=== PATIENT | male | born 1945 | race Caucasian/White ===

== ENCOUNTER 2019-08-12 10:58 | Emergency (ER) | payer MEDICARE, BC, SELFPAY ==
--- NOTE | ~2019-08-12 | US_ITS ---
EXAMINATION: US venous doppler [facility] DATE: 08/12/2019 11:49 INDICATION: Bilateral lower limb swelling TECHNIQUE: Paul scale images without and with compression and Doppler images of the bilateral lower e xtremity veins were obtained. COMPARISON: 10/08/2014. FINDINGS: The right common femoral vein, profunda femoral vein, femoral vein, popliteal vein, peroneal trunk, p osterior tibial veins, and greater saphenous vein are patent. The left common femoral vein, profunda femoral vein, femoral vein, popliteal vein, peroneal trunk, po sterior tibial veins, and greater saphenous vein are patent. IMPRESSION: 1. Patent bilateral lower extremity veins. No evidence of deep venous thrombosis. Reviewed, dictated and finalized at location A. OYMENT OFFICER IMPRESSION: 1. Patent bilateral lower extremity veins. No evidence of deep venous thrombosi s.
--- NOTE | ~2019-08-12 | XR_ITS ---
EXAMINATION: XR chest 2V DATE: 08/12/2019 11:53 INDICATION: Edema and confusion TECHNIQUE: Frontal and lateral views of the chest are obtained COMPARISON: 06/18/2019 FINDINGS: The lungs are free of acute opacities. There is no pleural effusion or pneumothorax. The ca rdiomediastinal silhouette is normal. There is chronic elevation of the left hemidiaphragm. Changes o f posterior thoracolumbar fusion are noted. IMPRESSION: 1. No acute cardiopulmonary abnormality. Reviewed, dictated and finalized at location A. NG FINISHER
[2019-08-12 10:57] VITALS: BP 132/99; PULSE 72; RESP 16; TEMP 36.4; O2SAT 98
--- NOTE | 2019-08-12 11:06 | ED.LOWEXIN ---
HPI - Extremity Injury (Lower) General Chief Complaint: Extremity Injury, Lower Stated Complaint: swollen feet/ankles Time Seen by Provider: 08/12/19 10:59 Source: patient, family and RN notes reviewed Mode of arrival: EMS History of Present Illness HPI Narrative: A 74 y/o male presents to the ED via EMS from assisted living facility [facility] pedal edema for the past couple days. Per family states that the pt had his 10th back surgery in April, he was then admitted at [facility] for a staph infection on 05/28/19 and had to be reopened, then was moved into rehab, and was moved into assisted living on 07/31/19. They report that the first weekend that the pt was in assisted living that they had his Parkinson's medications incorrect, but that they have since corrected them. They state that for the past couple days the pt has been having visual hallucinations, which was similar to how he was before he was dx with staph. They note that the pt has been not being drinking much fluids and has had minimal urine out put. They also note that the pt is on abx for life and is not on any BT's besides a baby aspirin. The pt denies any SOB, cough, N/V/D, ABD pain, fevers, chills, sweats, or CP. MD complaint: other ([facility] pedal edema) Onset (ago): day(s) (a couple) Place: other (assisted living facility) Other symptoms: other (visual hallucinations and minimal urine out put) Related Data Home Medications Medication Instructions Recorded Confirmed Centrum Silver 1 tablet PO DAILY 06/18/19 06/18/19 Refresh Classic (PF) 1 drp OPHTHALMIC (EYE) QID 06/18/19 06/18/19 acetaminophen 650 mg PO Q4-6H PRN 06/18/19 06/18/19 albuterol sulfate 2.5 mg INHALATION Q4H PRN 06/18/19 06/18/19 bisacodyl 10 mg ND DAILY PRN 06/18/19 06/18/19 docusate sodium 100 mg PO BID PRN 06/18/19 06/18/19 enoxaparin 30 mg SUBCUT DAILY 06/18/19 06/18/19 entacapone 200 mg PO QID 06/18/19 06/18/19 guaifenesin 600 mg PO Q12H 06/18/19 06/18/19 lactulose 20 g PO EVERY OTHER DAY 06/18/19 06/18/19 magnesium oxide 400 mg PO DAILY 06/18/19 06/18/19 ondansetron 4 mg PO Q6H PRN 06/18/19 06/18/19 pantoprazole 40 mg PO BID 06/18/19 06/18/19 polyethylene glycol 3350 17 g PO EVERY OTHER DAY 06/18/19 06/18/19 ramelteon 8 mg PO HS 06/18/19 06/18/19 ropinirole 4 mg PO QID 06/18/19 06/18/19 sennosides [senna] 8.6 mg PO BID PRN 06/18/19 06/18/19 tamsulosin 0.4 mg PO DAILY 06/18/19 06/18/19 Allergies Allergy/AdvReac Type Severity Reaction Status Date / Time adhesive Allergy Unknown Verified 11/15/16 09:31 latex Allergy Unknown Verified 11/15/16 09:31 No Known Drug Allergies Allergy Unknown . Verified 05/31/19 13:45 adhesive tape AdvReac Unknown BLISTERS Verified 05/31/19 13:45 gabapentin AdvReac Unknown HALLUCINATI Verified 05/31/19 13:45 ONS Review of Systems Review of Systems: All systems reviewed & are unremarkable except as noted in HPI and below Constitutional: Constitutional: Denies chills and Denies fever(s) Cardiovascular: Cardiovascular: Denies chest pain, Denies diaphoresis and Reports pedal edema ([facility]) Respiratory: Respiratory: Denies cough and Denies dyspnea Gastrointestinal: Gastrointestinal: Denies abdominal pain, Denies diarrhea, Denies nausea and Denies vomiting Genitourinary: Genitourinary: Reports other (minimal urine out put) Psychiatric: Psychiatric: Reports visual hallucinations PMFSH Past Medical History Medical History (Updated 08/12/19 @ 13:31 by Boston Gibson MD) Anxiety Arthritis At high risk for falls after spinal surgery Complication of surgical and medical care GERD (gastroesophageal reflux disease) Glaucoma H/O: HTN (hypertension) History of inguinal hernia History of pneumonia Hx of hemorrhoids Hx of Parkinson's disease Parkinsons disease Rupture of diaphragm Surgical History Surgical History (Updated 08/12/19 @ 12:16 by Carlos Greenberg) History of cholecystectomy History of hemorrhoidectomy History of inguinal hernia repair History of left hip replacem
[2019-08-12 12:25] LABS: Hematocrit 33.3 % (42.0-52.0); Hemoglobin 9.7 g/dL (14.0-18.0); Mean Corpuscular HGB Conc 29.1 g/dl (32-36); Mean Corpuscular Hemoglobin 23.4 pg (26-34); Mean Corpuscular Volume 80.2 fl (80-100); Mean Platelet Volume 8.6 fl (7.4-10.4); Platelet Count Result 317 k/mm3 (150-375); Red Blood Count 4.15 M/mm3 (4.6-6.20); Red Cell Distribution Width 17.1 % (11.5-14.5)
[2019-08-12 12:28] LABS: Add Urine Microscopic? YES; Appearance Urine Clear (Clear); Bilirubin Urine Negative (Negative); Blood Urine Negative (Negative); Color Urine Amber (Yellow); Glucose Urine UA Negative (Negative); Ketones Urine Trace mg/dL (Negative); Leukocyte Esterase Ur Negative LEU/UL (Negative); Mucus Urine Rare /lpf; Nitrate Urine Negative (Negative); Protein Urine Negative (Negative); RBC Urine 0-2 /hpf (0-2); Urobilinogen Urine Negative mg/dL (<2.0); WBC Urine 0-3 /hpf
[2019-08-12 12:36] LABS: Blood Urea Nitrogen 14 mg/dL (9-20); Calcium 8.6 mg/dL (8.4-10.2); Carbon Dioxide 31 mmol/L (22-30); Chloride 101 mmol/L (98-107); Estimated CRCL calculation 67 ml/min; Estimated Glomerular Filt Rate > 60; Glucose 99 mg/dL (75-110); INR 1.1; Potassium 3.7 mmol/L (3.4-5.0); Prothrombin Time 13.4 Seconds (11.1-14.7); Sodium 139 mmol/L (137-145)
[2019-08-12 12:37] LABS: Partial Thromboplastin Time 31.5 SECONDS (22.3-36.8)
[2019-08-12 12:40] VITALS: BP 128/69; PULSE 67; RESP 15; O2SAT 97
[2019-08-12 12:40] LABS: Platelet Estimate Adequate (Adequate)
[2019-08-12 12:41] LABS: Hypochromasia 1+ (NORMAL)
[2019-08-12 12:45] LABS: NT Pro B Type Natriuretic Pept 153 PG/ML (5-100)
== END 2019-08-12 13:58 ==
PROVIDERS: Emergency Provider Emergency Medicine; PCP Family Medicine
DX: R60.0 Localized edema (principal); I10 Essential (primary) hypertension; G20 Parkinson's disease; F41.9 Anxiety disorder, unspecified; Z79.899 Other long term (current) drug therapy
CPT/HCPCS: 36415; 71046; 80048; 81001; 83880; 85025; 85610; 85730; 93970; 99284

== ENCOUNTER 2019-11-08 01:00 | Emergency (ER) | payer MEDICARE, BC, SELFPAY ==
--- NOTE | ~2019-11-08 | XR_ITS ---
XR chest 2V DATE: 11/08/2019 02:06 INDICATION: Fever, sore throat TECHNIQUE: AP and lateral views COMPARISON: 08/22/2019 portable AP chest 08/22/2019 CT chest 09/09/2018 AP and lateral chest FINDINGS: There is chronic elevation of the left leaf of the diaphragm with associated atelectasis at the left lung base. The lungs otherwise appear clear. Heart size appears within normal limits. No pleural effusion or pulmonary vascular congestion or pneu mothorax. Thoracolumbar rods with pedicle screws. Interbody fusion in the lumbar spine region. IMPRESSION: Chronic elevation of left diaphragm and mild left basilar atelectasis Reviewed, dictated and finalized at location A. IMPRESSION: Chronic elevation of left diaphragm and mild left basilar atelectas is
[2019-11-08 01:03] VITALS: BP 136/65; PULSE 70; RESP 18; TEMP 36.7; O2SAT 96
--- NOTE | 2019-11-08 01:06 | ED.URI ---
HPI - URI/Sore Throat General Chief Complaint: Upper Respiratory Infection Stated Complaint: s/t Time Seen by Provider: 11/08/19 01:24 Source: patient and RN notes reviewed Mode of arrival: EMS Limitations: no limitations History of Present Illness HPI Narrative: Pt is a 74 y/o male who presents to the ED, via EMS from [facility], with c/o a mild intermittent sore throat with an unknown onset. Pt states that he can hear himself gurgling fluids. Pt is able to tolerate water and fluids. Pt also reports a cough, but denies dysphagia, otalgia, myalgias, chest pain, dyspnea, and a rash. MD elicited complaint: sore throat Onset (ago): unknown Consistency: intermittent Severity: mild Able to tolerate fluids by mouth: Yes Associated symptoms: cough Related Data Home Medications Medication Instructions Recorded Confirmed Centrum Silver 1 tablet PO DAILY 06/18/19 06/18/19 Refresh Classic (PF) 1 drp OPHTHALMIC (EYE) QID 06/18/19 06/18/19 acetaminophen 650 mg PO Q4-6H PRN 06/18/19 06/18/19 albuterol sulfate 2.5 mg INHALATION Q4H PRN 06/18/19 06/18/19 bisacodyl 10 mg ID DAILY PRN 06/18/19 06/18/19 docusate sodium 100 mg PO BID PRN 06/18/19 06/18/19 enoxaparin 30 mg SUBCUT DAILY 06/18/19 06/18/19 entacapone 200 mg PO QID 06/18/19 06/18/19 guaifenesin 600 mg PO Q12H 06/18/19 06/18/19 lactulose 20 g PO EVERY OTHER DAY 06/18/19 06/18/19 magnesium oxide 400 mg PO DAILY 06/18/19 06/18/19 ondansetron 4 mg PO Q6H PRN 06/18/19 06/18/19 pantoprazole 40 mg PO BID 06/18/19 06/18/19 polyethylene glycol 3350 17 g PO EVERY OTHER DAY 06/18/19 06/18/19 ramelteon 8 mg PO HS 06/18/19 06/18/19 ropinirole 4 mg PO QID 06/18/19 06/18/19 sennosides [senna] 8.6 mg PO BID PRN 06/18/19 06/18/19 Allergies Allergy/AdvReac Type Severity Reaction Status Date / Time adhesive Allergy Unknown Unknown Verified 08/22/19 13:59 latex Allergy Unknown Unknown Verified 08/22/19 13:59 gabapentin AdvReac Unknown HALLUCINATI Verified 05/31/19 13:45 ONS Review of Systems Review of Systems: Narrative: ENT: Reports sore throat. Denies dysphagia and otalgia. CARDIOVASCULAR: Denies chest pain. RESPIRATORY: Reports cough. Denies dyspnea. SKIN: Denies rash. MUSCULOSKELETAL: Denies myalgias. All systems reviewed & are unremarkable except as noted in HPI and below PMFSH Past Medical History Medical History (Updated 11/08/19 @ 02:14 by Laurence Dunn MD) Anxiety Arthritis At high risk for falls after spinal surgery Chronic back pain Complication of surgical and medical care GERD (gastroesophageal reflux disease) Glaucoma H/O: HTN (hypertension) History of inguinal hernia History of pneumonia Hx of hemorrhoids Hx of Parkinson's disease Infection of spine Parkinsons disease Rupture of diaphragm Surgical History Surgical History (Updated 08/12/19 @ 12:16 by Carlos Greenberg) History of cholecystectomy History of hemorrhoidectomy History of inguinal hernia repair History of left hip replacement History of spinal surgery x10. History of thyroidectomy Social History Social History Smoking status: Never smoker Second hand tobacco smoke exposure: No Alcohol intake: never Substance use: never Substance use type: does not use Gender identity (if verbalized by the patient): Male Spiritual care concerns: No Agree to blood products: Yes Exam Narrative: Exam Narrative: CONSTITUTIONAL: Awake, alert, conversant HEAD: Normocephalic, atraumatic. EYES: EOMI, conjunctiva clear ENT: Nares patent. Mucous membranes moist. Tonsils normal and pillar normal, no exudate. No trismus. No evidence of LADDERMAN. Uvula is midline. NECK: Full range of motion. Mild anterior cervical lymphadenopathy RESPIRATORY: No respiratory distress, speaking in full sentences, no tachypnea, upper airway rhonchi without wheezing HEART: Regular rate ABDOMEN: Non distended, non tender EXTREMITIES: Normal range of motion. No edema SKIN: Warm, dry, no rash. NEUROLOGIC: No focal deficits.
[2019-11-08 02:44] VITALS: BP 123/67; PULSE 64; RESP 13; O2SAT 96
--- NOTE | 2019-11-08 03:03 | PC.NURSE ---
ETA for ambulance 5am, for patient return to [facility].
--- NOTE | 2019-11-08 03:29 | PC.NURSE ---
[id number]: Called [facility] to transport back to facility...ETA [id number]
--- NOTE | 2019-11-08 04:33 | PC.NURSE ---
EMS here to transfer patient back to [facility].
--- NOTE | 2019-11-08 04:34 | PC.NURSE ---
Patient report given to Gladys MELO at [facility].
== END 2019-11-08 04:37 ==
PROVIDERS: Emergency Provider Emergency Medicine; PCP Family Medicine
DX: J40 Bronchitis, not specified as acute or chronic (principal); J02.9 Acute pharyngitis, unspecified; M19.90 Unspecified osteoarthritis, unspecified site; K21.9 Gastro-esophageal reflux disease without esophagitis; H40.9 Unspecified glaucoma; G20 Parkinson's disease; Z96.642 Presence of left artificial hip joint; E89.0 Postprocedural hypothyroidism
CPT/HCPCS: 71046; 87081; 87804; 87880; 99283

== ENCOUNTER 2020-09-02 02:55 | Emergency (ER) | payer MEDICARE, BC, SELFPAY ==
[2020-09-02] VITALS (19 sets, daily range): BP systolic 128–161; BP diastolic 64–87; PULSE 62–69; RESP 12–21; TEMP 36.3; O2SAT 96–100
--- NOTE | ~2020-09-02 | XR_ITS ---
EXAMINATION: XR chest 1V portable EXAM DATE: 09/02/2020 03:44 INDICATION: Cough and shortness of breath. TECHNIQUE: Portable AP frontal chest x-ray was obtained. Comparison is made to prior examination from 11/08/2019. FINDINGS: Chronic severely elevated left hemidiaphragm which could indicate paralysis. Mild cardiomeg scooby. Chronic hyperinflation of the right lung. There is no pneumothorax suspected. There are no pleur al effusions. Thoracic rods. IMPRESSION: Cardiomegaly unchanged. No acute cardiopulmonary findings. Reviewed, dictated and finalized at location A. GUARD
--- NOTE | 2020-09-02 03:44 | PC.NURSE ---
Portable cxr being done.
--- NOTE | 2020-09-02 04:05 | ED.GENADULT ---
HPI - General Adult General Chief complaint: Unspecified Stated complaint: CONGESTION; DIFF BREATHING Time Seen by Provider: 09/02/20 03:15 History of Present Illness HPI narrative: Patient is a 75-year-old gentleman who presents the emergency department with chief complaint of shortness of breath. Patient reports that he received his second COVID-19 vaccine today and was sleeping and woke up and felt congested. The patient states he started coughing and was concerned that he was having a reaction to the COVID-19 vaccination. Patient states that by the time he is arrived to the emergency department he feels as though his symptoms have improved and have resolved. Patient denies chest pain denies diaphoresis Related Data Home Medications Medication Instructions Recorded Confirmed Centrum Silver 1 tablet PO DAILY 06/18/19 06/18/19 Refresh Classic (PF) 1 drp OPHTHALMIC (EYE) QID 06/18/19 06/18/19 acetaminophen 650 mg PO Q4-6H PRN 06/18/19 06/18/19 albuterol sulfate 2.5 mg INHALATION Q4H PRN 06/18/19 06/18/19 bisacodyl 10 mg MN DAILY PRN 06/18/19 06/18/19 docusate sodium 100 mg PO BID PRN 06/18/19 06/18/19 enoxaparin 30 mg SUBCUT DAILY 06/18/19 06/18/19 entacapone 200 mg PO QID 06/18/19 06/18/19 guaifenesin 600 mg PO Q12H 06/18/19 06/18/19 lactulose 20 g PO EVERY OTHER DAY 06/18/19 06/18/19 magnesium oxide 400 mg PO DAILY 06/18/19 06/18/19 ondansetron 4 mg PO Q6H PRN 06/18/19 06/18/19 pantoprazole 40 mg PO BID 06/18/19 06/18/19 polyethylene glycol 3350 17 g PO EVERY OTHER DAY 06/18/19 06/18/19 ramelteon 8 mg PO HS 06/18/19 06/18/19 ropinirole 4 mg PO QID 06/18/19 06/18/19 sennosides [senna] 8.6 mg PO BID PRN 06/18/19 06/18/19 Artificial Tears 09/02/20 Robaxin-750 09/02/20 Jkpqxzrluc-Pajdo-Paoby-Alex PRN 09/02/20 09/02/20 doxycycline hyclate 09/02/20 09/02/20 duloxetine 09/02/20 melatonin 09/02/20 09/02/20 nortriptyline 09/02/20 nystatin 09/02/20 quetiapine 09/02/20 Allergies Allergy/AdvReac Type Severity Reaction Status Date / Time adhesive Allergy Unknown Unknown Verified 12/12/19 08:02 latex Allergy Unknown Unknown Verified 12/12/19 08:02 shrimp Allergy Unknown Verified 09/02/20 03:06 gabapentin AdvReac Unknown HALLUCINATI Verified 12/12/19 08:02 ONS Review of Systems Review of Systems: Narrative: A 10 system review of systems was completed on the patient and is negative except for what is stated in the HPI. Nursing and ancillary documentation was reviewed. PMFSH Past Medical History Medical History Anemia Anxiety Arthritis At high risk for falls after spinal surgery Chronic back pain CKD (chronic kidney disease) stage 3, GFR 30-59 ml/min Complication of surgical and medical care Essential (primary) hypertension GERD (gastroesophageal reflux disease) Glaucoma H/O: HTN (hypertension) History of inguinal hernia History of pneumonia Hx of hemorrhoids Hx of Parkinson's disease Hyperlipidemia LDL goal <100 Infection of spine Parkinsons disease Rupture of diaphragm Surgical History Surgical History History of cholecystectomy History of hemorrhoidectomy History of inguinal hernia repair History of left hip replacement History of spinal surgery x10. History of thyroidectomy Family History Family History Father Family history of Parkinson's disease Family history of colonic diverticulitis Hypertension Family history of cardiovascular disease Mother Family history of Alzheimer's disease Sibling Family history of malignant neoplasm of breast in first degree relative Diabetes mellitus Hypertension Other Family history of arthritis Family history of malignant neoplasm Social History Social History Smoking status: Never smoker Seco
--- NOTE | 2020-09-02 04:15 | PC.NURSE ---
Pt status unchanged. No respiratory difficulties. Awaiting disposition.
--- NOTE | 2020-09-02 04:41 | PC.NURSE ---
Report called to [facility]. Pt states he walks, staff at [facility] states that he tries to do things he shouldn't. He walks very, very slowly due to his parkinsons .
--- NOTE | 2020-09-02 04:49 | PC.NURSE ---
Call to pt's daughter Cristina Rice @ [phone]. States will make arrangements and return call.
--- NOTE | 2020-09-02 05:02 | PC.NURSE ---
Received call from Rox at [facility], states that the family called her and were just hateful to me that I sent him to the hospital with no clothes; they are mad also that he was sent by an ambulance and is unable to go back in one . Requests that this RN call and speak to the family. Call to Cristina Rice and male at the home. Explained that it is completely normal for patients to arrive in hospital gowns if the staff feel like it's an emergency to have them seen. Also explained that we have paper pants and socks that we can place on the patient; he also can use blankets to get him back to [facility]. The family is also welcome to bring clothes that we can place on him if they so wish. Male at the home is also asking why the patient cannot go back by ambulance. Explained the PCS form for ambulance transport provided by the Department of Human Services, and that the patient does not meet criteria for an ambulance. The male at the home states we'll work something out; we'll go get his clothes but it's going to be a while . Explained that the patient is comfortable in the room at present and to let staff know when they arrive.
--- NOTE | 2020-09-02 05:18 | PC.NURSE ---
Pt signs d/c instructions and updated on ride. Pt requests pain medicaton for his chronic hip pain. Pt changed positions for comfort with some relief. Dr. Steward made aware of pt request.
[2020-09-02] MEDS: ACETAMINOPHEN 500 MG TABLET 1000 MG PO (05:47)
--- NOTE | 2020-09-02 06:14 | PC.NURSE ---
Pt assisted with getting dressed with clothes provided per family. Pt assisted to w/c x2 and then to car. D/C papers sent with patient.
== END 2020-09-02 06:10 ==
PROVIDERS: Emergency Provider Emergency Medicine; PCP Family Medicine
DX: R06.00 Dyspnea, unspecified (principal); Z86.2 Personal history of diseases of the blood and blood-forming organs and certain disorders involving the immune mechanism; M19.90 Unspecified osteoarthritis, unspecified site; I12.9 Hypertensive chronic kidney disease with stage 1 through stage 4 chronic kidney disease, or unspecified chronic kidney disease; N18.30 Chronic kidney disease, stage 3 unspecified; K21.9 Gastro-esophageal reflux disease without esophagitis; H40.9 Unspecified glaucoma; G20 Parkinson's disease; E78.5 Hyperlipidemia, unspecified; Z96.642 Presence of left artificial hip joint; E89.0 Postprocedural hypothyroidism
CPT/HCPCS: 71045; 99283; A9270

== ENCOUNTER 2022-11-17 20:17 | Emergency (ER) | payer MEDICARE, BC, SELFPAY ==
--- NOTE | ~2022-11-17 | CT_ITS ---
EXAMINATION: CT cervical spine wo con DATE: 11/17/2022 22:27 INDICATION: Head injury TECHNIQUE: Computed tomography (CT) of the cervical spine was performed without intravenous contrast. The dose-length product (DLP) was 561.30 mGy-cm. Automated exposure control and iterative reconstruc tion technique were employed. COMPARISON: 08/22/2019 FINDINGS: There are interbody fusion devices at C3-4 and C5-6. The vertebral body heights are maintai shayy. There are 2 mm of anterolisthesis of C7 on T1. The vertebral body heights are normal. There is m oderate to severe loss of intervertebral disc space height throughout the cervical spine. The odontoi d process is intact. There is no fracture. There is multilevel severe facet and uncovertebral joint o steoarthritis. There is partially imaged posterior fusion hardware of the thoracic spine. There is se aliya loss of intervertebral disc space height at T2-3. IMPRESSION: 1. Severe cervical spondylosis without acute findings or significant interval change. Reviewed, dictated and finalized at location F. IMPRESSION: 1. Severe cervical spondylosis without acute findings or significant interval c love.
--- NOTE | ~2022-11-17 | CT_ITS ---
EXAMINATION: CT brain wo con INDICATION: Head injury COMPARISON: 08/22/2019 TECHNIQUE: Standard unenhanced head CT. The dose-length product (DLP) was 681.00 mGy-cm. The mA was a djusted according to patient size. Iterative reconstruction technique was employed. FINDINGS: There is no acute intraparenchymal hemorrhage. No evidence of mass lesion. No evidence of a cute infarction. There is mild periventricular and subcortical hypodensity probably related to small vessel ischemic disease. There is mild prominence of the sulci and ventricles related to cerebral atr ophy. Intracranial calcified cerebral atherosclerosis is noted. There are no extra-axial collections. There is no mass effect or midline shift. Changes in the globes are likely from ocular lens surgery. There is mild mucosal thickening of the paranasal sinuses. IMPRESSION: 1. No acute intracranial abnormality. 2. Age related findings. Reviewed, dictated and finalized at location F.
[2022-11-17 20:19] VITALS: BP 152/62; PULSE 74; RESP 17; TEMP 36.4; O2SAT 100
--- NOTE | 2022-11-17 21:48 | ED.FALL ---
HPI - Fall General Chief Complaint: Fall Stated Complaint: FALL; HEAD PAIN; LAC TO HEAD Time Seen by Provider: 11/17/22 21:04 History of Present Illness HPI Narrative: This is a 77-year-old male with PMH of Parkinson's, hypertension, CKD presents the ED via EMS with chief complaint of head injury and laceration after a fall. Patient states he was attempting to transfer from his chair to bed and slipped out of the chair and hit his head. He is able to recall the entirety of the sequence of events. Denies LOC. He is not on blood thinners. Reports pain to the right occiput. Denies numbness, weakness. Denies other neurologic symptoms. Denies any further site of pain or injury. Past surgical history of multiple spinal surgeries. Related Data Home Medications Medication Instructions Recorded Confirmed entacapone 200 mg tablet 200 mg PO QID 06/18/19 06/27/21 guaifenesin 600 mg tablet, 600 mg PO Q12H 06/18/19 06/27/21 extended release 12 hr lactulose 20 gram/30 mL oral 20 g PO EVERY OTHER DAY 06/18/19 06/27/21 solution magnesium oxide 400 mg PO DAILY 06/18/19 06/27/21 nacrapjl-kwh-casdv acid 0.4 1 tablet PO DAILY 06/18/19 06/27/21 mg-lycopene 300 mcg-lutein 250 mcg tablet (Centrum Silver) polyethylene glycol 3350 17 gram 17 g PO EVERY OTHER DAY 06/18/19 06/27/21 oral powder packet polyvinyl alcohol-povidone (PF) 1 drp ophthalmic (eye) QID 06/18/19 06/27/21 1.4 %-0.6 % eye drops in a dropperette (Refresh Classic (PF)) sennosides 8.6 mg tablet (senna) 8.6 mg PO BID PRN Constipation 06/18/19 06/27/21 Dnziseufcp-Pfopt-Hgkiq-Alex PRN Cold Symptoms 09/02/20 06/27/21 acetaminophen 325 mg tablet 650 mg PO Q4H PRN Pain 06/27/21 06/27/21 albuterol sulfate 90 mcg/actuation 1 puff inhalation Q4H PRN 06/27/21 06/27/21 aerosol inhaler doxycycline hyclate 100 mg capsule PO BID 06/27/21 06/27/21 duloxetine 30 mg capsule,delayed 30 mg PO DAILY 06/27/21 06/27/21 release ketoconazole 2 % topical cream 1 applic topical DAILY 06/27/21 06/27/21 melatonin 5 mg capsule mg PO QHS 06/27/21 06/27/21 memantine 10 mg tablet 10 mg PO BID 06/27/21 06/27/21 methocarbamol 750 mg tablet 750 mg PO QID 06/27/21 06/27/21 nortriptyline 50 mg capsule PO QHS 06/27/21 06/27/21 nystatin 100,000 unit/gram topical 1 applic topical BID PRN 06/27/21 06/27/21 powder pantoprazole 40 mg tablet,delayed 40 mg PO QAM 06/27/21 06/27/21 release quetiapine 50 mg tablet (Seroquel) 50 mg PO QHS 06/27/21 06/27/21 ropinirole 4 mg tablet 4 mg PO TID 06/27/21 06/27/21 Allergies Allergy/AdvReac Type Severity Reaction Status Date / Time adhesive Allergy Unknown Unknown Verified 06/27/21 13:23 latex Allergy Unknown Unknown Verified 06/27/21 13:23 shrimp Allergy Unknown Verified 06/27/21 13:23 gabapentin AdvReac Unknown HALLUCINATI Verified 06/27/21 13:23 ONS Review of Systems Review of Systems: CONSTITUTIONAL: Denies fever, chills, or sweats. EYES: Denies visual changes, redness, or discharge. ENT: Denies rhinorrhea, congestion, sore throat, or otalgia. CARDIOVASCULAR: Denies chest pain, palpitations, or edema. RESPIRATORY: Denies cough or dyspnea. GASTROINTESTINAL: Denies abdominal pain, nausea, vomiting, or diarrhea. GENITOURINARY: Denies dysuria or hematuria. SKIN: Denies rash or itching. MUSCULOSKELETAL: See HPI NEUROLOGIC: Denies headache, numbness, dizziness, or weakness. Denies LOC. PSYCHIATRIC: Denies anxiety or depression. [facility] Past Medical History Medical History Anemia Anxiety Arthritis At high risk for falls after spinal surgery Chronic back pain CKD (chronic kidney disease) stage 3, GFR 30-59 ml/min Complication of surgical and medical care Essential (primary) hypertension GERD (gastroesophageal reflux disease) Glaucoma H/O: HTN (hypertension) History of inguinal hernia History of pneumonia Hx of hemorrhoids Hx of Parkinson's disease Hyperlipidemia LDL goal <100 Infection of spi
[2022-11-17] MEDS: HYDROcodone/acetaminophen (*CRX) 7.5-325 MG TABLET 1 TAB PO (22:37)
[2022-11-17] MEDS: LIDOCAINE, EPINEPHRINE, TETRACAINE VISCOUS SOLN 3 ML TOPICAL (23:16)
[2022-11-17 23:53] VITALS: BP 142/76; PULSE 66; RESP 16; O2SAT 98
[2022-11-18 02:24] VITALS: BP 140/88; PULSE 74; RESP 14; O2SAT 99
== END 2022-11-18 02:26 ==
PROVIDERS: Emergency Provider Physician Assistant; PCP Family Medicine
DX: S01.01XA Laceration without foreign body of scalp, initial encounter (principal); I12.9 Hypertensive chronic kidney disease with stage 1 through stage 4 chronic kidney disease, or unspecified chronic kidney disease; N18.30 Chronic kidney disease, stage 3 unspecified; H40.9 Unspecified glaucoma; G20 Parkinson's disease; E78.5 Hyperlipidemia, unspecified; M19.90 Unspecified osteoarthritis, unspecified site; K21.9 Gastro-esophageal reflux disease without esophagitis; F41.9 Anxiety disorder, unspecified; E89.0 Postprocedural hypothyroidism; Z96.642 Presence of left artificial hip joint; Z87.01 Personal history of pneumonia (recurrent); Z86.2 Personal history of diseases of the blood and blood-forming organs and certain disorders involving the immune mechanism; Z98.49 Cataract extraction status, unspecified eye; Z90.49 Acquired absence of other specified parts of digestive tract; M47.812 Spondylosis without myelopathy or radiculopathy, cervical region; W07.XXXA Fall from chair, initial encounter
CPT/HCPCS: 12001; 70450; 72125; 99284; A9270

== ENCOUNTER 2022-12-26 22:35 | Observation (INO) | payer MEDICARE, BC, SELFPAY ==
[2022-12-26] VITALS (9 sets, daily range): BP systolic 117–138; BP diastolic 57–64; PULSE 77; RESP 21–26; TEMP 37.4; O2SAT 88–94
--- NOTE | ~2022-12-26 | XR_ITS ---
EXAMINATION: XR chest 1V portable Exam Date/Time: 12/26/2022 22:45 CDT HISTORY: dyspnea Comparison: 08/25/2020. RESULT: Lines, tubes, and devices: Thoracic fusion rods. Surgical clips over the GE junction. Possible brittany cystectomy clips. Lungs and pleura: Chronic left hemidiaphragm elevation, may reflect a diaphragmatic hernia or paraly sis. No focal consolidation, pneumothorax, or effusion. Minimal bibasilar atelectasis/scar. Cardiomediastinal silhouette: Stable. Other: No acute osseous or upper abdominal finding. IMPRESSION: No acute cardiopulmonary process. Reviewed, dictated and finalized at location K.
--- NOTE | ~2022-12-26 | CT_ITS ---
EXAMINATION: CTA chest PE protocol DATE: 12/27/2022 00:24 INDICATION: Dyspnea. TECHNIQUE: Computed tomography angiography (CTA) of the chest was performed with 100 mL Omnipaque-350 intravenous contrast timed to evaluate the pulmonary arteries. Coronal maximum intensity projection 3D-reconstructions were created by the technologist. Automated exposure control and iterative reconst ruction technique were employed. The dose-length product was 579.22 mGy-cm. COMPARISON: Chest CT 08/22/2019 FINDINGS: There is marked elevation of left hemidiaphragm. There is mild atelectasis bilaterally. The re is moderate atelectasis in left lower lobe. No pleural effusion. Cardiomegaly is noted. No pericar dial effusion. There is no pulmonary embolus. The central pulmonary arteries are enlarged, consistent with pulmonary arterial hypertension. There is severe cervical and thoracic spondylosis. There are c hanges of posterior fusion procedure from T3 to the lumbar spine. There are lucencies around the T3 s crew, consistent with loosening. IMPRESSION: 1. No pulmonary embolus. 2. Chronic marked elevation of left hemidiaphragm. Reviewed, dictated and finalized at location A.
--- NOTE | 2022-12-26 22:42 | ECG_ITS ---
Measurements Intervals [place] Rate: 77 P: 40 MA: 201 QRS: 12 QRSD: 123 T: 116 QT: 370 QTc: 420 Interpretive Statements SINUS RHYTHM LEFT VENTRICULAR HYPERTROPHY AND ST-T CHANGE CONSIDER INFERIOR INFARCT, AGE INDETERMINATE ABNORMAL ECG COMPARED TO ECG 08/22/2019 12:23:20 NO SIGNIFICANT CHANGES Electronically Signed On 12-27-2022 11:04:02 CDT by Minh Maynard D.O.
--- NOTE | 2022-12-26 22:43 | ED.SOB ---
HPI - SOB/Dyspnea General Chief Complaint: Shortness of Breath/Dyspnea Stated Complaint: sob Time Seen by Provider: 12/26/22 22:36 Source: patient and EMS Mode of arrival: EMS Limitations: clinical condition History of Present Illness HPI Narrative: Patient is a 77-year-old male with a history of Parkinson's dementia, hypertension, chronic kidney disease, presenting to the emergency department for evaluation of shortness of breath. Patient was noted at facility tonight to have labored breathing, hypoxic on room air down to 84%. Patient was placed on oxygen via nasal cannula, EMS was contacted, and due to severe hypoxia despite nasal cannula oxygenation, patient was placed on nonrebreather and transported to our facility. Patient is alert and oriented to person, place, not to time, mentating at baseline, can identify the year. He reports cough, shortness of breath but denies any chest pain, abdominal pain. Denies nausea or vomiting. Sick contacts at the care facility, some with COVID per staff report. Patient mentating well, awake, alert. History limited secondary to dementia. Related Data Home Medications Medication Instructions Recorded Confirmed entacapone 200 mg tablet 200 mg PO QID 06/18/19 06/27/21 guaifenesin 600 mg tablet, 600 mg PO Q12H 06/18/19 06/27/21 extended release 12 hr lactulose 20 gram/30 mL oral 20 g PO EVERY OTHER DAY 06/18/19 06/27/21 solution magnesium oxide 400 mg PO DAILY 06/18/19 06/27/21 kzaxsztg-sws-wuebk acid 0.4 1 tablet PO DAILY 06/18/19 06/27/21 mg-lycopene 300 mcg-lutein 250 mcg tablet (Centrum Silver) polyethylene glycol 3350 17 gram 17 g PO EVERY OTHER DAY 06/18/19 06/27/21 oral powder packet polyvinyl alcohol-povidone (PF) 1 drp ophthalmic (eye) QID 06/18/19 06/27/21 1.4 %-0.6 % eye drops in a dropperette (Refresh Classic (PF)) sennosides 8.6 mg tablet (senna) 8.6 mg PO BID PRN Constipation 06/18/19 06/27/21 Oucnxsgseg-Ubiea-Nquqc-Alex PRN Cold Symptoms 09/02/20 06/27/21 acetaminophen 325 mg tablet 650 mg PO Q4H PRN Pain 06/27/21 06/27/21 albuterol sulfate 90 mcg/actuation 1 puff inhalation Q4H PRN 06/27/21 06/27/21 aerosol inhaler doxycycline hyclate 100 mg capsule PO BID 06/27/21 06/27/21 duloxetine 30 mg capsule,delayed 30 mg PO DAILY 06/27/21 06/27/21 release ketoconazole 2 % topical cream 1 applic topical DAILY 06/27/21 06/27/21 melatonin 5 mg capsule mg PO QHS 06/27/21 06/27/21 memantine 10 mg tablet 10 mg PO BID 06/27/21 06/27/21 methocarbamol 750 mg tablet 750 mg PO QID 06/27/21 06/27/21 nortriptyline 50 mg capsule PO QHS 06/27/21 06/27/21 nystatin 100,000 unit/gram topical 1 applic topical BID PRN 06/27/21 06/27/21 powder pantoprazole 40 mg tablet,delayed 40 mg PO QAM 06/27/21 06/27/21 release quetiapine 50 mg tablet (Seroquel) 50 mg PO QHS 06/27/21 06/27/21 ropinirole 4 mg tablet 4 mg PO TID 06/27/21 06/27/21 Allergies Allergy/AdvReac Type Severity Reaction Status Date / Time adhesive Allergy Unknown Unknown Verified 06/27/21 13:23 latex Allergy Unknown Unknown Verified 06/27/21 13:23 shrimp Allergy Unknown Verified 06/27/21 13:23 gabapentin AdvReac Unknown HALLUCINATI Verified 06/27/21 13:23 ONS Review of Systems Review of Systems: ROS unobtainable: Yes unobtainable due to mental status [facility] Past Medical History Medical History Anemia Anxiety Arthritis At high risk for falls after spinal surgery Chronic back pain CKD (chronic kidney disease) stage 3, GFR 30-59 ml/min Complication of surgical and medical care Essential (primary) hypertension GERD (gastroesophageal reflux disease) Glaucoma H/O: HTN (hypertension) History of inguinal hernia History of pneumonia Hx of hemorrhoids Hx of Parkinson's disease Hyperlipidemia LDL goal <100 Infection of spine Parkinsons disease Rupture of diaphragm Surgical History Surgical History
[2022-12-26] MEDS: methylPREDNISolone SOD SUCC 125 MG VIAL IV PUSH (23:15)
[2022-12-26] MEDS: SODIUM CHLORIDE 0.9% IV 1,000 ML 999 ML IV CONT (23:15)
[2022-12-26 23:20] LABS: Basophils Percent Auto 0.2 % (0.2-1.2); Eosinophils Absolute Auto 0.1 K/mm3 (0-0.3); Eosinophils Percent Auto 0.4 % (0-4.4); Hematocrit 44.9 % (42.0-52.0); Hemoglobin 14.2 g/dL (14.0-18.0); Immature Granulocyte Absolute 0.07 K/mm3 (0.00-0.031); Immature Granulocyte Percent A 0.5 % (0-0.5); Lymphocytes Absolute Auto 1.15 K/mm3 (0.9-3.2); Lymphocytes Percent Auto 7.6 % (18.3-44.2); Mean Corpuscular HGB Conc 31.6 g/dl (32-36); Mean Corpuscular Hemoglobin 27.7 pg (26-34); Mean Corpuscular Volume 87.5 fl (80-100); Mean Platelet Volume 9.2 fl (7.4-10.4); Monocytes Absolute Auto 0.7 K/mm3 (0.1-0.6); Monocytes Percent Auto 4.3 % (2.6-8.5); Neutrophils Absolute Auto 13.1 K/mm3 (1.3-6.7); Platelet Count Result 263 k/mm3 (150-375); Red Blood Count 5.13 M/mm3 (4.6-6.20); Red Cell Distribution Width 15.9 % (11.5-14.5); White Blood Count 15.1 K/mm3 (4.5-10.0)
[2022-12-26 23:22] LABS: HCO3 ABG 29.1 mEq/l (22.0-26.0); PCO2 ABG 44.9 mmHg (35.0-45.0); PO2 ABG 55.1 mmHg (80.0-100.0); pH ABG 7.429 (7.350-7.450)
[2022-12-26 23:23] LABS: Oxygen Content ABG 18.4 %vol (16.0-22.0); Oxygen Saturation ABG 89.3 % (95.0-100.0)
[2022-12-26 23:24] LABS: Carboxyhemoglobin 1.6 % THb (0-2.0); Oxyhemoglobin 87.6 % THb (90.0-100.0)
[2022-12-26 23:25] LABS: Device ROOM AIR; Fractional Inspired Oxygen 21 %; Methemoglobin ABG 0.4 %THb (0-1.5); Modified Allen's Test Pass; Reduced Hemoglobin 10.4 %THb (0-5.0); Site Drawn RIGHT RADIAL
[2022-12-26 23:26] LABS: Alveolar/Arterial O2 Gradient 40.9 mmHg; PO2 FiO2 Ratio Arterial Blood 2.62 %
[2022-12-26 23:31] LABS: INR 1.1; Partial Thromboplastin Time 29.3 SECONDS (22.3-36.8); Prothrombin Time 14.9 Seconds (11.1-14.7)
[2022-12-26 23:32] LABS: Lactic Acid Reflex 0.7 mmol/L (0.7-2.0)
[2022-12-26 23:34] LABS: Alanine Aminotransferase 7 U/L (6-50); Albumin Level 3.9 g/dL (3.5-5.1); Alkaline Phosphatase 85 U/L (38-126); Anion Gap 4 mmol/L (8-16); Aspartate Amino Transferase 21 U/L (17-59); Bilirubin,Total 0.9 mg/dL (0.2-1.3); Blood Urea Nitrogen 16 mg/dL (9-20); CRP 4.7 mg/dL (<1.0); Calcium 8.1 mg/dL (8.4-10.2); Carbon Dioxide 31 mmol/L (22-30); Chloride 104 mmol/L (98-107); Estimated CRCL calculation 60 ml/min; Estimated Glomerular Filt Rate > 60; Glucose 116 mg/dL (65-110); Sodium 139 mmol/L (137-145)
[2022-12-26 23:43] LABS: NT Pro B Type Natriuretic Pept 69 pg/mL (19.9-100); Troponin I < 0.012 ng/mL (0.000-0.034)
[2022-12-26 23:56] LABS: Influenza A QL RT-PCR Negative (Negative); Influenza B QL RT-PCR Negative (Negative); RSV RNA, RT-PCR Negative (Negative); SARS-CoV-2 RNA PCR Negative (Negative)
[2022-12-27] VITALS (17 sets, daily range): BP systolic 126–137; BP diastolic 52–74; PULSE 67–82; RESP 14–20; TEMP 36.2–37.2; O2SAT 92–96; BMI 27.0
[2022-12-27] MEDS: CEFEPIME 2 GM/NS 50 ML 2 GM/50 ML BAG IVPB ×2 (00:28→09:37)
[2022-12-27 00:52] LABS: Appearance Urine Clear (Clear); Bilirubin Urine Negative (Negative); Blood Urine Negative (Negative); Color Urine Dark Yellow (Yellow); Glucose Urine UA Negative (Negative); Ketones Urine Trace mg/dL (Negative); Leukocyte Esterase Ur Negative LEU/UL (Negative); Nitrate Urine Negative (Negative); Protein Urine Negative (Negative); Specific Grav Ur 1.021 (1.001-1.035); Urobilinogen Urine 0.2 mg/dL (<2.0)
[2022-12-27 00:53] LABS: Add Urine Microscopic? NO
[2022-12-27] MEDS: VANCOMYCIN 1,000 MG/NS 250 ML 1,000 MG/250 ML BAG 250 MG IVPB (01:39)
[2022-12-27] MEDS: ALBUTEROL SULFATE NEB 2.5 MG/3 ML INH INHALATION ×3 (02:32→14:10)
[2022-12-27] MEDS: IPRATROPIUM BR 0.02% INH SOLN 0.5 MG/2.5 ML VIAL INHALATION ×3 (02:32→14:11)
[2022-12-27] MEDS: VANCOMYCIN 1,250 MG/NS 250 ML 1,250 MG/250 ML BAG 166.67 MG IVPB (02:47)
--- NOTE | 2022-12-27 03:05 | ADMGEN ---
This patient, Loco Martinez, was admitted to [facility] Surg Room 325-02. Patient/family oriented to hospital policies and general routines including ID bracelet, bed and alarms, visiting hours, pain management, procedures, bathroom and other care routines, personal items, smoking policy, room service/diet, and visiting hours. Information on how to activate the Rapid Response Team has been discussed. Patient/Family are encouraged to report perceived risks to care and to ask questions if they do not understand what they are told or what they should do.
[2022-12-27 09:24] LABS: Basophils Percent Auto 0.1 % (0.2-1.2); Hematocrit 45.6 % (42.0-52.0); Hemoglobin 13.9 g/dL (14.0-18.0); Immature Granulocyte Absolute 0.05 K/mm3 (0.00-0.031); Immature Granulocyte Percent A 0.6 % (0-0.5); Lymphocytes Absolute Auto 0.38 K/mm3 (0.9-3.2); Lymphocytes Percent Auto 4.3 % (18.3-44.2); Mean Corpuscular HGB Conc 30.5 g/dl (32-36); Mean Corpuscular Hemoglobin 27.1 pg (26-34); Mean Corpuscular Volume 89.1 fl (80-100); Mean Platelet Volume 9.4 fl (7.4-10.4); Monocytes Percent Auto 0.4 % (2.6-8.5); Neutrophils Absolute Auto 8.4 K/mm3 (1.3-6.7); Neutrophils Percent Auto 94.6 % (45.5-73.1); Platelet Count Result 282 k/mm3 (150-375); Red Blood Count 5.12 M/mm3 (4.6-6.20); Red Cell Distribution Width 15.9 % (11.5-14.5); White Blood Count 8.9 K/mm3 (4.5-10.0)
--- NOTE | 2022-12-27 11:59 | PM.IMHP ---
H&P: HPI History of Present Illness Date/Time: 12/27/22 11:59 Chief Complaint: decrease oxygen saturation Narrative: Patient is a 77-year-old male with a history of Parkinson's dementia, hypertension, chronic kidney disease, presenting to the emergency department for evaluation of shortness of breath.? Patient was noted to have labored breathing, hypoxic on room air down to 84%.? Patient was placed on oxygen via nasal cannula, EMS was contacted, and due to severe hypoxia despite nasal cannula oxygenation, patient was placed on nonrebreather and transported to our facility.? Patient is alert and oriented to person, place, not to time, mentating at baseline, can identify the year.? He reports cough, shortness of breath but denies any chest pain, abdominal pain.? Denies nausea or vomiting.? COVID negative. Patient had a chest x-ray which shows unremarkable. He had a CTA of his chest which showed elevated left hemidiaphragm but otherwise unremarkable. Patient was initially started on IV antibiotics. Yesterday's white cell count was elevated but it has been normalized today. Patient has remained afebrile since admission. he is currently on room air and asymptomatic. Patient mentating well, awake, alert.? Review of Systems Review of Systems: Unobtainable due to dementia ROS unobtainable: Yes unobtainable due to mental status [facility] Past Medical History Medical History Anemia Anxiety Arthritis At high risk for falls after spinal surgery Chronic back pain CKD (chronic kidney disease) stage 3, GFR 30-59 ml/min Complication of surgical and medical care Essential (primary) hypertension GERD (gastroesophageal reflux disease) Glaucoma H/O: HTN (hypertension) History of inguinal hernia History of pneumonia Hx of hemorrhoids Hx of Parkinson's disease Hyperlipidemia LDL goal <100 Infection of spine Parkinsons disease Rupture of diaphragm Surgical History Surgical History History of cataract surgery History of cholecystectomy History of hemorrhoidectomy History of inguinal hernia repair History of left hip replacement History of spinal surgery x10. History of thyroidectomy Family History Family History Father Family history of Parkinson's disease Family history of colonic diverticulitis Hypertension Family history of cardiovascular disease Mother Family history of Alzheimer's disease Sibling Family history of malignant neoplasm of breast in first degree relative Diabetes mellitus Hypertension Other Family history of arthritis Family history of malignant neoplasm Social History Social History Smoking status: Never smoker Second hand tobacco smoke exposure: No Alcohol intake: never Substance use: never Substance use type: does not use Lack of Transportation: No Lack of Food: Never True Current Housing: I Have Housing Concerned About Future Housing: No Difficulty Paying Gas/Electric Bills: No Difficulty Paying for Meds: No Currently Unemployed: No Education: Associate Degree Difficulty w/ Childcare or Family Care: No Gender identity (if verbalized by the patient): Male Spiritual care concerns: No Agree to blood products: Yes Meds Home Medications and Allergies Home Medications Medication Instructions Recorded Confirmed Type entacapone 200 mg tablet 200 mg PO QID 06/18/19 12/27/22 History guaifenesin 600 mg tablet, 100 mg PO QID PRN Cough 06/18/19 12/27/22 History extended release 12 hr lactulose 20 gram/30 mL oral 20 g PO EVERY OTHER DAY 06/18/19 12/27/22 History solution magnesium oxide 400 mg PO DAILY 06/18/19 12/27/22 History vfxzpgnh-trf-eimoc acid 0.4 1 tablet PO DAILY 06/18/19 12/27/22 History mg-lycopene 300 mcg-lutein 250 mcg
--- NOTE | 2022-12-27 14:49 | PC.NURSE ---
RN spoke Carlene from [facility] for report. Carlene states that pt takes doxycyline as a senior living antibiotic. RN notified hospitalist, quinn, who stated it is okay to continue doxycyline and discontinue zithromax. RN notified Carlene from [facility] of this change.
== END 2022-12-27 15:00 ==
LOC: ANHED 12-27 01:34 → ANH3MEDSUR 12-27 02:10
PROVIDERS: Admitting Provider Internal Medicine; Emergency Provider Emergency Medicine; PCP Family Medicine; Visit Provider Hospitalist
DX: J96.91 Respiratory failure, unspecified with hypoxia (principal); G20 Parkinson's disease; F02.80 Dementia in other diseases classified elsewhere, unspecified severity, without behavioral disturbance, psychotic disturbance, mood disturbance, and anxiety; I12.9 Hypertensive chronic kidney disease with stage 1 through stage 4 chronic kidney disease, or unspecified chronic kidney disease; N18.30 Chronic kidney disease, stage 3 unspecified; Z20.822 Contact with and (suspected) exposure to COVID-19; J44.9 Chronic obstructive pulmonary disease, unspecified; D64.9 Anemia, unspecified; F41.9 Anxiety disorder, unspecified; K21.9 Gastro-esophageal reflux disease without esophagitis; H40.9 Unspecified glaucoma; E78.5 Hyperlipidemia, unspecified; I51.7 Cardiomegaly; Z87.01 Personal history of pneumonia (recurrent); Z86.16 Personal history of COVID-19; R94.31 Abnormal electrocardiogram [ECG] [EKG]; Z79.1 Long term (current) use of non-steroidal anti-inflammatories (NSAID); Z79.51 Long term (current) use of inhaled steroids; Z79.899 Other long term (current) drug therapy; Z84.89 Family history of other specified conditions; Z82.49 Family history of ischemic heart disease and other diseases of the circulatory system; Z82.61 Family history of arthritis
CPT/HCPCS: 36415; 36600; 71045; 71275; 80053; 81003; 82375; 82805; 83050; 83605; 83880; 84484; 85025; 85610; 85730; 86140; 87040; 87081; 87637; 93005; 94640; 96361; 96365; 96367; 96375; 96376; 99285; G0378; J0692; J2930; J3370; J7030; Q9967

== ENCOUNTER 2023-06-20 13:00 | Emergency (ER) | payer MEDICARE, BC, SELFPAY ==
[2023-06-20] VITALS (9 sets, daily range): BP systolic 169–197; BP diastolic 69–84; PULSE 68–77; RESP 12–17; TEMP 36.5; O2SAT 95–100
--- NOTE | ~2023-06-20 | CT_ITS ---
EXAMINATION: CTA brain carotid DATE: 06/20/2023 13:30 INDICATION: Cerebral vascular accident. TECHNIQUE: Computed tomographic angiography (CTA) of the head was performed with 100 mL Omnipaque-350 intravenous contrast. CTA of the neck was performed with intravenous contrast. Automated exposure co ntrol and iterative reconstruction technique were employed. The dose-length product was 1165.97 mGy-c m. Maximum intensity projection and volume rendered 3D-reconstructions were created by the technAwesomePiecei st on a separate workstation. COMPARISON: Head CT 06/20/2023 FINDINGS: HEAD CTA: There are scattered areas of low attenuation in the cerebral white matter, which is within normal limits for the patient's age. There is no intracranial hemorrhage, acute infarction, or abnorm al intracranial mass lesion. The ventricles are normal in size. There are likely changes of ocular le ns replacement surgeries. There is mild mucosal thickening in the paranasal sinuses. The mastoid air cells are normal. Right vertebral artery is dominant. There is no significant stenosis of basilar art ciara or the posterior cerebral arteries. The posterior communicating arteries are normal. There is no significant stenosis of the intracranial internal carotid arteries or anterior or middle cerebral art eries. Anterior communicating artery is normal. There is no aneurysm. NECK CTA: There is mild scarring at the lung apices. There are no pathologically enlarged lymph nodes . There is severe stenosis of left vertebral artery origin. There is plaque in the proximal internal carotid arteries. There is 0% stenosis of the proximal right internal carotid artery relative to norm al distal artery lumen diameter (NASCET criteria). There is 31% stenosis of the proximal left interna l carotid artery relative to normal distal artery lumen diameter. There is severe cervical spondylosi s. There are changes of anterior fusion procedure at C3-C4. There are changes of posterior fusion pro cedure in thoracic spine. IMPRESSION: 1. Normal aging brain. No aneurysm or significant intracranial arterial stenosis. 2. 0% stenosis of the proximal right internal carotid artery relative to normal distal artery lumen d iameter (NASCET criteria). 3. 31% stenosis of the proximal left internal carotid artery relative to normal distal artery lumen d iameter. 4. 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 Reviewed, dictated and finalized at location A. BACK OPERATOR IMPRESSION: 1. Normal aging brain. No aneurysm or significant intracranial arterial stenosi s. 2. 0% stenosis of the proximal right internal carotid artery relative to normal distal artery lumen diameter (NASCET criteria). 3. 31% stenosis of the proximal left internal carotid artery relative to normal distal artery lumen diameter. 4. 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
--- NOTE | ~2023-06-20 | CT_ITS ---
EXAMINATION: CT brain wo con DATE: 06/20/2023 13:22 INDICATION: Altered mental status. TECHNIQUE: Computed tomography (CT) of the head was performed without intravenous contrast. The mA wa s adjusted according to patient size. Iterative reconstruction technique was employed. The dose-lengt h product was 605.33 mGy-cm. COMPARISON: Head CT 11/17/2022 FINDINGS: There are scattered areas of low attenuation in the cerebral white matter, which is within normal limits for the patient's age. There is no intracranial hemorrhage, acute infarction, or abnorm al intracranial mass lesion. The ventricles are normal in size. There are likely changes of ocular le ns replacement surgeries. There is mild mucosal thickening in the ethmoid sinuses. The mastoid air ce lls are normal. IMPRESSION: 1. Normal aging brain. I called this result to Dr. Vivas. Reviewed, dictated and finalized at location A. TEACHER
--- NOTE | ~2023-06-20 | XR_ITS ---
EXAMINATION: XR chest 1V portable DATE: 06/20/2023 14:22 INDICATION: Cerebrovascular accident. Altered mental status. TECHNIQUE: A single frontal view of the chest was obtained on 2 radiographs. COMPARISON: Chest single view 12/26/2022, chest CT 12/27/2022 FINDINGS: There is marked elevation of left hemidiaphragm. There is mild atelectasis at left lung bas e. No pleural effusion or pneumothorax. The heart size is normal. There are changes of posterior fusi on procedure in thoracic spine. There are changes of anterior and posterior fusion procedures in lumb ar spine. IMPRESSION: 1. Stable marked elevation of left hemidiaphragm with mild atelectasis at left lung base. Reviewed, dictated and finalized at location A. STORE REPRESENTATIVE
--- NOTE | 2023-06-20 13:04 | ECG_ITS ---
Measurements Intervals [place] Rate: 71 P: 19 MA: 177 QRS: 20 QRSD: 134 T: 131 QT: 394 QTc: 430 Interpretive Statements SINUS RHYTHM WITH OCCASIONAL VENTRICULAR PREMATURE COMPLEXES INTRAVENTRICULAR CONDUCTION DELAY LEFT VENTRICULAR HYPERTROPHY AND ST-T CHANGE CONSIDER INFERIOR INFARCT, AGE INDETERMINATE BORDERLINE ST ABNORMALITY- LATERAL LEADS ABNORMAL ECG COMPARED TO ECG 12/26/2022 22:55:21 NO SIGNIFICANT CHANGES Electronically Signed On 06-20-2023 13:18:18 ADAPTIVE PHYSICAL EDUCATION SPECIALIST by Minh Maynard D.O.
--- NOTE | 2023-06-20 13:20 | ED.AMS ---
HPI - Altered Mental Status General Chief Complaint: Altered Mental Status Stated Complaint: unresponsive History of Present Illness HPI narrative: Patient is a 77-year-old male who presents to the emergency department this afternoon from his extended care facility due to altered mental status. Approximately 45 minutes prior to arrival the [facility] nursing staff went to go give the patient his medications and noticed that he was unresponsive with a right-sided gaze deviation. Last known well unknown. Patient is a DNR / comfort care a custodial did send documentation of this. Patient has a GCS of 3 and due to unresponsiveness, an accurate NIH score cannot be calculated at this time. The remainder of the history of present illness and review of systems was not obtained secondary to patient's current altered mental status. Related Data Home Medications Medication Instructions Recorded Confirmed entacapone 200 mg tablet 200 mg PO QID 06/18/19 12/27/22 guaifenesin 600 mg tablet, 100 mg PO QID PRN Cough 06/18/19 12/27/22 extended release 12 hr lactulose 20 gram/30 mL oral 20 g PO EVERY OTHER DAY 06/18/19 12/27/22 solution magnesium oxide 400 mg PO DAILY 06/18/19 12/27/22 tmfxmsio-mwc-vcqtw acid 0.4 1 tablet PO DAILY 06/18/19 12/27/22 mg-lycopene 300 mcg-lutein 250 mcg tablet (Centrum Silver) polyethylene glycol 3350 17 gram 17 g PO EVERY OTHER DAY 06/18/19 12/27/22 oral powder packet polyvinyl alcohol-povidone (PF) 1 drp ophthalmic (eye) QID 06/18/19 12/27/22 1.4 %-0.6 % eye drops in a dropperette (Refresh Classic (PF)) sennosides 8.6 mg tablet (senna) 8.6 mg PO BID PRN Constipation 06/18/19 12/27/22 acetaminophen 325 mg tablet 650 mg PO Q4H PRN Pain 06/27/21 12/27/22 albuterol sulfate 90 mcg/actuation 1 puff inhalation Q4H PRN 06/27/21 12/27/22 aerosol inhaler Shortness Of Breath Or Wheezing duloxetine 30 mg capsule,delayed 60 mg PO DAILY 06/27/21 12/27/22 release ketoconazole 2 % topical cream 1 applic topical DAILY 06/27/21 12/27/22 melatonin 5 mg capsule 5 mg PO QHS 06/27/21 12/27/22 memantine 10 mg tablet 10 mg PO BID 06/27/21 12/27/22 methocarbamol 750 mg tablet 750 mg PO QID 06/27/21 12/27/22 nortriptyline 50 mg capsule 50 mg PO QHS 06/27/21 12/27/22 nystatin 100,000 unit/gram topical 1 applic topical BID PRN Rash 06/27/21 12/27/22 powder pantoprazole 40 mg tablet,delayed 40 mg PO QAM 06/27/21 12/27/22 release quetiapine 50 mg tablet (Seroquel) 25 mg PO BID 06/27/21 12/27/22 ropinirole 4 mg tablet 4 mg PO TID 06/27/21 12/27/22 Benadryl 25 mg PO Q6-8H PRN Itching 12/27/22 12/27/22 Mucinex DM 600 mg PO BID PRN cough/congestion 12/27/22 12/27/22 Ocuvite Lutein 200 mg PO DAILY 12/27/22 12/27/22 benzonatate 100 mg capsule 100 mg PO TID PRN Cough 12/27/22 12/27/22 Allergies Allergy/AdvReac Type Severity Reaction Status Date / Time adhesive Allergy Unknown Unknown Verified 06/27/21 13:23 latex Allergy Unknown Unknown Verified 06/27/21 13:23 shrimp Allergy Unknown Verified 06/27/21 13:23 gabapentin AdvReac Unknown HALLUCINATI Verified 06/27/21 13:23 ONS Review of Systems Review of Systems: Unable to obtain full review of systems secondary to patient's current altered mental status and GCS of 3. PMFSH Past Medical History Medical History Anemia Anxiety Arthritis At high risk for falls after spinal surgery Chronic back pain CKD (chronic kidney disease) stage 3, GFR 30-59 ml/min Complication of surgical and medical care Essential (primary) hypertension GERD (gastroesophageal reflux disease) Glaucoma H/O: HTN (hypertension) History of inguinal hernia History of pneumonia Hx of hemorrhoids Hx of Parkinson's disease Hyperlipidemia LDL goal <100 Infection of spine Parkinsons disease Rupture of diaphragm Surgical History Surgical History History of cataract
[2023-06-20 13:22] LABS: Basophils Percent Auto 0.2 % (0.2-1.2); Eosinophils Absolute Auto 0.1 K/mm3 (0-0.3); Eosinophils Percent Auto 0.9 % (0-4.4); Hemoglobin 15.7 g/dL (14.0-18.0); Immature Granulocyte Absolute 0.04 K/mm3 (0.00-0.031); Immature Granulocyte Percent A 0.5 % (0-0.5); Lymphocytes Percent Auto 8.6 % (18.3-44.2); Mean Corpuscular HGB Conc 31.4 g/dl (32-36); Mean Corpuscular Hemoglobin 27.9 pg (26-34); Mean Corpuscular Volume 88.8 fl (80-100); Mean Platelet Volume 9.4 fl (7.4-10.4); Monocytes Absolute Auto 0.4 K/mm3 (0.1-0.6); Monocytes Percent Auto 5.3 % (2.6-8.5); Neutrophils Absolute Auto 6.8 K/mm3 (1.3-6.7); Neutrophils Percent Auto 84.5 % (45.5-73.1); Platelet Count Result 213 k/mm3 (150-375); Red Blood Count 5.63 M/mm3 (4.6-6.20); Red Cell Distribution Width 15.3 % (11.5-14.5); White Blood Count 8.1 K/mm3 (4.5-10.0)
[2023-06-20 13:22] LABS: Glucose Point of Care 116 mg/dl (65-105)
[2023-06-20 13:24] LABS: Estimated CRCL calculation 55 ml/min; Estimated Glomerular Filt Rate > 60
[2023-06-20 13:32] LABS: Alanine Aminotransferase 10 U/L (6-50); Albumin Level 4.2 g/dL (3.5-5.1); Alkaline Phosphatase 87 U/L (38-126); Anion Gap 7 mmol/L (8-16); Aspartate Amino Transferase 22 U/L (17-59); Bilirubin,Total 0.7 mg/dL (0.2-1.3); Blood Urea Nitrogen 17 mg/dL (9-20); Calcium 8.7 mg/dL (8.4-10.2); Carbon Dioxide 31 mmol/L (22-30); Chloride 103 mmol/L (98-107); Estimated CRCL calculation 60 ml/min; Estimated Glomerular Filt Rate > 60; Glucose 110 mg/dL (65-110); Potassium 4.1 mmol/L (3.4-5.0); Sodium 141 mmol/L (137-145)
[2023-06-20 13:39] LABS: Prothrombin Time 13.6 Seconds (11.1-14.7)
[2023-06-20 13:40] LABS: Partial Thromboplastin Time 27.7 SECONDS (22.3-36.8)
[2023-06-20 13:43] LABS: Troponin I < 0.012 ng/mL (0.000-0.034)
--- NOTE | 2023-06-20 13:43 | PC.NURSE ---
Pt becoming slightly more responsive at this time. Pt able to squeeze my hand with both hand. and is attempting to talk.
[2023-06-20 14:17] LABS: Appearance Urine Clear (Clear); Bacteria Urine Rare /hpf; Bilirubin Urine Negative (Negative); Blood Urine Negative (Negative); Color Urine Yellow (Yellow); Glucose Urine UA Negative (Negative); Ketones Urine Negative (Negative); Leukocyte Esterase Ur 2+ LEU/UL (Negative); Nitrate Urine Negative (Negative); Non Pathogenic Casts 0-2; Protein Urine Negative (Negative); RBC Urine 0-2 /hpf (0-2); Specific Grav Ur 1.021 (1.001-1.035); Squamous Epithelial Cell Urine None seen /hpf (Few); Urobilinogen Urine 0.2 mg/dL (<2.0); WBC Urine 21-50 /hpf; pH Urine 7.5 (5.0-9.0)
[2023-06-20 14:22] LABS: Add Urine Microscopic? YES
[2023-06-20 15:20] LABS: Influenza A QL RT-PCR Negative (Negative); Influenza B QL RT-PCR Negative (Negative); RSV RNA, RT-PCR Negative (Negative); SARS-CoV-2 RNA PCR Positive (Negative)
== END 2023-06-20 17:09 ==
PROVIDERS: Emergency Medicine; Emergency Provider Emergency Medicine; PCP Family Medicine
DX: R41.82 Altered mental status, unspecified (principal); F05 Delirium due to known physiological condition; N39.0 Urinary tract infection, site not specified; Z11.52 Encounter for screening for COVID-19; I12.9 Hypertensive chronic kidney disease with stage 1 through stage 4 chronic kidney disease, or unspecified chronic kidney disease; N18.30 Chronic kidney disease, stage 3 unspecified; G20.A1 Parkinson's disease without dyskinesia, without mention of fluctuations; E78.5 Hyperlipidemia, unspecified; E89.0 Postprocedural hypothyroidism; D64.9 Anemia, unspecified; G89.29 Other chronic pain; H40.9 Unspecified glaucoma; K21.9 Gastro-esophageal reflux disease without esophagitis; M19.90 Unspecified osteoarthritis, unspecified site; F41.9 Anxiety disorder, unspecified; Z66 Do not resuscitate; Z87.01 Personal history of pneumonia (recurrent); Z96.642 Presence of left artificial hip joint; Z90.49 Acquired absence of other specified parts of digestive tract; R94.31 Abnormal electrocardiogram [ECG] [EKG]; I45.9 Conduction disorder, unspecified; I49.3 Ventricular premature depolarization; I65.02 Occlusion and stenosis of left vertebral artery; I65.22 Occlusion and stenosis of left carotid artery
CPT/HCPCS: 36415; 70450; 70496; 70498; 71045; 80053; 81001; 82948; 84484; 85025; 85610; 85730; 87077; 87086; 87186; 87637; 93005; 99284; Q9967

== ENCOUNTER 2023-08-22 23:21 | Emergency (ER) | payer MEDICARE, BC, SELFPAY ==
--- NOTE | ~2023-08-22 | CT_ITS ---
EXAMINATION: CT brain wo con DATE: 08/23/2023 02:19 INDICATION: Altered mental status. TECHNIQUE: Computed tomography (CT) of the head was performed without intravenous contrast. The mA wa s adjusted according to patient size. Iterative reconstruction technique was employed. The dose-lengt h product was 756.67 mGy-cm. COMPARISON: Head CT 06/20/2023 FINDINGS: There is no intracranial hemorrhage, acute infarction, or abnormal intracranial mass lesion . There are scattered areas of low attenuation in the cerebral white matter, which is within normal l imits for the patient's age. The ventricles are normal in size. There are likely changes of ocular le ns replacement surgeries. There is mild mucosal thickening in the ethmoid sinuses. The mastoid air ce lls are normal. IMPRESSION: 1. Normal aging brain. Reviewed, dictated and finalized at location E. ENFORCEMENT ADMINISTRATION AGENT IMPRESSION: 1. Normal aging brain.
--- NOTE | ~2023-08-22 | XR_ITS ---
EXAMINATION: XR chest 1V portable DATE: 08/23/2023 02:21 INDICATION: Altered mental status. TECHNIQUE: A single frontal view of the chest was obtained. COMPARISON: Chest single view 06/20/2023, chest CT 12/27/2022 FINDINGS: There is chronic marked elevation of left hemidiaphragm. There is mild scarring at the lung apices. There is mild atelectasis at the lung bases. No pleural effusion or pneumothorax. The heart size is normal. There are changes of posterior fusion procedure in thoracic spine. IMPRESSION: 1. Chronic marked elevation of left hemidiaphragm. 2. Mild atelectasis at the lung bases. Reviewed, dictated and finalized at location E. R CONTRACTOR
[2023-08-22 23:18] VITALS: BP 134/64; PULSE 69; RESP 16; TEMP 36.3; O2SAT 94
[2023-08-22 23:22] VITALS: PULSE 70
--- NOTE | 2023-08-23 01:39 | ECG_ITS ---
Measurements Intervals [place] Rate: 57 P: 48 MS: 221 QRS: 28 QRSD: 133 T: 83 QT: 451 QTc: 440 Interpretive Statements SINUS BRADYCARDIA WITH FIRST DEGREE AV BLOCK INTRAVENTRICULAR CONDUCTION DELAY LEFT VENTRICULAR HYPERTROPHY WITH ST-T CHANGE ANTERIOR INFARCT, AGE INDETERMINATE CONSIDER INFERIOR INFARCT, AGE INDETERMINATE ABNORMAL ECG COMPARED TO ECG 06/20/2023 13:10:07 SINUS BRADYCARDIA NOW PRESENT FIRST DEGREE AV BLOCK NOW PRESENT Electronically Signed On 08-23-2023 6:36:53 ZINC SKIMMER by Minh Maynard D.O.
--- NOTE | 2023-08-23 01:40 | ED.GENADULT ---
HPI - General Adult General Chief complaint: Unspecified Stated complaint: combative/altered mental status Time Seen by Provider: 08/22/23 23:54 History of Present Illness HPI narrative: 78-year-old male with history of CKD, anemia, hyperlipidemia, hypertension, Parkinson's and dementia reports via EMS from [facility] for altered mental status. Per EMS, the patient was name calling staff and started getting physical with group home staff. He is normally a and O times 2-3 at baseline. Upon my evaluation, patient is A&O x2, he thinks the year is 1992. He is unsure why he is in the ER. He has no complaints. He denies chest pain, shortness of breath, cough or congestion, abdominal pain, nausea or vomiting, diarrhea, dysuria or hematuria. the patient is requesting to go home. he is DNR per past records. Related Data Home Medications Medication Instructions Recorded Confirmed entacapone 200 mg tablet 200 mg PO QID 06/18/19 12/27/22 guaifenesin 600 mg tablet, 100 mg PO QID PRN Cough 06/18/19 12/27/22 extended release 12 hr lactulose 20 gram/30 mL oral 20 g PO EVERY OTHER DAY 06/18/19 12/27/22 solution magnesium oxide 400 mg PO DAILY 06/18/19 12/27/22 cesjrvcz-jvo-hxpdr acid 0.4 1 tablet PO DAILY 06/18/19 12/27/22 mg-lycopene 300 mcg-lutein 250 mcg tablet (Centrum Silver) polyethylene glycol 3350 17 gram 17 g PO EVERY OTHER DAY 06/18/19 12/27/22 oral powder packet polyvinyl alcohol-povidone (PF) 1 drp ophthalmic (eye) QID 06/18/19 12/27/22 1.4 %-0.6 % eye drops in a dropperette (Refresh Classic (PF)) sennosides 8.6 mg tablet (senna) 8.6 mg PO BID PRN Constipation 06/18/19 12/27/22 acetaminophen 325 mg tablet 650 mg PO Q4H PRN Pain 06/27/21 12/27/22 albuterol sulfate 90 mcg/actuation 1 puff inhalation Q4H PRN 06/27/21 12/27/22 aerosol inhaler Shortness Of Breath Or Wheezing duloxetine 30 mg capsule,delayed 60 mg PO DAILY 06/27/21 12/27/22 release ketoconazole 2 % topical cream 1 applic topical DAILY 06/27/21 12/27/22 melatonin 5 mg capsule 5 mg PO QHS 06/27/21 12/27/22 memantine 10 mg tablet 10 mg PO BID 06/27/21 12/27/22 methocarbamol 750 mg tablet 750 mg PO QID 06/27/21 12/27/22 nortriptyline 50 mg capsule 50 mg PO QHS 06/27/21 12/27/22 nystatin 100,000 unit/gram topical 1 applic topical BID PRN Rash 06/27/21 12/27/22 powder pantoprazole 40 mg tablet,delayed 40 mg PO QAM 06/27/21 12/27/22 release quetiapine 50 mg tablet (Seroquel) 25 mg PO BID 06/27/21 12/27/22 ropinirole 4 mg tablet 4 mg PO TID 06/27/21 12/27/22 Benadryl 25 mg PO Q6-8H PRN Itching 12/27/22 12/27/22 Mucinex DM 600 mg PO BID PRN cough/congestion 12/27/22 12/27/22 Ocuvite Lutein 200 mg PO DAILY 12/27/22 12/27/22 benzonatate 100 mg capsule 100 mg PO TID PRN Cough 12/27/22 12/27/22 Allergies Allergy/AdvReac Type Severity Reaction Status Date / Time adhesive Allergy Unknown Unknown Verified 06/27/21 13:23 latex Allergy Unknown Unknown Verified 06/27/21 13:23 shrimp Allergy Unknown Verified 06/27/21 13:23 gabapentin AdvReac Unknown HALLUCINATI Verified 06/27/21 13:23 ONS Review of Systems Review of Systems: CONSTITUTIONAL: Denies fever, chills, or sweats. EYES: Denies visual changes, redness, or discharge. ENT: Denies rhinorrhea, congestion, sore throat, or otalgia. CARDIOVASCULAR: Denies chest pain, palpitations, or edema. RESPIRATORY: Denies cough or dyspnea. GASTROINTESTINAL: Denies abdominal pain, nausea, vomiting, or diarrhea. GENITOURINARY: Denies dysuria or hematuria. SKIN: Denies rash or itching. MUSCULOSKELETAL: Denies back pain, joint pain, or myalgia. NEUROLOGIC: Denies headache, numbness, or weakness. PSYCHIATRIC: Denies anxiety or depression. [facility] Past Medical History Medical History Anemia Anxiety Arthritis At high risk for falls after spinal surgery Chronic back pain CKD (chronic kidney disease) stage 3, GFR 30-59 ml/min Complication of surgica
[2023-08-23 02:02] LABS: Glucose Point of Care 112 mg/dl (65-105)
[2023-08-23 02:03] VITALS: BP 148/72; PULSE 62; RESP 15; O2SAT 99
[2023-08-23 02:11] LABS: Basophils Percent Auto 0.5 % (0.2-1.2); Eosinophils Absolute Auto 0.2 K/mm3 (0-0.3); Eosinophils Percent Auto 2.6 % (0-4.4); Hematocrit 45.6 % (42.0-52.0); Hemoglobin 14.3 g/dL (14.0-18.0); Immature Granulocyte Absolute 0.04 K/mm3 (0.00-0.031); Immature Granulocyte Percent A 0.5 % (0-0.5); Lymphocytes Absolute Auto 1.11 K/mm3 (0.9-3.2); Lymphocytes Percent Auto 14.4 % (18.3-44.2); Mean Corpuscular HGB Conc 31.4 g/dl (32-36); Mean Corpuscular Hemoglobin 28.7 pg (26-34); Mean Corpuscular Volume 91.6 fl (80-100); Mean Platelet Volume 9.8 fl (7.4-10.4); Monocytes Absolute Auto 0.5 K/mm3 (0.1-0.6); Monocytes Percent Auto 6.7 % (2.6-8.5); Neutrophils Absolute Auto 5.8 K/mm3 (1.3-6.7); Neutrophils Percent Auto 75.3 % (45.5-73.1); Platelet Count Result 183 k/mm3 (150-375); Red Blood Count 4.98 M/mm3 (4.6-6.20); Red Cell Distribution Width 14.7 % (11.5-14.5); White Blood Count 7.7 K/mm3 (4.5-10.0)
[2023-08-23 02:21] LABS: Prothrombin Time 14.1 Seconds (11.1-14.7)
[2023-08-23 02:22] LABS: Acetaminophen < 10 ug/mL (10-30); Ethanol < 10 mg/dL (<10); Lactic Acid Reflex 0.8 mmol/L (0.7-2.0); Partial Thromboplastin Time 30.1 SECONDS (22.3-36.8); Salicylate < 1.0 mg/dL (2-20)
[2023-08-23 02:45] LABS: Albumin Level 3.6 g/dL (3.5-5.1); Alkaline Phosphatase 84 U/L (38-126); Anion Gap 3 mmol/L (8-16); Aspartate Amino Transferase 29 U/L (17-59); Bilirubin,Total 0.6 mg/dL (0.2-1.3); Blood Urea Nitrogen 20 mg/dL (9-20); Calcium 8.4 mg/dL (8.4-10.2); Carbon Dioxide 32 mmol/L (22-30); Chloride 104 mmol/L (98-107); Creatine Kinase 35 U/L (55-170); Estimated CRCL calculation 65 ml/min; Estimated Glomerular Filt Rate > 60; Glucose 102 mg/dL (65-110); Potassium 3.7 mmol/L (3.4-5.0); Sodium 139 mmol/L (137-145)
[2023-08-23 02:46] LABS: Bacteria Urine None Seen /hpf; Non Pathogenic Casts 0-2; RBC Urine 0-2 /hpf (0-2); Squamous Epithelial Cell Urine None seen /hpf (Few); WBC Urine 0-5 /hpf
[2023-08-23 02:49] LABS: Alanine Aminotransferase < 6 U/L (6-50)
[2023-08-23 02:57] LABS: Amphetamine Screen Urine Negative (Negative); Barbiturate Screen Urine Negative (Negative); Benzodiazepines Screen Urine Positive (Negative); Cannabinoid Screen Urine Negative (Negative); Cocaine Screen Urine Negative (Negative); Methadone Screen Urine Negative (Negative); Opiate Screen Urine Negative (Negative); Phencyclidine Screen Urine Negative (Negative)
[2023-08-23 02:59] LABS: Troponin I < 0.012 ng/mL (0.000-0.034)
[2023-08-23 03:09] LABS: Appearance Urine Clear (Clear); Blood Urine Negative (Negative); Color Urine Amber (Yellow); Glucose Urine UA Negative (Negative); Ketones Urine 1+ mg/dL (Negative); Nitrate Urine Negative (Negative); Protein Urine Negative (Negative); Specific Grav Ur 1.025 (1.001-1.035); pH Urine 6.5 (5.0-9.0)
[2023-08-23 03:10] LABS: Add Urine Microscopic? YES; Bilirubin Urine Negative (Negative); Leukocyte Esterase Ur Negative LEU/UL (Negative); Urobilinogen Urine 0.2 mg/dL (<2.0)
[2023-08-23 03:36] VITALS: BP 170/65; PULSE 61; RESP 16; TEMP 36.8; O2SAT 100
[2023-08-23 04:03] VITALS: BP 164/105; PULSE 60; RESP 12; O2SAT 99
== END 2023-08-23 04:16 ==
PROVIDERS: Emergency Provider Physician Assistant; PCP Family Medicine
DX: G20.A1 Parkinson's disease without dyskinesia, without mention of fluctuations (principal); F02.80 Dementia in other diseases classified elsewhere, unspecified severity, without behavioral disturbance, psychotic disturbance, mood disturbance, and anxiety; H10.33 Unspecified acute conjunctivitis, bilateral; I12.9 Hypertensive chronic kidney disease with stage 1 through stage 4 chronic kidney disease, or unspecified chronic kidney disease; N18.30 Chronic kidney disease, stage 3 unspecified; D64.9 Anemia, unspecified; E78.5 Hyperlipidemia, unspecified; E89.0 Postprocedural hypothyroidism; H40.9 Unspecified glaucoma; M19.90 Unspecified osteoarthritis, unspecified site; K21.9 Gastro-esophageal reflux disease without esophagitis; G89.29 Other chronic pain; M54.9 Dorsalgia, unspecified; F41.9 Anxiety disorder, unspecified; Z96.642 Presence of left artificial hip joint; Z87.01 Personal history of pneumonia (recurrent); Z98.49 Cataract extraction status, unspecified eye; Z90.49 Acquired absence of other specified parts of digestive tract; Z79.899 Other long term (current) drug therapy
CPT/HCPCS: 36415; 70450; 71045; 80053; 80307; 81001; 82550; 82948; 83605; 84443; 84484; 85025; 85610; 85730; 93005; 99284

== ENCOUNTER 2023-11-23 01:44 | Inpatient (IN) | payer MEDICARE, BC, SELFPAY ==
[2023-11-23] VITALS (22 sets, daily range): BP systolic 104–166; BP diastolic 49–93; PULSE 70–93; RESP 10–26; TEMP 36.6–37.6; O2SAT 84–99; BMI 29.0
--- NOTE | ~2023-11-23 | XR_ITS ---
MODIFIED ESOPHAGRAM HISTORY: Aspiration TECHNIQUE: Modified barium esophagram was performed on 11/26/2023. I administered fluoroscopy and perf ormed the exam with speech pathologist. Patient was seated for lateral fluoroscopic imaging for reuben stion of thin liquids, pudding, solids and quantified amounts, followed by thin liquids in uncontroll ed amounts. This was recorded on tape. A single fluoroscopic spot image was also recorded. The DAP fo r this procedure was 10.484 Gycm2. The amount of fluoroscopy time used during this procedure was 1.7 minutes. FINDINGS: Oral stage: Adequate function. Pharyngeal stage: There is reduced laryngeal elevation, laryngeal adduction and tongue base retractio n. Residue at the vallecula, piriform sinus and pharyngeal peñaloza. There is laryngeal penetration michelle g with significant aspiration following swallowing pudding consistency. Cervical/esophageal stage: Adequate function. IMPRESSION: Pharyngeal dysphagia with laryngeal penetration and significant aspiration. Please corre late with speech pathologist findings and specific feeding recommendations. Reviewed, dictated and finalized at location A. IMPRESSION: Pharyngeal dysphagia with laryngeal penetration and significant asp iration. Please correlate with speech pathologist findings and specific feedin g recommendations.
--- NOTE | ~2023-11-23 | XR_ITS ---
Portable chest x-ray Comparison: 08/23/2023 Clinical History: Shortness of breath Findings: There is hazy airspace disease left lung base with stable elevation left hemidiaphragm. Ri ght lung clear. Cardiomediastinal silhouette is stable. Extensive spinal fixation hardware is unchan ged. Impression: Left lower lobe atelectasis versus pneumonia. Reviewed, dictated and finalized at location . Impression: Left lower lobe atelectasis versus pneumonia.
--- NOTE | ~2023-11-23 | XR_ITS ---
EXAMINATION: XR chest 1V portable DATE: 11/26/2023 02:25 INDICATION: Aspiration. TECHNIQUE: A single frontal view of the chest was obtained on 2 radiographs. COMPARISON: Chest single view 11/23/23 FINDINGS: There is marked elevation of left hemidiaphragm. There are mild airspace opacities in the m id and lower lung zones. No pleural effusion or pneumothorax. The heart size is normal. There are vnice nges of posterior fusion procedure in thoracolumbar spine. There are changes of anterior fusion proce dure in lumbar spine. IMPRESSION: 1. Stable marked elevation of left hemidiaphragm. 2. Mild airspace opacities in the mid and lower lung zones with improvement on the left, consistent w ith atelectasis versus pneumonia. Reviewed, dictated and finalized at location E. IMPRESSION: 1. Stable marked elevation of left hemidiaphragm. 2. Mild airspace opacities in the mid and lower lung zones with improvement on the left, consistent with atelectasis versus pneumonia.
--- NOTE | ~2023-11-23 | MR_ITS ---
EXAMINATION: MR brain/brain stem wo con DATE: 11/30/2023 16:55 INDICATION: Dysphagia. Altered mental status. TECHNIQUE: Magnetic resonance imaging (MRI) of the brain and brainstem was performed without intraven ous contrast. Sequences included sagittal and axial T1-weighted SE, axial diffusion-weighted FS SE, a xial T2*-weighted GRE, axial T2-weighted FLAIR, and axial T2-weighted FSE. Apparent diffusion coeffic ient (ADC) maps were created. COMPARISON: None. FINDINGS: There are no areas of restricted diffusion to suggest acute infarction. No intracranial hemorrhage or abnormal intracranial mass lesion. There are scattered areas of nonspecific increased T2-weighted si gnal intensity in the cerebral white matter, predominantly involving the deep and periventricular whi te matter. There are no intraparenchymal signal abnormalities seen on the other pulse sequences. Symm etric prominence of the sulci consistent with mild age-appropriate diffuse cerebral volume loss. The ventricles are symmetric and normal in size. There are no abnormal extra-axial fluid collections. Eulogio w voids are seen in the cerebral arteries on the T2-weighted sequences consistent with their expected patency. Changes of bilateral intraocular lens replacement. Visualized orbits and soft tissues are unremarkable. Mild mucosal thickening the bilateral ethmoid sinuses. IMPRESSION: 1. Normal aging brain. No acute intracranial process. Reviewed, dictated and finalized at location A.
--- NOTE | ~2023-11-23 | CT_ITS ---
EXAMINATION: CT brain wo con DATE: 11/27/2023 13:15 INDICATION: Dysphagia. TECHNIQUE: Computed tomography (CT) of the head was performed without intravenous contrast. The mA wa s adjusted according to patient size. Iterative reconstruction technique was employed. The dose-lengt h product was 681.00 mGy-cm. COMPARISON: Head CT 08/23/2023 FINDINGS: There is no intracranial hemorrhage, acute infarction, or abnormal intracranial mass lesion . There are scattered areas of low attenuation in the cerebral white matter, which is within normal l imits for the patient's age. The ventricles are normal in size. There are likely changes of ocular le ns replacement surgeries. There is mild mucosal thickening in the paranasal sinuses. The mastoid air cells are normal. IMPRESSION: 1. Normal aging brain. Reviewed, dictated and finalized at location E. IMPRESSION: 1. Normal aging brain.
--- NOTE | ~2023-11-23 | XR_ITS ---
EXAMINATION: XR fl Dobhoff insert/rad w img DATE: 11/27/2023 13:45 INDICATION: Dobbhoff placement due to inability to swallow TECHNIQUE: A Dobbhoff type feeding tube was advanced into the duodenum utilizing intermittent fluoroscopy. Final image demonstrates the feeding tube in position with the weighted tip at the expected location of th e fourth portion of the duodenum near the ligament of Treitz. The tube was flushed with 10 mL sterile saline and fixed to the nares with adhesive tape. A single fluoroscopic image was recorded. The amou nt of fluoroscopy time used during this procedure was 1.7 minutes. Total DAP was 15.247 Gycm^2. There were no immediate complications. FINDINGS/IMPRESSION: Successful fluoroscopy-guided Dobbhoff feeding tube placement with distal tip in the fourth portion o f the duodenum. Reviewed, dictated and finalized at location A.
--- NOTE | ~2023-11-23 | XR_ITS ---
EXAMINATION: XR barium swallow modified DATE: 11/30/2023 09:31 INDICATION: Dysphagia. TECHNIQUE: The patient was given barium-containing material of multiple consistencies to swallow by t he speech pathologist while I performed fluoroscopy. Fluoroscopy exposure time was 1.9 minutes. The n umber of fluoroscopy images saved to the PACS was 1. Dose-area product was 1.892 Gy-cm^2. FINDINGS: There is reduced laryngeal elevation. There is laryngeal penetration with thin liquids via cup. IMPRESSION: 1. Laryngeal penetration with thin liquids via cup. 2. Please refer to the speech therapy report for recommendations. Reviewed, dictated and finalized at location A.
--- NOTE | 2023-11-23 01:58 | ECG_ITS ---
SEE SCANNED COPY FOR CONFIRMED REPORT MTDD
--- NOTE | 2023-11-23 03:50 | ED.GENADULT ---
HPI - General Adult General Chief complaint: Shortness of Breath/Dyspnea Time Seen by Provider: 11/23/23 01:48 History of Present Illness HPI narrative: Patient is a 78-year-old male who presents ER with shortness of breath and hypoxia. Patient with recent RSV illness and currently in isolation. Found to be acutely dyspneic and satting 70% on room air. Patient arrives on 5 L of oxygen as well as CPAP. Patient has coarse gurgling lung sounds. He is unable to provide any history, he does have dementia. EMS provided history to the ER physician. Related Data Home Medications Medication Instructions Recorded Confirmed entacapone 200 mg tablet 200 mg PO QID 06/18/19 11/23/23 lactulose 20 gram/30 mL oral 20 g PO EVERY OTHER DAY 06/18/19 11/23/23 solution magnesium oxide 400 mg PO DAILY 06/18/19 11/23/23 polyethylene glycol 3350 17 gram 17 g PO DAILY 06/18/19 11/23/23 oral powder packet acetaminophen 325 mg tablet 650 mg PO Q4H PRN Pain 06/27/21 11/23/23 duloxetine 30 mg capsule,delayed 60 mg PO HS 06/27/21 11/23/23 release ketoconazole 2 % topical cream 1 applic topical Q12H PRN Dry Skin 06/27/21 11/23/23 melatonin 5 mg capsule 5 mg PO QHS 06/27/21 11/23/23 memantine 10 mg tablet 10 mg PO BID 06/27/21 11/23/23 methocarbamol 750 mg tablet 750 mg PO QID 06/27/21 11/23/23 nortriptyline 50 mg capsule 50 mg PO QHS 06/27/21 11/23/23 quetiapine 50 mg tablet (Seroquel) 50 mg PO Q12H 06/27/21 11/23/23 ropinirole 4 mg tablet 4 mg PO TID 06/27/21 11/23/23 cyclosporine 0.05 % eye drops in a 1 drp EACH EYE Q12H 11/23/23 11/23/23 dropperette (Restasis) diazepam 5 mg tablet 5 mg PO TID 11/23/23 11/23/23 diclofenac sodium 1 % topical gel 4 g topical QID 11/23/23 11/23/23 guaifenesin 100 mg/5 mL oral liquid 300 mg PO Q4H PRN Cough 11/23/23 11/23/23 latanoprost 0.005 % eye drops 1 drp EACH EYE QPM 11/23/23 11/23/23 mirabegron 25 mg tablet,extended 25 mg PO DAILY 11/23/23 11/23/23 release 24 hr nortriptyline 25 mg capsule 25 mg PO HS 11/23/23 11/23/23 omeprazole 20 mg tablet,delayed 20 mg PO DAILY 11/23/23 11/23/23 release trolamine salicylate 10 % topical 1 applic topical TID PRN pain 11/23/23 11/23/23 cream (Aspercreme) vit C-vit V-cwqnom-pxoqlnyk capsule 1 cap PO DAILY 11/23/23 11/23/23 Allergies Allergy/AdvReac Type Severity Reaction Status Date / Time adhesive Allergy Unknown Unknown Verified 11/23/23 10:19 latex Allergy Unknown Unknown Verified 11/23/23 10:19 shrimp Allergy Unknown Verified 11/23/23 10:19 gabapentin AdvReac Unknown HALLUCINATI Verified 11/23/23 10:19 ONS Review of Systems Review of Systems: ROS unobtainable: Yes unobtainable due to medical condition PMFSH Past Medical History Medical History (Updated 11/23/23 @ 05:25 by Boston Gibson MD) Anemia Anxiety Arthritis At high risk for falls after spinal surgery Chronic back pain CKD (chronic kidney disease) stage 3, GFR 30-59 ml/min Complication of surgical and medical care Dementia Essential (primary) hypertension GERD (gastroesophageal reflux disease) Glaucoma H/O: HTN (hypertension) History of inguinal hernia History of pneumonia Hx of hemorrhoids Hx of Parkinson's disease Hyperlipidemia LDL goal <100 Infection of spine Parkinsons disease Rupture of diaphragm Surgical History Surgical History (System 08/27/23 @ 10:13 by Ann Marie Castillo) History of cataract surgery History of cholecystectomy History of hemorrhoidectomy History of inguinal hernia repair History of left hip replacement History of spinal surgery x10. History of thyroidectomy Family History Family History Father Family history of Parkinson's disease Family history of colonic diverticulitis Hypertension Family history of cardiovascular disease Mother Family history of Alzheimer's disease Sibling Family history of malignant neoplasm of breast in first degree relative Diabetes mellitus Hypertens
[2023-11-23 04:23] LABS: Basophils Percent Auto 0.1 % (0.2-1.2); Eosinophils Absolute Auto 0.1 K/mm3 (0-0.3); Eosinophils Percent Auto 0.7 % (0-4.4); Hematocrit 49.3 % (42.0-52.0); Hemoglobin 15.3 g/dL (14.0-18.0); Immature Granulocyte Absolute 0.13 K/mm3 (0.00-0.031); Immature Granulocyte Percent A 0.9 % (0-0.5); Lymphocytes Absolute Auto 0.52 K/mm3 (0.9-3.2); Lymphocytes Percent Auto 3.5 % (18.3-44.2); Mean Corpuscular Hemoglobin 29.7 pg (26-34); Mean Corpuscular Volume 95.5 fl (80-100); Mean Platelet Volume 10.2 fl (7.4-10.4); Monocytes Absolute Auto 0.5 K/mm3 (0.1-0.6); Monocytes Percent Auto 3.2 % (2.6-8.5); Neutrophils Absolute Auto 13.5 K/mm3 (1.3-6.7); Neutrophils Percent Auto 91.6 % (45.5-73.1); Platelet Count Result 202 k/mm3 (150-375); Red Blood Count 5.16 M/mm3 (4.6-6.20); Red Cell Distribution Width 14.9 % (11.5-14.5); White Blood Count 14.7 K/mm3 (4.5-10.0)
[2023-11-23 04:24] LABS: INR 1.1; Partial Thromboplastin Time 28.8 Seconds (22.3-36.8); Prothrombin Time 14.6 Seconds (11.1-14.7)
[2023-11-23 04:29] LABS: Anisocytosis 1+; Hypochromasia 1+; Platelet Estimate Adequate (Adequate); Schistocytes None Seen
--- NOTE | 2023-11-23 04:45 | PC.NURSE ---
pt began to get violent with hospital staff at this time. this rn attempted to get vital signs. pt began to remove vital equipment and attempted to punch this rn multiple times. pt then started to pinch and grab hospital staff. this rn educated and reorientated patient to surroundings. pt continued to get violent.
[2023-11-23] MEDS: AZITHROMYCIN 500 MG/NS 250 ML 500 MG/250 ML BAG 250 MG IVPB (04:53)
--- NOTE | 2023-11-23 05:03 | PC.NURSE ---
pt refusing to keep arm straight for antibiotics to be administered IV. pt stated, go fuck yourself, you stand there acting stupid . this rn educated patient on importance of antibiotic administration. Pt stated, I don't give a fuck, go fuck yourself .
--- NOTE | 2023-11-23 05:25 | PC.NURSE ---
arm board applied to patient.
--- NOTE | 2023-11-23 05:34 | PC.NURSE ---
pt had removed iv catheter. IV catheter intact laying on floor. bleeding controlled at this time. pt continues to be combative towards staff.
--- NOTE | 2023-11-23 05:54 | PC.NURSE ---
pt began pulling iv line out. pt removing oxygen, and vital equipment. pt is also yelling at hospital staff members. edp dr. caro verbal order soft wrist restraints.
[2023-11-23] MEDS: LORazepam INJ (*CRX) 2 MG/ML VIAL 1 MG IV PUSH (05:56)
[2023-11-23 06:10] LABS: Troponin I < 0.012 ng/mL (0.000-0.034)
[2023-11-23 06:11] LABS: NT Pro B Type Natriuretic Pept 63 pg/mL (19.9-100)
--- NOTE | 2023-11-23 06:43 | ADMGEN ---
This patient, Loco Martinez, was admitted to IMU Room 232-01. Patient/family oriented to hospital policies and general routines including ID bracelet, bed and alarms, visiting hours, pain management, procedures, bathroom and other care routines, personal items, smoking policy, room service/diet, and visiting hours. Information on how to activate the Rapid Response Team has been discussed. Patient/Family are encouraged to report perceived risks to care and to ask questions if they do not understand what they are told or what they should do.
[2023-11-23 06:44] LABS: Influenza A QL RT-PCR Negative (Negative); Influenza B QL RT-PCR Negative (Negative); RSV RNA, RT-PCR Negative (Negative); SARS-CoV-2 RNA PCR Negative (Negative)
[2023-11-23 07:25] LABS: Lactic Acid Reflex 0.9 mmol/L (0.7-2.0)
[2023-11-23 07:49] LABS: Alanine Aminotransferase 9 U/L (6-50); Albumin Level 3.7 g/dL (3.5-5.1); Alkaline Phosphatase 84 U/L (38-126); Anion Gap 1 mmol/L (4-12); Aspartate Amino Transferase 26 U/L (17-59); Bilirubin,Total 0.7 mg/dL (0.2-1.3); Blood Urea Nitrogen 18 mg/dL (9-20); Calcium 8.2 mg/dL (8.4-10.2); Carbon Dioxide 33 mmol/L (22-30); Chloride 106 mmol/L (98-107); Estimated CRCL calculation 67 ml/min; Estimated Glomerular Filt Rate > 60; Glucose 111 mg/dL (65-110); Potassium 3.8 mmol/L (3.4-5.0); Sodium 140 mmol/L (137-145)
--- NOTE | 2023-11-23 07:54 | PM.IMHP ---
H&P: HPI History of Present Illness Date/Time: 11/23/23 07:54 Chief Complaint: Shortness Of breath Narrative: Patient is a 78-year-old male who presents ER with shortness of breath and hypoxia.? Patient with recent RSV illness and currently in isolation.? Found to be acutely dyspneic and satting 70% on room air.? Patient arrives on 5 L of oxygen as well as CPAP via EMS.? Patient has coarse gurgling lung sounds.? He is unable to provide any history, he does have dementia.? EMS provided history to the ER physician. Patient was Agitated overnight and had received Ativan IV and is groggy this a.m. he has also been put on restraints. Review of Systems Review of Systems: ROS unobtainable: Yes unobtainable due to mental status PMFSH Past Medical History Medical History (Updated 11/23/23 @ 05:25 by Boston Gibson MD) Anemia Anxiety Arthritis At high risk for falls after spinal surgery Chronic back pain CKD (chronic kidney disease) stage 3, GFR 30-59 ml/min Complication of surgical and medical care Dementia Essential (primary) hypertension GERD (gastroesophageal reflux disease) Glaucoma H/O: HTN (hypertension) History of inguinal hernia History of pneumonia Hx of hemorrhoids Hx of Parkinson's disease Hyperlipidemia LDL goal <100 Infection of spine Parkinsons disease Rupture of diaphragm Surgical History Surgical History (System 08/27/23 @ 10:13 by Ann Marie Castillo) History of cataract surgery History of cholecystectomy History of hemorrhoidectomy History of inguinal hernia repair History of left hip replacement History of spinal surgery x10. History of thyroidectomy Family History Family History Father Family history of Parkinson's disease Family history of colonic diverticulitis Hypertension Family history of cardiovascular disease Mother Family history of Alzheimer's disease Sibling Family history of malignant neoplasm of breast in first degree relative Diabetes mellitus Hypertension Other Family history of arthritis Family history of malignant neoplasm Social History Social History (System 08/27/23 @ 10:13 by Ann Marie Castillo) Smoking status: Never smoker Second hand tobacco smoke exposure: No Alcohol intake: never Substance use: never Substance use type: does not use Do You Feel Safe in your Home?: Yes Lack of Transportation: No Lack of Food: Never True Current Housing: I Have Housing Concerned About Future Housing: No Difficulty Paying Gas/Electric Bills: No Difficulty Paying for Meds: No Currently Unemployed: No Education: High School Diploma/GED Difficulty w/ Childcare or Family Care: No Gender identity (if verbalized by the patient): Male Spiritual care concerns: No Agree to blood products: Yes Meds Home Medications and Allergies Home Medications Medication Instructions Recorded Confirmed Type entacapone 200 mg tablet 200 mg PO QID 06/18/19 11/23/23 History lactulose 20 gram/30 mL oral 20 g PO EVERY OTHER DAY 06/18/19 11/23/23 History solution magnesium oxide 400 mg PO DAILY 06/18/19 11/23/23 History polyethylene glycol 3350 17 gram 17 g PO DAILY 06/18/19 11/23/23 History oral powder packet carbidopa 25 mg-levodopa 100 mg 3 tablet PO 0500,1100,1700,2300 06/27/19 11/23/23 Rx tablet (Sinemet) #100 tabs tamsulosin 0.4 mg capsule 0.4 mg PO DAILY #90 caps 08/26/19 11/23/23 Rx acetaminophen 325 mg tablet 650 mg PO Q4H PRN Pain 06/27/21 11/23/23 History duloxetine 30 mg capsule,delayed 60 mg PO HS 06/27/21 11/23/23 History release ketoconazole 2 % topical cream 1 applic topical Q12H PRN Dry Skin 06/27/21 11/23/23 History melatonin 5 mg capsule 5 mg PO QHS 06/27/21 11/23/23 History memantine 10 mg tablet 10 mg PO BID 06/27/21 11/23/23 History methocarbamol 750 mg tablet 750 mg PO QID 06/27/21 11/23/23 History nortriptyline 50 mg capsule 50 mg PO QHS 06/27/21 11/23/23 History
[2023-11-23] MEDS: IPRATROPIUM 0.5 MG/ALBUTEROL SULFATE 2.5 MG AMPUL.NEB 3 ML INHALATION ×3 (07:55→19:46)
[2023-11-23] MEDS: ENOXAPARIN 40 MG/0.4 ML SYRINGE SUB-Q (10:42)
[2023-11-23] MEDS: SODIUM CHLORIDE 0.9% IV 1,000 ML 75 ML IV CONT (12:44)
[2023-11-24] VITALS (19 sets, daily range): BP systolic 143–171; BP diastolic 58–65; PULSE 67–78; RESP 18–20; TEMP 36.4–36.8; O2SAT 96–100
[2023-11-24] MEDS: SODIUM CHLORIDE 0.9% IV 1,000 ML 75 ML IV CONT ×2 (02:00→16:37)
[2023-11-24] MEDS: IPRATROPIUM 0.5 MG/ALBUTEROL SULFATE 2.5 MG AMPUL.NEB 3 ML INHALATION ×4 (02:14→20:46)
[2023-11-24 04:05] LABS: Basophils Percent Auto 0.1 % (0.2-1.2); Eosinophils Absolute Auto 0.1 K/mm3 (0-0.3); Eosinophils Percent Auto 0.7 % (0-4.4); Hemoglobin 14.4 g/dL (14.0-18.0); Immature Granulocyte Absolute 0.06 K/mm3 (0.00-0.031); Immature Granulocyte Percent A 0.6 % (0-0.5); Lymphocytes Percent Auto 8.6 % (18.3-44.2); Mean Corpuscular Hemoglobin 30.4 pg (26-34); Mean Corpuscular Volume 94.9 fl (80-100); Mean Platelet Volume 9.9 fl (7.4-10.4); Monocytes Absolute Auto 0.6 K/mm3 (0.1-0.6); Monocytes Percent Auto 6.1 % (2.6-8.5); Neutrophils Absolute Auto 7.8 K/mm3 (1.3-6.7); Neutrophils Percent Auto 83.9 % (45.5-73.1); Platelet Count Result 172 k/mm3 (150-375); Red Blood Count 4.74 M/mm3 (4.6-6.20); Red Cell Distribution Width 14.8 % (11.5-14.5); White Blood Count 9.3 K/mm3 (4.5-10.0)
[2023-11-24 04:16] LABS: Alanine Aminotransferase 19 U/L (6-50); Albumin Level 3.6 g/dL (3.5-5.1); Alkaline Phosphatase 84 U/L (38-126); Anion Gap 4 mmol/L (4-12); Aspartate Amino Transferase 26 U/L (17-59); Bilirubin,Total 0.9 mg/dL (0.2-1.3); Blood Urea Nitrogen 15 mg/dL (9-20); Calcium 8.3 mg/dL (8.4-10.2); Carbon Dioxide 30 mmol/L (22-30); Chloride 106 mmol/L (98-107); Estimated CRCL calculation 75 ml/min; Estimated Glomerular Filt Rate > 60; Glucose 96 mg/dL (65-110); Magnesium 2.2 mg/dL (1.6-2.3); Potassium 3.9 mmol/L (3.4-5.0); Sodium 140 mmol/L (137-145)
[2023-11-24] MEDS: AZITHROMYCIN 500 MG/NS 250 ML 500 MG/250 ML BAG 250 MG IVPB (04:48)
[2023-11-24] MEDS: ENOXAPARIN 40 MG/0.4 ML SYRINGE SUB-Q (08:09)
--- NOTE | 2023-11-24 14:21 | PM.IMPN ---
Progress Note: A&P Assessment and Plan (1) Pneumonia: Code(s): J18.9 - Pneumonia, unspecified organism Status: Acute (2) Hypoxia: Code(s): R09.02 - Hypoxemia Status: Acute Plan This is a 78-year-old male who presents to the ER via EMS with shortness of breath and hypoxia. He was recently diagnosed with RSV infection. He was found to be acutely short of breath and was satting 70% on room air. EMS was called is placed on oxygen via nasal cannula and also subsequently CPAP. He arrived on 5 L oxygen as well as CPAP. He had greater coarse gurgling lung sounds. His oxygen saturation remained stable on 6 L oxygen via nasal cannula he was afebrile. Laboratory evaluation revealed WBC count of 14.7 with left shift. Lactic acid was normal CMP unremarkable. Troponin negative. BNP 63. Influenza RSV and COVID swab was negative. Chest x-ray showed left lower lobe atelectasis versus pneumonia. With elevated left hemidiaphragm. Review of previous chest x-ray/CT revealed chronic left hemidiaphragm elevation blood culture x2 were obtained. He has been started on ceftriaxone and azithromycin. Scheduled bronchodilator. Follow cultures. Acute encephalopathy with agitation received IV Ativan and has been placed on restraints. Continue current supportive care. Avoid any sedatives if possible. Will diet NPO continue pulmonary toilet and IV antibiotics as ordered. Oxygen requirement has improved down to 3 L History of dementia Hypertension Parkinson's disease Hyperlipidemia CKD stage 3 GERD Chronic back pain DVT prophylaxis Lovenox Code status do not resuscitate Subjective Date/time seen: 11/24/23 14:21 Interval history: No overnight events reported. Oxygen requirement down to 3 L patient still unresponsive mumbles some upon verbal commands. Remains afebrile. Review of Systems Review of Systems: ROS unobtainable: Yes unobtainable due to mental status Exam Narrative: GENERAL: Ill-appearing, well-nourished, somnolent HEAD: Normocephalic, atraumatic. EYES: PERRL and EOMI. ENT: Mucous membranes moist. NECK: Supple. CHEST:? Coarse rales bilaterally.? No respiratory distress. HEART: Regular rate and rhythm. ? Normal peripheral pulses. ABDOMEN: Soft, nontender, nondistended. EXTREMITIES: Normal range of motion.? No edema. SKIN: Warm, dry, no rash. NEURO:? Somnolent moving all extremities Objective Data Vital Signs Vital Signs: Vital Signs - 24 hr 11/23/23 16:00 11/23/23 16:00 11/23/23 19:48 Temperature 98.1 F Pulse Rate 81 78 88 Respiratory Rate 22 H 20 Blood Pressure 143/65 H Pulse Oximetry 94 93 Oxygen Delivery High Flow Nasal Cannula Oxygen Flow Rate 3 11/23/23 19:48 11/23/23 19:46 11/23/23 19:53 Temperature 99.6 F Pulse Rate 88 87 87 Respiratory Rate 20 24 H 20 Blood Pressure 138/58 L Pulse Oximetry 95 Oxygen Delivery Oxygen Flow Rate 11/23/23 20:00 11/23/23 23:59 11/23/23 20:00 Temperature 98.3 F Pulse Rate 87 78 88 Respiratory Rate 24 H 26 H Blood Pressure 140/50 L Pulse Oximetry 95 96 Oxygen Delivery Nasal Cannula Oxygen Flow Rate 3 11/24/23 00:00 11/24/23 02:15 11/24/23 02:40 Temperature Pulse Rate 76 70 71 Respiratory Rate 18 18 Blood Pressure Pulse Oximetry Oxygen Delivery Oxygen Flow Rate 11/24/23 04:00 11/24/23 08:00 11/24/23 08:00 Temperature 98.3 F Pulse Rate 70 77 Respiratory Rate 20 Blood Pressure 159/63 H Pulse Oximetry 99 96 Oxygen Delivery Nasal Cannula Oxygen Flow Rate 3 11/24/23 08:00 11/24/23 09:13 11/24/23 09:16 Temperature Pulse Rate 72 76 76 Respiratory Rate 18 18 Blood Pressure Pulse Oximetry 98 Oxygen Delivery High Flow Nasal Cannula Oxygen Flow Rate 3 11/24/23 09:21 11/24/23 12:00 Temperature Pulse Rate 77 76 Respiratory Rate 18 Blood Pressure Pulse Oximetry Oxygen Delivery Oxygen Flow Rate Intake/Output Intake/Output
[2023-11-24] MEDS: DICLOFENAC SODIUM 1% 100 GM GEL (*BKC) 1 APPLIC TOPICAL ×2 (16:50→21:20)
[2023-11-24 18:39] LABS: Appearance Urine Clear (Clear); Bacteria Urine None Seen /hpf; Bilirubin Urine Negative (Negative); Blood Urine Negative (Negative); Color Urine Yellow (Yellow); Glucose Urine UA Negative (Negative); Ketones Urine 3+ mg/dL (Negative); Leukocyte Esterase Ur Negative LEU/UL (Negative); Nitrate Urine Negative (Negative); Non Pathogenic Casts 0-2; Protein Urine 1+ mg/dL (Negative); RBC Urine 0-2 /hpf (0-2); Specific Grav Ur 1.024 (1.001-1.035); Squamous Epithelial Cell Urine None Seen /hpf (Few); WBC Urine 0-5 /hpf (0-3); pH Urine 6.5 (5.0-9.0)
[2023-11-24 18:40] LABS: Add Urine Microscopic? YES
[2023-11-24] MEDS: cycloSPORINE 0.4 ML OPHTH SOLUTION 1 DROP EACH EYE (21:20)
[2023-11-24] MEDS: LATANOPROST 0.005% OP SOLN 2.5 ML BTL 1 DROP EACH EYE (21:20)
[2023-11-25] VITALS (17 sets, daily range): BP systolic 134–140; BP diastolic 57; PULSE 61–77; RESP 16–18; TEMP 36.7–36.8; O2SAT 95–98
[2023-11-25] MEDS: IPRATROPIUM 0.5 MG/ALBUTEROL SULFATE 2.5 MG AMPUL.NEB 3 ML INHALATION ×4 (02:25→20:39)
[2023-11-25 04:50] LABS: Basophils Percent Auto 0.3 % (0.2-1.2); Eosinophils Absolute Auto 0.1 K/mm3 (0-0.3); Eosinophils Percent Auto 1.4 % (0-4.4); Hematocrit 43.3 % (42.0-52.0); Hemoglobin 13.7 g/dL (14.0-18.0); Immature Granulocyte Absolute 0.04 K/mm3 (0.00-0.031); Immature Granulocyte Percent A 0.6 % (0-0.5); Lymphocytes Absolute Auto 0.58 K/mm3 (0.9-3.2); Lymphocytes Percent Auto 8.2 % (18.3-44.2); Mean Corpuscular HGB Conc 31.6 g/dl (32-36); Mean Corpuscular Hemoglobin 29.8 pg (26-34); Mean Corpuscular Volume 94.3 fl (80-100); Mean Platelet Volume 10.1 fl (7.4-10.4); Monocytes Absolute Auto 0.4 K/mm3 (0.1-0.6); Monocytes Percent Auto 5.9 % (2.6-8.5); Neutrophils Absolute Auto 5.9 K/mm3 (1.3-6.7); Neutrophils Percent Auto 83.6 % (45.5-73.1); Platelet Count Result 190 k/mm3 (150-375); Red Blood Count 4.59 M/mm3 (4.6-6.20); Red Cell Distribution Width 14.6 % (11.5-14.5); White Blood Count 7.1 K/mm3 (4.5-10.0)
[2023-11-25 05:02] LABS: Alanine Aminotransferase 17 U/L (6-50); Albumin Level 3.4 g/dL (3.5-5.1); Alkaline Phosphatase 78 U/L (38-126); Anion Gap 3 mmol/L (4-12); Aspartate Amino Transferase 24 U/L (17-59); Bilirubin,Total 0.7 mg/dL (0.2-1.3); Blood Urea Nitrogen 13 mg/dL (9-20); Calcium 8.5 mg/dL (8.4-10.2); Carbon Dioxide 29 mmol/L (22-30); Chloride 108 mmol/L (98-107); Estimated CRCL calculation 85 ml/min; Estimated Glomerular Filt Rate > 60; Glucose 101 mg/dL (65-110); Magnesium 2.2 mg/dL (1.6-2.3); Potassium 3.8 mmol/L (3.4-5.0); Sodium 140 mmol/L (137-145)
--- NOTE | 2023-11-25 05:33 | PC.NURSE ---
This patient, Loco Martinez, was transferred to room 257 on 11/25/23 at 0525. Personal belongings sent with patient. Report given to MARYBEL Mora. Appropriate documentation sent with patient.
[2023-11-25] MEDS: AZITHROMYCIN 500 MG/NS 250 ML 500 MG/250 ML BAG 250 MG IVPB (05:42)
[2023-11-25] MEDS: SODIUM CHLORIDE 0.9% IV 1,000 ML 75 ML IV CONT (08:32)
[2023-11-25] MEDS: cycloSPORINE 0.4 ML OPHTH SOLUTION 1 DROP EACH EYE ×2 (08:32→20:23)
[2023-11-25] MEDS: ENOXAPARIN 40 MG/0.4 ML SYRINGE SUB-Q (08:33)
[2023-11-25] MEDS: DICLOFENAC SODIUM 1% 100 GM GEL (*BKC) 1 APPLIC TOPICAL ×4 (08:34→20:22)
--- NOTE | 2023-11-25 10:29 | PM.IMPN ---
Progress Note: A&P Assessment and Plan (1) Pneumonia: Code(s): J18.9 - Pneumonia, unspecified organism Status: Acute (2) Hypoxia: Code(s): R09.02 - Hypoxemia Status: Acute Plan This is a 78-year-old male who presents to the ER via EMS with shortness of breath and hypoxia. He was recently diagnosed with RSV infection. He was found to be acutely short of breath and was satting 70% on room air. EMS was called is placed on oxygen via nasal cannula and also subsequently CPAP. He arrived on 5 L oxygen as well as CPAP. He had greater coarse gurgling lung sounds. His oxygen saturation remained stable on 6 L oxygen via nasal cannula he was afebrile. Laboratory evaluation revealed WBC count of 14.7 with left shift. Lactic acid was normal CMP unremarkable. Troponin negative. BNP 63. Influenza RSV and COVID swab was negative. Chest x-ray showed left lower lobe atelectasis versus pneumonia. With elevated left hemidiaphragm. Review of previous chest x-ray/CT revealed chronic left hemidiaphragm elevation blood culture x2 were obtained. He has been started on ceftriaxone and azithromycin. Scheduled bronchodilator. Follow cultures. Acute encephalopathy with agitation received IV Ativan and has been placed on restraints. Continue current supportive care. Avoid any sedatives if possible. Currently NPO because of this. His delirium continues to improve. Continue pulmonary toilet and IV antibiotics as ordered. Oxygen requirement has improved down to 3 L Will start oral diet today speech therapy to see History of dementia Hypertension Parkinson's disease Hyperlipidemia CKD stage 3 GERD Chronic back pain DVT prophylaxis Lovenox Code status do not resuscitate Subjective Date/time seen: 11/25/23 10:29 Interval history: No overnight events reported. Patient is more awake and conversant knows he is at [facility]. He is off oxygen and on room air today. He has calm and has not required any sitter. He is also off restraints. Review of Systems Review of Systems: All systems reviewed & are unremarkable except as noted in HPI and below Exam Narrative: GENERAL: Ill-appearing, well-nourished, more awake HEAD: Normocephalic, atraumatic. EYES: PERRL and EOMI. ENT: Mucous membranes moist. NECK: Supple. CHEST:? Coarse rales bilaterally.? No respiratory distress. HEART: Regular rate and rhythm. ? Normal peripheral pulses. ABDOMEN: Soft, nontender, nondistended. EXTREMITIES: Normal range of motion.? No edema. SKIN: Warm, dry, no rash. NEURO:? Awake alert and conversant oriented to place and person Objective Data Vital Signs Vital Signs: Vital Signs - 24 hr 11/24/23 12:00 11/24/23 14:24 11/24/23 14:33 Temperature Pulse Rate 76 71 75 Respiratory Rate 18 18 Blood Pressure Pulse Oximetry Oxygen Delivery Oxygen Flow Rate 11/24/23 12:00 11/24/23 16:24 11/24/23 16:00 Temperature 98.2 F Pulse Rate 71 76 Respiratory Rate 20 Blood Pressure 159/60 H Pulse Oximetry 96 98 Oxygen Delivery Nasal Cannula Oxygen Flow Rate 2 11/24/23 19:44 11/24/23 20:46 11/24/23 20:49 Temperature 97.9 F Pulse Rate 72 74 Respiratory Rate 18 18 Blood Pressure 171/65 H Pulse Oximetry 100 99 Oxygen Delivery High Flow Nasal Cannula Oxygen Flow Rate 2 11/24/23 23:57 11/24/23 20:00 11/25/23 00:00 Temperature 97.6 F Pulse Rate 67 72 67 Respiratory Rate 18 18 18 Blood Pressure 143/58 H Pulse Oximetry 97 100 97 Oxygen Delivery Nasal Cannula Nasal Cannula Oxygen Flow Rate 2 2 11/24/23 20:00 11/25/23 00:00 11/25/23 02:28 Temperature Pulse Rate 67 69 71 Respiratory Rate 18 Blood Pressure Pulse Oximetry Oxygen Delivery Oxygen Flow Rate 11/24/23 20:56 11/25/23 02:38 11/25/23 04:00 Temperature Pulse Rate 78 75 71 Respiratory Rate 18 18 Blood Pressure Pulse Oximetry Oxygen Delivery Oxygen Flow Rate 11/25/23 06:
[2023-11-25] MEDS: HYDROcodone/acetaminophen (*CRX) 5-325 MG TABLET 1 TAB PO (12:34)
--- NOTE | 2023-11-25 13:29 | PCSTNOTE ---
Bedside swallowing evaluation completed. Patient seen bedside with present. Nursing assisted in achieving upright positioning in bed for this patient due to shoulder pain. Patient has hx of dementia and Parkinson's disease and current diagnosis of pneumonia. Resident of nursing facility who has been receiving a regular diet with thin liquids and feeding self, but diagnosed with RSV recently and admitted to hospital 2 days ago. Patient is weak and unable to feed self at this time. Trials of thin liquid by spoon, cup, and straw were given and signs of aspiration were observed with straw and cup (coughing, gurgly wet vocal quality, watering eyes). Moderately thickened liquids by cup were trialed and patient did not immediately cough but there was a delayed cough reaction. Patient unable to eat solid food safely due to choking risk (weakened physical condition and dementia, unable to reposition self). Nursing gave patient one pill with water by straw which was followed by intense coughing. Recommendations: minced moist diet, moderately thickened liquids by cup or spoon (no straws), upright positioning when eating or drinking and 30 minutes afterwards, small bites/sips, staff supervision and assistance during meals (unable to feed self), pills crushed and placed in applesauce. In addition, a modified barium swallow study is recommended. Thank you for the referral of this patient.
[2023-11-25] MEDS: LATANOPROST 0.005% OP SOLN 2.5 ML BTL 1 DROP EACH EYE (20:22)
[2023-11-26] VITALS (15 sets, daily range): BP systolic 146–188; BP diastolic 69–80; PULSE 64–99; RESP 12–24; TEMP 36.5–36.8; O2SAT 93–97
[2023-11-26] MEDS: IPRATROPIUM 0.5 MG/ALBUTEROL SULFATE 2.5 MG AMPUL.NEB 3 ML INHALATION ×3 (01:59→13:00)
[2023-11-26] MEDS: FUROSEMIDE INJ 40 MG/4 ML VIAL IV PUSH (02:05)
--- NOTE | 2023-11-26 02:10 | PC.NURSE ---
PT CALLED ME TO ROOM REQUESTING SUCTIONING. PT IS AUDIBLY WET SOUNDING AND COUGH IS JUNKY. PT HAVING DIFFICULT TIME COUGHING UP SPUTUM. SUCTIONING WAS UNSUCCESSFUL AND PT REFUSED TO BE SUCTIONED THROUGH HIS NOSE. RESPIRATORY CALLED FOR 2AM TREATMENT AND SHE ALSO ATTEMPTED TO TALK PT INTO NASAL SUCTIONING TO WHICH HE DECLINED. HOSPITALIST CALLED AND ORDERED CXR AND LASIX 40 X1.
[2023-11-26] MEDS: AZITHROMYCIN 500 MG/NS 250 ML 500 MG/250 ML BAG 250 MG IVPB (04:56)
[2023-11-26] MEDS: SODIUM CHLORIDE 0.9% IV 1,000 ML 75 ML IV CONT (04:56)
[2023-11-26 05:29] LABS: Basophils Percent Auto 0.5 % (0.2-1.2); Eosinophils Absolute Auto 0.1 K/mm3 (0-0.3); Eosinophils Percent Auto 1.5 % (0-4.4); Hematocrit 51.5 % (42.0-52.0); Hemoglobin 16.1 g/dL (14.0-18.0); Immature Granulocyte Absolute 0.06 K/mm3 (0.00-0.031); Immature Granulocyte Percent A 0.7 % (0-0.5); Lymphocytes Absolute Auto 0.64 K/mm3 (0.9-3.2); Lymphocytes Percent Auto 7.5 % (18.3-44.2); Mean Corpuscular HGB Conc 31.3 g/dl (32-36); Mean Corpuscular Hemoglobin 29.2 pg (26-34); Mean Corpuscular Volume 93.5 fl (80-100); Mean Platelet Volume 10.1 fl (7.4-10.4); Monocytes Absolute Auto 0.6 K/mm3 (0.1-0.6); Monocytes Percent Auto 6.7 % (2.6-8.5); Neutrophils Absolute Auto 7.1 K/mm3 (1.3-6.7); Neutrophils Percent Auto 83.1 % (45.5-73.1); Platelet Count Result 230 k/mm3 (150-375); Red Blood Count 5.51 M/mm3 (4.6-6.20); Red Cell Distribution Width 14.3 % (11.5-14.5); White Blood Count 8.5 K/mm3 (4.5-10.0)
[2023-11-26 05:44] LABS: Alanine Aminotransferase 20 U/L (6-50); Albumin Level 4.3 g/dL (3.5-5.1); Alkaline Phosphatase 100 U/L (38-126); Anion Gap 7 mmol/L (4-12); Aspartate Amino Transferase 29 U/L (17-59); Bilirubin,Total 0.9 mg/dL (0.2-1.3); Blood Urea Nitrogen 12 mg/dL (9-20); Calcium 9.1 mg/dL (8.4-10.2); Carbon Dioxide 30 mmol/L (22-30); Chloride 102 mmol/L (98-107); Estimated CRCL calculation 85 ml/min; Estimated Glomerular Filt Rate > 60; Glucose 111 mg/dL (65-110); Potassium 3.5 mmol/L (3.4-5.0); Sodium 139 mmol/L (137-145)
--- NOTE | 2023-11-26 06:07 | PCRCNOTE ---
RT attempted to NG suction patient due to the thick secretions patient is unable to cough up. Patient refused RT's attempt stating he would throw up all over her if she attempts, patient has a history of combativeness and repeatedly stated he did not want to be NG suctioned. RT completed EzPap therapy with patient and had patient cough multiple times to try and clear secretions, the patient produced minimal secretions, and RT suctioned patient orally with Hanny. Nurse aware.
--- NOTE | 2023-11-26 06:55 | PC.NURSE ---
PT VERBALLY AGGRESSIVE WITH STAFF. REFUSING TO HAVE VITALS TAKEN.
[2023-11-26] MEDS: DICLOFENAC SODIUM 1% 100 GM GEL (*BKC) 1 APPLIC TOPICAL ×3 (08:19→17:09)
[2023-11-26] MEDS: cycloSPORINE 0.4 ML OPHTH SOLUTION 1 DROP EACH EYE (08:19)
[2023-11-26] MEDS: ENOXAPARIN 40 MG/0.4 ML SYRINGE SUB-Q (08:20)
--- NOTE | 2023-11-26 09:44 | PCSTNOTE ---
Please refer to the Modified Barium Swallow Evaluation in the EMR.
[2023-11-26] MEDS: DEXTROSE 5%/0.45% SOD CHL 1,000 ML 60 ML IV CONT (10:10)
--- NOTE | 2023-11-26 12:00 | PM.IMPN ---
Progress Note: A&P Assessment and Plan (1) Pneumonia: Code(s): J18.9 - Pneumonia, unspecified organism Status: Acute (2) Hypoxia: Code(s): R09.02 - Hypoxemia Status: Acute Plan This is a 78-year-old male who presents to the ER via EMS with shortness of breath and hypoxia. He was recently diagnosed with RSV infection. He was found to be acutely short of breath and was satting 70% on room air. EMS was called is placed on oxygen via nasal cannula and also subsequently CPAP. He arrived on 5 L oxygen as well as CPAP. He had greater coarse gurgling lung sounds. His oxygen saturation remained stable on 6 L oxygen via nasal cannula he was afebrile. Laboratory evaluation revealed WBC count of 14.7 with left shift. Lactic acid was normal CMP unremarkable. Troponin negative. BNP 63. Influenza RSV and COVID swab was negative. Chest x-ray showed left lower lobe atelectasis versus pneumonia. With elevated left hemidiaphragm. Review of previous chest x-ray/CT revealed chronic left hemidiaphragm elevation blood culture x2 were obtained. He has been started on ceftriaxone and azithromycin. Scheduled bronchodilator. Follow cultures which has been negative to date. Oxygen requirement has improved his down to room air. Continue pulmonary toilet and IV antibiotics as ordered. Acute encephalopathy with agitation initially requiring IV Ativan and needed to be placed on restraints. Continue current supportive care. Avoid any sedatives if possible. Currently NPO because of this. His delirium continues to improve slowly. Dysphagia acute versus chronic issue. Follow reviewed and discussed with speech therapist. Will continue NPO for now and continue to further discussed with family. History of dementia Hypertension Parkinson's disease Hyperlipidemia CKD stage 3 GERD Chronic back pain DVT prophylaxis Lovenox Code status do not resuscitate Subjective Date/time seen: 11/26/23 12:00 Interval history: Patient failed swallow evaluation this a.m.. Bit more confused today. Remains on room air. Review of Systems Review of Systems: ROS unobtainable: Yes unobtainable due to mental status Exam Narrative: GENERAL: Ill-appearing, tired looking well-nourished, bit somnolent HEAD: Normocephalic, atraumatic. EYES: PERRL and EOMI. ENT: Mucous membranes moist. NECK: Supple. CHEST:? Coarse rales bilaterally.? No respiratory distress. HEART: Regular rate and rhythm. ? Normal peripheral pulses. ABDOMEN: Soft, nontender, nondistended. EXTREMITIES: Normal range of motion.? No edema. SKIN: Warm, dry, no rash. NEURO:? Somnolent oriented to place and person Objective Data Vital Signs Vital Signs: Vital Signs - 24 hr 11/25/23 14:08 11/25/23 14:21 11/25/23 16:00 Temperature Pulse Rate 77 76 73 Respiratory Rate 18 18 Blood Pressure Pulse Oximetry Oxygen Delivery 11/25/23 18:06 11/25/23 20:39 11/25/23 20:42 Temperature 98.2 F Pulse Rate 73 63 Respiratory Rate 16 18 Blood Pressure 140/57 L Pulse Oximetry 95 97 Oxygen Delivery Room Air 11/25/23 20:00 11/25/23 20:00 11/26/23 00:00 Temperature Pulse Rate 66 64 Respiratory Rate Blood Pressure Pulse Oximetry 97 Oxygen Delivery Room Air 11/26/23 02:00 11/25/23 20:47 11/26/23 02:10 Temperature Pulse Rate 68 69 70 Respiratory Rate 18 18 18 Blood Pressure Pulse Oximetry Oxygen Delivery 11/26/23 02:01 11/26/23 04:00 11/26/23 07:18 Temperature Pulse Rate 64 68 86 Respiratory Rate 18 20 Blood Pressure Pulse Oximetry 97 95 Oxygen Delivery Room Air Room Air 11/26/23 07:18 11/26/23 08:45 11/26/23 08:00 Temperature Pulse Rate 86 99 Respiratory Rate 20 Blood Pressure Pulse Oximetry Oxygen Delivery Room Air 11/26/23 10:02 Temperature 98.2 F Pulse Rate 87 Respiratory Rate 12 Blood Pressure 146/69 H Pulse Oximetry 95 Oxygen Delivery Intake/Output Intake/Out
--- NOTE | 2023-11-26 20:15 | PC.NURSE ---
PT AUDIBLY WET SOUNDING UPON ENTERING ROOM. ASKED PT FOR PERMISSION TO SUCTION AND HE REFUSED. PT ALSO REFUSED NIGHT TIME MEDS. PT DID LET ME DO A QUICK ASSESSMENT BUT THEN STATED LEAVE ME ALONE
[2023-11-27] VITALS (14 sets, daily range): BP systolic 154–189; BP diastolic 74–84; PULSE 84–110; RESP 18–24; TEMP 36.6–37.2; O2SAT 91–96
[2023-11-27] MEDS: DEXTROSE 5%/0.45% SOD CHL 1,000 ML 60 ML IV CONT (05:00)
[2023-11-27] MEDS: AZITHROMYCIN 500 MG/NS 250 ML 500 MG/250 ML BAG 250 MG IVPB (05:00)
[2023-11-27 05:37] LABS: Basophils Percent Auto 0.4 % (0.2-1.2); Eosinophils Percent Auto 0.4 % (0-4.4); Hematocrit 52.3 % (42.0-52.0); Hemoglobin 16.8 g/dL (14.0-18.0); Immature Granulocyte Absolute 0.09 K/mm3 (0.00-0.031); Immature Granulocyte Percent A 0.8 % (0-0.5); Lymphocytes Percent Auto 5.6 % (18.3-44.2); Mean Corpuscular HGB Conc 32.1 g/dl (32-36); Mean Corpuscular Hemoglobin 29.8 pg (26-34); Mean Corpuscular Volume 92.9 fl (80-100); Mean Platelet Volume 9.9 fl (7.4-10.4); Monocytes Absolute Auto 0.9 K/mm3 (0.1-0.6); Monocytes Percent Auto 8.1 % (2.6-8.5); Neutrophils Absolute Auto 9.2 K/mm3 (1.3-6.7); Neutrophils Percent Auto 84.7 % (45.5-73.1); Platelet Count Result 251 k/mm3 (150-375); Red Blood Count 5.63 M/mm3 (4.6-6.20); Red Cell Distribution Width 14.4 % (11.5-14.5); White Blood Count 10.8 K/mm3 (4.5-10.0)
[2023-11-27 05:43] LABS: Alanine Aminotransferase 21 U/L (6-50); Albumin Level 4.1 g/dL (3.5-5.1); Alkaline Phosphatase 91 U/L (38-126); Anion Gap 8 mmol/L (4-12); Aspartate Amino Transferase 37 U/L (17-59); Bilirubin,Total 0.9 mg/dL (0.2-1.3); Blood Urea Nitrogen 15 mg/dL (9-20); Calcium 8.9 mg/dL (8.4-10.2); Carbon Dioxide 27 mmol/L (22-30); Chloride 106 mmol/L (98-107); Estimated CRCL calculation 80 ml/min; Estimated Glomerular Filt Rate > 60; Glucose 146 mg/dL (65-110); Magnesium 2.1 mg/dL (1.6-2.3); Potassium 3.4 mmol/L (3.4-5.0); Sodium 141 mmol/L (137-145)
[2023-11-27] MEDS: cycloSPORINE 0.4 ML OPHTH SOLUTION 1 DROP EACH EYE ×2 (08:23→20:30)
[2023-11-27] MEDS: DICLOFENAC SODIUM 1% 100 GM GEL (*BKC) 1 APPLIC TOPICAL ×2 (08:24→20:30)
[2023-11-27] MEDS: ENOXAPARIN 40 MG/0.4 ML SYRINGE SUB-Q (08:24)
--- NOTE | 2023-11-27 12:47 | PM.IMPN ---
Progress Note: A&P Assessment and Plan (1) Pneumonia: Code(s): J18.9 - Pneumonia, unspecified organism Status: Acute (2) Hypoxia: Code(s): R09.02 - Hypoxemia Status: Acute Plan This is a 78-year-old male who presents to the ER via EMS with shortness of breath and hypoxia. He was recently diagnosed with RSV infection. He was found to be acutely short of breath and was satting 70% on room air. EMS was called is placed on oxygen via nasal cannula and also subsequently CPAP. He arrived on 5 L oxygen as well as CPAP. He had greater coarse gurgling lung sounds. His oxygen saturation remained stable on 6 L oxygen via nasal cannula he was afebrile. Laboratory evaluation revealed WBC count of 14.7 with left shift. Lactic acid was normal CMP unremarkable. Troponin negative. BNP 63. Influenza RSV and COVID swab was negative. Chest x-ray showed left lower lobe atelectasis versus pneumonia. With elevated left hemidiaphragm. Review of previous chest x-ray/CT revealed chronic left hemidiaphragm elevation blood culture x2 were obtained. He has been started on ceftriaxone and azithromycin. Scheduled bronchodilator. Follow cultures which has been negative to date. Oxygen requirement has improved his down to room air. Continue pulmonary toilet and IV antibiotics as ordered. Acute encephalopathy with agitation initially requiring IV Ativan and needed to be placed on restraints. Continue current supportive care. Avoid any sedatives if possible. Currently NPO because of this. His delirium continues to improve slowly however still an issue. Dysphagia acute versus chronic issue. Follow reviewed and discussed with speech therapist. Currently NPO and discussed artificial feeding. Temporarily during a Dobbhoff placement with tube feed may need G-tube placement if it did improve within next few days. Speech therapy will reassess in next few days. Also discussed comfort based care with the family and declines at this time. For secretions management will add scopolamine patch History of dementia Hypertension Parkinson's disease Hyperlipidemia CKD stage 3 GERD Chronic back pain DVT prophylaxis Lovenox Code status do not resuscitate Subjective Date/time seen: 11/27/23 12:47 Interval history: No overnight events. Lot of secretions in the throat. Remains on room air. Currently NPO due to dysphagia stool with speech therapy. Discussed with the family at bedside. Temporary Dobbhoff placement and nutrition to see how he responds with the next few days. Discussed ultimately he might require G-tube placement Review of Systems Review of Systems: ROS unobtainable: Yes unobtainable due to mental status Exam Narrative: GENERAL: Ill-appearing, tired looking well-nourished, gurgling secretions in his throat HEAD: Normocephalic, atraumatic. EYES: PERRL and EOMI. ENT: Mucous membranes moist. NECK: Supple. CHEST:? Coarse rales bilaterally.? No respiratory distress. HEART: Regular rate and rhythm. ? Normal peripheral pulses. ABDOMEN: Soft, nontender, nondistended. EXTREMITIES: Normal range of motion.? No edema. SKIN: Warm, dry, no rash. NEURO:? Awake but still lethargic, follows command verbalizes some Objective Data Vital Signs Vital Signs: Vital Signs - 24 hr 11/26/23 13:00 11/26/23 13:09 11/26/23 15:10 Temperature 97.7 F Pulse Rate 92 91 89 Respiratory Rate 18 18 16 Blood Pressure 166/80 H Pulse Oximetry 93 Oxygen Delivery 11/26/23 16:00 11/26/23 20:00 11/26/23 20:10 Temperature 97.8 F Pulse Rate 92 95 Respiratory Rate 24 H Blood Pressure 188/73 H Pulse Oximetry 93 93 Oxygen Delivery Room Air 11/26/23 20:00 11/27/23 00:00 11/27/23 04:00 Temperature Pulse Rate 91 88 84 Respiratory Rate Blood Pressure Pulse Oximetry Oxygen Delivery 11/27/23 05:05 11/27/23 08:34 Temperature 97.9 F Pulse Rate 88 Respiratory Rate 24 H Blood Pressure 158/74 H P
--- NOTE | 2023-11-27 13:34 | PCNFU ---
Nutrition Follow-Up Complete: Unintended weight loss as related to pneumonia as evidenced by 6% reported (10 ibs) in 3 months. Goal: Meet estimated nutritional needs. patient has limited progress towards goal. We will continue current goal. Pt current nutrition is NPO. Nutrition recommendation: Jevity 1.5 at 60 ml/hr. Weight: per family pt. weight in Aug ibs and at [place] 1 week ago 181 ibs. Bedscale showing 76.3 kg Bowel Motility: +BM reported 11/25 Labs Reviewed:Glu 146 Meds Noted: Zithromax, Lovenox Skin: WNL Additional Notes: Patient had MBS performed on 11/25 recommending non oral feedings. Patient to have Dobbhoff placement today for nutrition. Tube feeding recommendations: Jevity 1.5 at 20 ml/hr advance by 10 ml q 4 hours to goal rate of 60 ml/hr. Flush 100 ml q 4 hours. Will monitor weight, labs, skin, tube feedings , meds every Sunday and Sunday.
[2023-11-27] MEDS: IPRATROPIUM 0.5 MG/ALBUTEROL SULFATE 2.5 MG AMPUL.NEB 3 ML INHALATION ×2 (14:05→20:40)
[2023-11-27] MEDS: SCOPOLAMINE 1 MG PATCH 1 PATCH TRANSDERM (14:24)
[2023-11-27] MEDS: LATANOPROST 0.005% OP SOLN 2.5 ML BTL 1 DROP EACH EYE (20:30)
[2023-11-28] VITALS (17 sets, daily range): BP systolic 117–157; BP diastolic 41–61; PULSE 75–100; RESP 18–24; TEMP 36.9–37.1; O2SAT 93–97
[2023-11-28] MEDS: DEXTROSE 5%/0.45% SOD CHL 1,000 ML 60 ML IV CONT ×2 (00:38→17:20)
[2023-11-28] MEDS: IPRATROPIUM 0.5 MG/ALBUTEROL SULFATE 2.5 MG AMPUL.NEB 3 ML INHALATION ×4 (02:18→21:42)
[2023-11-28 06:05] LABS: Basophils Percent Auto 0.2 % (0.2-1.2); Eosinophils Percent Auto 0.1 % (0-4.4); Hematocrit 49.6 % (42.0-52.0); Hemoglobin 15.9 g/dL (14.0-18.0); Immature Granulocyte Absolute 0.14 K/mm3 (0.00-0.031); Immature Granulocyte Percent A 0.9 % (0-0.5); Lymphocytes Absolute Auto 0.47 K/mm3 (0.9-3.2); Lymphocytes Percent Auto 2.9 % (18.3-44.2); Mean Corpuscular HGB Conc 32.1 g/dl (32-36); Mean Corpuscular Hemoglobin 29.4 pg (26-34); Mean Corpuscular Volume 91.9 fl (80-100); Mean Platelet Volume 10.1 fl (7.4-10.4); Monocytes Absolute Auto 0.9 K/mm3 (0.1-0.6); Monocytes Percent Auto 5.4 % (2.6-8.5); Neutrophils Absolute Auto 14.7 K/mm3 (1.3-6.7); Neutrophils Percent Auto 90.5 % (45.5-73.1); Platelet Count Result 248 k/mm3 (150-375); Red Cell Distribution Width 14.5 % (11.5-14.5); White Blood Count 16.3 K/mm3 (4.5-10.0)
[2023-11-28 06:25] LABS: Alanine Aminotransferase 22 U/L (6-50); Albumin Level 3.7 g/dL (3.5-5.1); Alkaline Phosphatase 79 U/L (38-126); Anion Gap 5 mmol/L (4-12); Aspartate Amino Transferase 34 U/L (17-59); Bilirubin,Total 0.6 mg/dL (0.2-1.3); Blood Urea Nitrogen 19 mg/dL (9-20); Calcium 8.7 mg/dL (8.4-10.2); Carbon Dioxide 30 mmol/L (22-30); Chloride 107 mmol/L (98-107); Estimated CRCL calculation 81 ml/min; Estimated Glomerular Filt Rate > 60; Glucose 182 mg/dL (65-110); Magnesium 2.1 mg/dL (1.6-2.3); Potassium 3.4 mmol/L (3.4-5.0); Sodium 142 mmol/L (137-145)
[2023-11-28] MEDS: cycloSPORINE 0.4 ML OPHTH SOLUTION 1 DROP EACH EYE ×2 (09:36→21:37)
[2023-11-28] MEDS: ENOXAPARIN 40 MG/0.4 ML SYRINGE SUB-Q (09:37)
[2023-11-28] MEDS: DICLOFENAC SODIUM 1% 100 GM GEL (*BKC) 1 APPLIC TOPICAL ×4 (09:37→21:37)
--- NOTE | 2023-11-28 18:35 | PM.IMPN ---
Progress Note: A&P Assessment and Plan (1) Acute respiratory failure: Code(s): J96.00 - Acute respiratory failure, unspecified whether with hypoxia or hypercapnia Status: Acute (2) Pneumonia: Code(s): J18.9 - Pneumonia, unspecified organism Status: Acute (3) Acute encephalopathy: Code(s): G93.40 - Encephalopathy, unspecified Status: Acute (4) Parkinsons disease: Code(s): G20 - Parkinson's disease Status: Acute (5) Dementia: Qualifiers: Dementia behavioral or psychological symptom: with agitation Dementia severity: unspecified severity Dementia type: Parkinson's disease Qualified Code(s): G20.A1 - Parkinson's disease without dyskinesia, without mention of fluctuations; F02.811 - Dementia in other diseases classified elsewhere, unspecified severity, with agitation Code(s): F03.90 - Unspecified dementia, unspecified severity, without behavioral disturbance, psychotic disturbance, mood disturbance, and anxiety Status: Acute (6) Essential (primary) hypertension: Code(s): I10 - Essential (primary) hypertension Status: Acute (7) Dysphagia: Code(s): R13.10 - Dysphagia, unspecified Status: Acute Plan 78yo male who presents to the ER via EMS with shortness of breath and hypoxia. Acute Resp Failure -- Patient was recently diagnosed with RSV infection. He was found to be acutely short of breath with SpO2 70% on room air. EMS was called. he was placed on oxygen via nasal cannula then subsequently CPAP. He arrived on 5 L oxygen as well as CPAP. He had greater coarse gurgling lung sounds. His oxygen saturation remained stable on 6 L oxygen via nasal cannula he was afebrile. WBC count of 14.7 with left shift. Lactic acid was normal. Troponin negative. BNP 63. Influenza, RSV and COVID swab was negative. Chest x-ray showed left lower lobe atelectasis versus pneumonia with elevated left hemidiaphragm. BCx collected and started on abx. Scheduled bronchodilator. Oxygen requirement has improved his down to room air. Continue pulmonary toilet and IV antibiotics as ordered. PNA -- Flet the hypoxia related to PNA. BCx negative. Started on ceftriaxone and azithromycin. He completed Azithro. Consider aspiation especially if his resp condition worsens. Acute encephalopathy -- with agitation initially requiring IV Ativan and needed to be placed on restraints. Better and no longer needing restraints. He does follow commands. He is currently off his Sinemet and other medications. Now that he has a NGT, will resume some home meds. Neurology consult. Liya Dz - as above. Resume Sinemet. Continue current supportive care. Avoid any sedatives if possible. History of dementia --resume Namenda. HTN --blood pressure well controlled. Continue to monitor. Dysphagia -- acute versus chronic issue. Currently NPO because of this. His delirium continues to improve slowly however still an issue. Temporary Dobbhoff placement with tube feed started. He may need G-tube placement if it did improve within next few days. Speech therapy will reassess in next few days. For secretions management, scopolamine patch added Comfort based care discussed with the family by prior hospitalist and they declined at this time. DVT prophylaxis Lovenox Code status do not resuscitate Subjective Date/time seen: 11/28/23 18:35 Interval history: 78yo male with dementia, Parkinsons and HTN here for shortness of breath. Assuming care. Chart reviewed. Patient arouses easily. He is nonverbal. Does follow commands at times. he is unable to provide history. Review of Systems Review of Systems: ROS unobtainable: Yes unobtainable due to mental status Exam Narrative: AF 98.5 117/41 80 18 97% ra Gen -thin elderly male in no acute distress HEENT -he resists pupil exam. NG tube secured with tube feedings running. He has dry mucous membranes. Neck -stiff with limited range
[2023-11-28] MEDS: ENTACAPONE 200 MG TABLET FEED TUBE (21:36)
[2023-11-28] MEDS: MEMANTINE 10 MG TABLET FEED TUBE (21:36)
[2023-11-28] MEDS: MELATONIN 5 MG TABLET FEED TUBE (21:37)
[2023-11-28] MEDS: CARBIDOPA/LEVODOPA 25/100 MG TABLET 3 TABLET FEED TUBE (21:37)
[2023-11-28] MEDS: LATANOPROST 0.005% OP SOLN 2.5 ML BTL 1 DROP EACH EYE (21:38)
[2023-11-29] VITALS (9 sets, daily range): BP systolic 145–154; BP diastolic 50–75; PULSE 68–76; RESP 17–20; TEMP 36.1–37.7; O2SAT 94–96
[2023-11-29] MEDS: IPRATROPIUM 0.5 MG/ALBUTEROL SULFATE 2.5 MG AMPUL.NEB 3 ML INHALATION ×4 (03:09→21:13)
[2023-11-29 05:13] LABS: Basophils Absolute Auto 0.1 K/mm3 (0.0-0.1); Basophils Percent Auto 0.3 % (0.2-1.2); Eosinophils Absolute Auto 0.1 K/mm3 (0-0.3); Eosinophils Percent Auto 0.3 % (0-4.4); Hematocrit 46.9 % (42.0-52.0); Hemoglobin 14.5 g/dL (14.0-18.0); Immature Granulocyte Absolute 0.13 K/mm3 (0.00-0.031); Immature Granulocyte Percent A 0.8 % (0-0.5); Lymphocytes Absolute Auto 0.54 K/mm3 (0.9-3.2); Lymphocytes Percent Auto 3.4 % (18.3-44.2); Mean Corpuscular HGB Conc 30.9 g/dl (32-36); Mean Corpuscular Hemoglobin 29.5 pg (26-34); Mean Corpuscular Volume 95.5 fl (80-100); Mean Platelet Volume 9.9 fl (7.4-10.4); Monocytes Absolute Auto 0.9 K/mm3 (0.1-0.6); Monocytes Percent Auto 5.6 % (2.6-8.5); Neutrophils Absolute Auto 14.1 K/mm3 (1.3-6.7); Neutrophils Percent Auto 89.6 % (45.5-73.1); Platelet Count Result 235 k/mm3 (150-375); Red Blood Count 4.91 M/mm3 (4.6-6.20); Red Cell Distribution Width 14.6 % (11.5-14.5); White Blood Count 15.7 K/mm3 (4.5-10.0)
[2023-11-29 05:41] LABS: Alanine Aminotransferase 15 U/L (6-50); Albumin Level 3.5 g/dL (3.5-5.1); Alkaline Phosphatase 70 U/L (38-126); Anion Gap 5 mmol/L (4-12); Aspartate Amino Transferase 70 U/L (17-59); Bilirubin,Total 0.5 mg/dL (0.2-1.3); Blood Urea Nitrogen 23 mg/dL (9-20); Calcium 8.4 mg/dL (8.4-10.2); Carbon Dioxide 27 mmol/L (22-30); Chloride 107 mmol/L (98-107); Creatine Kinase 899 U/L (55-170); Estimated CRCL calculation 81 ml/min; Estimated Glomerular Filt Rate > 60; Glucose 167 mg/dL (65-110); Magnesium 2.2 mg/dL (1.6-2.3); Phosphorus 2.8 mg/dL (2.5-4.5); Potassium 3.9 mmol/L (3.4-5.0); Sodium 139 mmol/L (137-145)
[2023-11-29] MEDS: ENTACAPONE 200 MG TABLET FEED TUBE ×4 (06:09→20:13)
[2023-11-29] MEDS: CARBIDOPA/LEVODOPA 25/100 MG TABLET 3 TABLET FEED TUBE ×4 (06:09→20:13)
[2023-11-29 06:25] LABS: CRP 13.2 mg/dL (<1.0)
[2023-11-29 06:36] LABS: Folic Acid 7.2 ng/mL (2.76->20)
[2023-11-29] MEDS: ENOXAPARIN 40 MG/0.4 ML SYRINGE SUB-Q (08:32)
[2023-11-29] MEDS: cycloSPORINE 0.4 ML OPHTH SOLUTION 1 DROP EACH EYE ×2 (08:33→20:12)
[2023-11-29] MEDS: MEMANTINE 10 MG TABLET FEED TUBE ×2 (08:33→20:14)
[2023-11-29] MEDS: DICLOFENAC SODIUM 1% 100 GM GEL (*BKC) 1 APPLIC TOPICAL ×4 (08:34→20:13)
--- NOTE | 2023-11-29 10:38 | PM.IMPN ---
Progress Note: A&P Assessment and Plan (1) Acute respiratory failure: Code(s): J96.00 - Acute respiratory failure, unspecified whether with hypoxia or hypercapnia Status: Acute Assessment and Plan: 78yo male who presents to the ER via EMS with shortness of breath and hypoxia. Acute Resp Failure -- Patient was recently diagnosed with RSV infection. He was found to be acutely short of breath with SpO2 70% on room air. EMS was called. he was placed on oxygen via nasal cannula then subsequently CPAP. He arrived on 5 L oxygen as well as CPAP. He had greater coarse gurgling lung sounds. His oxygen saturation remained stable on 6 L oxygen via nasal cannula he was afebrile. WBC count of 14.7 with left shift. Lactic acid was normal. Troponin negative. BNP 63. Influenza, RSV and COVID swab was negative. Chest x-ray showed left lower lobe atelectasis versus pneumonia with elevated left hemidiaphragm. BCx collected and started on abx. Scheduled bronchodilator. Oxygen requirement has improved and he is down to room air. Continue pulmonary toilet. Stop IV abx since has had 7 days. (2) Pneumonia: Code(s): J18.9 - Pneumonia, unspecified organism Status: Acute Assessment and Plan: PNA -- Flet the hypoxia related to PNA. BCx negative. Started on ceftriaxone and azithromycin. He completed Azithro. Consider aspiration especially if his resp condition worsens. Stop Rocephin after today since Day 7 but monitor WBC (3) Acute encephalopathy: Code(s): G93.40 - Encephalopathy, unspecified Status: Acute Assessment and Plan: Acute encephalopathy -- with agitation initially requiring IV Ativan and needed to be placed on restraints. Better and no longer needing restraints. He was off his Sinemet and other medications. Now that he has a NGT, we resumed some home meds with some improvement in his condition. Neurology consult. (4) Parkinsons disease: Code(s): G20 - Parkinson's disease Status: Acute Assessment and Plan: [place] Dz - as above. Sinemet and Comtan resumed. Continue current supportive care. Avoid any sedatives if possible. Resume PT/OT. Repeat ST evaluation (5) Dementia: Qualifiers: Dementia behavioral or psychological symptom: with agitation Dementia severity: unspecified severity Dementia type: Parkinson's disease Qualified Code(s): G20.A1 - Parkinson's disease without dyskinesia, without mention of fluctuations; F02.811 - Dementia in other diseases classified elsewhere, unspecified severity, with agitation Code(s): F03.90 - Unspecified dementia, unspecified severity, without behavioral disturbance, psychotic disturbance, mood disturbance, and anxiety Status: Acute Assessment and Plan: History of dementia -- Namenda resumed Follow (6) Essential (primary) hypertension: Code(s): I10 - Essential (primary) hypertension Status: Acute Assessment and Plan: Patient's blood pressure was reviewed on 11/28 Blood pressure fluctuates widely. Will continue to monitor (7) Dysphagia: Code(s): R13.10 - Dysphagia, unspecified Status: Acute Assessment and Plan: Dysphagia -- acute versus chronic issue. Currently NPO because of this. He had delirium that persists but continues to improve slowly. Temporary Dobbhoff placement with tube feed started. He may need G-tube placement. Speech therapy to reassess. Plan Elevated Total CK - Related to bedrest most likely. AST up slightly related to elevated TCK. Check UA for +Blood. Change to NS fluids. Follow levels. Increase activity. Comfort based care discussed with the family by prior hospitalist and they declined at this time. DVT prophylaxis - Lovenox Code status - DNR Subjective Date/time seen: 11/29/23 10:39 Interval history: 78yo male with dementia, Parkinsons and HTN here for shortness of breath. Patient more alert
[2023-11-29] MEDS: SODIUM CHLORIDE 0.9% IV 1,000 ML 70 ML IV CONT (10:48)
[2023-11-29 12:25] LABS: Add Urine Microscopic? YES; Appearance Urine Clear (Clear); Bilirubin Urine Negative (Negative); Blood Urine Negative (Negative); Color Urine Yellow (Yellow); Glucose Urine UA Negative (Negative); Ketones Urine Negative (Negative); Leukocyte Esterase Ur Negative LEU/UL (Negative); Nitrate Urine Negative (Negative); Protein Urine 2+ mg/dL (Negative); Urobilinogen Urine 0.2 mg/dL (<2.0); pH Urine 8.5 (5.0-9.0)
--- NOTE | 2023-11-29 12:25 | PCSTNOTE ---
Please refer to the Bedside Swallow Evaluation in the EMR. Please note, silent aspiration cannot be ruled out at bedside.
[2023-11-29 12:28] LABS: RBC Urine 0-2 /hpf (0-2); Squamous Epithelial Cell Urine Rare /hpf (Few)
[2023-11-29 12:29] LABS: Bacteria Urine 1+ /hpf; WBC Urine 0-3 /hpf (0-3)
--- NOTE | 2023-11-29 14:02 | PC.NURSE ---
On 11/29/23, the student, [Reba Delgado], provided care and completed [facility] documentation on this patient. I have reviewed the student's documentation and agree with the findings.
[2023-11-29 20:08] LABS: Glucose Point of Care 149 mg/dl (65-105)
[2023-11-29] MEDS: MELATONIN 5 MG TABLET FEED TUBE (20:13)
[2023-11-29] MEDS: LATANOPROST 0.005% OP SOLN 2.5 ML BTL 1 DROP EACH EYE (20:13)
[2023-11-30] VITALS (7 sets, daily range): BP systolic 132–167; BP diastolic 51–68; PULSE 60–76; RESP 16–18; TEMP 36.4–36.8; O2SAT 93–97; BMI 10.0
[2023-11-30] MEDS: SODIUM CHLORIDE 0.9% IV 1,000 ML 70 ML IV CONT (00:35)
[2023-11-30 02:37] LABS: Glucose Point of Care 136 mg/dl (65-105)
[2023-11-30 05:13] LABS: Hematocrit 45.4 % (42.0-52.0); Hemoglobin 14.5 g/dL (14.0-18.0); Mean Corpuscular HGB Conc 31.9 g/dl (32-36); Mean Platelet Volume 10.3 fl (7.4-10.4); Platelet Count Result 246 k/mm3 (150-375); Red Blood Count 4.83 M/mm3 (4.6-6.20); Red Cell Distribution Width 14.6 % (11.5-14.5); White Blood Count 12.1 K/mm3 (4.5-10.0)
[2023-11-30 05:42] LABS: Anion Gap 5 mmol/L (4-12); Blood Urea Nitrogen 21 mg/dL (9-20); Calcium 8.5 mg/dL (8.4-10.2); Carbon Dioxide 28 mmol/L (22-30); Chloride 108 mmol/L (98-107); Creatine Kinase 1133 U/L (55-170); Estimated CRCL calculation 84 ml/min; Estimated Glomerular Filt Rate > 60; Glucose 118 mg/dL (65-110); Potassium 3.9 mmol/L (3.4-5.0); Sodium 141 mmol/L (137-145)
[2023-11-30 05:43] LABS: Glucose Point of Care 116 mg/dl (65-105)
[2023-11-30] MEDS: IPRATROPIUM 0.5 MG/ALBUTEROL SULFATE 2.5 MG AMPUL.NEB 3 ML INHALATION ×3 (07:28→21:20)
--- NOTE | 2023-11-30 09:29 | WPDNEURCNPN ---
Assessment and Plan Assessment and plan (1) Acute encephalopathy: Code(s): G93.40 - Encephalopathy, unspecified Status: Acute (2) Dysphagia: Code(s): R13.10 - Dysphagia, unspecified Status: Acute (3) Dementia: Qualifiers: Dementia behavioral or psychological symptom: with agitation Dementia severity: unspecified severity Dementia type: Parkinson's disease Qualified Code(s): G20.A1 - Parkinson's disease without dyskinesia, without mention of fluctuations; F02.811 - Dementia in other diseases classified elsewhere, unspecified severity, with agitation Code(s): F03.90 - Unspecified dementia, unspecified severity, without behavioral disturbance, psychotic disturbance, mood disturbance, and anxiety Status: Acute (4) Parkinsons disease: Code(s): G20 - Parkinson's disease Status: Acute Plan Loco Martinez is a 78 year old male with a history of Parkinson's disease, dementia, CKD, HTN, GERD, HLD who presented due to respiratory failure. He already has underlying dementia so acute illness could be causing the encephalopathy. He also did not receive some of his medications due to his dysphagia so it's possible that may have contributed as well. Dysphagia could be related to underlying PD, but unclear if this is a new concern. - Agree with holding sedation medications, avoid benzo and narcotics - MRI brain can be obtained to evaluate for dysphagia and AMS as well - Sinemet, entacapone, and memantine have been resumed Consult date: 11/30/23 Reason for consult: Altered mental status HPI: Loco Martinez is a 78 year old male with a history of Parkinson's disease, dementia, CKD, HTN, GERD, HLD who presented due to respiratory failure. Patient was found dyspneic and hypoxic, which is why he was brought to the ER. He was started on antibiotics for possible pneumonia. He recently had tested positive for RSV, but was negative on this admission. He initially was requiring supplemental oxygen but has been weaned off. There have been concerns regarding him remaining encephalopathic. He was NPO due to dysphagia and AMS so his medications including the ones for Parkinson's disease were being held. They have since been resumed after Dobbhoff placement. Currently receiving Sinemet 3 tablets QID and entacapone QID. CT head showed no acute abnormalities. Barium swallow eval confirmed pharyngeal dysphagia with aspiration. Patient's daughter at bedside. At baseline, he has some good and bad days. He typically is able to recognize his daughters and other family members and knows where he lives. Review of Systems Review of Systems: ROS unobtainable: Yes unobtainable due to mental status PMFSH Past Medical History Medical History Anemia Anxiety Arthritis At high risk for falls after spinal surgery Chronic back pain CKD (chronic kidney disease) stage 3, GFR 30-59 ml/min Complication of surgical and medical care Dementia Essential (primary) hypertension GERD (gastroesophageal reflux disease) Glaucoma H/O: HTN (hypertension) History of inguinal hernia History of pneumonia Hx of hemorrhoids Hx of Parkinson's disease Hyperlipidemia LDL goal <100 Infection of spine Parkinsons disease Rupture of diaphragm Surgical History Surgical History History of cataract surgery History of cholecystectomy History of hemorrhoidectomy History of inguinal hernia repair History of left hip replacement History of spinal surgery x10. History of thyroidectomy Family History Family History Father Family history of Parkinson's disease Family history of colonic diverticulitis Hypertension Family history of cardiovascular disease Mother Family history of Alzheimer's disease Sibling Family history of malignant neoplasm of breast in first degree relative
--- NOTE | 2023-11-30 09:55 | PCSTNOTE ---
Please refer to the Modified Barium Swallow Evaluation in the EMR.
[2023-11-30] MEDS: DICLOFENAC SODIUM 1% 100 GM GEL (*BKC) 1 APPLIC TOPICAL ×4 (10:24→20:37)
[2023-11-30] MEDS: ENOXAPARIN 40 MG/0.4 ML SYRINGE SUB-Q (10:24)
[2023-11-30] MEDS: MEMANTINE 10 MG TABLET FEED TUBE (10:24)
[2023-11-30] MEDS: cycloSPORINE 0.4 ML OPHTH SOLUTION 1 DROP EACH EYE ×2 (10:24→20:36)
[2023-11-30] MEDS: CARBIDOPA/LEVODOPA 25/100 MG TABLET 3 TABLET FEED TUBE (10:26)
[2023-11-30] MEDS: ENTACAPONE 200 MG TABLET FEED TUBE (10:29)
--- NOTE | 2023-11-30 11:59 | PM.IMPN ---
Progress Note: A&P Assessment and Plan (1) Acute respiratory failure: Code(s): J96.00 - Acute respiratory failure, unspecified whether with hypoxia or hypercapnia Status: Acute Assessment and Plan: 78yo male who presents to the ER via EMS with shortness of breath and hypoxia. Acute Resp Failure -- Patient was recently diagnosed with RSV infection. He was found to be acutely short of breath with SpO2 70% on room air. EMS was called. he was placed on oxygen via nasal cannula then subsequently CPAP. He arrived on 5 L oxygen as well as CPAP. He had greater coarse gurgling lung sounds. His oxygen saturation remained stable on 6 L oxygen via nasal cannula he was afebrile. WBC count of 14.7 with left shift. Lactic acid was normal. Troponin negative. BNP 63. Influenza, RSV and COVID swab was negative. Chest x-ray showed left lower lobe atelectasis versus pneumonia with elevated left hemidiaphragm. BCx collected and started on abx. Scheduled bronchodilator. Oxygen requirement has improved and he is down to room air. Continue pulmonary toilet. Stop IV abx since has had 7 days. Work with PT/OT, ensure adequate hydration, up to chair TID. MRI per neurology recommendation. (2) Pneumonia: Code(s): J18.9 - Pneumonia, unspecified organism Status: Acute Assessment and Plan: PNA -- Flet the hypoxia related to PNA. BCx negative. Started on ceftriaxone and azithromycin. He completed Azithro. Consider aspiration especially if his resp condition worsens. Stop Rocephin after today since Day 7 but monitor WBC (3) Acute encephalopathy: Code(s): G93.40 - Encephalopathy, unspecified Status: Acute Assessment and Plan: Acute encephalopathy -- with agitation initially requiring IV Ativan and needed to be placed on restraints. Better and no longer needing restraints. He was off his Sinemet and other medications. Had NGT but pulled it last night. Passed swallow test and cleared to resume feeding. He will need supervision and help to ensure adequate intake. Meds resumed and he cooperative and calm. Neurology consulted, suggested MRI. (4) Parkinsons disease: Code(s): G20 - Parkinson's disease Status: Acute Assessment and Plan: Partkinson Dz - as above. Sinemet and Comtan resumed. Continue current supportive care. Avoid any sedatives if possible. Resume PT/OT. Repeat ST evaluation (5) Dementia: Qualifiers: Dementia behavioral or psychological symptom: with agitation Dementia severity: unspecified severity Dementia type: Parkinson's disease Qualified Code(s): G20.A1 - Parkinson's disease without dyskinesia, without mention of fluctuations; F02.811 - Dementia in other diseases classified elsewhere, unspecified severity, with agitation Code(s): F03.90 - Unspecified dementia, unspecified severity, without behavioral disturbance, psychotic disturbance, mood disturbance, and anxiety Status: Acute Assessment and Plan: History of dementia -- Namenda resumed. was seen per neurology today. NOtes reviewed: Agree with holding sedation medications, avoid benzo and narcotics - MRI brain can be obtained to evaluate for dysphagia and AMS as well - Sinemet, entacapone, and memantine have been resumed (6) Essential (primary) hypertension: Code(s): I10 - Essential (primary) hypertension Status: Acute Assessment and Plan: Patient's blood pressure was reviewed on 11/29-fluctuates greatly. Will monitor for now. (7) Dysphagia: Code(s): R13.10 - Dysphagia, unspecified Status: Acute Assessment and Plan: Dysphagia -- acute versus chronic issue. Currently NPO because of this. He had delirium that persists but continues to improve slowly. Temporary Dobbhoff placement with tube feed- pulled the tube out. Passed his swallow eval. Will need help with feeding Plan Elevated Total CK - Related to bedrest most likely. AST up sl
--- NOTE | 2023-11-30 13:48 | PCNFU ---
Nutrition Follow-Up Complete: Unintended weight loss as related to pneumonia as evidenced by 6% reported (10 ibs) in 3 months. Meet estimated nutritional needs. - Pt pulled out NG feeding tube. Passed swallow eval and ate some pudding Goal: Pt current nutrition is Regular diet, minced & moist L5, mildly thick liquids. Nutrition recommendation: Oral nutrition supplement: Ensure Compact TID for additional 220 kcal and 9 g protein, chilled for thickened liquids Last recorded weight is 79.2 kg. Bowel Motility: +2 BM 11/29/23 Labs Reviewed: BUN 21, Glu 118 Meds Noted: Zithromax, lovenox Skin: WNL Additional Notes: Ate some pudding for lunch but refused any other meal intake. Needs to be fed/encouraged. Will monitor weight, labs, skin, oral intake, meds every 5 days.
[2023-11-30] MEDS: ENTACAPONE 200 MG TABLET BY MOUTH ×2 (18:05→23:27)
[2023-11-30] MEDS: CARBIDOPA/LEVODOPA 25/100 MG TABLET 3 TABLET BY MOUTH ×2 (18:05→23:27)
[2023-11-30] MEDS: SODIUM CHLORIDE 0.9% IV 1,000 ML 100 ML IV CONT (19:43)
[2023-11-30] MEDS: MEMANTINE 10 MG TABLET BY MOUTH (20:36)
[2023-11-30] MEDS: MELATONIN 5 MG TABLET BY MOUTH (20:36)
[2023-11-30] MEDS: LATANOPROST 0.005% OP SOLN 2.5 ML BTL 1 DROP EACH EYE (20:37)
[2023-12-01 02:35] VITALS: PULSE 72; RESP 18
[2023-12-01] MEDS: IPRATROPIUM 0.5 MG/ALBUTEROL SULFATE 2.5 MG AMPUL.NEB 3 ML INHALATION ×2 (02:35→14:50)
[2023-12-01 04:52] LABS: Glucose Point of Care 101 mg/dl (65-105)
[2023-12-01] MEDS: ENTACAPONE 200 MG TABLET BY MOUTH ×4 (05:03→23:15)
[2023-12-01] MEDS: CARBIDOPA/LEVODOPA 25/100 MG TABLET 3 TABLET BY MOUTH ×4 (05:04→23:15)
[2023-12-01 05:05] LABS: Hematocrit 45.2 % (42.0-52.0); Hemoglobin 14.2 g/dL (14.0-18.0); Mean Corpuscular HGB Conc 31.4 g/dl (32-36); Mean Corpuscular Hemoglobin 29.8 pg (26-34); Mean Corpuscular Volume 94.8 fl (80-100); Mean Platelet Volume 10.1 fl (7.4-10.4); Platelet Count Result 263 k/mm3 (150-375); Red Blood Count 4.77 M/mm3 (4.6-6.20); Red Cell Distribution Width 14.2 % (11.5-14.5); White Blood Count 9.2 K/mm3 (4.5-10.0)
--- NOTE | 2023-12-01 05:05 | PC.NURSE ---
PT PERSPIRING, VITAL SIGNS STABLE, BLOOD SUGAR 101, VOICES NO C/O
[2023-12-01 05:19] LABS: Anion Gap 6 mmol/L (4-12); Blood Urea Nitrogen 21 mg/dL (9-20); Calcium 8.4 mg/dL (8.4-10.2); Carbon Dioxide 25 mmol/L (22-30); Chloride 110 mmol/L (98-107); Creatine Kinase 565 U/L (55-170); Estimated CRCL calculation 84 ml/min; Estimated Glomerular Filt Rate > 60; Glucose 107 mg/dL (65-110); Potassium 3.8 mmol/L (3.4-5.0); Sodium 141 mmol/L (137-145)
[2023-12-01] MEDS: SODIUM CHLORIDE 0.9% IV 1,000 ML 100 ML IV CONT (05:56)
[2023-12-01 06:29] VITALS: BP 125/56; PULSE 60; RESP 16; TEMP 36.6; O2SAT 96
[2023-12-01] MEDS: ENOXAPARIN 40 MG/0.4 ML SYRINGE SUB-Q (10:07)
[2023-12-01] MEDS: cycloSPORINE 0.4 ML OPHTH SOLUTION 1 DROP EACH EYE ×2 (10:08→20:24)
[2023-12-01] MEDS: MEMANTINE 10 MG TABLET BY MOUTH ×2 (10:08→20:23)
[2023-12-01] MEDS: DICLOFENAC SODIUM 1% 100 GM GEL (*BKC) 1 APPLIC TOPICAL ×3 (10:09→20:25)
--- NOTE | 2023-12-01 12:06 | PM.IMPN ---
Progress Note: A&P Assessment and Plan (1) Acute respiratory failure: Code(s): J96.00 - Acute respiratory failure, unspecified whether with hypoxia or hypercapnia Status: Acute Assessment and Plan: 78yo male who presents to the ER via EMS with shortness of breath and hypoxia. Patient with acute respiratory failure. He was recently diagnosed with RSV infection. He was found to be acutely short of breath with SpO2 70% on room air. EMS was called. he was placed on oxygen via nasal cannula then subsequently CPAP. He arrived on 5 L oxygen as well as CPAP. He had greater coarse gurgling lung sounds. His oxygen saturation remained stable on 6 L oxygen via nasal cannula he was afebrile. WBC count of 14.7 with left shift. Lactic acid was normal. Troponin negative. BNP 63. Influenza, RSV and COVID swab was negative. Chest x-ray showed left lower lobe atelectasis versus pneumonia with elevated left hemidiaphragm. BCx collected and started on abx. Scheduled bronchodilator. Oxygen requirement has improved and he is down to room air. He completed a course of antibiotics. Working with PT/OT (2) Pneumonia: Code(s): J18.9 - Pneumonia, unspecified organism Status: Acute Assessment and Plan: [place] the hypoxia related to PNA. BCx negative. Started on ceftriaxone and azithromycin. He completed a course of antibiotics. WBC normal now. (3) Acute encephalopathy: Code(s): G93.40 - Encephalopathy, unspecified Status: Acute Assessment and Plan: Acute encephalopathy with agitation initially requiring IV Ativan and needed to be placed on restraints. Better and no longer needing restraints. He was off his Sinemet and other medications. Brain MRI showing no acute findings. Had NGT but pulled it out. Passed swallow test and cleared to resume feeding. He will need supervision and help to ensure adequate intake. Meds resumed and he remains cooperative and calm. Neurology consulted and apprecaite their input (4) Parkinsons disease: Code(s): G20 - Parkinson's disease Status: Acute Assessment and Plan: As above. Sinemet and Comtan resumed. Continue current supportive care. Avoid any sedatives if possible. Continue PT/OT/ST evaluation (5) Dementia: Qualifiers: Dementia behavioral or psychological symptom: with agitation Dementia severity: unspecified severity Dementia type: Parkinson's disease Qualified Code(s): G20.A1 - Parkinson's disease without dyskinesia, without mention of fluctuations; F02.811 - Dementia in other diseases classified elsewhere, unspecified severity, with agitation Code(s): F03.90 - Unspecified dementia, unspecified severity, without behavioral disturbance, psychotic disturbance, mood disturbance, and anxiety Status: Acute Assessment and Plan: History of dementia. Javed jaimes. Was seen per neurology who agreed with holding sedation medications, avoid benzo and narcotics. Continue Sinemet, entacapone, and memantine (6) Essential (primary) hypertension: Code(s): I10 - Essential (primary) hypertension Status: Acute Assessment and Plan: Patient's blood pressure was reviewed on 11/30 Blood pressure remains up and down with SBP 120-160 range Will continue to monitor (7) Dysphagia: Code(s): R13.10 - Dysphagia, unspecified Status: Acute Assessment and Plan: Dysphagia is an acute versus chronic issue. He had delirium that persists but continues to improve slowly. Temporary Dobbhoff placement with tube feeding but he pulled the tube out. Passed his swallow eval. Diet started. Will need help with feeding Plan Elevated Total CK - Related to bedrest most likely. AST up slightly related to elevated TCK. UA was negative for blood. Levels tredning down. Will stop IV fluids. WBC normal now. DVT prophylaxis - Lovenox Code status - DNR Fall risk [facility]position[facility];
--- NOTE | 2023-12-01 13:30 | PM.DS ---
DS: Admitting Diagnosis Discharge Date 12/01/23 Admitting Diagnosis Shortness of breath DS: Discharge Diagnosis Discharge Diagnosis (1) Acute respiratory failure: Code(s): J96.00 - Acute respiratory failure, unspecified whether with hypoxia or hypercapnia Status: Acute (2) Pneumonia: Code(s): J18.9 - Pneumonia, unspecified organism Status: Acute (3) Acute encephalopathy: Code(s): G93.40 - Encephalopathy, unspecified Status: Acute (4) Parkinsons disease: Code(s): G20 - Parkinson's disease Status: Acute (5) Dementia: Qualifiers: Dementia behavioral or psychological symptom: with agitation Dementia severity: unspecified severity Dementia type: Parkinson's disease Qualified Code(s): G20.A1 - Parkinson's disease without dyskinesia, without mention of fluctuations; F02.811 - Dementia in other diseases classified elsewhere, unspecified severity, with agitation Code(s): F03.90 - Unspecified dementia, unspecified severity, without behavioral disturbance, psychotic disturbance, mood disturbance, and anxiety Status: Acute (6) Essential (primary) hypertension: Code(s): I10 - Essential (primary) hypertension Status: Acute (7) Dysphagia: Code(s): R13.10 - Dysphagia, unspecified Status: Acute DS: Summary Hospital Course Reason for hospitalization: 78yo male with dementia, Parkinsons and HTN here for shortness of breath. Please see H&P for details. Hospital Course: Patient presents to the ER via EMS with shortness of breath and hypoxia. Patient with acute respiratory failure.? He was recently diagnosed with RSV infection.? He was found to be acutely short of breath with SpO2 70% on room air.? EMS was called. he was placed on oxygen via nasal cannula then subsequently CPAP.? He arrived on 5 L oxygen as well as CPAP.? His oxygen saturation remained stable on 6 L oxygen via nasal cannula and he was afebrile. WBC count of 14.7 with left shift.? Lactic acid was normal.? Troponin negative.? BNP 63.? Influenza, RSV and COVID swab was negative.? Chest x-ray showed left lower lobe atelectasis versus pneumonia with elevated left hemidiaphragm. BCx collected and started on abx. Bronchodilators scheduled. Oxygen requirement has improved and he is down to room air. WBC normal. He completed a course of antibiotics. He worked with PT/OT. Patient with acute encephalopathy with agitation initially requiring IV Ativan and needed to be placed on restraints. Better and no longer needing restraints. He was off his Sinemet and other medications. Brain MRI showing no acute findings. Had NGT for nutrition but pulled it out. Passed swallow test and cleared to resume feeding. He will need supervision and help to ensure adequate intake. Medications resumed and he remains cooperative and calm. Neurology consulted and appreciate their input. Elevated Total CK felt related to bedrest most likely. AST up slightly related to elevated TCK. UA was negative for blood. Levels trending down. He had clinical improvement. He overall did well and was able to be discharged on 12/01/23 Discussed with at bedside. Hospital course and follow-up plan discussed in detail and all questions answered to her satisfaction. Status at Discharge Cognitive/behavioral status at discharge: stable Time Spent with Patient Time attestation: Total time spent providing and/or coordinating discharge services: 35 minutes Time spent: Greater than 30 minutes Exam Narrative: AF 97.8 125/56 60 16 96% ra Gen - NARD Chest - inspiratory rhonchi CV - RRR S1/S2 Abd -soft. NT/ND Ext - No pedal edema. Neuro - awake. mumbling, soft speech. Increased tone throughout. masked facies. Skin - Warm and dry. groin tinea infectionnoted. DS: Data Data Completed and Pending Labs on day of discharge: Labs from last 24 hours 12/01/23 12/01/23 12/01/23 13:08 04:47 04:44 WBC 9.
[2023-12-01 13:56] LABS: SARS-CoV-2 RNA PCR Negative (Negative)
[2023-12-01 14:00] VITALS: BP 161/71; PULSE 62; RESP 16; TEMP 36.7; O2SAT 99
[2023-12-01 14:50] VITALS: PULSE 64; RESP 18
--- NOTE | 2023-12-01 16:27 | WPDNEUROPN ---
Progress Note: A&P Assessment and Plan (1) Dementia: Qualifiers: Dementia behavioral or psychological symptom: with agitation Dementia severity: unspecified severity Dementia type: Parkinson's disease Qualified Code(s): G20.A1 - Parkinson's disease without dyskinesia, without mention of fluctuations; F02.811 - Dementia in other diseases classified elsewhere, unspecified severity, with agitation Code(s): F03.90 - Unspecified dementia, unspecified severity, without behavioral disturbance, psychotic disturbance, mood disturbance, and anxiety Status: Acute (2) Parkinsons disease: Code(s): G20 - Parkinson's disease Status: Acute (3) Acute respiratory failure: Code(s): J96.00 - Acute respiratory failure, unspecified whether with hypoxia or hypercapnia Status: Acute (4) Acute encephalopathy: Code(s): G93.40 - Encephalopathy, unspecified Status: Acute (5) Dysphagia: Code(s): R13.10 - Dysphagia, unspecified Status: Acute Plan Patient overall improved. I have met his aware of for. It follow-up at Neurology office and can be [facility] the [facility]. However patient is on fairly high dose of Sinemet and entacapone. Further increment in the medications will not be without some issue with the side effects. For now I would suggest to continue the Namenda 10 mg twice a day and Sinemet 25/103 tablets 4 times a day and entacapone 200 mg 4 times a day and follow-up in 3 months time. His is in agreement with the plan. I have also given her my phone numbers. Subjective Date/time seen: 12/01/23 16:27 Interval history: The patient is 78 years old with history of Parkinson disease and dementia admitted to the hospital with changes in mental status. He has improved. His was present at the time of the evaluation. He has been a resident of jail for last 3 years or so. He is to follow-up with Dr. Mendez and Dr. Stevens in the past. He has been on Sinemet 25/103 tablets 4 times a day in addition to entacapone 200 mg 4 times a day. His dependence on the caring staff is fairly significant. His records were reviewed. Exam Narrative: Fully conscious alert has monotonous speech and that evidence for bradykinesia. There is moderate degree of cogwheeling. No levodopa induced dyskinesia or dystonia were seen patient is clearly very parkinsonian at this time. Objective Data Vital Signs Vital Signs: Vital Signs - 24 hr 11/30/23 21:04 11/30/23 21:20 11/30/23 21:30 Temperature 36.4 C Pulse Rate 64 76 75 Respiratory Rate 18 18 18 Blood Pressure 132/51 L Pulse Oximetry 94 12/01/23 02:35 12/01/23 06:29 12/01/23 14:00 Temperature 36.6 C 36.7 C Pulse Rate 72 60 62 Respiratory Rate 18 16 16 Blood Pressure 125/56 L 161/71 H Pulse Oximetry 96 99 Intake/Output Intake/Output: Intake & Output 11/28/23 11/29/23 11/30/23 12/01/23 23:59 23:59 23:59 23:59 Intake Total 1050 1496 2064.8 1950 Output Total 254 907 1057 500 Balance 400 1146 264.8 1450 Meds/Results Medications: Active Medications Generic Name Dose Route Start Last Admin Trade Name Freq PRN Reason Stop Dose Admin Acetaminophen 650 mg 11/24/23 16:25 Acetaminophen 325 Mg Tablet PO Q4H PRN PAIN 1-3 Albuterol/Ipratropium 3 ml 11/23/23 08:00 12/01/23 09:55 Ipratropium 0.5 Mg/Albuterol Sulfate 2.5 Mg Ampul.Neb 3 Ml INHALATION Not Given Q6HRT [facility] Carbidopa/Levodopa 3 tablet 11/30/23 17:00 12/01/23 10:17 Carbidopa/Levodopa 25/100 Mg Tablet BY MOUTH 3 tablet 0500,1100,1700,2300 JORDAN Administration Cyclosporine 1 drop 11/24/23 21:00 12/01/23 10:08 Cyclosporine 0.4 Ml Ophth Solution EACH EYE 1 drop Q12HR JORDAN Administration Diclofenac Sodium 1 applic 11/24/23 17:00 12/01/23 13:10 Diclofenac Sodium 1% 100 Gm Gel (*Bkc) TOPICAL 1 applic QID JORDAN Administration Enoxaparin Sodium 40 mg 11/23/23
--- NOTE | 2023-12-01 16:44 | WPDNEUROLOGY ---
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 Patient is currently on Keppra. EEG DESCRIPTION During wakefulness the background activity consists of posterior dominant rhythm in alpha range of 8-9 hertz with an amplitude of 20-45 microvolts which appears moderately formed. Anteriorly low amplitude mixed frequency activity was seen. There is a mild anterior posterior gradient. During drowsiness attenuation of background activity was seen. Patient did not progress to stage 2 sleep. Hyperventilation or photic stimulationalso were not performed. IMPRESSION This is a normal EEG obtained during awake and drowsy states.
[2023-12-01] MEDS: MELATONIN 5 MG TABLET BY MOUTH (20:23)
[2023-12-01] MEDS: LATANOPROST 0.005% OP SOLN 2.5 ML BTL 1 DROP EACH EYE (20:25)
[2023-12-01] MEDS: MICONAZOLE NITRATE 2% CREAM 30 GM TUBE 1 APPLIC TOPICAL (20:27)
--- NOTE | 2023-12-01 20:32 | PC.NURSE ---
I called [facility]re[facility] at this time and spoke with their nursing staff to give them the updated ETA from [facility] [place], which is [id number].
[2023-12-01 21:39] VITALS: BP 141/65; PULSE 62; RESP 16; TEMP 36.5; O2SAT 97
--- NOTE | 2023-12-01 22:01 | PC.NURSE ---
I called Deepali Barreto at this time and spoke with their nursing staff to give them the updated ETA from [facility], which is now [id number].
--- NOTE | 2023-12-01 23:27 | PC.NURSE ---
I notified [facility] Barreto at this time that EMS is here for the patient and he will be heading their way shortly.
--- NOTE | 2023-12-01 23:30 | PC.NURSE ---
[facility] NOTIFIED THAT PT LEAVING
== END 2023-12-01 23:29 | DRG 193 ==
LOC: ANHED 05:32 → ANHIMU 06:41 → ANH2MED 11-25 05:35
PROVIDERS: Internal Medicine; Admitting Provider General Practice; Emergency Provider Emergency Medicine; PCP Family Medicine; Visit Provider Internal Medicine
DX: J18.9 Pneumonia, unspecified organism (principal); J96.01 Acute respiratory failure with hypoxia; G93.40 Encephalopathy, unspecified; J98.11 Atelectasis; I12.9 Hypertensive chronic kidney disease with stage 1 through stage 4 chronic kidney disease, or unspecified chronic kidney disease; N18.30 Chronic kidney disease, stage 3 unspecified; K21.9 Gastro-esophageal reflux disease without esophagitis; G20.A1 Parkinson's disease without dyskinesia, without mention of fluctuations; Z20.822 Contact with and (suspected) exposure to COVID-19; F03.90 Unspecified dementia, unspecified severity, without behavioral disturbance, psychotic disturbance, mood disturbance, and anxiety; E78.5 Hyperlipidemia, unspecified; H40.9 Unspecified glaucoma; D64.9 Anemia, unspecified; Z66 Do not resuscitate; R45.1 Restlessness and agitation; R13.10 Dysphagia, unspecified; Z78.1 Physical restraint status; Z90.49 Acquired absence of other specified parts of digestive tract; Z96.642 Presence of left artificial hip joint; G40.909 Epilepsy, unspecified, not intractable, without status epilepticus
CPT/HCPCS: 36415; 43752; 70450; 70551; 71045; 80048; 80053; 81001; 82550; 82607; 82746; 82948; 83605; 83735; 83880; 84100; 84443; 84484; 85025; 85027; 85610; 85730; 86140; 87040; 87635; 87637; 92610; 92611; 93005; 94640; 96365; 96375; 97161; 97166; 99285; A9270; G0378; J0456; J0696; J1650; J1940; J2060; J7030

== ENCOUNTER 2023-12-26 15:38 | Inpatient (IN) | payer MEDICARE, BC, SELFPAY ==
[2023-12-26] VITALS (32 sets, daily range): BP systolic 107–185; BP diastolic 51–132; PULSE 67–81; RESP 10–24; TEMP 36.6–36.8; O2SAT 95–100; BMI 21.2
--- NOTE | ~2023-12-26 | XR_ITS ---
EXAMINATION: XR hip LT min 2V DATE: 12/26/2023 20:00 INDICATION: Postreduction left hip arthroplasty dislocation TECHNIQUE: Anteroposterior and cross-table lateral views of the left hip were obtained. COMPARISON: None. FINDINGS: The previously dislocated left total hip arthroplasty has been reduced with the femoral head componen t now within the acetabular component. The epicenter of the femoral head component is eccentrically p ositioned within the acetabular cup significantly more superolaterally than the epicenter of the acet abular component. This could be related to either marked nonuniform polyethylene liner wear or potent ially displacement of the polyethylene liner. No fractures identified. Partially visualized instrumen robert posterior lumbar spinal fusion with bilateral vertical anisha and pedicle screw and bilateral sacral iliac screw fixation extending cephalad to at least L3 and beyond the superior margin of the field-o f-view. There is likely additional L3-L4, L4-5 and L5-S1 anterior spinal fusion with interbody bone g raft cages. IMPRESSION: 1. Successful reduction of the previous a dislocated left total hip arthroplasty but with significant eccentric positioning of the femoral head component within the acetabular component which suggests e ither marked nonuniform polyethylene liner wear or potentially displacement of the polyethylene liner . Reviewed, dictated and finalized at location A. IMPRESSION: 1. Successful reduction of the previous a dislocated left total hip arthroplast y but with significant eccentric positioning of the femoral head component with in the acetabular component which suggests either marked nonuniform polyethylen e liner wear or potentially displacement of the polyethylene liner.
--- NOTE | ~2023-12-26 | XR_ITS ---
EXAMINATION: XR hip LT 2V w AP pelvis DATE: 12/27/2023 13:49 INDICATION: Left hip dislocation. TECHNIQUE: An anteroposterior view of the pelvis and 2 views of left hip were obtained. COMPARISON: Left hip radiographs 12/26/2023 FINDINGS: There is a total left hip arthroplasty in near-anatomic alignment. There is asymmetric line r wear. No periprosthetic lucency to suggest loosening or infection. There is mild right hip osteoart hritis. There are changes of posterior fusion procedure involving the lumbar spine, sacrum, and iliac bones. There are changes of anterior fusion procedures in lumbar spine. IMPRESSION: 1. Total left hip arthroplasty with asymmetric liner wear. 2. Mild right hip osteoarthritis. Reviewed, dictated and finalized at location A.
--- NOTE | ~2023-12-26 | XR_ITS ---
EXAMINATION: XR hip LT 1V DATE: 12/28/2023 16:29 INDICATION: Postoperative evaluation following left total hip arthroplasty. TECHNIQUE: Anteroposterior view of the left hip were obtained. COMPARISON: Left hip CT dated 12/27/2023 FINDINGS: Interval revision of the prior left total hip arthroplasty due to prior displacement of the polyethyl tana liner. The arthroplasty is now in near-anatomic alignment with placement of a likely new polyethy fuad liner with normal central position of the femoral head component within the acetabular component . No fracture. Surgical drain and expected soft tissue gas at the operative bed and overlying skin st aples. Partially visualized instrumentation for a lower lumbar posterior spinal fusion with iliac scr ews. IMPRESSION: 1. Expected appearance of a revised left total hip arthroplasty which is in near-anatomic alignment, negative for postoperative purposes. Reviewed, dictated and finalized at location A. IMPRESSION: 1. Expected appearance of a revised left total hip arthroplasty which is in janice r-anatomic alignment, negative for postoperative purposes.
--- NOTE | ~2023-12-26 | XR_ITS ---
XR hip LT 2V w AP pelvis DATE: 12/26/2023 16:46 INDICATION: Fall. Hardware dislocation. TECHNIQUE: AP pelvis. AP and cross table lateral views of left hip. COMPARISON: None FINDINGS: There is superior lateral dislocation of the left femoral head prosthesis with respect to t he acetabular prosthetic component. No associated fracture is evident. Extensive postoperative changes of the lumbosacral area. IMPRESSION: Superolateral dislocation of left femoral head prosthesis Reviewed, dictated and finalized at location B.
--- NOTE | ~2023-12-26 | XR_ITS ---
EXAMINATION: XR surgery orthopedic DATE: 12/28/2023 15:05 INDICATION: Broken surgical instrumentation during right hip arthroplasty TECHNIQUE: 2 PA intraoperative images of the right hip were obtained. COMPARISON: None. FINDINGS: There is been placement of a noncemented acetabular and femoral components of a right total hip arthr oplasty. The head of the femoral component is absent. The proximal tip of the femoral component proje cts over the cephalad margin of the acetabular component. There are 3 tiny metallic densities measuri ng up to 1 mm projecting over the cephalad margin of the lesser trochanter and caudal margin of the l ucent operative bed. No larger instrument fragments identified. Postoperative change of prior instrum ented lumbar posterior spinal fusion with bilateral vertical anisha, pedicle screws and sacroiliac screw s. A bolster external to the patient projects over the central pelvis. No fractures identified. IMPRESSION: 1. 3 tiny metallic densities at the operative bed during a partially completed right total hip arthro plasty. No larger instrument fragments identified. Reviewed, dictated and finalized at location A. IMPRESSION: 1. 3 tiny metallic densities at the operative bed during a partially completed right total hip arthroplasty. No larger instrument fragments identified.
--- NOTE | ~2023-12-26 | CT_ITS ---
EXAMINATION: CT hip LT wo con DATE: 12/27/2023 14:34 INDICATION: Concern for ureteral mobility cup liner displacement. TECHNIQUE: High resolution computed tomography (CT) of the left hip was performed without intravenous contrast. Additional sagittal and coronal reconstructions were performed. Automated exposure control and iterative reconstruction technique were employed. The dose-length product was 245.00 mGy-cm. COMPARISON: Radiographs dated 12/27/2023 at 12/26/2023 FINDINGS: Again seen is a left total hip arthroplasty which appears well seated. There is cephalad migration of the femoral head component within the acetabular cup resulting from displacement of the more lucent polyethylene liner which overlies the posterior rim of the left acetabulum. No fracture. Partially vi sualized bilateral vertical anisha, pedicle screw and bilateral sacroiliac screw fixation for a posterio r lumbar spinal fusion. Bone graft cages for anterior spinal fusion are seen at L5-S1 and partially v isualized at L4-L5. Large amount of stool at the rectum. No pathologically enlarged left pelvic or in guinal lymphadenopathy. IMPRESSION: 1. Left total hip arthroplasty with cephalad migration of the femoral head component within the aceta bular component secondary to posterior displacement/dislocation of the polyethylene liner which overl ies the posterior rim of the acetabulum. Reviewed, dictated and finalized at location A. IMPRESSION: 1. Left total hip arthroplasty with cephalad migration of the femoral head comp onent within the acetabular component secondary to posterior displacement/dislo cation of the polyethylene liner which overlies the posterior rim of the acetab ulum.
--- NOTE | 2023-12-26 17:37 | ED.LOWEXIN ---
HPI - Extremity Injury (Lower) General Chief Complaint: Extremity Injury, Lower Stated Complaint: hip deformity Time Seen by Provider: 12/26/23 17:10 Source: patient Mode of arrival: ambulatory Limitations: no limitations History of Present Illness HPI Narrative: This is a 78-year-old male with history of Parkinson's, HTN, CKD, HLD who presents to the ED via EMS from [facility] with chief complaint of left hip pain starting last night. Patient is poor historian overall, likely due to dementia. He is at his baseline A&O x2. Family is bedside states that the nursing staff reported he started having pain in the left hip last night. They ordered an x-ray this morning that showed left hip dislocation. Family reports that patient had initial surgery around [address] Gamino. They do note that the have had to be revised shortly after the initial surgery, but he has not had any problems since. Denies any further sites of pain or injury. Related Data Home Medications Medication Instructions Recorded Confirmed entacapone 200 mg tablet 200 mg PO QID 06/18/19 11/23/23 acetaminophen 325 mg tablet 650 mg PO Q4H PRN Pain 06/27/21 11/23/23 ketoconazole 2 % topical cream 1 applic topical Q12H PRN Dry Skin 06/27/21 11/23/23 melatonin 5 mg capsule 5 mg PO QHS 06/27/21 11/23/23 memantine 10 mg tablet 10 mg PO BID 06/27/21 11/23/23 cyclosporine 0.05 % eye drops in a 1 drp EACH EYE Q12H 11/23/23 11/23/23 dropperette (Restasis) diclofenac sodium 1 % topical gel 4 g topical QID 11/23/23 11/23/23 latanoprost 0.005 % eye drops 1 drp EACH EYE QPM 11/23/23 11/23/23 trolamine salicylate 10 % topical 1 applic topical TID PRN pain 11/23/23 11/23/23 cream (Aspercreme) vit C-vit P-[id number]-[id number] capsule 1 cap PO DAILY 11/23/23 11/23/23 Allergies Allergy/AdvReac Type Severity Reaction Status Date / Time adhesive Allergy Unknown Unknown Verified 12/26/23 15:55 latex Allergy Unknown Unknown Verified 12/26/23 15:55 shrimp Allergy Unknown Verified 12/26/23 15:55 gabapentin AdvReac Unknown HALLUCINATI Verified 12/26/23 15:55 ONS Review of Systems Review of Systems: All systems as dictated in [facility] Past Medical History Medical History Anemia Anxiety Arthritis At high risk for falls after spinal surgery Chronic back pain CKD (chronic kidney disease) stage 3, GFR 30-59 ml/min Complication of surgical and medical care Dementia Essential (primary) hypertension GERD (gastroesophageal reflux disease) Glaucoma H/O: HTN (hypertension) History of inguinal hernia History of pneumonia Hx of hemorrhoids Hx of Parkinson's disease Hyperlipidemia LDL goal <100 Infection of spine Parkinsons disease Rupture of diaphragm Surgical History Surgical History History of cataract surgery History of cholecystectomy History of hemorrhoidectomy History of inguinal hernia repair History of left hip replacement History of spinal surgery x10. History of thyroidectomy Family History Family History Father Family history of Parkinson's disease Family history of colonic diverticulitis Hypertension Family history of cardiovascular disease Mother Family history of Alzheimer's disease Sibling Family history of malignant neoplasm of breast in first degree relative Diabetes mellitus Hypertension Other Family history of arthritis Family history of malignant neoplasm Social History Social History (System 08/27/23 @ 10:13 by Ann Marie Castillo) Smoking status: Never smoker Second hand tobacco smoke exposure: No Alcohol intake: never Substance use: never Substance use type: does not use Do You Feel Safe in your Home?: Yes Lack of Transportation: No Lack of Food: Never True Current Housing: I Have Housing Concerned About Future Housing: No Difficulty Pa
--- NOTE | 2023-12-26 18:21 | ECG_ITS ---
SEE SCANNED COPY FOR CONFIRMED REPORT MTDD
[2023-12-26] MEDS: fentaNYL CITRATE INJ (*CRX) 100 MCG/2 ML VIAL 50 MCG IV PUSH (18:33)
[2023-12-26 18:50] LABS: Basophils Percent Auto 0.6 % (0.2-1.2); Eosinophils Absolute Auto 0.3 K/mm3 (0-0.3); Eosinophils Percent Auto 4.5 % (0-4.4); Hematocrit 41.5 % (42.0-52.0); Hemoglobin 13.6 g/dL (14.0-18.0); Immature Granulocyte Absolute 0.03 K/mm3 (0.00-0.031); Immature Granulocyte Percent A 0.5 % (0-0.5); Lymphocytes Percent Auto 15.1 % (18.3-44.2); Mean Corpuscular HGB Conc 32.8 g/dl (32-36); Mean Corpuscular Hemoglobin 30.3 pg (26-34); Mean Corpuscular Volume 92.4 fl (80-100); Mean Platelet Volume 9.3 fl (7.4-10.4); Monocytes Absolute Auto 0.5 K/mm3 (0.1-0.6); Monocytes Percent Auto 7.9 % (2.6-8.5); Neutrophils Absolute Auto 4.7 K/mm3 (1.3-6.7); Neutrophils Percent Auto 71.4 % (45.5-73.1); Platelet Count Result 199 k/mm3 (150-375); Red Blood Count 4.49 M/mm3 (4.6-6.20); Red Cell Distribution Width 14.4 % (11.5-14.5); White Blood Count 6.6 K/mm3 (4.5-10.0)
[2023-12-26 18:59] LABS: INR 1.1; Prothrombin Time 15.1 Seconds (11.1-14.7)
[2023-12-26 19:00] LABS: Partial Thromboplastin Time 33.4 Seconds (22.3-36.8)
[2023-12-26 19:01] LABS: Alanine Aminotransferase 6 U/L (6-50); Albumin Level 3.5 g/dL (3.5-5.1); Alkaline Phosphatase 86 U/L (38-126); Anion Gap 1 mmol/L (4-12); Aspartate Amino Transferase 24 U/L (17-59); Bilirubin,Total 0.8 mg/dL (0.2-1.3); Blood Urea Nitrogen 13 mg/dL (9-20); Calcium 8.2 mg/dL (8.4-10.2); Carbon Dioxide 28 mmol/L (22-30); Chloride 107 mmol/L (98-107); Estimated CRCL calculation 95 ml/min; Estimated Glomerular Filt Rate > 60; Glucose 102 mg/dL (65-110); Potassium 3.6 mmol/L (3.4-5.0); Sodium 136 mmol/L (137-145)
[2023-12-26] MEDS: PROPOFOL IV EMULSION 200 MG/20 ML VIAL IV PUSH (19:31)
--- NOTE | 2023-12-26 21:56 | ADMGEN ---
This patient, Loco Martinez, was admitted to [facility] Surg Room 316-01 at 21:45. Patient/family oriented to hospital policies and general routines including ID bracelet, bed and alarms, visiting hours, pain management, procedures, bathroom and other care routines, personal items, smoking policy, room service/diet, and visiting hours. Information on how to activate the Rapid Response Team has been discussed. Patient/Family are encouraged to report perceived risks to care and to ask questions if they do not understand what they are told or what they should do.
--- NOTE | 2023-12-26 22:17 | PM.IMHP ---
H&P: HPI History of Present Illness Date/Time: 12/26/23 22:17 Chief Complaint: hip pain Review of Systems Review of Systems: All systems reviewed & are unremarkable except as noted in HPI and below PMFSH Past Medical History Medical History Anemia Anxiety Arthritis At high risk for falls after spinal surgery Chronic back pain CKD (chronic kidney disease) stage 3, GFR 30-59 ml/min Complication of surgical and medical care Dementia Essential (primary) hypertension GERD (gastroesophageal reflux disease) Glaucoma H/O: HTN (hypertension) History of inguinal hernia History of pneumonia Hx of hemorrhoids Hx of Parkinson's disease Hyperlipidemia LDL goal <100 Infection of spine Parkinsons disease Rupture of diaphragm Surgical History Surgical History History of cataract surgery History of cholecystectomy History of hemorrhoidectomy History of inguinal hernia repair History of left hip replacement History of spinal surgery x10. History of thyroidectomy Family History Family History Father Family history of Parkinson's disease Family history of colonic diverticulitis Hypertension Family history of cardiovascular disease Mother Family history of Alzheimer's disease Sibling Family history of malignant neoplasm of breast in first degree relative Diabetes mellitus Hypertension Other Family history of arthritis Family history of malignant neoplasm Social History Social History (System 08/27/23 @ 10:13 by Ann Marie Castillo) Smoking status: Never smoker Second hand tobacco smoke exposure: No Alcohol intake: never Substance use: never Substance use type: does not use Do You Feel Safe in your Home?: Yes Lack of Transportation: No Lack of Food: Never True Current Housing: I Have Housing Concerned About Future Housing: No Difficulty Paying Gas/Electric Bills: No Difficulty Paying for Meds: No Currently Unemployed: No Education: High School Diploma/GED Difficulty w/ Childcare or Family Care: No Gender identity (if verbalized by the patient): Male Spiritual care concerns: No Agree to blood products: Yes Meds Home Medications and Allergies Home Medications Medication Instructions Recorded Confirmed Type entacapone 200 mg tablet 200 mg PO QID 06/18/19 11/23/23 History carbidopa 25 mg-levodopa 100 mg 3 tablet PO 0500,1100,1700,2300 06/27/19 11/23/23 Rx tablet (Sinemet) #100 tabs tamsulosin 0.4 mg capsule 0.4 mg PO DAILY #90 caps 08/26/19 11/23/23 Rx acetaminophen 325 mg tablet 650 mg PO Q4H PRN Pain 06/27/21 11/23/23 History ketoconazole 2 % topical cream 1 applic topical Q12H PRN Dry Skin 06/27/21 11/23/23 History melatonin 5 mg capsule 5 mg PO QHS 06/27/21 11/23/23 History memantine 10 mg tablet 10 mg PO BID 06/27/21 11/23/23 History cyclosporine 0.05 % eye drops in a 1 drp EACH EYE Q12H 11/23/23 11/23/23 History dropperette (Restasis) diclofenac sodium 1 % topical gel 4 g topical QID 11/23/23 11/23/23 History latanoprost 0.005 % eye drops 1 drp EACH EYE QPM 11/23/23 11/23/23 History trolamine salicylate 10 % topical 1 applic topical TID PRN pain 11/23/23 11/23/23 History cream (Aspercreme) vit C-vit A-yhfxuw-jjgczfyo capsule 1 cap PO DAILY 11/23/23 11/23/23 History polyethylene glycol 3350 17 gram 17 g PO DAILY PRN Constipation #10 12/01/23 11/23/23 Rx oral powder packet ea Allergies Allergy/AdvReac Type Severity Reaction Status Date / Time adhesive Allergy Unknown Unknown Verified 12/26/23 15:55 latex Allergy Unknown Unknown Verified 12/26/23 15:55 shrimp Allergy Unknown Verified 12/26/23 15:55 gabapentin AdvReac Unknown HALLUCINATI Verified 12/26/23 15:55 ONS Vital Signs Vital Signs - 24 hr 12/26/23 15:35 12/26/23 15:54 12/26/23 16:00 Temperature 36.7 C Pulse Rate 77 69
[2023-12-26 22:58] LABS: Basophils Percent Auto 0.6 % (0.2-1.2); Eosinophils Absolute Auto 0.3 K/mm3 (0-0.3); Eosinophils Percent Auto 4.7 % (0-4.4); Hematocrit 43.4 % (42.0-52.0); Hemoglobin 14.1 g/dL (14.0-18.0); Immature Granulocyte Absolute 0.04 K/mm3 (0.00-0.031); Immature Granulocyte Percent A 0.6 % (0-0.5); Lymphocytes Absolute Auto 1.09 K/mm3 (0.9-3.2); Lymphocytes Percent Auto 16.5 % (18.3-44.2); Mean Corpuscular HGB Conc 32.5 g/dl (32-36); Mean Corpuscular Hemoglobin 30.3 pg (26-34); Mean Corpuscular Volume 93.1 fl (80-100); Mean Platelet Volume 9.2 fl (7.4-10.4); Monocytes Absolute Auto 0.6 K/mm3 (0.1-0.6); Monocytes Percent Auto 9.1 % (2.6-8.5); Neutrophils Absolute Auto 4.5 K/mm3 (1.3-6.7); Neutrophils Percent Auto 68.5 % (45.5-73.1); Platelet Count Result 198 k/mm3 (150-375); Red Blood Count 4.66 M/mm3 (4.6-6.20); Red Cell Distribution Width 14.4 % (11.5-14.5); White Blood Count 6.6 K/mm3 (4.5-10.0)
[2023-12-26] MEDS: SODIUM CHLORIDE 0.9% IV 1,000 ML 125 ML IV CONT (23:00)
[2023-12-26] MEDS: HYDROmorphone HCL INJ (*CRX) 1 MG/ML SYR 0.5 MG IV PUSH (23:59)
[2023-12-27 05:00] VITALS: BP 161/69; PULSE 53; RESP 18; TEMP 36.2; O2SAT 97
[2023-12-27 06:27] LABS: Anion Gap 3 mmol/L (4-12); Blood Urea Nitrogen 9 mg/dL (9-20); Calcium 8.4 mg/dL (8.4-10.2); Carbon Dioxide 33 mmol/L (22-30); Chloride 107 mmol/L (98-107); Estimated CRCL calculation 75 ml/min; Estimated Glomerular Filt Rate > 60; Glucose 94 mg/dL (65-110); Sodium 143 mmol/L (137-145)
[2023-12-27] MEDS: ACETAMINOPHEN 325 MG TABLET 650 MG PO (06:44)
[2023-12-27] MEDS: HYDROcodone/acetaminophen (*CRX) 5-325 MG TABLET 1 TAB PO ×2 (08:24→13:13)
[2023-12-27] MEDS: PANTOPRAZOLE 40 MG TABLET PO (08:25)
[2023-12-27] MEDS: SODIUM CHLORIDE 0.9% IV 1,000 ML 125 ML IV CONT (08:26)
--- NOTE | 2023-12-27 08:56 | PM.IMPN ---
Progress Note: A&P Assessment and Plan (1) Dislocation of internal left hip prosthesis, initial encounter: Code(s): T84.021A - Dislocation of internal left hip prosthesis, initial encounter Status: Acute (2) Acute respiratory failure: Code(s): J96.00 - Acute respiratory failure, unspecified whether with hypoxia or hypercapnia Status: Acute (3) Dementia: Qualifiers: Dementia behavioral or psychological symptom: with agitation Dementia severity: unspecified severity Dementia type: Parkinson's disease Qualified Code(s): G20.A1 - Parkinson's disease without dyskinesia, without mention of fluctuations; F02.811 - Dementia in other diseases classified elsewhere, unspecified severity, with agitation Code(s): F03.90 - Unspecified dementia, unspecified severity, without behavioral disturbance, psychotic disturbance, mood disturbance, and anxiety Status: Acute (4) Dysphagia: Code(s): R13.10 - Dysphagia, unspecified Status: Acute (5) Essential (primary) hypertension: Code(s): I10 - Essential (primary) hypertension Status: Acute (6) Parkinsons disease: Code(s): G20 - Parkinson's disease Status: Acute Plan patient has a prosthetic hip dislocation ortho consulted. reduced in ed 12/25. ?knee immobilizer and hip abduction pillow. history of VENKAT serum creatinine 0.6 Avoid nephrotoxic drugs. Monitor antihypertensive drug therapy. Avoid NSAIDs. Routine CMP monitoring GFR. Monitor electrolytes especially potassium. chronic respiratory failure Bronchodilators.P.r.n. Spirometry ordered chest x-ray Pneumoniae and flu vaccines as advised Pulmonary rehab if indicated. For disease management to follow GOLD guidelines. Repeat hospitalization risk evaluation per CAT. Evaluation for home O2 if saturations less than 88% on room air acute metabolic encephalopathy will limit use of narcotics and and sedatives. Will ask patient to get a swallowing eval before resuming oral intake. Previous records from Neurology an MRI is reviewed. History of Parkinson's and dementia resume Namenda and Sinemet. HTN Optimize BP meds antiplatelet therapy as advised Routinely check for urine microalbuminuria yearly 2D echo annually Gait Instability Service to Physical Therapy Service to Home Care (PT) Home exercise program Instruction in assistive device Reduction in Polypharmacy, Minimize the use of high-risk medications, and Sedatives, Diuretics, Antidepressants, Narcotics, Anti-hypertensives, and Anti-anxiety Patient is at risk. Counseled accordingly on risk reduction.as above Time Spent With Patient Time with patient: 15 - 25 minutes Subjective Date/time seen: 12/27/23 08:56 Interval history: 78-year-old male PMH Parkinson's, HTN, CKD, HLD who admitted from residential with chief complaint of left hip pain starting last night.? Patient is poor historian overall, likely due to dementia.? He is at his baseline A&O x2. Pt had been having pain in the left hip for couple of days.? Xray that showed left hip dislocation. Family reports that patient had initial surgery around [address] Gamino.? They do note that the have had to be revised shortly after the initial surgery, but he has not had any problems since.? Denies any further sites of pain or injury. 12/25-Dr. Gamino (pt's surgeon) recommended reducing the hip in the ER and placing in knee immobilizer and hip abduction pillow. ?Successful reduction of the previous a dislocated left total hip arthroplasty but with significant eccentric positioning of the femoral head component within the acetabular component which suggests either marked nonuniform polyethylene liner wear or potentially displacement of the polyethylene liner . 12/26- pt is to be seen per ortho today. ?knee immobilizer and hip abduction pillow.. Upon exam- pt is drowsy but awakens. Sounds course- will need to
--- NOTE | 2023-12-27 13:47 | PCSTNOTE ---
Please refer to the Bedside Swallow Evaluation in the EMR. Please note, silent aspiration cannot be ruled out at bedside.
[2023-12-27 14:00] VITALS: BP 153/54; PULSE 65; RESP 14; TEMP 36.7; O2SAT 99
--- NOTE | 2023-12-27 15:44 | PM.CNOR ---
Assessment and Plan Assessment and plan (1) Dislocation of internal left hip prosthesis, initial encounter: Code(s): T84.021A - Dislocation of internal left hip prosthesis, initial encounter <SADE Smith - Last Filed: 12/27/23 16:04> Status: Acute <SADE Smith - Last Filed: 12/27/23 16:04> Assessment and Plan: 78-year-old male with a history of a left dual mobility hip arthroplasty. Patient had a dislocation and relocation in the emergency room. Concern for possible this location of the polyethylene liner. New radiographs obtained given internal rotation of the left lower extremity on exam. New radiographs again revealed that the dual mobility cup is in place however the liner appears to be asymmetric. Possible distal location of the liner once relocated in the emergency room. Patient has a knee immobilizer in place. This should continue. We will obtain CT scan for further evaluation. Pain control in the interim. Bedrest. Reviewed radiographs and physical exam with attending physician, Dr. Delaney. Agrees with current plan as indicated above. We will determine further plan of care pending CT scan results. <SADE Smith - Last Filed: 12/27/23 16:04> 78-year-old male with a history of a left dual mobility hip arthroplasty. Patient had a dislocation and relocation in the emergency room. Concern for possible disassociation of the polyethylene liner from the femoral head component due to position of the articulation on post reduction film. New radiographs obtained given internal rotation of the left lower extremity on exam. New radiographs again revealed that the dual mobility cup is in place however the liner appears to be asymmetric. Possible distal location of the liner once relocated in the emergency room. Patient has a knee immobilizer in place. This should continue. We will obtain CT scan for further evaluation. Pain control in the interim. Bedrest. Reviewed radiographs and physical exam with attending physician, Dr. Delaney. Agrees with current plan as indicated above. We will determine further plan of care pending CT scan results. CT scan obtained which shows disassociation of polyethylene liner from femoral head. he will require revision of the poly liner. discussed with patient and family the risks and benefits of surgery including pe, infection continued instability due to his chronic parkinsonism and the need for further surgery. Patient and family agree and we will proceed. I personally examined the patient myself and spoke to the patient and family. PSB <Darrel Delaney MD - Last Filed: 12/27/23 16:49> Assessment and Plan: Reviewed history, exam, radiographs and current labs with attending MD and covering surgeon, Dr. Delaney, who agrees with current plan as indicated above. No further recommendations from Dr. Delaney at this time. <SADE Smith - Last Filed: 12/27/23 16:04> <Darrel Delaney MD - Last Filed: 12/27/23 16:49> History of Present Illness HPI Consult date: 12/27/23 <SADE Smith - Last Filed: 12/27/23 16:04> 12/27/23 <Darrel Delaney MD - Last Filed: 12/27/23 16:49> Chief complaint: Lt Prosthetic Hip Dislocation/Complicatioon <SADE Smith - Last Filed: 12/27/23 16:04> Narrative: 78-year-old male well known to the orthopedic service with a history of Parkinson's and a left hip dual mobility total hip arthroplasty. Patient was admitted to the emergency room from the custodial after complaints of left hip pain. Patient is a poor historian overall due to his history of Parkinson's. Per the medical record and family, the patient reported having hip pain the night prior to evaluation in the emergency room. Radiographs revealed a left hip dislocation. As previously mentioned, the patient is well known to our orthopedics service and has had his surgery done by Dr. Delaney. <Lola Seals Ma
[2023-12-27 19:58] VITALS: BP 146/74; PULSE 69; RESP 22; TEMP 36.3; O2SAT 97
[2023-12-28] VITALS (14 sets, daily range): BP systolic 108–176; BP diastolic 57–77; PULSE 66–93; RESP 12–80; TEMP 36.1–37.1; O2SAT 98–100
[2023-12-28] MEDS: DICLOFENAC SODIUM 1% 100 GM GEL (*BKC) 1 APPLIC TOPICAL ×2 (09:07→18:05)
[2023-12-28] MEDS: cycloSPORINE 0.4 ML OPHTH SOLUTION 1 DROP EACH EYE ×2 (09:07→21:10)
--- NOTE | 2023-12-28 09:09 | PM.IMPN ---
Progress Note: A&P Assessment and Plan (1) Dislocation of internal left hip prosthesis, initial encounter: Code(s): T84.021A - Dislocation of internal left hip prosthesis, initial encounter Status: Acute (2) Acute respiratory failure: Code(s): J96.00 - Acute respiratory failure, unspecified whether with hypoxia or hypercapnia Status: Acute (3) Dementia: Qualifiers: Dementia behavioral or psychological symptom: with agitation Dementia severity: unspecified severity Dementia type: Parkinson's disease Qualified Code(s): G20.A1 - Parkinson's disease without dyskinesia, without mention of fluctuations; F02.811 - Dementia in other diseases classified elsewhere, unspecified severity, with agitation Code(s): F03.90 - Unspecified dementia, unspecified severity, without behavioral disturbance, psychotic disturbance, mood disturbance, and anxiety Status: Acute (4) Dysphagia: Code(s): R13.10 - Dysphagia, unspecified Status: Acute (5) Essential (primary) hypertension: Code(s): I10 - Essential (primary) hypertension Status: Acute (6) Parkinsons disease: Code(s): G20 - Parkinson's disease Status: Acute Plan #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 reduced in ed 12/25. ?knee immobilizer and hip abduction pillow. repeated xray -ortho note: Possible distal location of the liner once relocated in the emergency room.? Patient has a knee immobilizer in place.? This should continue.? We will obtain CT scan for further evaluation.? Pain control in the interim.? Bedrest history of VENKAT serum creatinine 0.6 Avoid nephrotoxic drugs. Monitor antihypertensive drug therapy. Avoid NSAIDs. Routine CMP monitoring GFR. Monitor electrolytes especially potassium. chronic respiratory failure Bronchodilators.P.r.n. Spirometry ordered chest x-ray Pneumoniae and flu vaccines as advised Pulmonary rehab if indicated. For disease management to follow GOLD guidelines. Repeat hospitalization risk evaluation per CAT. Evaluation for home O2 if saturations less than 88% on room air 12/27- IS if able -ensure eating sitting upright- supervision with eating to avoid aspiration acute metabolic encephalopathy will limit use of narcotics and and sedatives. dionicio roberson completed Previous records from Neurology an MRI is reviewed. History of Parkinson's and dementia resume Namenda and Sinemet. HTN Optimize BP meds antiplatelet therapy as advised Routinely check for urine microalbuminuria yearly 2D echo annually Gait Instability Service to Physical Therapy -bedrest for now per ortho Service to Home Care (PT) Home exercise program Instruction in assistive device Reduction in Polypharmacy, Minimize the use of high-risk medications, and Sedatives, Diuretics, Antidepressants, Narcotics, Anti-hypertensives, and Anti-anxiety Patient is at risk. Counseled accordingly on risk reduction.as above Time Spent With Patient Time with patient: less than 15 minutes Subjective Date/time seen: 12/28/23 09:09 Interval history: 78-year-old male PMH Parkinson's, HTN, CKD, HLD who admitted from long term with chief complaint of left hip pain starting last night.? Patient is poor historian overall, likely due to dementia.? He is at his baseline A&O x2. Pt had been having pain in the left hip for couple of days.? Xray that showed left hip dislocation. Family reports that patient had initial surgery around [address] Gamino.? They do note that the have had to be revised shortly after the initial surgery, but he has not had any problems since.? Denies any further sites of pain or injury. 12/25-Dr. Gamino (pt's surgeon) recommended reducing the hip in the ER and placing in knee immobilizer and hip abduction pillow. ?Successful reduction of the previous a dislocated left total hip arthrop
--- NOTE | 2023-12-28 09:33 | PC.NURSE ---
Pt. down to pre-op via bed.
[2023-12-28] MEDS: LACTATED RINGERS 1,000 ML 30 ML IV CONT ×2 (10:00→16:16)
--- NOTE | 2023-12-28 10:21 | WPDHPUPDATE1 ---
History and Physical Update Update Date/Time: 12/28/23 10:21 History and Physical has been reviewed, including an updated exam of the patient. There are NO changes in the patient's condition. Risks, benefits, and alternatives have been discussed and questions answered. Patient agrees to proceed with procedure.
--- NOTE | 2023-12-28 10:27 | WPDANESEPPF ---
Anes - Initial Pre Proc Eval Procedure: Operation Date: 12/28/23 11:00 Proposed Procedures p Left Hip Poly-Liner Exchange - Darrel Delaney MD Date/Time: 12/28/23 10:27 Surgeon: Tahir Gonzalez MD Pre Op Diagnosis: Lt Prosthetic Hip Dislocation/Complicatioon Patient Data Age: 78 Gender: M Height: 1.83 m Weight: 71.2 kg Last Vital Signs Temp 36.1 C L 12/28/23 06:29 Pulse 66 12/28/23 06:29 Resp 20 12/28/23 06:29 BP 165/74 H 12/28/23 06:29 Pulse Ox 100 12/28/23 06:29 O2 Del Method Room Air 12/28/23 08:00 O2 Flow Rate 4 12/26/23 19:55 Allergies Allergy/AdvReac Type Severity Reaction Status Date / Time adhesive Allergy Unknown Unknown Verified 12/26/23 15:55 latex Allergy Unknown Unknown Verified 12/26/23 15:55 shrimp Allergy Unknown Verified 12/26/23 15:55 gabapentin AdvReac Unknown HALLUCINATI Verified 12/26/23 15:55 ONS Home Medications Medication Instructions Recorded Confirmed Type entacapone 200 mg tablet 200 mg PO QID 06/18/19 12/26/23 History carbidopa 25 mg-levodopa 100 mg 3 tablet PO 0500,1100,1700,2300 06/27/19 12/26/23 Rx tablet (Sinemet) #100 tabs tamsulosin 0.4 mg capsule 0.4 mg PO DAILY #90 caps 08/26/19 12/26/23 Rx acetaminophen 325 mg tablet 650 mg PO Q4H PRN Pain 06/27/21 12/26/23 History ketoconazole 2 % topical cream 1 applic topical Q12H PRN Dry Skin 06/27/21 12/26/23 History melatonin 5 mg capsule 5 mg PO QHS 06/27/21 12/26/23 History memantine 10 mg tablet 10 mg PO BID 06/27/21 12/26/23 History cyclosporine 0.05 % eye drops in a 1 drp EACH EYE Q12H 11/23/23 12/26/23 History dropperette (Restasis) diclofenac sodium 1 % topical gel 4 g topical QID 11/23/23 12/26/23 History latanoprost 0.005 % eye drops 1 drp EACH EYE QPM 11/23/23 12/26/23 History trolamine salicylate 10 % topical 1 applic topical TID PRN pain 11/23/23 12/26/23 History cream (Aspercreme) vit C-vit [id number] capsule 1 cap PO DAILY 11/23/23 12/26/23 History polyethylene glycol 3350 17 gram 17 g PO DAILY PRN Constipation #10 12/01/23 12/26/23 Rx oral powder packet ea Laboratory Tests 12/27/23 17:51 Blood Type A Positive Antibody Screen Negative Patient hx anesthesia problems: none Family hx anesthesia problems: none Results Review: All pre-operative results and documents have been reviewed as part of the pre-operative evaluation. [facility] Past Medical History Medical History Anemia Anxiety Arthritis At high risk for falls after spinal surgery Chronic back pain CKD (chronic kidney disease) stage 3, GFR 30-59 ml/min Complication of surgical and medical care Dementia Essential (primary) hypertension GERD (gastroesophageal reflux disease) Glaucoma H/O: HTN (hypertension) History of inguinal hernia History of pneumonia Hx of hemorrhoids Hx of Parkinson's disease Hyperlipidemia LDL goal <100 Infection of spine Parkinsons disease Rupture of diaphragm Surgical History Surgical History History of cataract surgery History of cholecystectomy History of hemorrhoidectomy History of inguinal hernia repair History of left hip replacement History of spinal surgery x10. History of thyroidectomy Family History Family History Father Family history of Parkinson's disease Family history of colonic diverticulitis Hypertension Family history of cardiovascular disease Mother Family history of Alzheimer's disease Sibling Family history of malignant neoplasm of breast in first degree relative Diabetes mellitus Hypertension Other Family history of arthritis Family history of malignant neoplasm Social History Social History Smoking status: Never smoker Second hand tobacco smoke exposure: No Alcohol intake: never Subs
[2023-12-28] MEDS: TRANEXAMIC ACID 1,000MG/ISO100 1,000 MG/100 ML BAG 200 MG IVPB (10:34)
[2023-12-28] MEDS: ceFAZolin 2 GM/D5W 50 ML 2 GM/50 ML BAG IVPB ×2 (12:07→20:00)
--- NOTE | 2023-12-28 12:17 | PM.DS ---
DS: Discharge Diagnosis Discharge Diagnosis (1) Dislocation of internal left hip prosthesis, initial encounter: Code(s): T84.021A - Dislocation of internal left hip prosthesis, initial encounter Status: Acute (2) Acute respiratory failure: Code(s): J96.00 - Acute respiratory failure, unspecified whether with hypoxia or hypercapnia Status: Acute (3) Dementia: Qualifiers: Dementia behavioral or psychological symptom: with agitation Dementia severity: unspecified severity Dementia type: Parkinson's disease Qualified Code(s): G20.A1 - Parkinson's disease without dyskinesia, without mention of fluctuations; F02.811 - Dementia in other diseases classified elsewhere, unspecified severity, with agitation Code(s): F03.90 - Unspecified dementia, unspecified severity, without behavioral disturbance, psychotic disturbance, mood disturbance, and anxiety Status: Acute (4) Dysphagia: Code(s): R13.10 - Dysphagia, unspecified Status: Acute (5) Essential (primary) hypertension: Code(s): I10 - Essential (primary) hypertension Status: Acute (6) Parkinsons disease: Code(s): G20 - Parkinson's disease Status: Acute Plan #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 reduced in ed 12/25. ?knee immobilizer and hip abduction pillow. repeated xray -ortho note: Possible distal location of the liner once relocated in the emergency room.? Patient has a knee immobilizer in place.? This should continue.? We will obtain CT scan for further evaluation.? Pain control in the interim.? Bedrest history of VENKAT serum creatinine 0.6 Avoid nephrotoxic drugs. Monitor antihypertensive drug therapy. Avoid NSAIDs. Routine CMP monitoring GFR. Monitor electrolytes especially potassium. chronic respiratory failure Bronchodilators.P.r.n. Spirometry ordered chest x-ray Pneumoniae and flu vaccines as advised Pulmonary rehab if indicated. For disease management to follow GOLD guidelines. Repeat hospitalization risk evaluation per CAT. Evaluation for home O2 if saturations less than 88% on room air 12/27- IS if able -ensure eating sitting upright- supervision with eating to avoid aspiration acute metabolic encephalopathy will limit use of narcotics and and sedatives. dionicio roberson completed Previous records from Neurology an MRI is reviewed. History of Parkinson's and dementia resume Namenda and Sinemet. HTN Optimize BP meds antiplatelet therapy as advised Routinely check for urine microalbuminuria yearly 2D echo annually Gait Instability Service to Physical Therapy -bedrest for now per ortho Service to Home Care (PT) Home exercise program Instruction in assistive device Reduction in Polypharmacy, Minimize the use of high-risk medications, and Sedatives, Diuretics, Antidepressants, Narcotics, Anti-hypertensives, and Anti-anxiety Patient is at risk. Counseled accordingly on risk reduction.as above DS: Summary Time Spent with Patient Time attestation: Total time spent providing and/or coordinating discharge services: Exam Narrative: GENERAL: Well appearing, no acute distress. resting with eyes closed HEAD: Normocephalic, atraumatic. NECK: Supple. No adenopathy, no masses. RESPIRATORY: respirations nonlabored. , no rales, wheezing. CARDIOVASCULAR: Regular rate and rhythm without murmurs, . Peripheral pulses 2+ and equal bilaterally. ABDOMINAL: Soft, nontender, nondistended, no hepatosplenomegaly. Normoactive BS. MUSCULOSKELETAL: no Epigastric and no hypochondrial tenderness, pulse intact, skin is wnl to ble SKIN: Warm, dry, NEURO: A&O X3. Moves all extremities Resp: Effort & Inspection: normal respiratory effort Other: coarse Cardio: Rate: regular rate Rhythm: regular rhythm Skin: General skin exam: normal color, No lesion and No rashes Lesion
--- NOTE | 2023-12-28 12:44 | PM.IMPN ---
Progress Note: A&P Assessment and Plan (1) Dislocation of internal left hip prosthesis, initial encounter: Code(s): T84.021A - Dislocation of internal left hip prosthesis, initial encounter Status: Acute (2) Acute respiratory failure: Code(s): J96.00 - Acute respiratory failure, unspecified whether with hypoxia or hypercapnia Status: Acute (3) Dementia: Qualifiers: Dementia behavioral or psychological symptom: with agitation Dementia severity: unspecified severity Dementia type: Parkinson's disease Qualified Code(s): G20.A1 - Parkinson's disease without dyskinesia, without mention of fluctuations; F02.811 - Dementia in other diseases classified elsewhere, unspecified severity, with agitation Code(s): F03.90 - Unspecified dementia, unspecified severity, without behavioral disturbance, psychotic disturbance, mood disturbance, and anxiety Status: Acute (4) Dysphagia: Code(s): R13.10 - Dysphagia, unspecified Status: Acute (5) Essential (primary) hypertension: Code(s): I10 - Essential (primary) hypertension Status: Acute (6) Parkinsons disease: Code(s): G20 - Parkinson's disease Status: Acute Plan #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 reduced in ed 12/25. ?knee immobilizer and hip abduction pillow. repeated xray -ortho note: Possible distal location of the liner once relocated in the emergency room.? Patient has a knee immobilizer in place.? This should continue.? We will obtain CT scan for further evaluation.? Pain control in the interim.? Bedrest history of VENKAT serum creatinine 0.6 Avoid nephrotoxic drugs. Monitor antihypertensive drug therapy. Avoid NSAIDs. Routine CMP monitoring GFR. Monitor electrolytes especially potassium. chronic respiratory failure Bronchodilators.P.r.n. Spirometry ordered chest x-ray Pneumoniae and flu vaccines as advised Pulmonary rehab if indicated. For disease management to follow GOLD guidelines. Repeat hospitalization risk evaluation per CAT. Evaluation for home O2 if saturations less than 88% on room air 12/27- IS if able -ensure eating sitting upright- supervision with eating to avoid aspiration acute metabolic encephalopathy will limit use of narcotics and and sedatives. dionicio roberson completed Previous records from Neurology an MRI is reviewed. History of Parkinson's and dementia resume Namenda and Sinemet. HTN Optimize BP meds antiplatelet therapy as advised Routinely check for urine microalbuminuria yearly 2D echo annually Gait Instability Service to Physical Therapy -bedrest for now per ortho Service to Home Care (PT) Home exercise program Instruction in assistive device Reduction in Polypharmacy, Minimize the use of high-risk medications, and Sedatives, Diuretics, Antidepressants, Narcotics, Anti-hypertensives, and Anti-anxiety Patient is at risk. Counseled accordingly on risk reduction.as above Subjective Date/time seen: 12/28/23 12:44 Objective Data Vital Signs Vital Signs: Vital Signs - 24 hr 12/27/23 14:00 12/27/23 19:58 12/28/23 06:29 Temperature 98.1 F 97.3 F L 96.9 F L Pulse Rate 65 69 66 Respiratory Rate 14 22 H 20 Blood Pressure 153/54 H 146/74 H 165/74 H Pulse Oximetry 99 97 100 Oxygen Delivery 12/28/23 08:00 12/28/23 10:10 Temperature 97.8 F Pulse Rate 83 Respiratory Rate 18 Blood Pressure 169/64 H Pulse Oximetry 100 Oxygen Delivery Room Air Room Air Intake/Output Intake/Output: Intake & Output 12/25/23 12/26/23 12/27/23 12/28/23 23:59 23:59 23:59 23:59 Intake Total 1218 Output Total 200 Balance 1218 -200 Meds/Results Medications: Active Medications Generic Name Dose Route Start Last Admin Trade Name Freq PRN Reason Stop Dose Admin Acetaminophen 650 mg 12/28/23 08:21 Acetaminophen 325 Mg Tablet PO
--- NOTE | 2023-12-28 13:36 | SUR.OPER ---
Patient arrived to OR with left knee brace on and adduction pillow. Left foot bluish light hue pedal pulse +2 and foot warm. see skin assessment for skin redness areas documented. Had wetness on sheet under pure wick bag.
[2023-12-28] MEDS: ceFAZolin SODIUM 1 GM VIAL 2 GM IV PUSH (15:01)
[2023-12-28] MEDS: TRANEXAMIC ACID 1,000 MG/10 ML AMPUL 1000 MG IV PUSH (15:32)
[2023-12-28] MEDS: SODIUM CHLORIDE 0.9% IV 37.7 ML, MORPHINE SULFATE INJ (*CRX) 2 MG, ROPivacaine HCL 1% 2... INFILTRATE (15:41)
--- NOTE | 2023-12-28 16:14 | SUR.OPER ---
left foot color normal +2 pedal pulse/warm
--- NOTE | 2023-12-28 16:36 | W.PM.PROC2 ---
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 INCISION WAS MADE IN THE POSTERIOR LATERAL SIDE OF THE HIP OVER THE OLD INCISION DOWN TO THE FASCIA LAYER. THE FASCIA WAS INCISED. THE HIP WAS EXPOSED. THE SHORT EXTERNAL ROTATORS WERE EXPOSED. THE SCIATIC NERVE WAS IDENTIFIED. INCISION WAS MADE THROUGH THE SHORT EXTERNAL ROTATORS AND THE CAPSULE OF THE HIP JOINT. THERE WAS NO FRESH HEMATOMA. THE FEMORAL HEAD WAS DISASSOCIATED FROM THE DUAL MOBILITY POLYETHYLENE LINER. THE POLY LINER WAS MIGRATED PROXIMAL TO THE HIP JOINT AND WAS ADJACENT TO THE GLUTEUS MEDIUS FASCIA. THE POLY LINER WAS SCARED DOWN TO THE SURROUNDING FASCIA. THE PROSTHETIC FEMORAL HEAD WAS SCUFFED UP SHOWING SIGNS OF CERAMIC ON METAL DAMAGE. THIS APPEARED TO BE A CHRONIC DISLOCATION AND NOT ACUTE. THE FIRST THING THAT WAS DONE WAS THE REMOVAL OF THE CERAMIC HEAD FROM THE FEMORAL COMPONENT. NEXT THE ACETABULAR COMPONENT WAS IDENTIFIED. THE SYNOVIUM AND CAPSULAR TISSUE WERE DEBRIDED. AN EXTENSIVE SYNOVECTOMY WAS PREFORMED. THE EDGES OF THE ACETABULAR COMPONENT WERE IDENTIFIED. NEXT THE DUAL MOBILITY METAL LINER WAS REMOVED FROM THE ACETABULUM. METAL DEBRIS WAS SEEN IN THE SURROUNDING TISSUES, AN INTRAOPERATIVE XRAY WAS PREFORMED WHICH SHOWED THE ACETABULUM TO BE INTACT WITH MINIMAL METAL DEBRIS AROUND THE GREATER TROCHANTER. METAL DEBRIS WAS REMOVED. THE ACETABULUM WAS IRRIGATED WITH STERILE WATER AND BETADINE. THE INTEGRITY OF THE ACETABULAR COMPONENT WAS CHECKED AND IT WAS WELL FIXED. NEXT A FREEDOM TRIAL SIZE G ACETABULAR COMPONENT WAS TRIALED WITH A +6 FEMORAL HEAD TRIAL AND THE STABILITY WAS EXCELLENT WERE THE LEG LENGTHS. THE TRIAL COMPONENTS WERE REMOVED. THE WOUND WAS IRRIGATED WITH STERILE BETADINE AND WATER FOR 3 MIN. THEN WASHED AGAIN. A FREEDOM ACETABULAR COMPONENT SIZE G WAS TAPPED INTO THE ACETABULAR SHELL. THE FIT WAS EXCELLENT. THE COMPONENT WAS CHECKED FOR STABILITY AND IT WAS VERY STABLE. NEXT A +6 COBALT CHROME FREEDOM FEMORAL HEAD MEASURING 36 MM WAS TAPPED IN TO THE FEMORAL TRUNNION AND CHECKED FOR STABILITY. THE HIP WAS RELOCATED AND THE LOCKING MECHANISM OF THE ACETABULAR COMPONENT WAS ENGAGED. THE HIP WAS TAKEN THROUGH A ROM AND AN ATTEMPTED DISLOCATION WAS PREFORMED AND THE HIP WAS VERY STABLE. LEG LENGTHS WERE GROSSLY EQUAL. THE WOUND WAS IRRIGATED WITH STERILE WATER AND BETADINE AGAIN. A DRAIN WAS PLACED IN THE DEEP TISSUES.THE CAPSULE AND THE EXTERNAL ROTATORS WERE APPROXIMATED WITH NUMBER 2 VICRYL. THE FASCIA WITH No 2 QUIL AND THE SUB CUTANEOUS LAYER WITH 2-0 ABSORBABLE SUTURE. PETR WERE PLACED TO APPROXIMATE THE SKIN AND STERILE DRESSING WAS APPLIED. PATIENT WAS PLACED BACK ON TO THE SUPINE POSITION AND WAS EXTUBATED Estimated Blood Loss 100 Urine Output 200 Complications No immediate complications Condition Stable Disposition PACU
[2023-12-28] MEDS: VANCOMYCIN 1,000 MG/NS 250 ML BAG 150 MG IVPB (17:18)
[2023-12-28] MEDS: ENTACAPONE 200 MG TABLET PO ×2 (18:04→20:08)
[2023-12-28] MEDS: MEMANTINE 10 MG TABLET PO (18:04)
[2023-12-28] MEDS: TAMSULOSIN HCL 0.4 MG CAPSULE PO (18:04)
[2023-12-28] MEDS: PANTOPRAZOLE 40 MG TABLET PO (18:04)
[2023-12-28] MEDS: LATANOPROST 0.005% OP SOLN 2.5 ML BTL 1 DROP EACH EYE (18:05)
[2023-12-28] MEDS: CARBIDOPA/LEVODOPA 25/100 MG TABLET 3 TABLET PO ×2 (18:05→22:18)
[2023-12-28] MEDS: SODIUM CHLORIDE 0.9% IV 1,000 ML 125 ML IV CONT (18:07)
[2023-12-28] MEDS: ASPIRIN 325 MG ENTERIC TABLET PO (20:07)
[2023-12-28] MEDS: MELATONIN 5 MG TABLET PO (20:08)
[2023-12-28] MEDS: FAMOTIDINE 20 MG TABLET PO (20:08)
[2023-12-29 03:31] VITALS: BP 137/58; PULSE 77; RESP 16; TEMP 36.8; O2SAT 98
[2023-12-29] MEDS: SODIUM CHLORIDE 0.9% IV 1,000 ML 125 ML IV CONT (04:06)
[2023-12-29] MEDS: ceFAZolin 2 GM/D5W 50 ML 2 GM/50 ML BAG IVPB ×2 (04:08→13:31)
[2023-12-29] MEDS: HYDROcodone/acetaminophen (*CRX) 5-325 MG TABLET 1 TAB PO (05:09)
[2023-12-29] MEDS: CARBIDOPA/LEVODOPA 25/100 MG TABLET 3 TABLET PO ×4 (05:09→22:15)
[2023-12-29 06:49] LABS: Basophils Percent Auto 0.3 % (0.2-1.2); Eosinophils Absolute Auto 0.1 K/mm3 (0-0.3); Hematocrit 39.6 % (42.0-52.0); Hemoglobin 12.6 g/dL (14.0-18.0); Immature Granulocyte Absolute 0.09 K/mm3 (0.00-0.031); Immature Granulocyte Percent A 0.8 % (0-0.5); Lymphocytes Absolute Auto 0.51 K/mm3 (0.9-3.2); Lymphocytes Percent Auto 4.6 % (18.3-44.2); Mean Corpuscular HGB Conc 31.8 g/dl (32-36); Mean Corpuscular Hemoglobin 29.9 pg (26-34); Mean Corpuscular Volume 93.8 fl (80-100); Mean Platelet Volume 9.3 fl (7.4-10.4); Monocytes Absolute Auto 0.7 K/mm3 (0.1-0.6); Monocytes Percent Auto 5.8 % (2.6-8.5); Neutrophils Absolute Auto 9.8 K/mm3 (1.3-6.7); Neutrophils Percent Auto 87.5 % (45.5-73.1); Platelet Count Result 215 k/mm3 (150-375); Red Blood Count 4.22 M/mm3 (4.6-6.20); Red Cell Distribution Width 14.2 % (11.5-14.5); White Blood Count 11.1 K/mm3 (4.5-10.0)
[2023-12-29 07:01] LABS: Anion Gap 3 mmol/L (4-12); Blood Urea Nitrogen 13 mg/dL (9-20); Calcium 7.8 mg/dL (8.4-10.2); Carbon Dioxide 28 mmol/L (22-30); Chloride 108 mmol/L (98-107); Estimated CRCL calculation 75 ml/min; Estimated Glomerular Filt Rate > 60; Glucose 117 mg/dL (65-110); Potassium 3.7 mmol/L (3.4-5.0); Sodium 139 mmol/L (137-145)
[2023-12-29 07:31] VITALS: BP 127/45; PULSE 65; RESP 16; TEMP 37; O2SAT 98
--- NOTE | 2023-12-29 08:30 | PM.IMPN ---
Progress Note: A&P Assessment and Plan (1) Dislocation of internal left hip prosthesis, initial encounter: Code(s): T84.021A - Dislocation of internal left hip prosthesis, initial encounter Status: Acute (2) Acute respiratory failure: Code(s): J96.00 - Acute respiratory failure, unspecified whether with hypoxia or hypercapnia Status: Acute (3) Dementia: Qualifiers: Dementia behavioral or psychological symptom: with agitation Dementia severity: unspecified severity Dementia type: Parkinson's disease Qualified Code(s): G20.A1 - Parkinson's disease without dyskinesia, without mention of fluctuations; F02.811 - Dementia in other diseases classified elsewhere, unspecified severity, with agitation Code(s): F03.90 - Unspecified dementia, unspecified severity, without behavioral disturbance, psychotic disturbance, mood disturbance, and anxiety Status: Acute (4) Dysphagia: Code(s): R13.10 - Dysphagia, unspecified Status: Acute (5) Essential (primary) hypertension: Code(s): I10 - Essential (primary) hypertension Status: Acute (6) Parkinsons disease: Code(s): G20 - Parkinson's disease Status: Acute Plan #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 reduced in ed 12/25. ?knee immobilizer and hip abduction pillow. repeated xray -ortho note: Possible distal location of the liner once relocated in the emergency room.? Patient has a knee immobilizer in place.? This should continue.? We will obtain CT scan for further evaluation.? Pain control in the interim.? Bedrest - 12/27- REVISION OF ACETABULAR COMPONENT LEFT HIP per DR Delaney - PT/OT, neuro checks, hip precaution- per ortho history of VENKAT serum creatinine 0.6 Avoid nephrotoxic drugs. Monitor antihypertensive drug therapy. Avoid NSAIDs. Routine CMP monitoring GFR. Monitor electrolytes especially potassium. Chronic respiratory failure Bronchodilators.P.r.n. Spirometry ordered chest x-ray Pneumoniae and flu vaccines as advised Pulmonary rehab if indicated. For disease management to follow GOLD guidelines. Repeat hospitalization risk evaluation per CAT. Evaluation for home O2 if saturations less than 88% on room air 12/27- IS if able -ensure eating sitting upright- supervision with eating to avoid aspiration acute metabolic encephalopathy will limit use of narcotics and and sedatives. dionicio roberson completed Previous records from Neurology an MRI is reviewed. History of Parkinson's and dementia resume Namenda and Sinemet. HTN Optimize BP meds antiplatelet therapy as advised Routinely check for urine microalbuminuria yearly 2D echo annually Gait Instability Service to Physical Therapy -bedrest for now per ortho Service to Home Care (PT) Home exercise program Instruction in assistive device Reduction in Polypharmacy, Minimize the use of high-risk medications, and Sedatives, Diuretics, Antidepressants, Narcotics, Anti-hypertensives, and Anti-anxiety Patient is at risk. Counseled accordingly on risk reduction.as above Time Spent With Patient Time with patient: less than 15 minutes Subjective Date/time seen: 12/29/23 08:30 Interval history: 78-year-old male PMH Parkinson's, HTN, CKD, HLD who admitted from senior care with chief complaint of left hip pain starting last night.? Patient is poor historian overall, likely due to dementia.? He is at his baseline A&O x2. Pt had been having pain in the left hip for couple of days.? Xray that showed left hip dislocation. Family reports that patient had initial surgery around [address] Gamino.? They do note that the have had to be revised shortly after the initial surgery, but he has not had any problems since.? Denies any further sites of pain or injury. 12/25-Dr. Gamino (pt's surgeon) recommended reducing the hip in the ER and placing in k
[2023-12-29] MEDS: PANTOPRAZOLE 40 MG TABLET PO (09:19)
[2023-12-29] MEDS: FAMOTIDINE 20 MG TABLET PO ×2 (09:19→20:44)
[2023-12-29] MEDS: ASPIRIN 325 MG ENTERIC TABLET PO ×2 (09:19→20:44)
[2023-12-29] MEDS: polyethylene glycoL 3350 17 GM POWD.PACK PO ×2 (09:19→17:44)
[2023-12-29] MEDS: TAMSULOSIN HCL 0.4 MG CAPSULE PO (09:19)
[2023-12-29] MEDS: SENNA/DOCUSATE SODIUM TABLET 2 TAB PO ×2 (09:19→17:44)
[2023-12-29] MEDS: DICLOFENAC SODIUM 1% 100 GM GEL (*BKC) 1 APPLIC TOPICAL ×4 (09:20→20:45)
[2023-12-29] MEDS: ENTACAPONE 200 MG TABLET PO ×4 (09:20→20:44)
[2023-12-29] MEDS: MEMANTINE 10 MG TABLET PO ×2 (09:20→17:44)
[2023-12-29] MEDS: MULTIVITAMINS /C LUTEIN (CENTRUM SILVER) TABLET *BKC 1 TAB PO (09:20)
[2023-12-29] MEDS: DOCUSATE SODIUM 100 MG CAPSULE PO ×2 (09:22→20:44)
[2023-12-29] MEDS: cycloSPORINE 0.4 ML OPHTH SOLUTION 1 DROP EACH EYE ×2 (09:22→20:44)
[2023-12-29 10:15] VITALS: O2SAT 97
[2023-12-29 11:31] VITALS: BP 123/46; PULSE 76; RESP 16; TEMP 37.4; O2SAT 98
--- NOTE | 2023-12-29 11:54 | PM.PNORT ---
Progress Note: A&P Assessment and Plan (1) Failed total hip arthroplasty with dislocation: Qualifiers: Encounter type: subsequent encounter Laterality: left Qualified Code(s): T84.021D - Dislocation of internal left hip prosthesis, subsequent encounter Code(s): T84.028A - Dislocation of other internal joint prosthesis, initial encounter; Z96.649 - Presence of unspecified artificial hip joint Status: Acute Plan POD 1 DOING WELL. WE WILL PULL THE DRAIN AND HE WILL CONTINUE BED TO CHAIR FOR NOW. Subjective Subjective Date/Time Seen: 12/29/23 11:54 Interval history: POD 1 DOING WELL. HE WAS ABLE TO STAND FOR A LITTLE WHEN TRANSFERING TO THE CHAIR. HE DENIES ANY CALF PAIN. PAIN IS WELL CONTROLLED. Exam Extrem: Other: VSS AFEBRILE DRESSING DRY DRAIN WITH MINIMAL OUTPUT.CALF SOFT NON TENDER, THIGH SOFT NON TENDER. Objective Data Vital Signs Vital Signs: Vital Signs - 24 hr 12/28/23 16:16 12/28/23 16:30 12/28/23 16:45 Temperature 36.2 C L Pulse Rate 72 93 93 Respiratory Rate 14 18 18 Blood Pressure 160/63 H 156/62 H 156/62 H Pulse Oximetry 99 98 99 Oxygen Delivery Simple Face Mask Simple Face Mask Room Air Oxygen Flow Rate 8 8 12/28/23 17:00 12/28/23 17:15 12/28/23 17:25 Temperature Pulse Rate 87 85 88 Respiratory Rate 80 H 20 16 Blood Pressure 150/60 H 147/77 H 167/72 H Pulse Oximetry 100 100 Oxygen Delivery Nasal Cannula Nasal Cannula Nasal Cannula Oxygen Flow Rate 2 2 2 12/28/23 17:45 12/28/23 17:55 12/28/23 18:10 Temperature 36.9 C 36.8 C Pulse Rate 89 83 89 Respiratory Rate 15 12 14 Blood Pressure 176/75 H 148/66 H 151/69 H Pulse Oximetry 100 100 99 Oxygen Delivery Room Air Oxygen Flow Rate 12/28/23 18:40 12/28/23 19:31 12/28/23 23:31 Temperature 36.9 C 37.1 C 37.0 C Pulse Rate 93 87 70 Respiratory Rate 14 16 16 Blood Pressure 151/72 H 142/62 H 108/57 L Pulse Oximetry 99 99 100 Oxygen Delivery Oxygen Flow Rate 12/29/23 03:31 12/29/23 07:31 12/29/23 09:29 Temperature 36.8 C 37.0 C Pulse Rate 77 65 Respiratory Rate 16 16 Blood Pressure 137/58 L 127/45 L Pulse Oximetry 98 98 Oxygen Delivery Room Air Oxygen Flow Rate 12/29/23 10:15 12/29/23 09:50 Temperature Pulse Rate Respiratory Rate Blood Pressure Pulse Oximetry 97 Oxygen Delivery Room Air Room Air Oxygen Flow Rate Intake/Output Intake/Output: Intake & Output 12/26/23 12/27/23 12/28/23 12/29/23 23:59 23:59 23:59 23:59 Intake Total 8160 943 1582.8 Output Total 440 280 Balance 1218 10 1863.8 Meds/Results Medications: Active Medications Generic Name Dose Route Start Last Admin Trade Name Freq PRN Reason Stop Dose Admin Acetaminophen 500 mg 12/28/23 17:46 Acetaminophen 500 Mg Tablet PO Q6H PRN Pain Rated 1-3 Hydrocodone Bitart/Acetaminophen 1 tab 12/26/23 20:41 12/29/23 05:09 Hydrocodone/Acetaminophen (*Crx) 5-325 Mg Tablet PO 1 tab Q4H PRN Administration Pain Rated 4-6 Hydrocodone Bitart/Acetaminophen 1 tab 12/28/23 17:46 Hydrocodone/Acetaminophen (*Crx) 10-325 Mg Tablet PO Q4H PRN Pain Rated 7-10 Al Hydrox/Mg Hydrox/Simethicone 30 ml 12/28/23 17:46 Mag Hydrox/Al Hydrox/Simeth 30 Ml Udc PO Q6H PRN Indigestion Aspirin 325 mg 12/28/23 21:00 12/29/23 09:19 Aspirin 325 Mg Enteric Tablet PO 325 mg Q12HR JORDAN Administration Carbidopa/Levodopa 3 tablet 12/28/23 11:00 12/29/23 05:09 Carbidopa/Levodopa 25/100 Mg Tablet PO 3 tablet 0500,1100,1700,2300 JORDAN Administration Cyclosporine 1 drop 12/28/23 08:25 12/29/23 09:22 Cyclosporine 0.4 Ml Ophth Solution EACH EYE 1 drop Q12HR JORDAN Administration Diazepam 5 mg 12/28/23 17:46 Diazepam (*Crx) 5 Mg Tablet PO Q6H PRN Anxiety/Muscle Spasm Diclofenac Sodium 1 applic 12/28/23 09:00 12/29/23 09:20 Diclofenac Sodium 1% 100 Gm Gel (*Bkc) TOPICAL 1 applic QID JORDAN
[2023-12-29 15:31] VITALS: BP 128/50; PULSE 77; RESP 18; TEMP 37.2; O2SAT 98
[2023-12-29] MEDS: LATANOPROST 0.005% OP SOLN 2.5 ML BTL 1 DROP EACH EYE (17:47)
[2023-12-29 19:31] VITALS: BP 130/51; PULSE 69; RESP 20; TEMP 37; O2SAT 97
[2023-12-29] MEDS: MELATONIN 5 MG TABLET PO (20:44)
[2023-12-30] MEDS: diazePAM (*CRX) 5 MG TABLET PO ×2 (00:45→09:41)
--- NOTE | 2023-12-30 01:14 | PC.NURSE ---
patient woke up with complaints of muscle spasms to leg leg and trying to remove abduction pillow. PRN valium was given and patient now resting more comfortable.
[2023-12-30] MEDS: CARBIDOPA/LEVODOPA 25/100 MG TABLET 3 TABLET PO ×4 (04:41→22:28)
[2023-12-30 06:00] VITALS: BP 145/55; PULSE 71; RESP 16; TEMP 36.9; O2SAT 96
[2023-12-30 06:14] LABS: Hematocrit 38.8 % (42.0-52.0); Hemoglobin 12.4 g/dL (14.0-18.0); Mean Corpuscular Volume 93.9 fl (80-100); Mean Platelet Volume 9.6 fl (7.4-10.4); Platelet Count Result 223 k/mm3 (150-375); Red Blood Count 4.13 M/mm3 (4.6-6.20); Red Cell Distribution Width 14.3 % (11.5-14.5); White Blood Count 8.2 K/mm3 (4.5-10.0)
[2023-12-30 06:26] LABS: Albumin Level 3.1 g/dL (3.5-5.1); Alkaline Phosphatase 75 U/L (38-126); Anion Gap 1 mmol/L (4-12); Aspartate Amino Transferase 24 U/L (17-59); Bilirubin,Total 0.6 mg/dL (0.2-1.3); Blood Urea Nitrogen 12 mg/dL (9-20); Calcium 7.7 mg/dL (8.4-10.2); Carbon Dioxide 29 mmol/L (22-30); Chloride 106 mmol/L (98-107); Estimated CRCL calculation 102 ml/min; Estimated Glomerular Filt Rate > 60; Glucose 118 mg/dL (65-110); Potassium 3.5 mmol/L (3.4-5.0); Sodium 136 mmol/L (137-145)
[2023-12-30 06:31] LABS: Alanine Aminotransferase < 6 U/L (6-50)
--- NOTE | 2023-12-30 06:32 | PC.NURSE ---
Patient restless throughout night removing gown and abduction pillow multiple times.
--- NOTE | 2023-12-30 09:23 | PM.IMPN ---
Progress Note: A&P Assessment and Plan (1) Dislocation of internal left hip prosthesis, initial encounter: Code(s): T84.021A - Dislocation of internal left hip prosthesis, initial encounter Status: Acute (2) Acute respiratory failure: Code(s): J96.00 - Acute respiratory failure, unspecified whether with hypoxia or hypercapnia Status: Acute (3) Dementia: Qualifiers: Dementia behavioral or psychological symptom: with agitation Dementia severity: unspecified severity Dementia type: Parkinson's disease Qualified Code(s): G20.A1 - Parkinson's disease without dyskinesia, without mention of fluctuations; F02.811 - Dementia in other diseases classified elsewhere, unspecified severity, with agitation Code(s): F03.90 - Unspecified dementia, unspecified severity, without behavioral disturbance, psychotic disturbance, mood disturbance, and anxiety Status: Acute (4) Dysphagia: Code(s): R13.10 - Dysphagia, unspecified Status: Acute (5) Essential (primary) hypertension: Code(s): I10 - Essential (primary) hypertension Status: Acute (6) Parkinsons disease: Code(s): G20 - Parkinson's disease Status: Acute Plan #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 reduced in ed 12/25. ?knee immobilizer and hip abduction pillow. repeated xray -ortho note: Possible distal location of the liner once relocated in the emergency room.? Patient has a knee immobilizer in place.? This should continue.? We will obtain CT scan for further evaluation.? Pain control in the interim.? Bedrest - 12/27- REVISION OF ACETABULAR COMPONENT LEFT HIP per DR Delaney - PT/OT, neuro checks, hip precaution- per ortho 12/29- POD2 drain is out. doing well, working with PT/OT history of VENKAT serum creatinine 0.6 Avoid nephrotoxic drugs. Monitor antihypertensive drug therapy. Avoid NSAIDs. Routine CMP monitoring GFR. Monitor electrolytes Chronic respiratory failure Bronchodilators.P.r.n. Spirometry ordered chest x-ray Pneumoniae and flu vaccines as advised Pulmonary rehab if indicated. For disease management to follow GOLD guidelines. Repeat hospitalization risk evaluation per CAT. Evaluation for home O2 if saturations less than 88% on room air 12/27- IS if able -ensure eating sitting upright- supervision with eating to avoid aspiration acute metabolic encephalopathy will limit use of narcotics and and sedatives. speech eval completed Previous records from Neurology an MRI is reviewed. History of Parkinson's and dementia resume Namenda and Sinemet. HTN Optimize BP meds antiplatelet therapy as advised Routinely check for urine microalbuminuria yearly 2D echo annually Gait Instability Service to Physical Therapy -bedrest for now per ortho Service to Home Care (PT) Home exercise program Instruction in assistive device Reduction in Polypharmacy, Minimize the use of high-risk medications, and Sedatives, Diuretics, Antidepressants, Narcotics, Anti-hypertensives, and Anti-anxiety Patient is at risk. Counseled accordingly on risk reduction.as above Time Spent With Patient Time with patient: less than 15 minutes Subjective Date/time seen: 12/30/23 09:23 Interval history: 78-year-old male PMH Parkinson's, HTN, CKD, HLD who admitted from [facility]way with chief complaint of left hip pain starting last night.? Patient is poor historian overall, likely due to dementia.? He is at his baseline A&O x2. Pt had been having pain in the left hip for couple of days.? Xray that showed left hip dislocation. Family reports that patient had initial surgery around [address] Gamino.? They do note that the have had to be revised shortly after the initial surgery, but he has not had any problems since.? Denies any further sites of pain or injury. 12/25-Dr. Gamino (pt's surgeon) recommended redu
[2023-12-30] MEDS: ENTACAPONE 200 MG TABLET PO ×4 (09:40→20:25)
[2023-12-30] MEDS: MULTIVITAMINS /C LUTEIN (CENTRUM SILVER) TABLET *BKC 1 TAB PO (09:40)
[2023-12-30] MEDS: polyethylene glycoL 3350 17 GM POWD.PACK PO (09:40)
[2023-12-30] MEDS: MEMANTINE 10 MG TABLET PO ×2 (09:40→19:00)
[2023-12-30] MEDS: SENNA/DOCUSATE SODIUM TABLET 2 TAB PO (09:40)
[2023-12-30] MEDS: TAMSULOSIN HCL 0.4 MG CAPSULE PO (09:41)
[2023-12-30] MEDS: PANTOPRAZOLE 40 MG TABLET PO (09:41)
[2023-12-30] MEDS: ASPIRIN 325 MG ENTERIC TABLET PO ×2 (09:41→20:25)
[2023-12-30] MEDS: cycloSPORINE 0.4 ML OPHTH SOLUTION 1 DROP EACH EYE ×2 (09:41→20:30)
[2023-12-30] MEDS: FAMOTIDINE 20 MG TABLET PO ×2 (09:41→20:25)
[2023-12-30] MEDS: DOCUSATE SODIUM 100 MG CAPSULE PO (09:41)
[2023-12-30] MEDS: DICLOFENAC SODIUM 1% 100 GM GEL (*BKC) 1 APPLIC TOPICAL ×3 (09:56→20:26)
[2023-12-30 14:00] VITALS: BP 130/61; PULSE 66; RESP 14; TEMP 35.8; O2SAT 95
[2023-12-30] MEDS: MELATONIN 5 MG TABLET PO (20:25)
--- NOTE | 2023-12-30 20:35 | PC.NURSE ---
Inventory Associate And Driver scanned and crushed 2100 medications ( pepcid,aspirin, melatonin and entacapone). Inventory Associate And Driver accidently drop medicine cup with medication on floor so wasted those and had to retrieve new pill from [facility]
[2023-12-30 22:00] VITALS: BP 118/69; PULSE 69; RESP 16; TEMP 36.6; O2SAT 97
[2023-12-31 06:00] VITALS: BP 114/68; PULSE 71; RESP 14; TEMP 36.6; O2SAT 98
--- NOTE | 2023-12-31 06:44 | PC.NURSE ---
patient was sleeping and unable to arouse for 0500 Carbidopa Levodopa
[2023-12-31] MEDS: DOCUSATE SODIUM 100 MG CAPSULE PO ×2 (08:55→20:01)
[2023-12-31] MEDS: SENNA/DOCUSATE SODIUM TABLET 2 TAB PO ×2 (08:55→17:12)
[2023-12-31] MEDS: polyethylene glycoL 3350 17 GM POWD.PACK PO (08:55)
[2023-12-31] MEDS: ASPIRIN 325 MG ENTERIC TABLET PO ×2 (08:56→20:00)
[2023-12-31] MEDS: ENTACAPONE 200 MG TABLET PO ×4 (08:56→20:00)
[2023-12-31] MEDS: MEMANTINE 10 MG TABLET PO ×2 (08:56→17:13)
[2023-12-31] MEDS: PANTOPRAZOLE 40 MG TABLET PO (08:56)
[2023-12-31] MEDS: MULTIVITAMINS /C LUTEIN (CENTRUM SILVER) TABLET *BKC 1 TAB PO (08:56)
[2023-12-31] MEDS: TAMSULOSIN HCL 0.4 MG CAPSULE PO (08:56)
[2023-12-31] MEDS: FAMOTIDINE 20 MG TABLET PO ×2 (08:56→20:01)
[2023-12-31] MEDS: DICLOFENAC SODIUM 1% 100 GM GEL (*BKC) 1 APPLIC TOPICAL ×4 (08:57→20:01)
[2023-12-31] MEDS: cycloSPORINE 0.4 ML OPHTH SOLUTION 1 DROP EACH EYE ×2 (08:57→20:01)
--- NOTE | 2023-12-31 09:45 | PM.IMPN ---
Progress Note: A&P Assessment and Plan (1) Dislocation of internal left hip prosthesis, initial encounter: Code(s): T84.021A - Dislocation of internal left hip prosthesis, initial encounter Status: Acute (2) Acute respiratory failure: Code(s): J96.00 - Acute respiratory failure, unspecified whether with hypoxia or hypercapnia Status: Acute (3) Dementia: Qualifiers: Dementia behavioral or psychological symptom: with agitation Dementia severity: unspecified severity Dementia type: Parkinson's disease Qualified Code(s): G20.A1 - Parkinson's disease without dyskinesia, without mention of fluctuations; F02.811 - Dementia in other diseases classified elsewhere, unspecified severity, with agitation Code(s): F03.90 - Unspecified dementia, unspecified severity, without behavioral disturbance, psychotic disturbance, mood disturbance, and anxiety Status: Acute (4) Dysphagia: Code(s): R13.10 - Dysphagia, unspecified Status: Acute (5) Essential (primary) hypertension: Code(s): I10 - Essential (primary) hypertension Status: Acute (6) Parkinsons disease: Code(s): G20 - Parkinson's disease Status: Acute Plan #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 reduced in ed 12/25. ?knee immobilizer and hip abduction pillow. repeated xray -ortho note: Possible distal location of the liner once relocated in the emergency room.? Patient has a knee immobilizer in place.? This should continue.? We will obtain CT scan for further evaluation.? Pain control in the interim.? Bedrest - 12/27- REVISION OF ACETABULAR COMPONENT LEFT HIP per DR Delaney - PT/OT, neuro checks, hip precaution- per ortho 12/29- POD2 drain is out. doing well, working with PT/OT 12/30- no acute event- stable-continue PT/OT history of VENKAT serum creatinine stable Avoid nephrotoxic drugs. Monitor antihypertensive drug therapy. Avoid NSAIDs. Routine CMP monitoring GFR. Monitor electrolytes Chronic respiratory failure Bronchodilators.P.r.n. Spirometry ordered chest x-ray Pneumoniae and flu vaccines as advised Pulmonary rehab if indicated. For disease management to follow GOLD guidelines. Repeat hospitalization risk evaluation per CAT. Evaluation for home O2 if saturations less than 88% on room air 12/27- IS if able -ensure eating sitting upright- supervision with eating to avoid aspiration acute metabolic encephalopathy will limit use of narcotics and and sedatives. speech eval completed Previous records from Neurology an MRI is reviewed. History of Parkinson's and dementia resume Namenda and Sinemet. -stable- monitor HTN Optimize BP meds antiplatelet therapy as advised Routinely check for urine microalbuminuria yearly 2D echo annually Gait Instability Service to Physical Therapy -bedrest for now per ortho Service to Home Care (PT) Home exercise program Instruction in assistive device Reduction in Polypharmacy, Minimize the use of high-risk medications, and Sedatives, Diuretics, Antidepressants, Narcotics, Anti-hypertensives, and Anti-anxiety Patient is at risk. Counseled accordingly on risk reduction.as above Time Spent With Patient Time with patient: less than 15 minutes Subjective Date/time seen: 12/31/23 09:45 Interval history: 78-year-old male PMH Parkinson's, HTN, CKD, HLD who admitted from long term with chief complaint of left hip pain starting last night.? Patient is poor historian overall, likely due to dementia.? He is at his baseline A&O x2. Pt had been having pain in the left hip for couple of days.? Xray that showed left hip dislocation. Family reports that patient had initial surgery around [address] Gamino.? They do note that the have had to be revised shortly after the initial surgery, but he has not had any problems since.? Denies any further sites of
[2023-12-31] MEDS: HYDROcodone/acetaminophen (*CRX) 5-325 MG TABLET 1 TAB PO (11:58)
[2023-12-31] MEDS: CARBIDOPA/LEVODOPA 25/100 MG TABLET 3 TABLET PO ×2 (11:58→17:12)
[2023-12-31 14:14] VITALS: BP 112/62; PULSE 68; RESP 16; TEMP 36.8; O2SAT 96
[2023-12-31] MEDS: LATANOPROST 0.005% OP SOLN 2.5 ML BTL 1 DROP EACH EYE (17:13)
[2023-12-31 20:00] VITALS: PULSE 67; RESP 16; O2SAT 97
[2023-12-31] MEDS: HYDROcodone/acetaminophen (*CRX) 10-325 MG TABLET 1 TAB PO (20:01)
[2023-12-31] MEDS: MELATONIN 5 MG TABLET PO (20:01)
[2023-12-31] MEDS: diazePAM (*CRX) 5 MG TABLET PO (20:01)
[2023-12-31 20:09] VITALS: BP 125/61; PULSE 67; RESP 16; TEMP 36.4; O2SAT 97
[2024-01-01] MEDS: HYDROcodone/acetaminophen (*CRX) 10-325 MG TABLET 1 TAB PO (01:57)
[2024-01-01 04:31] VITALS: BP 114/55; PULSE 61; RESP 16; TEMP 36.3; O2SAT 99
[2024-01-01] MEDS: CARBIDOPA/LEVODOPA 25/100 MG TABLET 3 TABLET PO ×2 (06:13→11:21)
[2024-01-01] MEDS: HYDROcodone/acetaminophen (*CRX) 5-325 MG TABLET 1 TAB PO (06:13)
[2024-01-01] MEDS: DOCUSATE SODIUM 100 MG CAPSULE PO (08:06)
[2024-01-01] MEDS: SENNA/DOCUSATE SODIUM TABLET 2 TAB PO (08:06)
[2024-01-01] MEDS: polyethylene glycoL 3350 17 GM POWD.PACK PO (08:06)
[2024-01-01] MEDS: FAMOTIDINE 20 MG TABLET PO (08:06)
[2024-01-01] MEDS: TAMSULOSIN HCL 0.4 MG CAPSULE PO (08:06)
[2024-01-01] MEDS: ENTACAPONE 200 MG TABLET PO ×2 (08:06→12:50)
[2024-01-01] MEDS: MEMANTINE 10 MG TABLET PO (08:06)
[2024-01-01] MEDS: ASPIRIN 325 MG ENTERIC TABLET PO (08:06)
[2024-01-01] MEDS: MULTIVITAMINS /C LUTEIN (CENTRUM SILVER) TABLET *BKC 1 TAB PO (08:06)
[2024-01-01] MEDS: PANTOPRAZOLE 40 MG TABLET PO (08:06)
[2024-01-01] MEDS: cycloSPORINE 0.4 ML OPHTH SOLUTION 1 DROP EACH EYE (08:06)
[2024-01-01] MEDS: DICLOFENAC SODIUM 1% 100 GM GEL (*BKC) 1 APPLIC TOPICAL (08:08)
--- NOTE | 2024-01-01 09:43 | PM.IMPN ---
Progress Note: A&P Assessment and Plan (1) Dislocation of internal left hip prosthesis, initial encounter: Code(s): T84.021A - Dislocation of internal left hip prosthesis, initial encounter Status: Acute (2) Acute respiratory failure: Code(s): J96.00 - Acute respiratory failure, unspecified whether with hypoxia or hypercapnia Status: Acute (3) Dementia: Qualifiers: Dementia behavioral or psychological symptom: with agitation Dementia severity: unspecified severity Dementia type: Parkinson's disease Qualified Code(s): G20.A1 - Parkinson's disease without dyskinesia, without mention of fluctuations; F02.811 - Dementia in other diseases classified elsewhere, unspecified severity, with agitation Code(s): F03.90 - Unspecified dementia, unspecified severity, without behavioral disturbance, psychotic disturbance, mood disturbance, and anxiety Status: Acute (4) Dysphagia: Code(s): R13.10 - Dysphagia, unspecified Status: Acute (5) Essential (primary) hypertension: Code(s): I10 - Essential (primary) hypertension Status: Acute (6) Parkinsons disease: Code(s): G20 - Parkinson's disease Status: Acute Plan #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 reduced in ed 12/25. ?knee immobilizer and hip abduction pillow. repeated xray -ortho note: Possible distal location of the liner once relocated in the emergency room.? Patient has a knee immobilizer in place.? This should continue.? We will obtain CT scan for further evaluation.? Pain control in the interim.? Bedrest - 12/27- REVISION OF ACETABULAR COMPONENT LEFT HIP per DR Delaney - PT/OT, neuro checks, hip precaution- per ortho 12/29- POD2 drain is out. doing well, working with PT/OT 12/30- no acute event- stable-continue PT/OT 12/31- will need care coordination assistance with placement. history of VENKAT serum creatinine stable Avoid nephrotoxic drugs. Monitor antihypertensive drug therapy. Avoid NSAIDs. Routine CMP monitoring GFR. Monitor electrolytes Chronic respiratory failure Bronchodilators.P.r.n. Spirometry ordered chest x-ray Pneumoniae and flu vaccines as advised Pulmonary rehab if indicated. For disease management to follow GOLD guidelines. Repeat hospitalization risk evaluation per CAT. Evaluation for home O2 if saturations less than 88% on room air 12/27- IS if able -ensure eating sitting upright- supervision with eating to avoid aspiration acute metabolic encephalopathy will limit use of narcotics and and sedatives. speech eval completed Previous records from Neurology an MRI is reviewed. History of Parkinson's and dementia resume Namevannaa and Sinemet. -stable- monitor HTN Optimize BP meds antiplatelet therapy as advised Routinely check for urine microalbuminuria yearly 2D echo annually Gait Instability Service to Physical Therapy -bedrest for now per ortho Service to Home Care (PT) Home exercise program Instruction in assistive device Reduction in Polypharmacy, Minimize the use of high-risk medications, and Sedatives, Diuretics, Antidepressants, Narcotics, Anti-hypertensives, and Anti-anxiety Patient is at risk. Counseled accordingly on risk reduction.as above Subjective Date/time seen: 01/01/24 09:43 Interval history: 78-year-old male PMH Parkinson's, HTN, CKD, HLD who [facility] from [facility] with chief complaint of left hip pain starting last night.? Patient is poor historian overall, likely due to dementia.? He is at his baseline A&O x2. Pt had been having pain in the left hip for couple of days.? Xray that showed left hip dislocation. Family reports that patient had initial surgery around [address] Gamino.? They do note that the have had to be revised shortly after the initial surgery, but he has not had any problems since.? Denies any further sites of pa
[2024-01-01 11:16] LABS: SARS-CoV-2 RNA PCR Negative (Negative)
--- NOTE | 2024-01-01 13:44 | PM.DS ---
DS: Admitting Diagnosis Discharge Date 12/31 Admitting Diagnosis Dislocation of internal left hip prosthesis DS: Discharge Diagnosis Discharge Diagnosis (1) Dislocation of internal left hip prosthesis, initial encounter: Code(s): T84.021A - Dislocation of internal left hip prosthesis, initial encounter Status: Acute (2) Acute respiratory failure: Code(s): J96.00 - Acute respiratory failure, unspecified whether with hypoxia or hypercapnia Status: Acute (3) Dementia: Qualifiers: Dementia behavioral or psychological symptom: with agitation Dementia severity: unspecified severity Dementia type: Parkinson's disease Qualified Code(s): G20.A1 - Parkinson's disease without dyskinesia, without mention of fluctuations; F02.811 - Dementia in other diseases classified elsewhere, unspecified severity, with agitation Code(s): F03.90 - Unspecified dementia, unspecified severity, without behavioral disturbance, psychotic disturbance, mood disturbance, and anxiety Status: Acute (4) Dysphagia: Code(s): R13.10 - Dysphagia, unspecified Status: Acute (5) Essential (primary) hypertension: Code(s): I10 - Essential (primary) hypertension Status: Acute (6) Parkinsons disease: Code(s): G20 - Parkinson's disease Status: Acute Plan Final dx: ?12/27- REVISION OF ACETABULAR COMPONENT LEFT HIP per DR Delaney #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 reduced in ed 12/25. ?knee immobilizer and hip abduction pillow. repeated xray -ortho note: Possible distal location of the liner once relocated in the emergency room.? Patient has a knee immobilizer in place.? This should continue.? We will obtain CT scan for further evaluation.? Pain control in the interim.? Bedrest - 12/27- REVISION OF ACETABULAR COMPONENT LEFT HIP per DR Delaney - PT/OT, neuro checks, hip precaution- per ortho 12/29- POD2 drain is out. doing well, working with PT/OT 12/30- no acute event- stable-continue PT/OT 12/31- will need care coordination assistance with placement. history of VENKAT serum creatinine stable Avoid nephrotoxic drugs. Monitor antihypertensive drug therapy. Avoid NSAIDs. Routine CMP monitoring GFR. Monitor electrolytes Chronic respiratory failure Bronchodilators.P.r.n. Spirometry ordered chest x-ray Pneumoniae and flu vaccines as advised Pulmonary rehab if indicated. For disease management to follow GOLD guidelines. Repeat hospitalization risk evaluation per CAT. Evaluation for home O2 if saturations less than 88% on room air 12/27- IS if able -ensure eating sitting upright- supervision with eating to avoid aspiration acute metabolic encephalopathy will limit use of narcotics and and sedatives. speech eval completed Previous records from Neurology an MRI is reviewed. History of Parkinson's and dementia resume Namenda and Sinemet. -stable- monitor HTN Optimize BP meds antiplatelet therapy as advised Routinely check for urine microalbuminuria yearly 2D echo annually Gait Instability Service to Physical Therapy -bedrest for now per ortho Service to Home Care (PT) Home exercise program Instruction in assistive device Reduction in Polypharmacy, Minimize the use of high-risk medications, and Sedatives, Diuretics, Antidepressants, Narcotics, Anti-hypertensives, and Anti-anxiety Patient is at risk. Counseled accordingly on risk reduction.as above DS: Summary Hospital Course Hospital Course: ?78-year-old male PMH Parkinson's, HTN, CKD, HLD who admitted from [facility] with chief complaint of left hip pain starting last night.? Patient is poor historian overall, likely due to dementia.? He is at his baseline A&O x2. Pt had been having pain in the left hip for couple of days.? Xray that showed left hip dislocation. Family reports that patient had initial surgery around 4 year
[2024-01-01 14:08] VITALS: BP 135/51; PULSE 52; RESP 18; TEMP 35.8; O2SAT 95
--- NOTE | 2024-01-01 15:50 | PM.PNORT ---
Progress Note: A&P Assessment and Plan (1) Failed total hip arthroplasty with dislocation: Qualifiers: Encounter type: subsequent encounter Laterality: left Qualified Code(s): T84.021D - Dislocation of internal left hip prosthesis, subsequent encounter Code(s): T84.028A - Dislocation of other internal joint prosthesis, initial encounter; Z96.649 - Presence of unspecified artificial hip joint Status: Acute Assessment and Plan: POD #4 :REVISION OF ACETABULAR COMPONENT LEFT HIP Continue PT/OT. WBAT. Walker. HIGH FALL RISK. Continue pain control. Ice hip. Protect skin. DVT prophylaxis with Aspirin. SCDs. Incentive Spirometry Use reviewed. Monitor Dressing. Change prior to discharge. Bowel Regimen. Dispo: SNF Time Spent With Patient Time: Reviewed history, exam, radiographs and current labs with attending MD and covering surgeon, Dr. Delaney, who agrees with current plan as indicated above. No further recommendations from Dr. Delaney at this time. Subjective Subjective Date/Time Seen: 01/01/24 15:50 Post Op day: 4 Interval history: POD #4: REVISION OF ACETABULAR COMPONENT LEFT HIP Review of Systems Review of Systems: ROS unobtainable: Yes unobtainable due to mental status Exam Const: General: comfortable and no acute distress Limitations: no limitations Resp: Effort & Inspection: normal respiratory effort Cardio: Rate: regular rate Rhythm: regular rhythm GI: Inspection: non-distended Skin: General skin exam: normal color and wounds noted (incision left hip C/D/I ) Wounds: wounds noted (incision left hip C/D/I ) Extrem: Left lower extremity: hip/thigh Details: tenderness Location: of the hip Location: laterally and anteriorly, swelling (thigh soft ) Location: of the hip (lateral. ), abnormal ROM (limitations with internal/external rotation and flexion/extension due to recent surgical intervention ) and other (incision lateral hip c/d/i. ), knee Details: normal to inspection and normal ROM; no tenderness and no swelling, lower leg (Negative Ben's Sign ) Details: no edema, ankle (+ankle dorsiflexion/plantarflexion ) Details: normal to inspection, no edema and normal ROM; no tenderness, no swelling and no warmth and foot Details: normal capillary refill, toes with normal ROM, vascular exam Details: dorsalis pedis pulse present and motor-sensory exam light-touch normal in all toes; no tenderness, no ecchymosis and no crepitus Psych: Affect: normal affect Objective Data Vital Signs Vital Signs: Vital Signs - 24 hr 12/31/23 20:09 12/31/23 20:00 01/01/24 04:31 Temperature 36.4 C 36.3 C L Pulse Rate 67 67 61 Respiratory Rate 16 16 16 Blood Pressure 125/61 114/55 L Pulse Oximetry 97 97 99 Oxygen Delivery Room Air 01/01/24 08:00 01/01/24 14:08 Temperature 35.8 C L Pulse Rate 52 L Respiratory Rate 18 Blood Pressure 135/51 L Pulse Oximetry 95 Oxygen Delivery Room Air Intake/Output Intake/Output: Intake & Output 12/29/23 12/30/23 12/31/23 01/01/24 23:59 23:59 23:59 23:59 Intake Total 3309.8 1050 920 360 Output Total 580 1300 1600 915 Balance 2729.8 -250 -680 -555 Meds/Results Medications: Active Medications Generic Name Dose Route Start Last Admin Trade Name Freq PRN Reason Stop Dose Admin Acetaminophen 500 mg 12/28/23 17:46 Acetaminophen 500 Mg Tablet PO Q6H PRN Pain Rated 1-3 Hydrocodone Bitart/Acetaminophen 1 tab 12/26/23 20:41 01/01/24 06:13 Hydrocodone/Acetaminophen (*Crx) 5-325 Mg Tablet PO 1 tab Q4H PRN Administration Pain Rated 4-6 Hydrocodone Bitart/Acetaminophen 1 tab 12/28/23 17:46 01/01/24 01:57 Hydrocodone/Acetaminophen (*Crx) 10-325 Mg Tablet PO 1 tab Q4H PRN Administration Pain Rated 7-10 Al Hydrox/Mg Hydrox/Simethicone 30 ml 12/28/23 17:46 Mag Hydrox/Al Hydrox/Simeth 30 Ml Udc PO Q6H PRN Indigestion Aspirin 325 mg 12/28/23 21:00 01/01/24 08:06 Asp
== END 2024-01-01 16:55 | DRG 468 ==
LOC: ANHED 17:10 → ANH3MEDSUR 21:17
PROVIDERS: Orthopaedic Surgery; Admitting Provider Internal Medicine; Emergency Provider Physician Assistant; Visit Provider Nurse Practitioner
PROC: 0SRS01A Replacement of Left Hip Joint, Femoral Surface with Metal Synthetic Substitute, Uncemented, Open Approach (ICD-10-PCS; CPT 27130; principal; 2023-12-28 11:00)
DX: T84.021A Dislocation of internal left hip prosthesis, initial encounter (principal); I12.9 Hypertensive chronic kidney disease with stage 1 through stage 4 chronic kidney disease, or unspecified chronic kidney disease; N18.30 Chronic kidney disease, stage 3 unspecified; G20.A1 Parkinson's disease without dyskinesia, without mention of fluctuations; F02.80 Dementia in other diseases classified elsewhere, unspecified severity, without behavioral disturbance, psychotic disturbance, mood disturbance, and anxiety; E78.5 Hyperlipidemia, unspecified; K21.9 Gastro-esophageal reflux disease without esophagitis; R13.10 Dysphagia, unspecified; M19.90 Unspecified osteoarthritis, unspecified site; M54.9 Dorsalgia, unspecified; G89.29 Other chronic pain; H40.9 Unspecified glaucoma; F41.9 Anxiety disorder, unspecified; Z96.642 Presence of left artificial hip joint; Z11.52 Encounter for screening for COVID-19
CPT/HCPCS: 27265; 36415; 73501; 73502; 73700; 80048; 80053; 85025; 85027; 85610; 85730; 86850; 86900; 86901; 87635; 92610; 93005; 96374; 97110; 97162; 97166; 97530; 99199; 99285; A9270; C1713; G0378; J0171; J0690; J1100; J1170; J1885; J2270; J2405; J2704; J2795; J3010; J3370; J7030; J7120

== ENCOUNTER 2024-01-05 02:37 | Inpatient (IN) | payer MEDICARE, BC, SELFPAY ==
[2024-01-05] VITALS (14 sets, daily range): BP systolic 112–175; BP diastolic 44–87; PULSE 60–74; RESP 13–19; TEMP 36.5–36.8; O2SAT 95–100; BMI 21.6
--- NOTE | ~2024-01-05 | XR_ITS ---
XR hip LT min 2V DATE: 01/05/2024 03:33 INDICATION: Postoperative reduction examination TECHNIQUE: AP and crosstable lateral views of left hip COMPARISON: 01/05/2024 left hip FINDINGS: There is reduction of the dislocated left hip prosthesis. No fracture is evident. IMPRESSION: Reduction of the dislocated left hip arthroplasty Reviewed, dictated and finalized at location A.
--- NOTE | ~2024-01-05 | XR_ITS ---
XR hip LT 2V w AP pelvis DATE: 01/05/2024 03:21 INDICATION: Hip pain. Recent dislocation. TECHNIQUE: AP and crosstable lateral views of left hip COMPARISON: 12/28/2023 left hip FINDINGS: There is posterosuperior dislocation of the femoral head prosthesis. No associated fracture is evident. Skin chino are noted along the lateral aspect of the left hip. Extensive hardware from lumbosacral surgical fusion. IMPRESSION: Posterior superior dislocation of the left hip prosthesis Reviewed, dictated and finalized at location A.
--- NOTE | ~2024-01-05 | XR_ITS ---
EXAM: XR surgery orthopedic DATE: 01/08/2024 18:18 HISTORY: ORIF LT HIP , POSSIBLE LINER EXCHANGE . COMPARISON: 01/05/2024. FINDINGS: Left hip arthroplasty hardware in good position. Surgical changes over the hip joint. No u nexpected radiopaque foreign body. IMPRESSION: Expected intraoperative changes, no radiographic evidence of procedure or hardware relate d complication. Reviewed, dictated and finalized at location K. IMPRESSION: Expected intraoperative changes, no radiographic evidence of proced ure or hardware related complication.
[2024-01-05] MEDS: SODIUM CHLORIDE 0.9% IV 1,000 ML 999 ML IV CONT (03:19)
[2024-01-05] MEDS: fentaNYL CITRATE INJ (*CRX) 100 MCG/2 ML VIAL 50 MCG IV PUSH (03:19)
[2024-01-05] MEDS: PROPOFOL IV EMULSION 200 MG/20 ML VIAL 80 MG IV PUSH (03:20)
--- NOTE | 2024-01-05 03:38 | ED.GENADULT ---
HPI - General Adult General Chief complaint: Extremity Problem,Nontraumatic Stated complaint: L hip pain s/p recent surgery Time Seen by Provider: 01/05/24 02:42 Related Data Home Medications Medication Instructions Recorded Confirmed entacapone 200 mg tablet 200 mg PO QID 06/18/19 12/26/23 acetaminophen 325 mg tablet 650 mg PO Q4H PRN Pain 06/27/21 12/26/23 ketoconazole 2 % topical cream 1 applic topical Q12H PRN Dry Skin 06/27/21 12/26/23 melatonin 5 mg capsule 5 mg PO QHS 06/27/21 12/26/23 memantine 10 mg tablet 10 mg PO BID 06/27/21 12/26/23 cyclosporine 0.05 % eye drops in a 1 drp EACH EYE Q12H 11/23/23 12/26/23 dropperette (Restasis) diclofenac sodium 1 % topical gel 4 g topical QID 11/23/23 12/26/23 latanoprost 0.005 % eye drops 1 drp EACH EYE QPM 11/23/23 12/26/23 trolamine salicylate 10 % topical 1 applic topical TID PRN pain 11/23/23 12/26/23 cream (Aspercreme) vit C-vit [id number] capsule 1 cap PO DAILY 11/23/23 12/26/23 Allergies Allergy/AdvReac Type Severity Reaction Status Date / Time adhesive Allergy Unknown Unknown Verified 01/05/24 02:47 latex Allergy Unknown Unknown Verified 01/05/24 02:47 shrimp Allergy Unknown Verified 01/05/24 02:47 gabapentin AdvReac Unknown HALLUCINATI Verified 01/05/24 02:47 ONS [facility] Past Medical History Medical History Anemia Anxiety Arthritis At high risk for falls after spinal surgery Chronic back pain CKD (chronic kidney disease) stage 3, GFR 30-59 ml/min Complication of surgical and medical care Dementia Essential (primary) hypertension GERD (gastroesophageal reflux disease) Glaucoma H/O: HTN (hypertension) History of inguinal hernia History of pneumonia Hx of hemorrhoids Hx of Parkinson's disease Hyperlipidemia LDL goal <100 Infection of spine Parkinsons disease Rupture of diaphragm Surgical History Surgical History History of cataract surgery History of cholecystectomy History of hemorrhoidectomy History of inguinal hernia repair History of left hip replacement History of spinal surgery x10. History of thyroidectomy Family History Family History Father Family history of Parkinson's disease Family history of colonic diverticulitis Hypertension Family history of cardiovascular disease Mother Family history of Alzheimer's disease Sibling Family history of malignant neoplasm of breast in first degree relative Diabetes mellitus Hypertension Other Family history of arthritis Family history of malignant neoplasm Social History Social History Smoking status: Never smoker Second hand tobacco smoke exposure: No Alcohol intake: never Substance use: never Substance use type: does not use Do You Feel Safe in your Home?: Yes Lack of Transportation: No Lack of Food: Never True Current Housing: I Have Housing Concerned About Future Housing: No Difficulty Paying Gas/Electric Bills: No Difficulty Paying for Meds: No Currently Unemployed: No Education: High School Diploma/GED Difficulty w/ Childcare or Family Care: No Gender identity (if verbalized by the patient): Male Spiritual care concerns: No Agree to blood products: Yes Course Vital Signs Vital signs: Vital Signs Temperature 36.7 C 01/05/24 02:38 Pulse Rate 67 01/05/24 02:38 Respiratory Rate 19 01/05/24 02:38 Blood Pressure 175/77 H 01/05/24 02:38 Pulse Oximetry 98 01/05/24 02:38 Oxygen Delivery Room Air 01/05/24 02:38 Temperature 36.6 C 01/05/24 03:49 Pulse Rate 64 01/05/24 03:49 Respiratory Rate 15 01/05/24 03:49 Blood Pressure 155/66 H 01/05/24 03:49 Pulse Oximetry 99 01/05/24 03:49 Oxygen Delivery Room Air 01/05/24 03:49 Oxygen Flow Rate 2 01/05/24 03:34 Proced
[2024-01-05 04:14] LABS: Basophils Absolute Auto 0.1 K/mm3 (0.0-0.1); Basophils Percent Auto 0.7 % (0.2-1.2); Eosinophils Absolute Auto 0.5 K/mm3 (0-0.3); Eosinophils Percent Auto 5.8 % (0-4.4); Hematocrit 40.2 % (42.0-52.0); Hemoglobin 12.5 g/dL (14.0-18.0); Immature Granulocyte Absolute 0.09 K/mm3 (0.00-0.031); Lymphocytes Absolute Auto 0.88 K/mm3 (0.9-3.2); Lymphocytes Percent Auto 10.2 % (18.3-44.2); Mean Corpuscular HGB Conc 31.1 g/dl (32-36); Mean Corpuscular Hemoglobin 29.6 pg (26-34); Mean Corpuscular Volume 95.3 fl (80-100); Mean Platelet Volume 8.8 fl (7.4-10.4); Monocytes Absolute Auto 0.5 K/mm3 (0.1-0.6); Monocytes Percent Auto 5.4 % (2.6-8.5); Neutrophils Absolute Auto 6.6 K/mm3 (1.3-6.7); Neutrophils Percent Auto 76.9 % (45.5-73.1); Platelet Count Result 341 k/mm3 (150-375); Red Blood Count 4.22 M/mm3 (4.6-6.20); Red Cell Distribution Width 14.1 % (11.5-14.5); White Blood Count 8.6 K/mm3 (4.5-10.0)
[2024-01-05 04:25] LABS: INR 1.1; Prothrombin Time 14.7 Seconds (11.1-14.7)
[2024-01-05 04:26] LABS: Partial Thromboplastin Time 29.6 Seconds (22.3-36.8)
[2024-01-05 04:40] LABS: Alanine Aminotransferase 8 U/L (6-50); Albumin Level 3.1 g/dL (3.5-5.1); Alkaline Phosphatase 82 U/L (38-126); Anion Gap 1 mmol/L (4-12); Aspartate Amino Transferase 33 U/L (17-59); Bilirubin,Total 0.4 mg/dL (0.2-1.3); Blood Urea Nitrogen 20 mg/dL (9-20); Calcium 7.8 mg/dL (8.4-10.2); Carbon Dioxide 32 mmol/L (22-30); Chloride 107 mmol/L (98-107); Estimated CRCL calculation 80 ml/min; Estimated Glomerular Filt Rate > 60; Glucose 111 mg/dL (65-110); Potassium 3.5 mmol/L (3.4-5.0); Sodium 140 mmol/L (137-145)
--- NOTE | 2024-01-05 05:12 | ADMGEN ---
This patient, Loco Martinez, was admitted to Medical Room 344-01. Patient/family oriented to hospital policies and general routines including ID bracelet, bed and alarms, visiting hours, pain management, procedures, bathroom and other care routines, personal items, smoking policy, room service/diet, and visiting hours. Information on how to activate the Rapid Response Team has been discussed. Patient/Family are encouraged to report perceived risks to care and to ask questions if they do not understand what they are told or what they should do.
[2024-01-05] MEDS: MORPHINE SULFATE (*CRX) 4 MG/ML INJ IV PUSH (06:49)
--- NOTE | 2024-01-05 09:12 | PM.IMHP ---
H&P: HPI History of Present Illness Date/Time: 01/05/24 09:12 Chief Complaint: left hip pain Narrative: 78 years old gentleman with history of Parkinson disease, osteoarthritis, left hip replacement, brought to ED because of left pain pain. Patient states he was walking with physical therapy is to catheter with walker, patient had a sudden onset left hip pain, and patient could not walk anymore because severe pain. Patient denies a fall, trauma of left hip. patient also denies headache, focal weakness, chest pain, shortness breast abdomen pain, nausea vomiting diarrhea dysuria fever chills. Patient was brought to ED for evaluation treatment. Upon arrival in the ED,, patient was afebrile, blood pressure stable, uncontrolled hypertension 175/77, pulse ox 98 on room air, labs showed hemoglobin 12.5, of baseline, plain film x-rays showed evidence of a prosthesis dislocation. ER physician consulted orthopedic surgeon. We admit patient for further evaluation and treatment Review of Systems Review of Systems: ROS negative except above PMFSH Past Medical History Medical History Anemia Anxiety Arthritis At high risk for falls after spinal surgery Chronic back pain CKD (chronic kidney disease) stage 3, GFR 30-59 ml/min Complication of surgical and medical care Dementia Essential (primary) hypertension GERD (gastroesophageal reflux disease) Glaucoma H/O: HTN (hypertension) History of inguinal hernia History of pneumonia Hx of hemorrhoids Hx of Parkinson's disease Hyperlipidemia LDL goal <100 Infection of spine Parkinsons disease Rupture of diaphragm Surgical History Surgical History History of cataract surgery History of cholecystectomy History of hemorrhoidectomy History of inguinal hernia repair History of left hip replacement History of spinal surgery x10. History of thyroidectomy Family History Family History Father Family history of Parkinson's disease Family history of colonic diverticulitis Hypertension Family history of cardiovascular disease Mother Family history of Alzheimer's disease Sibling Family history of malignant neoplasm of breast in first degree relative Diabetes mellitus Hypertension Other Family history of arthritis Family history of malignant neoplasm Social History Social History Smoking status: Never smoker Second hand tobacco smoke exposure: No Alcohol intake: unknown Substance use: unknown Substance use type: does not use Do You Feel Safe in your Home?: Yes Lack of Transportation: No Lack of Food: Never True Current Housing: I Have Housing Concerned About Future Housing: No Difficulty Paying Gas/Electric Bills: No Difficulty Paying for Meds: No Currently Unemployed: No Education: High School Diploma/GED Difficulty w/ Childcare or Family Care: No Gender identity (if verbalized by the patient): Male Spiritual care concerns: No Agree to blood products: Yes Meds Home Medications and Allergies Home Medications Medication Instructions Recorded Confirmed Type entacapone 200 mg tablet 200 mg PO QID 06/18/19 01/05/24 History carbidopa 25 mg-levodopa 100 mg 3 tablet PO 0500,1100,1700,2300 06/27/19 01/05/24 Rx tablet (Sinemet) #100 tabs tamsulosin 0.4 mg capsule 0.4 mg PO DAILY #90 caps 08/26/19 01/05/24 Rx acetaminophen 325 mg tablet 650 mg PO Q4H PRN Pain 06/27/21 01/05/24 History ketoconazole 2 % topical cream 1 applic topical Q12H PRN Dry Skin 06/27/21 01/05/24 History melatonin 5 mg capsule 5 mg PO QHS 06/27/21 01/05/24 History memantine 10 mg tablet 10 mg PO BID 06/27/21 01/05/24 History cyclosporine 0.05 % eye drops in a 1 drp EACH EYE Q12H 11/23/23 01/05/24 History dropperette (Restasis) jack
[2024-01-05] MEDS: TAMSULOSIN HCL 0.4 MG CAPSULE PO (09:41)
[2024-01-05] MEDS: cycloSPORINE 0.4 ML OPHTH SOLUTION 1 DROP EACH EYE ×2 (09:41→20:28)
[2024-01-05] MEDS: OPTI-GEN TAB 1 TABLET PO (09:41)
[2024-01-05] MEDS: CARBIDOPA/LEVODOPA 25/100 MG TABLET 3 TABLET PO ×3 (10:16→20:28)
[2024-01-05] MEDS: traMADol HCL (*CRX) 50 MG TABLET PO ×2 (10:26→20:29)
[2024-01-05] MEDS: ENTACAPONE 200 MG TABLET PO ×2 (16:48→20:27)
[2024-01-05] MEDS: MEMANTINE 10 MG TABLET PO (16:48)
[2024-01-05] MEDS: DICLOFENAC SODIUM 1% 100 GM GEL (*BKC) 1 APPLIC TOPICAL ×2 (16:48→20:28)
[2024-01-05] MEDS: MELATONIN 5 MG TABLET PO (20:27)
[2024-01-05] MEDS: LATANOPROST 0.005% OP SOLN 2.5 ML BTL 1 DROP EACH EYE (20:27)
[2024-01-06 04:26] VITALS: BP 150/62; PULSE 55; RESP 16; TEMP 36.6; O2SAT 97
[2024-01-06] MEDS: CARBIDOPA/LEVODOPA 25/100 MG TABLET 3 TABLET PO ×4 (04:38→22:33)
[2024-01-06] MEDS: MORPHINE SULFATE (*CRX) 4 MG/ML INJ IV PUSH ×2 (04:39→06:49)
[2024-01-06] MEDS: MEMANTINE 10 MG TABLET PO ×2 (08:01→16:58)
[2024-01-06] MEDS: TAMSULOSIN HCL 0.4 MG CAPSULE PO (08:01)
[2024-01-06] MEDS: ENTACAPONE 200 MG TABLET PO ×4 (08:01→19:43)
[2024-01-06] MEDS: cycloSPORINE 0.4 ML OPHTH SOLUTION 1 DROP EACH EYE ×2 (08:01→19:43)
[2024-01-06] MEDS: OPTI-GEN TAB 1 TABLET PO (08:01)
[2024-01-06] MEDS: DICLOFENAC SODIUM 1% 100 GM GEL (*BKC) 1 APPLIC TOPICAL ×4 (08:02→19:46)
--- NOTE | 2024-01-06 08:05 | PM.IMPN ---
Progress Note: A&P Assessment and Plan (1) Dislocation of hip prosthesis: Qualifiers: Encounter type: initial encounter Qualified Code(s): T84.029A - Dislocation of unspecified internal joint prosthesis, initial encounter; Z96.649 - Presence of unspecified artificial hip joint Code(s): T84.029A - Dislocation of unspecified internal joint prosthesis, initial encounter; Z96.649 - Presence of unspecified artificial hip joint Status: Acute (2) Dementia: Qualifiers: Dementia behavioral or psychological symptom: with agitation Dementia severity: unspecified severity Dementia type: Parkinson's disease Qualified Code(s): G20.A1 - Parkinson's disease without dyskinesia, without mention of fluctuations; F02.811 - Dementia in other diseases classified elsewhere, unspecified severity, with agitation Code(s): F03.90 - Unspecified dementia, unspecified severity, without behavioral disturbance, psychotic disturbance, mood disturbance, and anxiety Status: Acute (3) Essential (primary) hypertension: Code(s): I10 - Essential (primary) hypertension Status: Acute (4) Parkinsons disease: Code(s): G20 - Parkinson's disease Status: Acute Plan dislocation of right hip prothesis optimize pain management Consult orthopedic surgeon Consult PT OT child care coordinator for evaluation and assisting placement orthopedic surgeon plans surgical treatment on Sunday Parkinson disease Continue Sinemet at home does controlled, no tremor uncontrolled hypertension Likely secondary to uncontrolled pain, patient has no home home medication Optimize pain management Monitor blood pressure closely chronic anemia, follow-up CBC, no obvious bleeding Follow stool guaiac, iron panel patient may stay more than 2 midnights in the hospital Subjective Date/time seen: 01/06/24 08:05 Interval history: I saw and exam patient today, patient still has pain of left hip, paste tolerable, but worse with movement, patient denies chest pain abdomen pain nausea vomiting diarrhea fever chills. Blood pressure stable, pulse ox 97 on room air, Exam Narrative: GENERAL: Pleasant, in no acute distress. Well-nourished. - EYES: EOMI. Anicteric. - HENT: Moist mucous membranes. - LUNGS: Clear to auscultation bilaterally, no wheezing, rhonchi, or rales. - CARDIOVASCULAR: Regular rate and rhythm. No murmur. No JVD. - ABDOMEN: Soft, non-tender and non-distended. No palpable masses. - EXTREMITIES: No edema. Peripheral pulses 2+. Non-tender. left hip range of movement is restricted - NEUROLOGIC: No focal neurological deficits. CN II-XII grossly intact. - PSYCHIATRIC: Awake, Alert and oriented x 3. Appropriate mood and affect. - SKIN: No rashes or lesions. Warm. - LYMPH: No cervical lymphadenopathy. Objective Data Vital Signs Vital Signs: Vital Signs - 24 hr 01/05/24 15:49 01/05/24 19:17 01/05/24 21:51 Temperature 97.8 F 97.9 F Pulse Rate 62 60 Respiratory Rate 16 16 Blood Pressure 134/58 L 112/44 L 122/58 L Pulse Oximetry 97 100 Oxygen Delivery 01/05/24 20:00 01/06/24 04:26 Temperature 97.9 F Pulse Rate 55 L Respiratory Rate 16 Blood Pressure 150/62 H Pulse Oximetry 97 Oxygen Delivery Room Air Intake/Output Intake/Output: Intake & Output 01/03/24 01/04/24 01/05/24 01/06/24 23:59 23:59 23:59 23:59 Intake Total 1680 50 Output Total 500 400 Balance 1180 -350 Meds/Results Medications: Active Medications Generic Name Dose Route Start Last Admin Trade Name Freq PRN Reason Stop Dose Admin Acetaminophen 650 mg 01/05/24 09:18 Acetaminophen 325 Mg Tablet PO Q4H PRN Pain 1-3 Carbidopa/Levodopa 3 tablet 01/05/24 11:00 01/06/24 04:38 Carbidopa/Levodopa 25/100 Mg Tablet PO 3 tablet 0500,1100,1700,2300 JORDAN Administration Cyclobenzaprine HCl 10 mg 01/05/24 09:18 Cyclobenzaprine Hcl 10 Mg Tablet PO BID PRN
[2024-01-06 14:00] VITALS: BP 135/56; PULSE 57; RESP 20; TEMP 35.8; O2SAT 98
[2024-01-06] MEDS: ASPIRIN 81 MG CHEWABLE TABLET 324 MG PO (14:39)
[2024-01-06] MEDS: traMADol HCL (*CRX) 50 MG TABLET PO (18:00)
[2024-01-06 19:10] VITALS: BP 126/53; PULSE 57; RESP 16; TEMP 36.5; O2SAT 98
[2024-01-06] MEDS: MELATONIN 5 MG TABLET PO (19:42)
[2024-01-06] MEDS: TROLAMINE SALICYLATE 10% (*BKC) 113 GM CREAM 1 APPLIC TOPICAL (19:43)
[2024-01-06] MEDS: LATANOPROST 0.005% OP SOLN 2.5 ML BTL 1 DROP EACH EYE (19:44)
[2024-01-07 05:22] VITALS: BP 155/63; PULSE 66; RESP 16; TEMP 36.8; O2SAT 98
[2024-01-07] MEDS: CARBIDOPA/LEVODOPA 25/100 MG TABLET 3 TABLET PO ×4 (05:43→21:26)
[2024-01-07] MEDS: cycloSPORINE 0.4 ML OPHTH SOLUTION 1 DROP EACH EYE ×2 (08:19→20:51)
[2024-01-07] MEDS: ASPIRIN 81 MG CHEWABLE TABLET 324 MG PO (08:19)
[2024-01-07] MEDS: MEMANTINE 10 MG TABLET PO ×2 (08:19→17:33)
[2024-01-07] MEDS: ENTACAPONE 200 MG TABLET PO ×4 (08:19→20:51)
[2024-01-07] MEDS: TAMSULOSIN HCL 0.4 MG CAPSULE PO (08:19)
[2024-01-07] MEDS: OPTI-GEN TAB 1 TABLET PO (08:20)
[2024-01-07] MEDS: DICLOFENAC SODIUM 1% 100 GM GEL (*BKC) 1 APPLIC TOPICAL ×4 (08:20→20:51)
--- NOTE | 2024-01-07 09:21 | PM.IMPN ---
Progress Note: A&P Assessment and Plan (1) Dislocation of hip prosthesis: Qualifiers: Encounter type: initial encounter Qualified Code(s): T84.029A - Dislocation of unspecified internal joint prosthesis, initial encounter; Z96.649 - Presence of unspecified artificial hip joint Code(s): T84.029A - Dislocation of unspecified internal joint prosthesis, initial encounter; Z96.649 - Presence of unspecified artificial hip joint Status: Acute (2) Dementia: Qualifiers: Dementia behavioral or psychological symptom: with agitation Dementia severity: unspecified severity Dementia type: Parkinson's disease Qualified Code(s): G20.A1 - Parkinson's disease without dyskinesia, without mention of fluctuations; F02.811 - Dementia in other diseases classified elsewhere, unspecified severity, with agitation Code(s): F03.90 - Unspecified dementia, unspecified severity, without behavioral disturbance, psychotic disturbance, mood disturbance, and anxiety Status: Acute (3) Essential (primary) hypertension: Code(s): I10 - Essential (primary) hypertension Status: Acute (4) Parkinsons disease: Code(s): G20 - Parkinson's disease Status: Acute Plan dislocation of right hip prothesis optimize pain management Consult orthopedic surgeon Consult PT OT ambulatory care nurse for evaluation and assisting placement orthopedic surgeon plans surgical treatment on Sunday follow-up recommendations Parkinson disease Continue Sinemet at home does controlled, no tremor uncontrolled hypertension Likely secondary to uncontrolled pain, patient has no home home medication Optimize pain management Monitor blood pressure closely chronic anemia, follow-up CBC, no obvious bleeding Follow stool guaiac, iron panel patient may stay more than 2 midnights in the hospital Subjective Date/time seen: 01/07/24 09:21 Interval history: I saw and exam patient today, patient still has pain of left hip, worse with movement, patient denies chest pain abdomen pain nausea vomiting diarrhea fever chills. Blood pressure stable, pulse ox 97 on room air, Exam Narrative: GENERAL: Pleasant, in no acute distress. Well-nourished. - EYES: EOMI. Anicteric. - HENT: Moist mucous membranes. - LUNGS: Clear to auscultation bilaterally, no wheezing, rhonchi, or rales. - CARDIOVASCULAR: Regular rate and rhythm. No murmur. No JVD. - ABDOMEN: Soft, non-tender and non-distended. No palpable masses. - EXTREMITIES: No edema. Peripheral pulses 2+. Non-tender. left hip range of movement is restricted - NEUROLOGIC: No focal neurological deficits. CN II-XII grossly intact. - PSYCHIATRIC: Awake, Alert and oriented x 3. Appropriate mood and affect. - SKIN: No rashes or lesions. Warm. - LYMPH: No cervical lymphadenopathy. Objective Data Vital Signs Vital Signs: Vital Signs - 24 hr 01/06/24 14:00 01/06/24 19:10 01/06/24 20:00 Temperature 96.5 F L 97.7 F Pulse Rate 57 L 57 L Respiratory Rate 20 16 Blood Pressure 135/56 L 126/53 L Pulse Oximetry 98 98 Oxygen Delivery Room Air 01/07/24 05:22 Temperature 98.3 F Pulse Rate 66 Respiratory Rate 16 Blood Pressure 155/63 H Pulse Oximetry 98 Oxygen Delivery Intake/Output Intake/Output: Intake & Output 01/04/24 01/05/24 01/06/24 01/07/24 23:59 23:59 23:59 23:59 Intake Total 1680 890 240 Output Total 500 1400 2200 Balance 1180 -510 -1960 Meds/Results Medications: Active Medications Generic Name Dose Route Start Last Admin Trade Name Freq PRN Reason Stop Dose Admin Acetaminophen 650 mg 01/05/24 09:18 Acetaminophen 325 Mg Tablet PO Q4H PRN Pain 1-3 Aspirin 324 mg 01/07/24 08:00 01/07/24 08:19 Aspirin 81 Mg Chewable Tablet PO 01/13/24 08:01 324 mg DAILY@0800 JORDAN Administration Carbidopa/Levodopa 3 tablet 01/05/24 11:00 01/07/24 05:43 Carbidopa/Levodopa 25/100 Mg Tablet PO 3 tablet
[2024-01-07 12:06] VITALS: PULSE 68; TEMP 36.6; O2SAT 97
--- NOTE | 2024-01-07 12:11 | PM.CNOR ---
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 History, exam and radiographs reviewed with the patient and family at the bedside. Patient has previously discussed his recurrent dislocation with Dr. Delaney via telephone. Discussion regarding likely need for further surgical intervention and 2nd opinion with a hip specialist in [place] as an outpatient. At this time however, patient would benefit from having relocation as current post reduction films appear suboptimal. He may require a repeat liner component exchange. Discussed nonoperative and operative treatment options with the patient/family. The patients questions were answered. The patient/family desire operative treatment. Risks of surgery including but not limited to neurovascular damage, wound complications, blood clot, pulmonary embolus, stroke, myocardial infarction, anesthetic risks up to and including were reviewed. Continued pain and possible dysfunction were explained. No guarantees were offered. The patient understands and wishes to proceed. Plan: Open Reduction of the Left Hip Prosthesis with possible liner component exchange NPO at midnight Bedrest in the interim. Pain control. Ice. Continue knee immobilizer. Nursing instructed to obtain hip abductor brace from [facility]. This would be beneficial to have immediately following surgical intervention to prevent recurrent dislocation. We will begin referral process to hip specialist in [place] upon discharge. Transfer to tertiary care center not necessary at this time per Dr. Delaney. (2) Failed total hip arthroplasty with dislocation: Qualifiers: Encounter type: subsequent encounter Laterality: left Qualified Code(s): T84.021D - Dislocation of internal left hip prosthesis, subsequent encounter Code(s): T84.028A - Dislocation of other internal joint prosthesis, initial encounter; Z96.649 - Presence of unspecified artificial hip joint Status: Acute (3) Dysphagia: Code(s): R13.10 - Dysphagia, unspecified Status: Acute Plan Reviewed history, exam, radiographs and current labs with attending MD and covering surgeon, Dr. Delaney, who agrees with current plan as indicated above. No further recommendations from Dr. Delanye at this time. History of Present Illness HPI Consult date: 01/07/24 Chief complaint: L hip pain s/p recent surgery Narrative: 78-year-old male well known to the orthopedic service with a history of Parkinson's and a left hip dual mobility total hip arthroplasty which was most recently dislocated and patient underwent surgical intervention on December 27 at which point a revision of the acetabular component of the left hip was performed due to chronic dislocation and failed acetabular component. Patient was discharged to rehab and was doing well initially postoperatively. He was ambulating without pain. He was utilizing a walker. At some point yesterday, he was sitting in a wheelchair when he started experiencing excruciating pain in the left lower extremity and was unable to bear weight on the left lower extremity. Per the patient's , they awaited a portable x-ray however it did not show up so he presented to the emergency room for further evaluation. Radiographs in the emergency room revealed a posterior superior dislocation of the left hip prosthesis. A reduction
[2024-01-07 12:37] VITALS: BMI 21.6
[2024-01-07 14:27] VITALS: BP 112/50; PULSE 58; RESP 18; TEMP 36.5; O2SAT 99
[2024-01-07] MEDS: ARTIFICIAL TEARS OPHTH SOLN 15 ML BOTTLE 1 DROP EACH EYE (16:32)
[2024-01-07 19:47] VITALS: BP 117/55; PULSE 71; RESP 16; TEMP 36.8; O2SAT 97
[2024-01-07] MEDS: MELATONIN 5 MG TABLET PO (20:51)
[2024-01-07] MEDS: CYCLOBENZAPRINE HCL 10 MG TABLET PO (20:51)
[2024-01-07] MEDS: LATANOPROST 0.005% OP SOLN 2.5 ML BTL 1 DROP EACH EYE (20:52)
[2024-01-08] VITALS (13 sets, daily range): BP systolic 123–174; BP diastolic 56–84; PULSE 51–93; RESP 12–20; TEMP 36.1–36.9; O2SAT 95–100
--- NOTE | 2024-01-08 08:28 | PM.IMPN ---
Progress Note: A&P Assessment and Plan (1) Dislocation of hip prosthesis: Qualifiers: Encounter type: initial encounter Qualified Code(s): T84.029A - Dislocation of unspecified internal joint prosthesis, initial encounter; Z96.649 - Presence of unspecified artificial hip joint Code(s): T84.029A - Dislocation of unspecified internal joint prosthesis, initial encounter; Z96.649 - Presence of unspecified artificial hip joint Status: Acute (2) Dementia: Qualifiers: Dementia behavioral or psychological symptom: with agitation Dementia severity: unspecified severity Dementia type: Parkinson's disease Qualified Code(s): G20.A1 - Parkinson's disease without dyskinesia, without mention of fluctuations; F02.811 - Dementia in other diseases classified elsewhere, unspecified severity, with agitation Code(s): F03.90 - Unspecified dementia, unspecified severity, without behavioral disturbance, psychotic disturbance, mood disturbance, and anxiety Status: Acute (3) Essential (primary) hypertension: Code(s): I10 - Essential (primary) hypertension Status: Acute (4) Parkinsons disease: Code(s): G20 - Parkinson's disease Status: Acute Plan dislocation of right hip prothesis optimize pain management Consult orthopedic surgeon Consult PT OT skin care specialist for evaluation and assisting placement orthopedic surgeon plans surgical treatment on Sunday Open Reduction of the Left Hip Prosthesis with possible liner component exchange today per ortho Parkinson disease Continue Sinemet at home does controlled, no tremor uncontrolled hypertension Likely secondary to uncontrolled pain, patient has no home home medication Optimize pain management Monitor blood pressure closely chronic anemia, follow-up CBC, no obvious bleeding Follow stool guaiac, iron panel patient may stay more than 2 midnights in the hospital Subjective Date/time seen: 01/08/24 08:28 Interval history: I saw and exam patient today, The hip pain is better controlled, still has pain with movement. patient denies chest pain abdomen pain nausea vomiting diarrhea fever chills. Blood pressure stable, pulse ox 97 on room air, Exam Narrative: GENERAL: Pleasant, in no acute distress. Well-nourished. - EYES: EOMI. Anicteric. - HENT: Moist mucous membranes. - LUNGS: Clear to auscultation bilaterally, no wheezing, rhonchi, or rales. - CARDIOVASCULAR: Regular rate and rhythm. No murmur. No JVD. - ABDOMEN: Soft, non-tender and non-distended. No palpable masses. - EXTREMITIES: No edema. Peripheral pulses 2+. Non-tender. left hip range of movement is restricted - NEUROLOGIC: No focal neurological deficits. CN II-XII grossly intact. - PSYCHIATRIC: Awake, Alert and oriented x 3. Appropriate mood and affect. - SKIN: No rashes or lesions. Warm. - LYMPH: No cervical lymphadenopathy. Objective Data Vital Signs Vital Signs: Vital Signs - 24 hr 01/07/24 12:06 01/07/24 14:27 01/07/24 19:47 Temperature 97.9 F 97.7 F 98.2 F Pulse Rate 68 58 L 71 Respiratory Rate 18 16 Blood Pressure 112/50 L 117/55 L Pulse Oximetry 97 99 97 Oxygen Delivery 01/07/24 20:00 01/08/24 04:18 Temperature 97.9 F Pulse Rate 62 Respiratory Rate 16 Blood Pressure 158/56 H Pulse Oximetry 99 Oxygen Delivery Room Air Intake/Output Intake/Output: Intake & Output 01/05/24 01/06/24 01/07/24 01/08/24 23:59 23:59 23:59 23:59 Intake Total 9464 941 2459 Output Total 500 1400 3400 Balance 3573 -168 -9452 Meds/Results Medications: Active Medications Generic Name Dose Route Start Last Admin Trade Name Freq PRN Reason Stop Dose Admin Acetaminophen 650 mg 01/05/24 09:18 Acetaminophen 325 Mg Tablet PO Q4H PRN Pain 1-3 Artificial Tears 1 drop 01/07/24 14:55 01/07/24 16:32 Artificial Tears Ophth Soln 15 Ml Bottle EACH EYE 1 drop QID PRN Administration
[2024-01-08] MEDS: DICLOFENAC SODIUM 1% 100 GM GEL (*BKC) 1 APPLIC TOPICAL ×2 (08:52→21:04)
[2024-01-08] MEDS: cycloSPORINE 0.4 ML OPHTH SOLUTION 1 DROP EACH EYE ×2 (08:54→21:04)
[2024-01-08 09:09] LABS: Hematocrit 47.7 % (42.0-52.0); Hemoglobin 15.1 g/dL (14.0-18.0); Mean Corpuscular HGB Conc 31.7 g/dl (32-36); Mean Corpuscular Hemoglobin 30.3 pg (26-34); Mean Corpuscular Volume 95.6 fl (80-100); Mean Platelet Volume 8.9 fl (7.4-10.4); Platelet Count Result 391 k/mm3 (150-375); Red Blood Count 4.99 M/mm3 (4.6-6.20); Red Cell Distribution Width 14.1 % (11.5-14.5)
[2024-01-08 09:35] LABS: Alanine Aminotransferase 17 U/L (6-50); Alkaline Phosphatase 110 U/L (38-126); Anion Gap 4 mmol/L (4-12); Aspartate Amino Transferase 30 U/L (17-59); Bilirubin,Total 0.6 mg/dL (0.2-1.3); Blood Urea Nitrogen 13 mg/dL (9-20); Calcium 8.9 mg/dL (8.4-10.2); Carbon Dioxide 33 mmol/L (22-30); Chloride 105 mmol/L (98-107); Estimated CRCL calculation 77 ml/min; Estimated Glomerular Filt Rate > 60; Glucose 108 mg/dL (65-110); Sodium 142 mmol/L (137-145)
--- NOTE | 2024-01-08 09:36 | WPDHPUPDATE1 ---
History and Physical Update Update Date/Time: 01/08/24 09:36 History and Physical has been reviewed, including an updated exam of the patient. There are NO changes in the patient's condition. Risks, benefits, and alternatives have been discussed and questions answered. Patient agrees to proceed with procedure.
[2024-01-08] MEDS: ENTACAPONE 200 MG TABLET PO ×2 (10:49→21:07)
[2024-01-08] MEDS: MEMANTINE 10 MG TABLET PO (10:49)
[2024-01-08] MEDS: CARBIDOPA/LEVODOPA 25/100 MG TABLET 3 TABLET PO ×2 (10:50→21:06)
[2024-01-08] MEDS: ARTIFICIAL TEARS OPHTH SOLN 15 ML BOTTLE 1 DROP EACH EYE (10:53)
--- NOTE | 2024-01-08 13:12 | PC.NURSE ---
Patient to pre oop at this time
[2024-01-08] MEDS: TRANEXAMIC ACID 1,000MG/ISO100 1,000 MG/100 ML BAG 200 MG IVPB (14:00)
[2024-01-08 14:21] LABS: Glucose Point of Care 79 mg/dl (65-105)
--- NOTE | 2024-01-08 14:28 | WPDANESEPPF ---
Anes - Initial Pre Proc Eval Procedure: Operation Date: 01/08/24 14:30 Proposed Procedures p Open Reduction Left Hip,Possible Liner Exchange - Darrel Delaney MD Date/Time: 01/08/24 14:28 Surgeon: Damaso Lockwood MD Pre Op Diagnosis: L hip pain s/p recent surgery Patient Data Age: 78 Gender: M Height: 1.83 m Weight: 72.4 kg Last Vital Signs Temp 97.0 F L 01/08/24 14:00 Pulse 51 L 01/08/24 14:00 Resp 16 01/08/24 14:00 BP 142/61 H 01/08/24 14:00 Pulse Ox 100 01/08/24 14:00 O2 Del Method Room Air 01/08/24 14:00 O2 Flow Rate 2 01/05/24 03:34 Allergies Allergy/AdvReac Type Severity Reaction Status Date / Time adhesive Allergy Unknown Unknown Verified 01/05/24 05:37 latex Allergy Unknown Unknown Verified 01/05/24 05:37 shrimp Allergy Unknown Verified 01/05/24 05:37 gabapentin AdvReac Unknown HALLUCINATI Verified 01/05/24 05:37 ONS Home Medications Medication Instructions Recorded Confirmed Type entacapone 200 mg tablet 200 mg PO QID 06/18/19 01/05/24 History carbidopa 25 mg-levodopa 100 mg 3 tablet PO 0500,1100,1700,2300 06/27/19 01/05/24 Rx tablet (Sinemet) #100 tabs tamsulosin 0.4 mg capsule 0.4 mg PO DAILY #90 caps 08/26/19 01/05/24 Rx acetaminophen 325 mg tablet 650 mg PO Q4H PRN Pain 06/27/21 01/05/24 History ketoconazole 2 % topical cream 1 applic topical Q12H PRN Dry Skin 06/27/21 01/05/24 History melatonin 5 mg capsule 5 mg PO QHS 06/27/21 01/05/24 History memantine 10 mg tablet 10 mg PO BID 06/27/21 01/05/24 History cyclosporine 0.05 % eye drops in a 1 drp EACH EYE Q12H 11/23/23 01/05/24 History dropperette (Restasis) diclofenac sodium 1 % topical gel 4 g topical QID 11/23/23 01/05/24 History latanoprost 0.005 % eye drops 1 drp EACH EYE QPM 11/23/23 01/05/24 History trolamine salicylate 10 % topical 1 applic topical TID PRN pain 11/23/23 01/05/24 History cream (Aspercreme) vit C-vit Y-iknfmt-feskllbk capsule 1 cap PO DAILY 11/23/23 01/05/24 History polyethylene glycol 3350 17 gram 17 g PO DAILY PRN Constipation #10 12/01/23 01/05/24 Rx oral powder packet ea cyclobenzaprine 10 mg tablet 10 mg PO BID PRN muscle spasm #10 01/01/24 01/05/24 Rx tabs tramadol 50 mg tablet 50 mg PO TID PRN Pain 01/05/24 01/05/24 History Laboratory Tests 01/08/24 01/08/24 08:59 14:17 WBC 8.0 K/mm3 (4.5-10.0) RBC 4.99 M/mm3 (4.6-6.20) Hgb 15.1 g/dL (14.0-18.0) Hct 47.7 % (42.0-52.0) MCV 95.6 fl (80-100) MCH 30.3 pg (26-34) MCHC 31.7 L g/dl (32-36) RDW 14.1 % (11.5-14.5) Plt Count 391 H k/mm3 (150-375) MPV 8.9 fl (7.4-10.4) Sodium 142 mmol/L (137-145) Potassium 5.0 mmol/L (3.4-5.0) Chloride 105 mmol/L (98-107) Carbon Dioxide 33 H mmol/L (22-30) Anion Gap 4 mmol/L (4-12) BUN 13 D mg/dL (9-20) Creatinine 0.70 mg/dL (0.7-1.3) Estim Creat Clear Calc 77 ml/min Estimated GFR > 60 (59 - ) Glucose 108 mg/dL (65-110) POC Capillary Glucose 79 mg/dl (65-105) Calcium 8.9 mg/dL (8.4-10.2) Total Bilirubin 0.6 mg/dL (0.2-1.3) AST 30 U/L (17-59) ALT 17 U/L (6-50) Alkaline Phosphatase 110 U/L (38-126) Total Protein 8.0 g/dL (6.3-8.2) Albumin 4.0 g/dL (3.5-5.1) Patient hx anesthesia problems: none Family hx anesthesia problems: none Results Review: All pre-operative results and documents have been reviewed as part of the pre-operative evaluation. [facility] Past Medical History Medical History Anemia Anxiety Arthritis At high risk for falls after spinal surgery Chronic back pain CKD (chronic kidney disease) stage 3, GFR 30-59 ml/min Complication of surgical and medical care Dementia Essential (primary) hypertension GERD (gastroesophageal reflux disease) Glaucoma H/O: HTN (
[2024-01-08] MEDS: ceFAZolin 2 GM/D5W 50 ML 2 GM/50 ML BAG IVPB ×2 (14:35→21:04)
[2024-01-08] MEDS: DEXTROSE 50% 25 GM/50 ML SYRINGE IV PUSH (14:36)
[2024-01-08] MEDS: SODIUM CHLORIDE 0.9% IV 38.7 ML, MORPHINE SULFATE INJ (*CRX) 2 MG, ROPivacaine HCL 1% 2... INFILTRATE (15:24)
[2024-01-08] MEDS: VANCOMYCIN HCL 1,000 MG VIAL 1000 MG XX (15:26)
[2024-01-08] MEDS: LACTATED RINGERS 1,000 ML 30 ML IV CONT (16:40)
--- NOTE | 2024-01-08 16:42 | P.OP_ITS ---
Procedure Note - Detailed Date of Procedure 01/08/24 Pre-op Diagnosis L hip dislocation Post-op Diagnosis Other Procedure Performed OPEN REDUCTION LEFT SYLWIA Surgeon Darrel Delaney MD Anesthesia General Findings CHRONIC DISLOCATION LEFT HIP Description of Procedure THE PATIENT WAS TAKEN TO THE OPERATING ROOM IN STABLE CONDITION AND WAS PLACED IN THE LATERAL DECUBITUS AND THE LEFT LOWER EXTREMITY WAS PREPPED AND DRAPED IN THE STERILE FASHION. INCISION WAS MADE IN THE POSTERIOR LATERAL SIDE OF THE HIP OVER THE OLD INCISION DOWN TO THE FASCIA LAYER. THE FASCIA WAS INCISED. THE HIP WAS EXPOSED. THERE WAS NO SIGN OF GROSS INFECTION. THERE WAS A HEMATOMA CON SISTENT WITH OLD BLOOD. THE SHORT EXTERNAL ROTATORS WERE EXPOSED. THE SCIATIC NERVE WAS IDENTIFIED. INCISION WAS MADE THROUGH THE SHORT EXTERNAL ROTATORS AND THE CAPSULE OF THE HIP JOINT. OLD SUTURES WERE REMOVED FROM ALL TISSUE LEVELS. THE FEMORAL HEAD WAS NOT ENGAGED AND NOT FULLY LOCATED IN THE ACETABULAR LINE. TRACTION WAS PLACED ON THE HIP UNTIL IT WAS DISLOCATED AND A FULL INSPECTION OF THE FEMORAL HEAD AND ACETABULAR LINER WAS PREFORMED. THERE WERE NO DEFECTS IN THE LINER. THE LINER WAS CHECKED FOR STABILITY WELL. THE LINER WAS WELL ENGAGED INTO THE ACETABULAR COMPONENT AND THE LOCKING MECHANISM WAS INTACT. THE HIP WAS THEN RELOCATED AND THE LOCKING MECHANISM OF THE FEMORAL HEAD/ACETABULAR COMPONENT WAS ENGAGED. THE HIP WAS TAKEN THROUGH A ROM AND AN ATTEMPTED DISLOCATION WAS PREFORMED AND THE HIP WAS VERY STABLE. EVERY ATTEMPT WAS MADE TO DISLOCATE THE FEMORAL HEAD FROM THE LINER USING INTERNAL AND EXTERNAL ROTATION AND TRACTION AND THIS WAS NOT ACHIEVED. LEG LENGTHS WERE GROSSLY EQUAL. INTRAOPERATIVE XRAYS WERE PREFORMED DEMONSTRATING GOOD REDUCTION AND ENGAGEMENT OF THE FEMORAL HEAD WITH THE ACETABULAR LINER. THESE XRAYS WERE COMPARED WITH POST REDUCTION XRAYS FROM HIS ER VISIT AND IT WAS APPRECIATED THAT THE FEMORAL HEAD WAS REDUCED PROPERLY WITHIN THE ACETABULAR LINER.THE WOUND WAS IRRIGATED WITH STERILE WATER AND BETADINE AGAIN. THE CAPSULE AND THE EXTERNAL ROTATORS WERE APPROXIMATED WITH NUMBER 2 VICRYL. THE FASCIA WITH No 2 QUIL AND THE SUB CUTANEOUS LAYER WITH 2-0 ABSORBABLE SUTURE. PETR WERE PLACED TO APPROXIMATE THE SKIN AND STERILE DRESSING WAS APPLIED. PATIENT WAS PLACED BACK ON TO THE SUPINE POSITION AND WAS EXTUBATED Estimated Blood Loss 50 Urine Output 500 Complications No immediate complications Condition Stable Disposition PACU
[2024-01-08] MEDS: PROPOFOL IV EMULSION 200 MG/20 ML VIAL 50 MG IV PUSH (16:50)
[2024-01-08 17:00] LABS: Glucose Point of Care 119 mg/dl (65-105)
--- NOTE | 2024-01-08 17:11 | SUR.PHASEI ---
Simple mask removed at 1710
--- NOTE | 2024-01-08 18:21 | PC.NURSE ---
patient back to room. Combative and resisting care at this time.
[2024-01-08] MEDS: MELATONIN 5 MG TABLET PO (20:59)
[2024-01-08] MEDS: FAMOTIDINE 20 MG TABLET PO (20:59)
[2024-01-08] MEDS: diphenhydrAMINE HCl INJ 50 MG/ML VIAL 25 MG IV PUSH (20:59)
[2024-01-08] MEDS: oxyCODONE/ACETAMINOPHEN (*CRX) 5-325 MG TABLET 1 TABLET PO (21:00)
[2024-01-08] MEDS: LATANOPROST 0.005% OP SOLN 2.5 ML BTL 1 DROP EACH EYE (21:04)
[2024-01-08] MEDS: SODIUM CHLORIDE 0.9% IV 1,000 ML 125 ML IV CONT (21:07)
[2024-01-09 04:57] LABS: Basophils Percent Auto 0.3 % (0.2-1.2); Eosinophils Percent Auto 0.3 % (0-4.4); Hematocrit 42.6 % (42.0-52.0); Hemoglobin 13.6 g/dL (14.0-18.0); Immature Granulocyte Absolute 0.11 K/mm3 (0.00-0.031); Immature Granulocyte Percent A 0.7 % (0-0.5); Lymphocytes Absolute Auto 0.86 K/mm3 (0.9-3.2); Lymphocytes Percent Auto 5.7 % (18.3-44.2); Mean Corpuscular HGB Conc 31.9 g/dl (32-36); Mean Corpuscular Volume 93.8 fl (80-100); Mean Platelet Volume 8.9 fl (7.4-10.4); Monocytes Absolute Auto 0.7 K/mm3 (0.1-0.6); Monocytes Percent Auto 4.7 % (2.6-8.5); Neutrophils Absolute Auto 13.2 K/mm3 (1.3-6.7); Neutrophils Percent Auto 88.3 % (45.5-73.1); Platelet Count Result 362 k/mm3 (150-375); Red Blood Count 4.54 M/mm3 (4.6-6.20); Red Cell Distribution Width 14.1 % (11.5-14.5)
[2024-01-09] MEDS: CARBIDOPA/LEVODOPA 25/100 MG TABLET 3 TABLET PO ×4 (05:04→23:56)
[2024-01-09] MEDS: ceFAZolin 2 GM/D5W 50 ML 2 GM/50 ML BAG IVPB ×2 (05:06→14:16)
[2024-01-09 05:12] LABS: Anion Gap 4 mmol/L (4-12); Blood Urea Nitrogen 14 mg/dL (9-20); Calcium 8.2 mg/dL (8.4-10.2); Carbon Dioxide 31 mmol/L (22-30); Chloride 106 mmol/L (98-107); Estimated CRCL calculation 68 ml/min; Estimated Glomerular Filt Rate > 60; Glucose 127 mg/dL (65-110); Potassium 3.8 mmol/L (3.4-5.0); Sodium 141 mmol/L (137-145)
[2024-01-09 05:31] VITALS: BP 124/86; PULSE 66; RESP 18; TEMP 36.6; O2SAT 97
--- NOTE | 2024-01-09 08:37 | PM.IMPN ---
Progress Note: A&P Assessment and Plan (1) Dislocation of hip prosthesis: Qualifiers: Encounter type: initial encounter Qualified Code(s): T84.029A - Dislocation of unspecified internal joint prosthesis, initial encounter; Z96.649 - Presence of unspecified artificial hip joint Code(s): T84.029A - Dislocation of unspecified internal joint prosthesis, initial encounter; Z96.649 - Presence of unspecified artificial hip joint Status: Acute (2) Dementia: Qualifiers: Dementia behavioral or psychological symptom: with agitation Dementia severity: unspecified severity Dementia type: Parkinson's disease Qualified Code(s): G20.A1 - Parkinson's disease without dyskinesia, without mention of fluctuations; F02.811 - Dementia in other diseases classified elsewhere, unspecified severity, with agitation Code(s): F03.90 - Unspecified dementia, unspecified severity, without behavioral disturbance, psychotic disturbance, mood disturbance, and anxiety Status: Acute (3) Essential (primary) hypertension: Code(s): I10 - Essential (primary) hypertension Status: Acute (4) Parkinsons disease: Code(s): G20 - Parkinson's disease Status: Acute Plan dislocation of right hip prothesis optimize pain management Consult orthopedic surgeon Consult PT OT care analyst for evaluation and assisting placement orthopedic surgeon plans surgical treatment on Sunday day 1 Postop Open Reduction of the Left Hip Prosthesis with possible liner component exchange, performed per ortho pain is well managed, patient has no focal neuro deficit Parkinson disease Continue Sinemet at home does controlled, no tremor uncontrolled hypertension Likely secondary to uncontrolled pain, patient has no home home medication Optimize pain management Monitor blood pressure closely chronic anemia, follow-up CBC, no obvious bleeding Follow stool guaiac negative, iron panel patient may stay more than 2 midnights in the hospital Subjective Date/time seen: 01/09/24 08:38 Interval history: OPEN REDUCTION LEFT SYLWIA d1. Patient is afebrile over the night blood pressure stable, no O2 desaturation on room air, patient feels comfortable, pain is well controlled, denies headache, chest pain abdomen pain nausea vomiting. Exam Narrative: GENERAL: Pleasant, in no acute distress. Well-nourished. - EYES: EOMI. Anicteric. - HENT: Moist mucous membranes. - LUNGS: Clear to auscultation bilaterally, no wheezing, rhonchi, or rales. - CARDIOVASCULAR: Regular rate and rhythm. No murmur. No JVD. - ABDOMEN: Soft, non-tender and non-distended. No palpable masses. - EXTREMITIES: No edema. Peripheral pulses 2+. Non-tender. left hip range of movement is restricted - NEUROLOGIC: No focal neurological deficits. CN II-XII grossly intact. - PSYCHIATRIC: Awake, Alert and oriented x 3. Appropriate mood and affect. - SKIN: No rashes or lesions. Warm. - LYMPH: No cervical lymphadenopathy. Objective Data Vital Signs Vital Signs: Vital Signs - 24 hr 01/08/24 14:00 01/08/24 16:40 01/08/24 16:55 Temperature 97.0 F L 98.4 F Pulse Rate 51 L 83 85 Respiratory Rate 16 16 14 Blood Pressure 142/61 H 136/64 123/58 L Pulse Oximetry 100 100 100 Oxygen Delivery Room Air Simple Face Mask Simple Face Mask Oxygen Flow Rate 10 10 01/08/24 17:10 01/08/24 17:25 01/08/24 17:40 Temperature 97.9 F Pulse Rate 75 72 90 Respiratory Rate 14 12 12 Blood Pressure 141/62 H 126/66 157/76 H Pulse Oximetry 100 95 95 Oxygen Delivery Room Air Room Air Room Air Oxygen Flow Rate 01/08/24 17:55 01/08/24 18:02 01/08/24 18:30 Temperature 98.1 F 97.8 F 97.0 F L Pulse Rate 82 84 93 Respiratory Rate 12 13 18 Blood Pressure 145/68 H 148/65 H 174/72 H Pulse Oximetry 95 96 98 Oxygen Delivery Room Air Room Air Oxygen Flow Rate 01/08/24 18:46 01/08/24 19:22 01/08/24 20:00 Temperature 97.7 F 98.1 F Pulse Rate
[2024-01-09] MEDS: SENNA/DOCUSATE SODIUM TABLET 2 TAB PO ×2 (08:57→18:15)
[2024-01-09] MEDS: FAMOTIDINE 20 MG TABLET PO ×2 (08:57→20:57)
[2024-01-09] MEDS: polyethylene glycoL 3350 17 GM POWD.PACK PO (08:57)
[2024-01-09] MEDS: ASPIRIN 81 MG CHEWABLE TABLET 324 MG PO (08:57)
[2024-01-09] MEDS: OPTI-GEN TAB 1 TABLET PO (08:57)
[2024-01-09] MEDS: ENTACAPONE 200 MG TABLET PO ×4 (08:57→20:57)
[2024-01-09] MEDS: TAMSULOSIN HCL 0.4 MG CAPSULE PO (08:57)
[2024-01-09] MEDS: MEMANTINE 10 MG TABLET PO ×2 (08:57→18:15)
[2024-01-09] MEDS: cycloSPORINE 0.4 ML OPHTH SOLUTION 1 DROP EACH EYE ×2 (08:58→20:57)
[2024-01-09] MEDS: DICLOFENAC SODIUM 1% 100 GM GEL (*BKC) 1 APPLIC TOPICAL ×4 (09:02→20:59)
[2024-01-09] MEDS: oxyCODONE/ACETAMINOPHEN (*CRX) 5-325 MG TABLET 1 TABLET PO (11:39)
[2024-01-09 11:49] VITALS: BP 141/70; PULSE 80; RESP 18; TEMP 36.8; O2SAT 98
--- NOTE | 2024-01-09 12:34 | PM.PNORT ---
Progress Note: A&P Assessment and Plan (1) Dislocation of hip prosthesis: Qualifiers: Encounter type: initial encounter Qualified Code(s): T84.029A - Dislocation of unspecified internal joint prosthesis, initial encounter; Z96.649 - Presence of unspecified artificial hip joint Code(s): T84.029A - Dislocation of unspecified internal joint prosthesis, initial encounter; Z96.649 - Presence of unspecified artificial hip joint Status: Acute Assessment and Plan: POD 1 DOING WELL. HIS HIP ABDUCTOR BRACE WAS ADJUSTED TODAY FOR FLEXION 0 TO 50. HE MAY BE WBAT. PT TO PLACE BRACE ON TODAY. I DISCUSSED PLAN WITH PT TODAY. 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 PAIN CONTROLLED. NO CALF PAIN Exam Extrem: Other: VSS AFEBRILE DRESSING DRY NV INTACT CALF AND THIGH NON TENDER Objective Data Vital Signs Vital Signs: Vital Signs - 24 hr 01/08/24 14:00 01/08/24 16:40 01/08/24 16:55 Temperature 36.1 C L 36.9 C Pulse Rate 51 L 83 85 Respiratory Rate 16 16 14 Blood Pressure 142/61 H 136/64 123/58 L Pulse Oximetry 100 100 100 Oxygen Delivery Room Air Simple Face Mask Simple Face Mask Oxygen Flow Rate 10 10 01/08/24 17:10 01/08/24 17:25 01/08/24 17:40 Temperature 36.6 C Pulse Rate 75 72 90 Respiratory Rate 14 12 12 Blood Pressure 141/62 H 126/66 157/76 H Pulse Oximetry 100 95 95 Oxygen Delivery Room Air Room Air Room Air Oxygen Flow Rate 01/08/24 17:55 01/08/24 18:02 01/08/24 18:30 Temperature 36.7 C 36.6 C 36.1 C L Pulse Rate 82 84 93 Respiratory Rate 12 13 18 Blood Pressure 145/68 H 148/65 H 174/72 H Pulse Oximetry 95 96 98 Oxygen Delivery Room Air Room Air Oxygen Flow Rate 01/08/24 18:46 01/08/24 19:22 01/08/24 20:00 Temperature 36.5 C 36.7 C Pulse Rate 88 91 Respiratory Rate 18 20 Blood Pressure 161/70 H 158/84 H Pulse Oximetry 99 99 Oxygen Delivery Room Air Oxygen Flow Rate 01/08/24 23:29 01/09/24 05:31 01/09/24 08:00 Temperature 36.8 C 36.6 C Pulse Rate 81 66 Respiratory Rate 18 18 Blood Pressure 133/76 124/86 Pulse Oximetry 98 97 Oxygen Delivery Room Air Oxygen Flow Rate Intake/Output Intake/Output: Intake & Output 01/06/24 01/07/24 01/08/24 01/09/24 23:59 23:59 23:59 23:59 Intake Total 890 1030 220 510 Output Total 1400 3400 1300 850 Balance -510 -2370 -1080 -340 Meds/Results Medications: Active Medications Generic Name Dose Route Start Last Admin Trade Name Freq PRN Reason Stop Dose Admin Acetaminophen 650 mg 01/05/24 09:18 Acetaminophen 325 Mg Tablet PO Q4H PRN Pain 1-3 Artificial Tears 1 drop 01/07/24 14:55 01/08/24 10:53 Artificial Tears Ophth Soln 15 Ml Bottle EACH EYE 1 drop QID PRN Administration Dry Eye(s) Aspirin 324 mg 01/07/24 08:00 01/09/24 08:57 Aspirin 81 Mg Chewable Tablet PO 01/13/24 08:01 324 mg DAILY@0800 JORDAN Administration Carbidopa/Levodopa 3 tablet 01/05/24 11:00 01/09/24 11:28 Carbidopa/Levodopa 25/100 Mg Tablet PO 3 tablet 0500,1100,1700,2300 JORDAN Administration Cyclobenzaprine HCl 10 mg 01/05/24 09:18 01/07/24 20:51 Cyclobenzaprine Hcl 10 Mg Tablet PO 10 mg BID PRN Administration muscle spasm Cyclosporine 1 drop 01/05/24 09:20 01/09/24 08:58 Cyclosporine 0.4 Ml Ophth Solution EACH EYE 1 drop Q12H JORDAN Administration Diazepam 5 mg 01/08/24 18:04 Diazepam (*Crx) 5 Mg Tablet PO Q6H PRN Anxiety/Muscle Spasm Diclofenac [place]
[2024-01-09 20:51] VITALS: BP 145/68; PULSE 66; RESP 16; TEMP 36.6; O2SAT 96
[2024-01-09] MEDS: MELATONIN 5 MG TABLET PO (20:57)
[2024-01-09] MEDS: TROLAMINE SALICYLATE 10% (*BKC) 113 GM CREAM 1 APPLIC TOPICAL (20:58)
[2024-01-09] MEDS: LATANOPROST 0.005% OP SOLN 2.5 ML BTL 1 DROP EACH EYE (20:58)
[2024-01-10 05:31] VITALS: BP 147/55; PULSE 60; RESP 18; TEMP 36.5; O2SAT 99
[2024-01-10] MEDS: CARBIDOPA/LEVODOPA 25/100 MG TABLET 3 TABLET PO ×2 (05:55→12:30)
[2024-01-10] MEDS: ASPIRIN 81 MG CHEWABLE TABLET 324 MG PO (09:16)
[2024-01-10] MEDS: SENNA/DOCUSATE SODIUM TABLET 2 TAB PO (09:16)
[2024-01-10] MEDS: polyethylene glycoL 3350 17 GM POWD.PACK PO (09:16)
[2024-01-10] MEDS: TAMSULOSIN HCL 0.4 MG CAPSULE PO (09:16)
[2024-01-10] MEDS: ENTACAPONE 200 MG TABLET PO ×2 (09:16→12:30)
[2024-01-10] MEDS: FAMOTIDINE 20 MG TABLET PO (09:16)
[2024-01-10] MEDS: MEMANTINE 10 MG TABLET PO (09:16)
[2024-01-10] MEDS: cycloSPORINE 0.4 ML OPHTH SOLUTION 1 DROP EACH EYE (09:17)
[2024-01-10] MEDS: OPTI-GEN TAB 1 TABLET PO (09:17)
[2024-01-10] MEDS: DICLOFENAC SODIUM 1% 100 GM GEL (*BKC) 1 APPLIC TOPICAL ×2 (09:20→12:30)
--- NOTE | 2024-01-10 10:38 | PCNFU ---
Nutrition Follow-Up Complete: Severe protein calorie malnutrition related to chronic illness, loss of appetite as evidenced by weight loss 19%/5 months; intakes <75% needs >1 month; moderate muscle wasting to temporalis, clavicles, shoulders; moderate fat loss to buccal fat pads Goal: Adequate PO intake at least 75% meals and supplements Patient is progressing towards goal. We will continue current goal. Pt current nutrition is Heart Healthy. Last recorded weight is 72.4 kg, no new weight to report. Bowel Motility: +Bm reported / Labs Reviewed:no labs to report. Meds Noted: Ocuvite, Miralax, Senokot Skin: WNL Additional Notes: Patient is currently on a heart healthy diet, intake > 75% of meal today. Diet supplement remain of Ensure compact BID providing 220 kcal and 9 gm protein. Agree with diet orders. Monitoring intakes, weights, labs, supplement tolerance, plan of care Follow up in 5 days
--- NOTE | 2024-01-10 13:20 | PM.PNORT ---
Progress Note: A&P Assessment and Plan (1) Dislocation of hip prosthesis: Qualifiers: Encounter type: initial encounter Qualified Code(s): T84.029A - Dislocation of unspecified internal joint prosthesis, initial encounter; Z96.649 - Presence of unspecified artificial hip joint Code(s): T84.029A - Dislocation of unspecified internal joint prosthesis, initial encounter; Z96.649 - Presence of unspecified artificial hip joint Status: Acute Assessment and Plan: POD #2 Continue PT/OT. WBAT with Hip Abductor Brace with flexion 0-[address] Delaney. Walker. HIGH FALL RISK. Continue pain control. Ice Hip. Protect skin. DVT prophylaxis with Aspirin. SCDs. Incentive Spirometry Use reviewed. Monitor Dressing. Change prior to discharge. Bowel Regimen. Dispo: Deepali Barreto pending progress with PT/OT and medical clearance. 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 Pain well controlled. Review of Systems Review of Systems: All systems reviewed & are unremarkable except as noted in HPI and below Exam Const: General: awake Extrem: Left lower extremity: hip/thigh (hip adductor brace in place ) Details: normal to inspection and tenderness Location: of the hip (incision c/d/i ) Location: laterally, knee Details: normal to inspection, lower leg Details: normal to inspection, ankle Details: normal to inspection and foot Details: normal capillary refill and vascular exam Details: dorsalis pedis pulse present Objective Data Vital Signs Vital Signs: Vital Signs - 24 hr 01/09/24 13:29 01/09/24 20:51 01/10/24 05:31 Temperature 36.6 C 36.5 C Pulse Rate 66 60 Respiratory Rate 16 18 Blood Pressure 145/68 H 147/55 H Pulse Oximetry 96 99 Oxygen Delivery Room Air 01/10/24 08:00 Temperature Pulse Rate Respiratory Rate Blood Pressure Pulse Oximetry Oxygen Delivery Room Air Intake/Output Intake/Output: Intake & Output 01/07/24 01/08/24 01/09/24 01/10/24 23:59 23:59 23:59 23:59 Intake Total 1395 169 7695 240 Output Total 3400 1300 850 700 [id number] -[id number] 121 -626 Meds/Results Medications: Active Medications Generic Name Dose Route Start Last Admin Trade Name Freq PRN Reason Stop Dose Admin Acetaminophen 650 mg 01/05/24 09:18 Acetaminophen 325 Mg Tablet PO Q4H PRN Pain 1-3 Artificial Tears 1 drop 01/07/24 14:55 01/08/24 10:53 Artificial Tears Ophth Soln 15 Ml Bottle EACH EYE 1 drop QID PRN Administration Dry Eye(s) Aspirin 324 mg 01/07/24 08:00 01/10/24 09:16 Aspirin 81 Mg Chewable Tablet PO 01/13/24 08:01 324 mg DAILY@0800 JORDAN Administration Carbidopa/Levodopa 3 tablet 01/05/24 11:00 01/10/24 12:30 Carbidopa/Levodopa 25/100 Mg Tablet PO 3 tablet 0500,1100,1700,2300 JORDAN Administration Cyclobenzaprine HCl 10 mg 01/05/24 09:18 01/07/24 20:51 Cyclobenzaprine Hcl 10 Mg Tablet PO 10 mg BID PRN Administration muscle spasm Cyclosporine 1 drop 01/05/24 09:20 01/10/24 09:17 Cyclosporine 0.4 Ml Ophth Solution EACH EYE 1 drop Q12H JORDAN Administration Diazepam 5 mg 01/08/24 18:04 Diazepam (*Crx) 5 Mg Tablet PO Q6H PRN Anxiety/Muscle Spasm Diclofenac Sodium 1 applic 01/05/24 13:00 01/10/24 12:30 Diclofenac Sodium 1% 100 Gm Gel (*Bkc) TOPICAL 1 applic QID JORDAN Administration Diphenhydramine HCl 25 mg 01/08/24 18:04 01/08/24 20:59 Diphenhydramine Hcl Inj 50 Mg/Ml V
--- NOTE | 2024-01-10 13:27 | PM.IMPN ---
Progress Note: A&P Assessment and Plan (1) Dislocation of hip prosthesis: Qualifiers: Encounter type: initial encounter Qualified Code(s): T84.029A - Dislocation of unspecified internal joint prosthesis, initial encounter; Z96.649 - Presence of unspecified artificial hip joint Code(s): T84.029A - Dislocation of unspecified internal joint prosthesis, initial encounter; Z96.649 - Presence of unspecified artificial hip joint Status: Acute (2) Dementia: Qualifiers: Dementia behavioral or psychological symptom: with agitation Dementia severity: unspecified severity Dementia type: Parkinson's disease Qualified Code(s): G20.A1 - Parkinson's disease without dyskinesia, without mention of fluctuations; F02.811 - Dementia in other diseases classified elsewhere, unspecified severity, with agitation Code(s): F03.90 - Unspecified dementia, unspecified severity, without behavioral disturbance, psychotic disturbance, mood disturbance, and anxiety Status: Acute (3) Essential (primary) hypertension: Code(s): I10 - Essential (primary) hypertension Status: Acute (4) Parkinsons disease: Code(s): G20 - Parkinson's disease Status: Acute Plan dislocation of right hip prothesis optimize pain management Consult orthopedic surgeon Consult PT OT care support representative for evaluation and assisting placement orthopedic surgeon plans surgical treatment on Sunday day 2 Postop Open Reduction of the Left Hip Prosthesis with possible liner component exchange, performed per ortho pain is well managed, patient has no focal neuro deficit Parkinson disease Continue Sinemet at home does controlled, no tremor uncontrolled hypertension Likely secondary to uncontrolled pain, patient has no home home medication Optimize pain management Monitor blood pressure closely chronic anemia, follow-up CBC, no obvious bleeding Follow stool guaiac negative. orthopedic surgeon agrees to discharge patient to rehab Subjective Date/time seen: 01/10/24 13:27 Interval history: I saw examined patient in patient room in presents now patient daughter at the bedside. Patient feels pain is tolerable, ambulated with is physical therapist. Patient denies focal weakness, chest pain abdomen pain nausea vomiting diarrhea dysuria. Exam Narrative: GENERAL: Pleasant, in no acute distress. Well-nourished. - EYES: EOMI. Anicteric. - HENT: Moist mucous membranes. - LUNGS: Clear to auscultation bilaterally, no wheezing, rhonchi, or rales. - CARDIOVASCULAR: Regular rate and rhythm. No murmur. No JVD. - ABDOMEN: Soft, non-tender and non-distended. No palpable masses. - EXTREMITIES: No edema. Peripheral pulses 2+. Non-tender. left hip range of movement is restricted - NEUROLOGIC: No focal neurological deficits. CN II-XII grossly intact. - PSYCHIATRIC: Awake, Alert and oriented x 3. Appropriate mood and affect. - SKIN: No rashes or lesions. Warm. - LYMPH: No cervical lymphadenopathy. Objective Data Vital Signs Vital Signs: Vital Signs - 24 hr 01/09/24 13:29 01/09/24 20:51 01/10/24 05:31 Temperature 98 F 97.7 F Pulse Rate 66 60 Respiratory Rate 16 18 Blood Pressure 145/68 H 147/55 H Pulse Oximetry 96 99 Oxygen Delivery Room Air 01/10/24 08:00 Temperature Pulse Rate Respiratory Rate Blood Pressure Pulse Oximetry Oxygen Delivery Room Air Intake/Output Intake/Output: Intake & Output 01/07/24 01/08/24 01/09/24 01/10/24 23:59 23:59 23:59 23:59 Intake Total 8916 717 0308 240 Output Total 3400 1300 850 700 Balance -6040 -9925 690 -895 Meds/Results Medications: Active Medications Generic Name Dose Route Start Last Admin Trade Name Freq PRN Reason Stop Dose Admin Acetaminophen 650 mg 01/05/24 09:18 Acetaminophen 325 Mg Tablet PO Q4H PRN Pain 1-3 Artificial Tears 1 drop 01/07/24 14:55 01/08/24 10:53 Artificial Tears Ophth Ophelia
--- NOTE | 2024-01-10 13:34 | PM.DS ---
DS: Admitting Diagnosis Discharge Date 01/09 Admitting Diagnosis dislocation of hip prothesis DS: Discharge Diagnosis Discharge Diagnosis (1) Dislocation of hip prosthesis: Qualifiers: Encounter type: initial encounter Qualified Code(s): T84.029A - Dislocation of unspecified internal joint prosthesis, initial encounter; Z96.649 - Presence of unspecified artificial hip joint Code(s): T84.029A - Dislocation of unspecified internal joint prosthesis, initial encounter; Z96.649 - Presence of unspecified artificial hip joint Status: Acute (2) Dementia: Qualifiers: Dementia behavioral or psychological symptom: with agitation Dementia severity: unspecified severity Dementia type: Parkinson's disease Qualified Code(s): G20.A1 - Parkinson's disease without dyskinesia, without mention of fluctuations; F02.811 - Dementia in other diseases classified elsewhere, unspecified severity, with agitation Code(s): F03.90 - Unspecified dementia, unspecified severity, without behavioral disturbance, psychotic disturbance, mood disturbance, and anxiety Status: Acute (3) Essential (primary) hypertension: Code(s): I10 - Essential (primary) hypertension Status: Acute (4) Parkinsons disease: Code(s): G20 - Parkinson's disease Status: Acute DS: Summary Hospital Course Hospital Course: 78 years old gentleman with history of Parkinson disease, osteoarthritis, left hip replacement, brought to ED because of left pain pain. Patient states he was walking with physical therapy is to catheter with walker, patient had a sudden onset left hip pain, and patient could not walk anymore because severe pain. Patient denies a fall, trauma of left hip. patient also denies headache, focal weakness, chest pain, shortness breast abdomen pain, nausea vomiting diarrhea dysuria fever chills. Patient was brought to ED for evaluation treatment. Upon arrival in the ED,, patient was afebrile, blood pressure stable, uncontrolled hypertension 175/77, pulse ox 98 on room air, labs showed hemoglobin 12.5, of baseline, plain film x-rays showed evidence of a prosthesis dislocation. ER physician consulted orthopedic surgeon. We admit patient for further evaluation and treatment the following med issues have been addressed during hospitalization dislocation of right hip prothesis optimize pain management Consult orthopedic surgeon Consult PT OT care assistant for evaluation and assisting placement orthopedic surgeon plans surgical treatment on Sunday day 2 Postop Open Reduction of the Left Hip Prosthesis with possible liner component exchange, performed per ortho pain is well managed, patient has no focal neuro deficit Parkinson disease Continue Sinemet at home does controlled, no tremor uncontrolled hypertension Likely secondary to uncontrolled pain, patient has no home home medication Optimize pain management Monitor blood pressure closely chronic anemia, follow-up CBC, no obvious bleeding Follow stool guaiac negative. orthopedic surgeon agrees to discharge patient to rehab Time Spent with Patient Time attestation: Total time spent providing and/or coordinating discharge services: Exam Narrative: GENERAL: Pleasant, in no acute distress. Well-nourished. - EYES: EOMI. Anicteric. - HENT: Moist mucous membranes. - LUNGS: Clear to auscultation bilaterally, no wheezing, rhonchi, or rales. - CARDIOVASCULAR: Regular rate and rhythm. No murmur. No JVD. - ABDOMEN: Soft, non-tender and non-distended. No palpable masses. - EXTREMITIES: No edema. Peripheral pulses 2+. Non-tender. left hip range of movement is restricted - NEUROLOGIC: No focal neurological deficits. CN II-XII grossly intact. - PSYCHIATRIC: Awake, Alert and oriented x 3. Appropriate mood and affect. - SKIN: No rashes or lesions. Warm. - LYMPH: No cervical lymphadenopathy. Discharge Plan Discharge Luz Elena parikh
[2024-01-10 14:24] LABS: SARS-CoV-2 RNA PCR Negative (Negative)
== END 2024-01-10 15:45 | DRG 467 ==
LOC: ANHED 04:06 → ANH3MED 04:35
PROVIDERS: Orthopaedic Surgery; Admitting Provider Internal Medicine; Emergency Provider Emergency Medicine; PCP Family Medicine; Visit Provider Hospitalist
PROC: 0SWB0JZ Revision of Synthetic Substitute in Left Hip Joint, Open Approach (ICD-10-PCS; CPT 27130; principal; 2024-01-08 14:30)
DX: T84.021A Dislocation of internal left hip prosthesis, initial encounter (principal); E46 Unspecified protein-calorie malnutrition; M19.90 Unspecified osteoarthritis, unspecified site; F41.9 Anxiety disorder, unspecified; E78.5 Hyperlipidemia, unspecified; G20.A1 Parkinson's disease without dyskinesia, without mention of fluctuations; D64.9 Anemia, unspecified; H40.9 Unspecified glaucoma; K21.9 Gastro-esophageal reflux disease without esophagitis; I12.9 Hypertensive chronic kidney disease with stage 1 through stage 4 chronic kidney disease, or unspecified chronic kidney disease; N18.30 Chronic kidney disease, stage 3 unspecified; F03.90 Unspecified dementia, unspecified severity, without behavioral disturbance, psychotic disturbance, mood disturbance, and anxiety; Z11.52 Encounter for screening for COVID-19; Z96.642 Presence of left artificial hip joint; Z90.49 Acquired absence of other specified parts of digestive tract; R13.10 Dysphagia, unspecified; Z68.21 Body mass index [BMI] 21.0-21.9, adult
CPT/HCPCS: 27265; 36415; 73502; 80048; 80053; 82948; 85025; 85027; 85610; 85730; 87635; 96374; 96375; 96376; 97110; 97162; 97166; 97530; 97535; 99199; 99285; A9270; G0378; J0171; J0690; J1100; J1200; J2270; J2371; J2405; J2704; J2795; J3010; J3370; J7030; J7040; J7120

== ENCOUNTER 2024-02-19 23:27 | Inpatient (IN) | payer MEDICARE, BC, SELFPAY ==
--- NOTE | ~2024-02-19 | XR_ITS ---
XR fluoroscopy no charge Indication: Closed reduction left hip TECHNIQUE: Fluoroscopy used during Closed reduction left hip performed by [Darrel Delaney MD] on 02/22/2024. 3 minutes 57 seconds fluoroscopy with 2 fluoroscopic images captured. FINDINGS: Correlate with procedure note. Left hip prosthesis appears to be in anatomic alignment. IMPRESSION: Fluoroscopy used during Closed reduction left hip. Reviewed, dictated and finalized at location B.
--- NOTE | ~2024-02-19 | XR_ITS ---
AP and lateral views of the left hip Clinical history: Pain Findings: Previously noted dislocation of the left hip arthroplasty has been successfully reduced. Al ignment of the orthopedic hardware appears satisfactory. Lumbosacral spinal fixation hardware again n oted. No acute osseous fracture seen. Soft tissues are unremarkable. Impression: Successful reduction of previously noted dislocation of left hip arthroplasty. Reviewed, dictated and finalized at location M. Impression: Successful reduction of previously noted dislocation of left hip arthroplasty.
--- NOTE | ~2024-02-19 | XR_ITS ---
Portable chest x-ray Comparison: None Clinical History: Cough Findings: Lungs are clear, without focal consolidation or pleural effusion. There is elevation of le ft hemidiaphragm. Cardiomediastinal silhouette is prominent, possibly due to AP technique. There is extensive thoracolumbar spinal fixation hardware. Impression: Clear lungs. Other findings, as above. Reviewed, dictated and finalized at location . Impression: Clear lungs. Other findings, as above.
--- NOTE | ~2024-02-19 | XR_ITS ---
AP view of the pelvis and AP and lateral views of the left hip Clinical history: Pain Findings: There is left hip arthroplasty with dislocation superiorly of the femoral head component fr om the acetabular component. Right hip joint space preserved. Extensive spinal fixation hardware as t he attending from the lumbar spine through the sacrum is present. No acute osseous fracture seen. Sof t tissues are unremarkable. Impression: Left hip arthroplasty with superior dislocation of the femoral head component from the acetabular com ponent. Extensive lumbosacral spinal fixation hardware. Reviewed, dictated and finalized at location M. Impression: Left hip arthroplasty with superior dislocation of the femoral head component f rom the acetabular component. Extensive lumbosacral spinal fixation hardware.
[2024-02-19 23:27] VITALS: BP 128/79; PULSE 69; RESP 18; TEMP 36.4; O2SAT 100
[2024-02-19 23:32] VITALS: BP 128/79; PULSE 70; RESP 19; O2SAT 100
[2024-02-20] VITALS (10 sets, daily range): BP systolic 104–172; BP diastolic 53–78; PULSE 60–84; RESP 12–22; TEMP 36.1–37; O2SAT 96–100; BMI 22.1
[2024-02-20] MEDS: HYDROmorphone HCL INJ (*CRX) 1 MG/ML SYR 0.5 MG IV PUSH (00:11)
[2024-02-20 00:34] LABS: Basophils Absolute Auto 0.1 K/mm3 (0.0-0.1); Basophils Percent Auto 0.5 % (0.2-1.2); Eosinophils Absolute Auto 0.2 K/mm3 (0-0.3); Eosinophils Percent Auto 2.5 % (0-4.4); Hematocrit 42.6 % (42.0-52.0); Hemoglobin 14.2 g/dL (14.0-18.0); Immature Granulocyte Absolute 0.08 K/mm3 (0.00-0.031); Immature Granulocyte Percent A 0.9 % (0-0.5); Lymphocytes Absolute Auto 1.33 K/mm3 (0.9-3.2); Lymphocytes Percent Auto 14.4 % (18.3-44.2); Mean Corpuscular HGB Conc 33.3 g/dl (32-36); Mean Platelet Volume 9.5 fl (7.4-10.4); Monocytes Absolute Auto 0.6 K/mm3 (0.1-0.6); Monocytes Percent Auto 6.4 % (2.6-8.5); Neutrophils Absolute Auto 6.9 K/mm3 (1.3-6.7); Neutrophils Percent Auto 75.3 % (45.5-73.1); Platelet Count Result 211 k/mm3 (150-375); Red Blood Count 4.58 M/mm3 (4.6-6.20); Red Cell Distribution Width 14.1 % (11.5-14.5); White Blood Count 9.2 K/mm3 (4.5-10.0)
[2024-02-20 00:37] LABS: Albumin Level 3.8 g/dL (3.5-5.1); Alkaline Phosphatase 84 U/L (38-126); Anion Gap 6 mmol/L (4-12); Aspartate Amino Transferase 19 U/L (17-59); Bilirubin,Total 0.6 mg/dL (0.2-1.3); Blood Urea Nitrogen 17 mg/dL (9-20); Calcium 8.6 mg/dL (8.4-10.2); Carbon Dioxide 29 mmol/L (22-30); Chloride 104 mmol/L (98-107); Estimated CRCL calculation 82 ml/min; Estimated Glomerular Filt Rate > 60; Glucose 114 mg/dL (65-110); Potassium 4.1 mmol/L (3.4-5.0); Sodium 139 mmol/L (137-145)
--- NOTE | 2024-02-20 00:44 | PC.NURSE ---
Consent obtained from pt's . Room 8 set up for conscious sedation with capnography, O2, and crash cart outside of the room.
[2024-02-20] MEDS: SODIUM CHLORIDE 0.9% IV 1,000 ML 999 ML (01:00)
[2024-02-20 01:02] LABS: Alanine Aminotransferase < 6 U/L (6-50)
--- NOTE | 2024-02-20 01:31 | ED.GENADULT ---
HPI - General Adult General Chief complaint: Extremity Injury, Lower Stated complaint: hip dislocation Time Seen by Provider: 02/19/24 23:33 History of Present Illness HPI narrative: Patient is a 78-year-old gentleman who presents emergency department with chief complaint of left hip dislocation. 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 The patient was sleeping tonight and felt pain in his left hip area and was unable to straighten his leg. Related Data Home Medications Medication Instructions Recorded Confirmed entacapone 200 mg tablet 200 mg PO QID 06/18/19 01/05/24 acetaminophen 325 mg tablet 650 mg PO Q4H PRN Pain 06/27/21 01/05/24 ketoconazole 2 % topical cream 1 applic topical Q12H PRN Dry Skin 06/27/21 01/05/24 melatonin 5 mg capsule 5 mg PO QHS 06/27/21 01/05/24 memantine 10 mg tablet 10 mg PO BID 06/27/21 01/05/24 cyclosporine 0.05 % eye drops in a 1 drp EACH EYE Q12H 11/23/23 01/05/24 dropperette (Restasis) diclofenac sodium 1 % topical gel 4 g topical QID 11/23/23 01/05/24 latanoprost 0.005 % eye drops 1 drp EACH EYE QPM 11/23/23 01/05/24 trolamine salicylate 10 % topical 1 applic topical TID PRN pain 11/23/23 01/05/24 cream (Aspercreme) vit C-vit L-[id number]-rhejxkef capsule 1 cap PO DAILY 11/23/23 01/05/24 Allergies Allergy/AdvReac Type Severity Reaction Status Date / Time adhesive Allergy Unknown Unknown Verified 02/19/24 23:34 latex Allergy Unknown Unknown Verified 02/19/24 23:34 shrimp Allergy Unknown Verified 02/19/24 23:34 gabapentin AdvReac Unknown HALLUCINATI Verified 02/19/24 23:34 ONS Review of Systems Review of Systems: A 10 system review of systems was completed on the patient and is negative except for what is stated in the HPI. Nursing and ancillary documentation was reviewed. [facility] Past Medical History Medical History Anemia Anxiety Arthritis At high risk for falls after spinal surgery Chronic back pain CKD (chronic kidney disease) stage 3, GFR 30-59 ml/min Complication of surgical and medical care Dementia Essential (primary) hypertension GERD (gastroesophageal reflux disease) Glaucoma H/O: HTN (hypertension) History of inguinal hernia History of pneumonia Hx of hemorrhoids Hx of Parkinson's disease Hyperlipidemia LDL goal <100 Infection of spine Parkinsons disease Rupture of diaphragm Surgical History Surgical History History of cataract surgery History of cholecystectomy History of hemorrhoidectomy History of inguinal hernia repair History of left hip replacement History of spinal surgery x10. History of thyroidectomy Family History Family History Father Family history of Parkinson's disease Family history of colonic diverticulitis Hypertension Family history of cardiovascular disease Mother Family history of Alzheimer's disease Sibling Family history of malignant neoplasm of breast in first degree relative Diabetes mellitus Hypertension Other Family history of arthritis Family history of malignant neoplasm Social History Social History Smoking status: Never smoker Second hand tobacco smoke exposure: No Alcohol intake: unknown Substance use: unknown Substance use type: does not use Do You Feel Safe in your Home?: Yes Lack of Transportation: No Lack of Food: Never True Current Housing: I Have Housing Concerned About Future Housing: No Difficulty Paying Gas/Electric Bills: No Difficulty Paying for Meds: No Currently Unemployed: No Education: High School Diploma/GED Difficulty w/ Childcare or Family Care: No Gender identity (if verbalized by the patient): Male Spiritual care
--- NOTE | 2024-02-20 02:00 | PC.NURSE ---
Pt received bed assignment. Bed is not cleaned at the moment. MARYBEL Iverson will call to notify when pt is able to come up.
--- NOTE | 2024-02-20 02:25 | PC.NURSE ---
This RN attempted to give pt morphine and zofran after called out asking for pain meds. Pt was asleep and decided to wait for pain meds.
[2024-02-20] MEDS: ONDANSETRON INJ 4 MG/2 ML VIAL IV PUSH (02:49)
[2024-02-20] MEDS: MORPHINE SULFATE (*CRX) 4 MG/ML INJ IV PUSH (02:49)
[2024-02-20 03:07] LABS: Appearance Urine Clear (Clear); Bacteria Urine None Seen /hpf; Bilirubin Urine Negative (Negative); Blood Urine Negative (Negative); Color Urine Dark Yellow (Yellow); Glucose Urine UA Negative (Negative); Ketones Urine Trace mg/dL (Negative); Leukocyte Esterase Ur Trace LEU/UL (Negative); Nitrate Urine Negative (Negative); Non Pathogenic Casts 0-2; Protein Urine Negative (Negative); RBC Urine 0-2 /hpf (0-2); Specific Grav Ur 1.025 (1.001-1.035); Squamous Epithelial Cell Urine None Seen /hpf (Few); Urobilinogen Urine 0.2 mg/dL (<2.0); WBC Urine 0-5 /hpf (0-3); pH Urine 5.5 (5.0-9.0)
[2024-02-20 03:10] LABS: Add Urine Microscopic? YES
[2024-02-20] MEDS: SODIUM CHLORIDE 0.9% IV 1,000 ML 75 ML IV CONT (03:21)
--- NOTE | 2024-02-20 03:35 | ADMGEN ---
This patient, Loco Martinez, was admitted to Medical Room 347-01. Patient/family oriented to hospital policies and general routines including ID bracelet, bed and alarms, visiting hours, pain management, procedures, bathroom and other care routines, personal items, smoking policy, room service/diet, and visiting hours. Information on how to activate the Rapid Response Team has been discussed. Patient/Family are encouraged to report perceived risks to care and to ask questions if they do not understand what they are told or what they should do.
--- NOTE | 2024-02-20 10:59 | PM.IMHP ---
H&P: HPI History of Present Illness Date/Time: 02/20/24 10:59 Chief Complaint: hip dislocation Narrative: Patient is a 78-year-old gentleman with history of Parkinson disease, osteoarthritis, left hip replacement who presents emergency department with chief complaint of left hip dislocation. 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 The patient was sleeping tonight and felt pain in his left hip area and was unable to straighten his leg. - NOted that pt was in the hospital 01/09 for the same issues: he was walking with physical therapy is to catheter with walker, patient had a sudden onset left hip pain, and patient could not walk anymore because severe pain. Pt had OPEN REDUCTION LEFT SYLWIA on 01/07 IN ed on 02/18-Plain film x-ray showed a prosthesis dislocation- ER MD discussed the case with ortho and pt is admitted with ortho consult. 02/19- pt is seen and examined. He is in bed, calm and comfortable. Pain is well controlled. and daughter at the bedside. ortho consult is ordered. Review of Systems Constitutional: Constitutional: Denies chills and Denies weakness Cardiovascular: Cardiovascular: Denies chest pain Respiratory: Respiratory: Denies chest congestion and Denies cough Gastrointestinal: Gastrointestinal: Denies abdominal pain Genitourinary: Genitourinary: Denies hematuria Musculoskeletal: Comments: lt hip dislocation Neurologic: Denies confusion Psychiatric: Psychiatric: Denies anxiety and Denies behavioral changes [facility] Past Medical History Medical History Anemia Anxiety Arthritis At high risk for falls after spinal surgery Chronic back pain CKD (chronic kidney disease) stage 3, GFR 30-59 ml/min Complication of surgical and medical care Dementia Essential (primary) hypertension GERD (gastroesophageal reflux disease) Glaucoma H/O: HTN (hypertension) History of inguinal hernia History of pneumonia Hx of hemorrhoids Hx of Parkinson's disease Hyperlipidemia LDL goal <100 Infection of spine Parkinsons disease Rupture of diaphragm Surgical History Surgical History History of cataract surgery History of cholecystectomy History of hemorrhoidectomy History of inguinal hernia repair History of left hip replacement History of spinal surgery x10. History of thyroidectomy Family History Family History Father Family history of Parkinson's disease Family history of colonic diverticulitis Hypertension Family history of cardiovascular disease Mother Family history of Alzheimer's disease Sibling Family history of malignant neoplasm of breast in first degree relative Diabetes mellitus Hypertension Other Family history of arthritis Family history of malignant neoplasm Social History Social History Smoking status: Never smoker Second hand tobacco smoke exposure: No Alcohol intake: unknown Substance use: unknown Substance use type: does not use Do You Feel Safe in your Home?: Yes Lack of Transportation: No Lack of Food: Never True Current Housing: I Have Housing Concerned About Future Housing: No Difficulty Paying Gas/Electric Bills: No Difficulty Paying for Meds: No Currently Unemployed: No Education: High School Diploma/GED Difficulty w/ Childcare or Family Care: No Gender identity (if verbalized by the patient): Male Spiritual care concerns: No Agree to blood products: Yes Meds Home Medications and Allergies Home Medications Medication Instructions Recorded Confirmed Type entacapone 200 mg tablet 200 mg PO QID 06/18/19 02/20/24 History carbidopa 25 mg-levodopa 100 mg 3 tablet PO 0500,1100,1700,2300 06/27/19 02/20/24 Rx tablet
[2024-02-20] MEDS: cycloSPORINE 0.4 ML OPHTH SOLUTION 1 DROP EACH EYE ×2 (12:48→22:35)
[2024-02-20] MEDS: CARBIDOPA/LEVODOPA 25/100 MG TABLET 3 TABLET PO ×3 (12:48→22:35)
[2024-02-20] MEDS: DICLOFENAC SODIUM 1% 100 GM GEL (*BKC) 1 APPLIC TOPICAL ×2 (12:49→16:52)
[2024-02-20] MEDS: ENTACAPONE 200 MG TABLET PO ×3 (12:50→22:35)
[2024-02-20] MEDS: oxyCODONE HCL (*CRX) 5 MG TAB IR PO ×2 (14:12→22:35)
--- NOTE | 2024-02-20 14:36 | PM.CNOR ---
Assessment and Plan Assessment and plan (1) Dislocation of hip prosthesis: Code(s): T84.029A - Dislocation of unspecified internal joint prosthesis, initial encounter; Z96.649 - Presence of unspecified artificial hip joint Status: Acute (2) Dislocation of hip prosthesis: Qualifiers: Encounter type: initial encounter Qualified Code(s): T84.029A - Dislocation of unspecified internal joint prosthesis, initial encounter; Z96.649 - Presence of unspecified artificial hip joint Code(s): T84.029A - Dislocation of unspecified internal joint prosthesis, initial encounter; Z96.649 - Presence of unspecified artificial hip joint Status: Acute Assessment and Plan: 78-year-old male readmitted to [facility] for a recurrent dislocation of the newly operated left hip with recent acetabular component exchange. History, exam and radiographs reviewed with the patient and family at the bedside. Patient underwent closed [id number] in the ed last night. today review of the xrays show incomplete reduction of the left hip joint. he currently is comfortable in bed and with good pain control. he denies any other injuries At this time however, patient would benefit from having acetabular liner revision to a more constrained liner as current post reduction films appear suboptimal and he has dislocated twice with the new liner. . He will require a revision of the current liner to a more stable version with constraint. He will require consultation with another hip surgeon at some point if he continues to have another recurrent dislocation. Discussed nonoperative and operative treatment options with the patient/family. The patients questions were answered. The patient/family desire operative treatment. Risks of surgery including but not limited to neurovascular damage, wound complications, blood clot, pulmonary embolus, stroke, myocardial infarction, anesthetic risks up to and including were reviewed. Continued pain and possible dysfunction were explained. No guarantees were offered. The patient understands and wishes to proceed. Plan: Left Hip revision of acetabular liner (3) Failed total hip arthroplasty with dislocation: Qualifiers: Encounter type: subsequent encounter Laterality: left Qualified Code(s): T84.021D - Dislocation of internal left hip prosthesis, subsequent encounter Code(s): T84.028A - Dislocation of other internal joint prosthesis, initial encounter; Z96.649 - Presence of unspecified artificial hip joint Status: Acute (4) Dysphagia: Code(s): R13.10 - Dysphagia, unspecified Status: Acute Plan Reviewed history, exam, radiographs and current labs with attending MD and covering surgeon, Dr. Delaney, who agrees with current plan as indicated above. No further recommendations from Dr. Delaney at this time. History of Present Illness HPI Consult date: 02/20/24 Chief complaint: Left hip prosthesis dislocation Narrative: 78-year-old male well known to the orthopedic service with a history of Parkinson's and a left hip dual mobility total hip arthroplasty which was most recently dislocated and patient underwent surgical intervention on December 27 at which point a revision of the acetabular component of the left hip was performed due to chronic dislocation and failed acetabular component. Patient was discharged to rehab and was doing well initially postoperatively. He was ambulating without pain. He was utilizing a walker. At some point yesterday, he was sitting in a wheelchair when he started experiencing excruciating pain in the left lower extremity and was unable to bear weight on the left lower extremity so he presented to the emergency room for further evaluation. Radiographs in the emergency room revealed a posterior superior dislocation of the left hip prosthesis. A reduction was performed and postreduction films revealed a suboptimal reduction of the dislocated left hi
[2024-02-20] MEDS: SENNA/DOCUSATE SODIUM TABLET 2 TAB PO (16:48)
[2024-02-20] MEDS: MEMANTINE 10 MG TABLET PO (16:48)
[2024-02-20] MEDS: hydrOXYzine HCL 25 MG TABLET 50 MG PO ×2 (16:48→22:35)
[2024-02-20] MEDS: LATANOPROST 0.005% OP SOLN 2.5 ML BTL 1 DROP EACH EYE (17:00)
--- NOTE | 2024-02-20 21:43 | PC.NURSE ---
Patient refuses HS meds at this time, states that he wants to take them at 2230.
[2024-02-20] MEDS: MELATONIN 5 MG TABLET PO (22:35)
[2024-02-21 05:37] VITALS: BP 166/63; PULSE 60; RESP 20; TEMP 36.8; O2SAT 98
[2024-02-21] MEDS: CARBIDOPA/LEVODOPA 25/100 MG TABLET 3 TABLET PO ×4 (05:40→22:23)
[2024-02-21] MEDS: oxyCODONE HCL (*CRX) 5 MG TAB IR PO ×3 (05:40→22:23)
[2024-02-21] MEDS: SENNA/DOCUSATE SODIUM TABLET 2 TAB PO ×2 (08:42→17:16)
[2024-02-21] MEDS: ENTACAPONE 200 MG TABLET PO ×4 (08:43→22:23)
[2024-02-21] MEDS: DICLOFENAC SODIUM 1% 100 GM GEL (*BKC) 1 APPLIC TOPICAL ×3 (08:43→17:20)
[2024-02-21] MEDS: cycloSPORINE 0.4 ML OPHTH SOLUTION 1 DROP EACH EYE ×2 (08:43→22:22)
[2024-02-21] MEDS: TAMSULOSIN HCL 0.4 MG CAPSULE PO (08:43)
[2024-02-21] MEDS: MEMANTINE 10 MG TABLET PO ×2 (08:43→17:16)
--- NOTE | 2024-02-21 09:35 | PM.IMPN ---
Progress Note: A&P Assessment and Plan (1) Dislocation of hip prosthesis: Code(s): T84.029A - Dislocation of unspecified internal joint prosthesis, initial encounter; Z96.649 - Presence of unspecified artificial hip joint Status: Acute Assessment and Plan: - recent hospitalizations and surgery for the same issue - ortho consult is in place - pain control, bed rest, vascular checks (2) Dementia: Qualifiers: Dementia behavioral or psychological symptom: with agitation Dementia severity: unspecified severity Dementia type: Parkinson's disease Qualified Code(s): G20.A1 - Parkinson's disease without dyskinesia, without mention of fluctuations; F02.811 - Dementia in other diseases classified elsewhere, unspecified severity, with agitation Code(s): F03.90 - Unspecified dementia, unspecified severity, without behavioral disturbance, psychotic disturbance, mood disturbance, and anxiety Status: Acute Assessment and Plan: will resume home meds (3) Hyperlipidemia LDL goal <100: Code(s): E78.5 - Hyperlipidemia, unspecified Status: Acute Assessment and Plan: resume home meds (4) Essential (primary) hypertension: Code(s): I10 - Essential (primary) hypertension Status: Acute Assessment and Plan: resume home meds (5) Parkinsons disease: Code(s): G20 - Parkinson's disease Status: Acute Assessment and Plan: resume home emds Plan ortho consult NPO IV fluids pain control Time Spent With Patient Time with patient: 25 - 35 minutes Subjective Date/time seen: 02/21/24 09:35 Interval history: Narrative: Patient is a 78-year-old gentleman with history of Parkinson disease, osteoarthritis, left hip replacement who presents emergency department with chief complaint of left hip dislocation. 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 The patient was sleeping tonight and felt pain in his left hip area and was unable to straighten his leg. - NOted that pt was in the hospital 01/09 for the same issues: he was walking with physical therapy is to catheter with walker, patient had a sudden onset left hip pain, and patient could not walk anymore because severe pain. Pt had OPEN REDUCTION LEFT SYLWIA on 01/07 IN ed on 02/18-Plain film x-ray showed a prosthesis dislocation- ER MD discussed the case with ortho and pt is admitted with ortho consult. 02/19- pt is seen and examined. He is in bed, calm and comfortable. Pain is well controlled. and daughter at the bedside. ortho consult is ordered. 02/[address] Delaney- special hardware would be ordered. Pt is alert, calm, oriented. Pain is well controlled. Review of Systems Constitutional: Constitutional: Denies chills and Denies weakness Cardiovascular: Cardiovascular: Denies chest pain Respiratory: Respiratory: Denies chest congestion and Denies cough Gastrointestinal: Gastrointestinal: Denies abdominal pain Genitourinary: Genitourinary: Denies hematuria Neurologic: Denies behavioral changes, Denies confusion and Denies weakness Psychiatric: Psychiatric: Denies anxiety, Denies behavioral changes and Denies confusion Exam Narrative: GENERAL: Well-appearing, well-nourished,comfortable HEAD: Normocephalic, atraumatic. EYES: PERRLA and EOMI. ENT: Nares clear, no rhinorrhea or epistaxis. Mucous membranes moist. NECK: Supple. CHEST: Clear to auscultation. No respiratory distress. HEART: Regular rate and rhythm. No murmur heard. Normal peripheral pulses. ABDOMEN: Soft, nontender, nondistended, normal active bowel sounds. EXTREMITIES: Normal range of motion limited in the left hip. No edema. SKIN: Warm, dry, no rash. NEURO: No focal deficits. Alert and oriented x3. PSYCH: Normal mood and affect. Const: General: No confusion Orientation/consciousness: No confusion Neuro: General: No con
[2024-02-21] MEDS: polyethylene glycoL 3350 17 GM POWD.PACK PO (13:04)
[2024-02-21 14:00] VITALS: BP 123/50; PULSE 53; RESP 14; TEMP 37; O2SAT 95
[2024-02-21] MEDS: LATANOPROST 0.005% OP SOLN 2.5 ML BTL 1 DROP EACH EYE (17:16)
[2024-02-21 20:41] VITALS: BP 150/63; PULSE 66; RESP 16; TEMP 36.6; O2SAT 97
[2024-02-21] MEDS: MELATONIN 5 MG TABLET PO (22:23)
[2024-02-21] MEDS: hydrOXYzine HCL 25 MG TABLET 50 MG PO (22:23)
[2024-02-22] VITALS (14 sets, daily range): BP systolic 114–156; BP diastolic 52–67; PULSE 45–77; RESP 12–18; TEMP 36.2–36.6; O2SAT 95–100
[2024-02-22] MEDS: oxyCODONE HCL (*CRX) 5 MG TAB IR PO ×2 (05:45→21:16)
[2024-02-22] MEDS: CARBIDOPA/LEVODOPA 25/100 MG TABLET 3 TABLET PO ×4 (05:45→23:37)
--- NOTE | 2024-02-22 07:29 | WPDHPUPDATE1 ---
History and Physical Update Update Date/Time: 02/22/24 07:29 History and Physical has been reviewed, including an updated exam of the patient. There are NO changes in the patient's condition. Risks, benefits, and alternatives have been discussed and questions answered. Patient agrees to proceed with procedure.
--- NOTE | 2024-02-22 07:52 | PC.NURSE ---
To OR per bed. Bedside report given to MARYBEL Cooper.
--- NOTE | 2024-02-22 08:05 | WPDANESEPPF ---
Anes - Initial Pre Proc Eval Procedure: Operation Date: 02/22/24 09:00 Proposed Procedures p Closed Reduction, Possible Open Reduction Left Hip - Darrel Delaney MD Date/Time: 02/22/24 08:05 Surgeon: Damaso Lockwood MD Pre Op Diagnosis: Left hip prosthesis dislocation Patient Data Age: 78 Gender: M Height: 1.83 m Weight: 74.1 kg Last Vital Signs Temp 36.4 C 02/22/24 04:13 Pulse 62 02/22/24 04:13 Resp 16 02/22/24 04:13 BP 142/53 H 02/22/24 04:13 Pulse Ox 98 02/22/24 04:13 O2 Del Method Room Air 02/21/24 20:00 O2 Flow Rate 2 02/20/24 01:25 Allergies Allergy/AdvReac Type Severity Reaction Status Date / Time adhesive Allergy Unknown Unknown Verified 02/22/24 07:57 latex Allergy Unknown Unknown Verified 02/22/24 07:57 shrimp Allergy Unknown Verified 02/22/24 07:57 gabapentin AdvReac Unknown HALLUCINATI Verified 02/22/24 07:57 ONS Home Medications Medication Instructions Recorded Confirmed Type entacapone 200 mg tablet 200 mg PO QID 06/18/19 02/20/24 History carbidopa 25 mg-levodopa 100 mg 3 tablet PO 0500,1100,1700,2300 06/27/19 02/20/24 Rx tablet (Sinemet) #100 tabs tamsulosin 0.4 mg capsule 0.4 mg PO DAILY #90 caps 08/26/19 02/20/24 Rx acetaminophen 325 mg tablet 650 mg PO Q4H PRN Pain 06/27/21 02/20/24 History ketoconazole 2 % topical cream 1 applic topical Q12H PRN Dry Skin 06/27/21 02/20/24 History melatonin 5 mg capsule 5 mg PO QHS 06/27/21 02/20/24 History memantine 10 mg tablet 10 mg PO BID 06/27/21 02/20/24 History cyclosporine 0.05 % eye drops in a 1 drp EACH EYE Q12H 11/23/23 02/20/24 History dropperette (Restasis) diclofenac sodium 1 % topical gel 4 g topical QID 11/23/23 02/20/24 History latanoprost 0.005 % eye drops 1 drp EACH EYE QPM 11/23/23 02/20/24 History trolamine salicylate 10 % topical 1 applic topical TID PRN pain 11/23/23 02/20/24 History cream (Aspercreme) vit C-vit A-[id number]-[id number] capsule 1 cap PO DAILY 11/23/23 02/20/24 History polyethylene glycol 3350 17 gram 17 g PO DAILY PRN Constipation #10 12/01/23 02/20/24 Rx oral powder packet ea cyclobenzaprine 10 mg tablet 10 mg PO BID PRN muscle spasm #10 01/01/24 02/20/24 Rx tabs sennosides 8.6 mg-docusate sodium 2 tab PO BID #60 tabs 01/10/24 02/20/24 Rx 50 mg tablet (Senokot-S) oxycodone 5 mg tablet 5 mg PO Q8H 02/20/24 02/20/24 History tramadol 50 mg tablet 50 mg PO TID PRN Pain, Moderate 02/20/24 02/20/24 History Patient hx anesthesia problems: none Family hx anesthesia problems: none Results Review: All pre-operative results and documents have been reviewed as part of the pre-operative evaluation. [facility] Past Medical History Medical History Anemia Anxiety Arthritis At high risk for falls after spinal surgery Chronic back pain CKD (chronic kidney disease) stage 3, GFR 30-59 ml/min Complication of surgical and medical care Dementia Essential (primary) hypertension GERD (gastroesophageal reflux disease) Glaucoma H/O: HTN (hypertension) History of inguinal hernia History of pneumonia Hx of hemorrhoids Hx of Parkinson's disease Hyperlipidemia LDL goal <100 Infection of spine Parkinsons disease Rupture of diaphragm Surgical History Surgical History History of cataract surgery History of cholecystectomy History of hemorrhoidectomy History of inguinal hernia repair History of left hip replacement History of spinal surgery x10. History of thyroidectomy Family History Family History Father Family history of Parkinson's disease Family history of colonic diverticulitis Hypertension Family history of cardiovascular disease Mother Family history of Alzheimer's disease Sibling Family history of malignant neoplasm of breast in first degree relative Diabetes mellitus Hypertension Other Family histo
[2024-02-22] MEDS: LACTATED RINGERS 1,000 ML 30 ML IV CONT (08:15)
--- NOTE | 2024-02-22 09:36 | PM.IMPN ---
Progress Note: A&P Assessment and Plan (1) Dislocation of hip prosthesis: Code(s): T84.029A - Dislocation of unspecified internal joint prosthesis, initial encounter; Z96.649 - Presence of unspecified artificial hip joint Status: Acute Assessment and Plan: - recent hospitalizations and surgery for the same issue - ortho consult is in place - pain control, bed rest, vascular checks -02/21- Closed Reduction, Possible Open Reduction Left Hip with Dr Darrel Delaney (2) Dementia: Qualifiers: Dementia behavioral or psychological symptom: with agitation Dementia severity: unspecified severity Dementia type: Parkinson's disease Qualified Code(s): G20.A1 - Parkinson's disease without dyskinesia, without mention of fluctuations; F02.811 - Dementia in other diseases classified elsewhere, unspecified severity, with agitation Code(s): F03.90 - Unspecified dementia, unspecified severity, without behavioral disturbance, psychotic disturbance, mood disturbance, and anxiety Status: Acute Assessment and Plan: will resume home meds (3) Hyperlipidemia LDL goal <100: Code(s): E78.5 - Hyperlipidemia, unspecified Status: Acute Assessment and Plan: resume home meds (4) Essential (primary) hypertension: Code(s): I10 - Essential (primary) hypertension Status: Acute Assessment and Plan: resume home meds (5) Parkinsons disease: Code(s): G20 - Parkinson's disease Status: Acute Assessment and Plan: resume home emds Plan ortho consult NPO IV fluids pain control Subjective Date/time seen: 02/22/24 1450 Interval history: Narrative: Patient is a 78-year-old gentleman with history of Parkinson disease, osteoarthritis, left hip replacement who presents emergency department with chief complaint of left hip dislocation. 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 The patient was sleeping tonight and felt pain in his left hip area and was unable to straighten his leg. - NOted that pt was in the hospital 01/09 for the same issues: he was walking with physical therapy is to catheter with walker, patient had a sudden onset left hip pain, and patient could not walk anymore because severe pain. Pt had OPEN REDUCTION LEFT SYLWIA on 01/07 IN ed on 02/18-Plain film x-ray showed a prosthesis dislocation- ER MD discussed the case with ortho and pt is admitted with ortho consult. 02/19- pt is seen and examined. He is in bed, calm and comfortable. Pain is well controlled. and daughter at the bedside. ortho consult is ordered. 02/[address] Delaney- special hardware would be ordered. Pt is alert, calm, oriented. Pain is well controlled. 02/21- Closed Reduction, Possible Open Reduction Left Hip with Dr Darrel Delaney today. Seen and examined today- back from the surgery- doing well- denies any n/v/d- pain is well controlled. Skin is warm to touch to BLE, pulses present. Review of Systems Constitutional: Constitutional: Denies chills and Denies weakness Cardiovascular: Cardiovascular: Denies chest pain Respiratory: Respiratory: Denies chest congestion and Denies cough Gastrointestinal: Gastrointestinal: Denies abdominal pain Genitourinary: Genitourinary: Denies hematuria Neurologic: Denies behavioral changes, Denies confusion and Denies weakness Psychiatric: Psychiatric: Denies anxiety, Denies behavioral changes and Denies confusion Exam Narrative: GENERAL: Well-appearing, well-nourished,comfortable HEAD: Normocephalic, atraumatic. EYES: PERRLA and EOMI. ENT: Nares clear, no rhinorrhea or epistaxis. Mucous membranes moist. NECK: Supple. CHEST: Clear to auscultation. No respiratory distress. HEART: Regular rate and rhythm. No murmur heard. Normal peripheral pulses. ABDOMEN: Soft, nontender, nondistended, normal active bowel sounds. EXTREMITIES: Normal ra
--- NOTE | 2024-02-22 10:45 | W.PM.PROC2 ---
Procedure Note - Detailed Date of Procedure 02/22/24 Pre-op Diagnosis Left hip prosthesis dislocation Post-op Diagnosis Same Procedure Performed CLOSED REDUCTION WITH EXAMINATION UNDER ANESTHESIA LEFT HIP REPLACEMENT Surgeon Darrel Delaney MD Anesthesia General Indications CHRONIC HIP DISLOCATION Description of Procedure THE PATIENT WAS TAKEN TO THE OR IN STABLE CONDITION. HE WAS MASKED AND CHEMICALLY PARALYZED. THE LEFT HIP REPLACEMENT WAS VISUALIZED UNDER FLUOROSCOPY. USING ROTATION AND TRACTION THE FEMORAL HEAD APPEARED RELOCATED IN TO THE ACETABULAR COMPONENT. THE LEFT HIP WAS TAKEN THROUGH A ROM AND THE HIP JOINT WAS WELL REDUCED AND THEY WAS NO INSTABILITY. PULL OUT OF THE LINER WAS ATTEMPTED SEVERAL TIMES AND THERE WAS NO WAY TO ACHIEVE THIS. THE LINER WAS STABLE WAS THE HIP JOINT DESPITE SEVERAL ATTEMPTS TO DISLOCATE THE HIP WELL. ONCE THAT WAS PREFORMED, THE XRAYS WERE TAKEN AND THIS SHOWED COMPLETE REDUCTION IN BOTH THE AP/LATERAL VIEWS. ONCE THAT WAS PREFORMED, THE PATIENTS ANESTHESIA SLOWLY WAS REDUCED AND HE WAS EXTUBATED AND SENT TO RECOVERY ROOM Estimated Blood Loss 0 Complications No immediate complications Disposition PACU
[2024-02-22 12:04] LABS: Hematocrit 49.5 % (42.0-52.0); Hemoglobin 15.7 g/dL (14.0-18.0); Mean Corpuscular HGB Conc 31.7 g/dl (32-36); Mean Corpuscular Hemoglobin 30.7 pg (26-34); Mean Corpuscular Volume 96.7 fl (80-100); Mean Platelet Volume 9.6 fl (7.4-10.4); Platelet Count Result 194 k/mm3 (150-375); Red Blood Count 5.12 M/mm3 (4.6-6.20); White Blood Count 6.8 K/mm3 (4.5-10.0)
[2024-02-22 12:32] LABS: Anion Gap 8 mmol/L (4-12); Blood Urea Nitrogen 13 mg/dL (9-20); Calcium 8.4 mg/dL (8.4-10.2); Carbon Dioxide 30 mmol/L (22-30); Chloride 100 mmol/L (98-107); Estimated CRCL calculation 79 ml/min; Estimated Glomerular Filt Rate > 60; Glucose 94 mg/dL (65-110); Potassium 4.7 mmol/L (3.4-5.0); Sodium 138 mmol/L (137-145)
[2024-02-22] MEDS: MEMANTINE 10 MG TABLET PO ×2 (12:32→17:39)
[2024-02-22] MEDS: TAMSULOSIN HCL 0.4 MG CAPSULE PO (12:32)
[2024-02-22] MEDS: cycloSPORINE 0.4 ML OPHTH SOLUTION 1 DROP EACH EYE ×2 (12:32→21:16)
[2024-02-22] MEDS: SENNA/DOCUSATE SODIUM TABLET 2 TAB PO ×2 (12:33→17:39)
[2024-02-22] MEDS: ENTACAPONE 200 MG TABLET PO ×3 (12:35→21:16)
[2024-02-22] MEDS: LATANOPROST 0.005% OP SOLN 2.5 ML BTL 1 DROP EACH EYE (17:41)
[2024-02-22] MEDS: FAMOTIDINE 20 MG TABLET PO (21:16)
[2024-02-22] MEDS: DICLOFENAC SODIUM 1% 100 GM GEL (*BKC) 1 APPLIC TOPICAL (21:17)
[2024-02-22] MEDS: MELATONIN 5 MG TABLET PO (21:18)
[2024-02-23 00:48] VITALS: BP 133/56; PULSE 62; RESP 18; TEMP 36.7; O2SAT 97
[2024-02-23] MEDS: CARBIDOPA/LEVODOPA 25/100 MG TABLET 3 TABLET PO ×4 (05:56→21:22)
[2024-02-23] MEDS: oxyCODONE HCL (*CRX) 5 MG TAB IR PO ×3 (05:56→21:22)
[2024-02-23 06:13] VITALS: BP 111/53; PULSE 55; RESP 16; TEMP 36.6; O2SAT 99
[2024-02-23 07:02] LABS: Basophils Percent Auto 0.4 % (0.2-1.2); Eosinophils Absolute Auto 0.2 K/mm3 (0-0.3); Hematocrit 42.4 % (42.0-52.0); Hemoglobin 13.8 g/dL (14.0-18.0); Immature Granulocyte Absolute 0.05 K/mm3 (0.00-0.031); Immature Granulocyte Percent A 0.6 % (0-0.5); Lymphocytes Absolute Auto 1.43 K/mm3 (0.9-3.2); Lymphocytes Percent Auto 17.9 % (18.3-44.2); Mean Corpuscular HGB Conc 32.5 g/dl (32-36); Mean Corpuscular Hemoglobin 30.9 pg (26-34); Mean Corpuscular Volume 94.9 fl (80-100); Mean Platelet Volume 9.3 fl (7.4-10.4); Monocytes Absolute Auto 0.6 K/mm3 (0.1-0.6); Monocytes Percent Auto 6.9 % (2.6-8.5); Neutrophils Absolute Auto 5.7 K/mm3 (1.3-6.7); Neutrophils Percent Auto 71.2 % (45.5-73.1); Platelet Count Result 198 k/mm3 (150-375); Red Blood Count 4.47 M/mm3 (4.6-6.20); Red Cell Distribution Width 13.5 % (11.5-14.5)
[2024-02-23 07:13] LABS: Anion Gap 5 mmol/L (4-12); Blood Urea Nitrogen 14 mg/dL (9-20); Calcium 8.2 mg/dL (8.4-10.2); Carbon Dioxide 31 mmol/L (22-30); Chloride 101 mmol/L (98-107); Estimated CRCL calculation 79 ml/min; Estimated Glomerular Filt Rate > 60; Glucose 104 mg/dL (65-110); Potassium 3.9 mmol/L (3.4-5.0); Sodium 137 mmol/L (137-145)
--- NOTE | 2024-02-23 07:51 | PM.PNORT ---
Progress Note: A&P Assessment and Plan (1) Dislocation of hip prosthesis: Qualifiers: Encounter type: subsequent encounter Qualified Code(s): T84.029D - Dislocation of unspecified internal joint prosthesis, subsequent encounter; Z96.649 - Presence of unspecified artificial hip joint Code(s): T84.029A - Dislocation of unspecified internal joint prosthesis, initial encounter; Z96.649 - Presence of unspecified artificial hip joint Status: Acute Assessment and Plan: Postoperative day 1 closed reduction left hip. Patient comfortable. Hip abduction pillow in place. PT/OT. Pain control. Placement when medically stable. Subjective Subjective Date/Time Seen: 02/23/24 07:51 Post Op day: 1 Principal diagnosis: left hip dislocation Interval history: closed reduction left hip yesterday in the operating room under anesthesia. Patient awake and alert. Minimal pain left hip. No other complaints overnight. Exam Const: General: comfortable; No acute distress Resp: Effort & Inspection: normal respiratory effort and no audible wheezes Extrem: Right lower extremity: lower leg ( Negative Homans sign), ankle Details: normal ROM ( dorsiflexion and plantar flexion intact) and foot Details: vascular exam Details: dorsalis pedis pulse present and normal capillary refill, tendon exam Details: active flexion normal and active extension normal and motor-sensory exam Details: light-touch normal Location: in all toes; no edema Left lower extremity: normal to inspection, ankle Details: normal ROM and foot Details: vascular exam Details: dorsalis pedis pulse present and normal capillary refill and motor-sensory exam light-touch normal in all toes; no edema Objective Data Vital Signs Vital Signs: Vital Signs - 24 hr 02/22/24 08:06 02/22/24 10:37 02/22/24 10:50 Temperature 97.5 F L 97.4 F L Pulse Rate 50 L 50 L 45 L Respiratory Rate 16 12 12 Blood Pressure 137/54 L 138/60 139/67 Pulse Oximetry 98 100 100 Oxygen Delivery Room Air Simple Face Mask Simple Face Mask Oxygen Flow Rate 8 8 02/22/24 11:00 02/22/24 11:15 02/22/24 11:26 Temperature Pulse Rate 46 L 50 L 54 L Respiratory Rate 12 12 15 Blood Pressure 156/55 H 132/61 130/62 Pulse Oximetry 100 100 99 Oxygen Delivery Room Air Room Air Room Air Oxygen Flow Rate 02/22/24 11:30 02/22/24 12:55 02/22/24 13:22 Temperature 97.4 F L 97.3 F L Pulse Rate 55 L 68 65 Respiratory Rate 13 12 16 Blood Pressure 151/62 H 156/59 H 145/59 H Pulse Oximetry 97 98 99 Oxygen Delivery Room Air Oxygen Flow Rate 02/22/24 13:50 02/22/24 14:56 02/22/24 19:02 Temperature 97.5 F L 97.4 F L 97.8 F Pulse Rate 58 L 55 L 77 Respiratory Rate 12 16 12 Blood Pressure 122/54 L 114/52 L 142/65 H Pulse Oximetry 95 95 97 Oxygen Delivery Oxygen Flow Rate 02/22/24 20:00 02/22/24 21:23 02/23/24 00:48 Temperature 97.2 F L 98.1 F Pulse Rate 69 62 Respiratory Rate 18 18 Blood Pressure 136/59 L 133/56 L Pulse Oximetry 98 97 Oxygen Delivery Room Air Oxygen Flow Rate 02/23/24 06:13 Temperature 97.8 F Pulse Rate 55 L Respiratory Rate 16 Blood Pressure 111/53 L Pulse Oximetry 99 Oxygen Delivery Oxygen Flow Rate Intake/Output Intake/Output: Intake & Output 02/20/24 02/21/24 02/22/24 02/23/24 23:59 23:59 23:59 23:59 Intake Total 1240 1104 1180 500 Output Total 1300 3200 3200 500 [facility] -60 -2096 -2019 0 Meds/Results Medications: Active Medications Generic Name Dose Route Start Last Admin Trade Name Freq PRN Reason Stop Dose Admin Acetaminophen 500 mg 02/22/24 11:32 Acetaminophen 500 Mg Tablet PO Q6H PRN Pain Rated 1-3 Hydrocodone Bitart/Acetaminophen 1 tab 02/22/24 11:32 Hydrocodone/Acetaminophen (*Crx) 5-325 Mg Tablet PO Q4H PRN Pain Rated 4-6 Hydrocodone Bitart/Acetaminophen 1 tab 02/22/24 11:32 Hydrocodone/Acetaminophen (*Crx) 10-325 Mg Tablet PO Q4H PRN Pa
[2024-02-23 07:59] VITALS: PULSE 54; RESP 16; O2SAT 95
--- NOTE | 2024-02-23 08:05 | PM.IMPN ---
Progress Note: A&P Assessment and Plan (1) Dislocation of hip prosthesis: Qualifiers: Encounter type: subsequent encounter Qualified Code(s): T84.029D - Dislocation of unspecified internal joint prosthesis, subsequent encounter; Z96.649 - Presence of unspecified artificial hip joint Code(s): T84.029A - Dislocation of unspecified internal joint prosthesis, initial encounter; Z96.649 - Presence of unspecified artificial hip joint Status: Acute Assessment and Plan: - recent hospitalizations and surgery for the same issue - ortho consult is in place - pain control, bed rest, vascular checks -02/21- Closed Reduction, Possible Open Reduction Left Hip with Dr Darrel Delaney - Hip abduction pillow PT/OT. Pain control. Placement when medically stable. -DVT prophylaxis per ortho (2) Dementia: Qualifiers: Dementia behavioral or psychological symptom: with agitation Dementia severity: unspecified severity Dementia type: Parkinson's disease Qualified Code(s): G20.A1 - Parkinson's disease without dyskinesia, without mention of fluctuations; F02.811 - Dementia in other diseases classified elsewhere, unspecified severity, with agitation Code(s): F03.90 - Unspecified dementia, unspecified severity, without behavioral disturbance, psychotic disturbance, mood disturbance, and anxiety Status: Acute Assessment and Plan: will resume home meds (3) Hyperlipidemia LDL goal <100: Code(s): E78.5 - Hyperlipidemia, unspecified Status: Acute Assessment and Plan: resume home meds (4) Essential (primary) hypertension: Code(s): I10 - Essential (primary) hypertension Status: Acute Assessment and Plan: resume home meds (5) Parkinsons disease: Code(s): G20 - Parkinson's disease Status: Acute Assessment and Plan: resume home emds Time Spent With Patient Time with patient: 25 - 35 minutes Subjective Date/time seen: 02/23/24 08:05 Interval history: Interval history: Patient is a 78-year-old gentleman with history of Parkinson disease, osteoarthritis, left hip replacement who presents emergency department with chief complaint of left hip dislocation. 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 The patient was sleeping tonight and felt pain in his left hip area and was unable to straighten his leg. - NOted that pt was in the hospital 01/09 for the same issues: he was walking with physical therapy is to catheter with walker, patient had a sudden onset left hip pain, and patient could not walk anymore because severe pain. Pt had OPEN REDUCTION LEFT SYLWIA on 01/07 IN ed on 02/18-Plain film x-ray showed a prosthesis dislocation- ER MD discussed the case with ortho and pt is admitted with ortho consult. 02/19- pt is seen and examined. He is in bed, calm and comfortable. Pain is well controlled. and daughter at the bedside. ortho consult is ordered. 02/[address] Delaney- special hardware would be ordered. Pt is alert, calm, oriented. Pain is well controlled. 02/21- Closed Reduction, Possible Open Reduction Left Hip with Dr Darrel Delaney today. Seen and examined today- back from the surgery- doing well- denies any n/v/d- pain is well controlled. Skin is warm to touch to BLE, pulses present. 02/22- closed reduction left hip 02/21. Patient awake and alert, up in the chair. Minimal pain left hip. no n/v/d. Stable overnight Review of Systems Constitutional: Constitutional: Denies chills and Denies weakness Cardiovascular: Cardiovascular: Denies chest pain Respiratory: Respiratory: Denies chest congestion and Denies cough Gastrointestinal: Gastrointestinal: Denies abdominal pain Genitourinary: Genitourinary: Denies hematuria Neurologic: Denies behavioral changes, Denies confusion and Denies weakness Psychiatric: Psychiatric: Denies anxie
[2024-02-23] MEDS: CELECOXIB 200 MG CAPSULE PO (09:09)
[2024-02-23] MEDS: MULTIVITAMINS /C LUTEIN (CENTRUM SILVER) TABLET *BKC 1 TAB PO (09:09)
[2024-02-23] MEDS: ENTACAPONE 200 MG TABLET PO ×4 (09:09→21:22)
[2024-02-23] MEDS: MEMANTINE 10 MG TABLET PO ×2 (09:09→17:13)
[2024-02-23] MEDS: TAMSULOSIN HCL 0.4 MG CAPSULE PO (09:09)
[2024-02-23] MEDS: SENNA/DOCUSATE SODIUM TABLET 2 TAB PO ×2 (09:09→17:14)
[2024-02-23] MEDS: FAMOTIDINE 20 MG TABLET PO ×2 (09:09→21:22)
[2024-02-23] MEDS: hydrOXYzine HCL 25 MG TABLET 50 MG PO ×2 (09:09→17:14)
[2024-02-23] MEDS: cycloSPORINE 0.4 ML OPHTH SOLUTION 1 DROP EACH EYE ×2 (09:10→21:23)
[2024-02-23] MEDS: polyethylene glycoL 3350 17 GM POWD.PACK PO (09:10)
[2024-02-23] MEDS: DICLOFENAC SODIUM 1% 100 GM GEL (*BKC) 1 APPLIC TOPICAL ×4 (09:11→21:23)
[2024-02-23 14:00] VITALS: BP 104/50; PULSE 58; RESP 18; TEMP 36.8; O2SAT 99
[2024-02-23] MEDS: LATANOPROST 0.005% OP SOLN 2.5 ML BTL 1 DROP EACH EYE (17:14)
[2024-02-23] MEDS: MELATONIN 5 MG TABLET PO (21:22)
[2024-02-23 22:02] VITALS: BP 139/59; PULSE 52; RESP 16; TEMP 36.7; O2SAT 99
[2024-02-24] MEDS: CARBIDOPA/LEVODOPA 25/100 MG TABLET 3 TABLET PO ×4 (06:06→23:27)
[2024-02-24] MEDS: oxyCODONE HCL (*CRX) 5 MG TAB IR PO ×2 (06:08→23:27)
[2024-02-24 06:14] VITALS: BP 166/59; PULSE 54; RESP 16; TEMP 36.4; O2SAT 100
--- NOTE | 2024-02-24 08:07 | PM.PNORT ---
Progress Note: A&P Assessment and Plan (1) Dislocation of hip prosthesis: Qualifiers: Encounter type: subsequent encounter Qualified Code(s): T84.029D - Dislocation of unspecified internal joint prosthesis, subsequent encounter; Z96.649 - Presence of unspecified artificial hip joint Code(s): T84.029A - Dislocation of unspecified internal joint prosthesis, initial encounter; Z96.649 - Presence of unspecified artificial hip joint Status: Acute Assessment and Plan: Postoperative day 2 closed reduction left hip. Patient comfortable. Hip abduction pillow in place. PT/OT. Pain control. Placement when medically stable. Subjective Subjective Date/Time Seen: 02/24/24 08:07 Post Op day: 2 Principal diagnosis: Left hip dislocation Interval history: No new complaints. No changes overnight. Exam Const: General: comfortable; No acute distress Resp: Effort & Inspection: normal respiratory effort and no audible wheezes Extrem: Right lower extremity: lower leg ( Negative Homans sign), ankle Details: normal ROM ( dorsiflexion and plantar flexion intact) and foot Details: vascular exam Details: dorsalis pedis pulse present and normal capillary refill, tendon exam Details: active flexion normal and active extension normal and motor-sensory exam Details: light-touch normal Location: in all toes; no edema Left lower extremity: normal to inspection, ankle Details: normal ROM and foot Details: vascular exam Details: dorsalis pedis pulse present and normal capillary refill and motor-sensory exam light-touch normal in all toes; no edema Objective Data Vital Signs Vital Signs: Vital Signs - 24 hr 02/23/24 14:00 02/23/24 20:00 02/23/24 22:02 Temperature 98.2 F 98.0 F Pulse Rate 58 L 52 L Respiratory Rate 18 16 Blood Pressure 104/50 L 139/59 L Pulse Oximetry 99 99 Oxygen Delivery Room Air 02/24/24 06:14 Temperature 97.6 F Pulse Rate 54 L Respiratory Rate 16 Blood Pressure 166/59 H Pulse Oximetry 100 Oxygen Delivery Intake/Output Intake/Output: Intake & Output 02/21/24 02/22/24 02/23/24 02/24/24 23:59 23:59 23:59 23:59 Intake Total 1104 1180 1200 200 Output Total 3200 3200 1350 750 [facility] -2096 -2020 -150 -550 Meds/Results Medications: Active Medications Generic Name Dose Route Start Last Admin Trade Name Freq PRN Reason Stop Dose Admin Acetaminophen 500 mg 02/22/24 11:32 Acetaminophen 500 Mg Tablet PO Q6H PRN Pain Rated 1-3 Hydrocodone Bitart/Acetaminophen 1 tab 02/22/24 11:32 Hydrocodone/Acetaminophen (*Crx) 5-325 Mg Tablet PO Q4H PRN Pain Rated 4-6 Hydrocodone Bitart/Acetaminophen 1 tab 02/22/24 11:32 Hydrocodone/Acetaminophen (*Crx) 10-325 Mg Tablet PO Q4H PRN Pain Rated 7-10 Carbidopa/Levodopa 3 tablet 02/20/24 11:00 02/24/24 06:06 Carbidopa/Levodopa 25/100 Mg Tablet PO 3 tablet 0500,1100,1700,2300 JORDAN Administration Celecoxib 200 mg 02/23/24 09:00 02/23/24 09:09 Celecoxib 200 Mg Capsule PO 200 mg DAILY JORDAN Administration Cyclobenzaprine HCl 10 mg 02/22/24 11:32 Cyclobenzaprine Hcl 10 Mg Tablet PO BID PRN muscle spasm Cyclosporine 1 drop 02/20/24 11:00 02/23/24 21:23 Cyclosporine 0.4 Ml Ophth Solution EACH EYE 1 drop Q12HR JORDAN Administration Diazepam 5 mg 02/22/24 11:32 Diazepam (*Crx) 5 Mg Tablet PO Q6H PRN Anxiety/Muscle Spasm Diclofenac Sodium 1 applic 02/20/24 13:00 02/23/24 21:23 Diclofenac Sodium 1% 100 Gm Gel (*Bkc) TOPICAL 1 applic QID JORDAN Administration Entacapone 200 mg 02/20/24 13:00 02/23/24 21:22 Entacapone 200 Mg Tablet PO 200 mg QID JORDAN Administration Famotidine 20 mg 02/22/24 21:00 02/23/24 21:22 Famotidine 20 Mg Tablet PO 20 mg Q12HR JORDAN Administration Hydromorphone HCl 1 mg 02/22/24 11:32 Hydromorphone Hcl Inj (*Crx) 1 Mg/Ml Syr IV PUSH Q2H PRN Breakthrough Pain Rated
[2024-02-24 08:30] VITALS: PULSE 54; RESP 16; O2SAT 100
[2024-02-24] MEDS: TAMSULOSIN HCL 0.4 MG CAPSULE PO (08:39)
[2024-02-24] MEDS: SENNA/DOCUSATE SODIUM TABLET 2 TAB PO ×2 (08:39→17:10)
[2024-02-24] MEDS: FAMOTIDINE 20 MG TABLET PO ×2 (08:39→21:19)
[2024-02-24] MEDS: CELECOXIB 200 MG CAPSULE PO (08:39)
[2024-02-24] MEDS: MEMANTINE 10 MG TABLET PO ×2 (08:39→17:10)
[2024-02-24] MEDS: MULTIVITAMINS /C LUTEIN (CENTRUM SILVER) TABLET *BKC 1 TAB PO (08:39)
[2024-02-24] MEDS: cycloSPORINE 0.4 ML OPHTH SOLUTION 1 DROP EACH EYE ×2 (08:39→21:19)
[2024-02-24] MEDS: polyethylene glycoL 3350 17 GM POWD.PACK PO (08:39)
[2024-02-24] MEDS: ENTACAPONE 200 MG TABLET PO ×4 (08:39→21:19)
--- NOTE | 2024-02-24 09:15 | P.PNIM_ITS ---
Progress Note: A&P Assessment and Plan (1) Dislocation of hip prosthesis: Qualifiers: Encounter type: subsequent encounter Qualified Code(s): T84.029D - Dislocation of unspecified internal joint prosthesis, subsequent encounter; Z96.649 - Presence of unspecified artificial hip joint Code(s): T84.029A - Dislocation of unspecified internal joint prosthesis, initial encounter; Z96.649 - Presence of unspecified artificial hip joint Status: Acute Assessment and Plan: - recent hospitalizations and surgery for the same issue - ortho consult is in place - pain control, bed rest, vascular checks -02/21- Closed Reduction, Possible Open Reduction Left Hip with Dr Darrel Delaney - Hip abduction pillow PT/OT. Pain control. Placement when medically stable. -will order Arixtra 2.5 mg SQ daily for dvt prophylaxis- start date- 02/23 (10-14 days duration is recommended for pts undergoing hip/knee arthroplasty, in some case up to 35 days)- will follow ortho recommendations (2) Dementia: Qualifiers: Dementia behavioral or psychological symptom: with agitation Dementia severity: unspecified severity Dementia type: Parkinson's disease Qualified Code(s): G20.A1 - Parkinson's disease without dyskinesia, without mention of fluctuations; F02.811 - Dementia in other diseases classified elsewhere, unspeci fied severity, with agitation Code(s): F03.90 - Unspecified dementia, unspecified severity, without behavioral disturbance, psychotic disturbance, mood disturbance, and anxiety Status: Acute Assessment and Plan: will resume home meds (3) Hyperlipidemia LDL goal <100: Code(s): E78.5 - Hyperlipidemia, unspecified Status: Acute Assessment and Plan: resume home meds (4) Essential (primary) hypertension: Code(s): I10 - Essential (primary) hypertension Status: Acute Assessment and Plan: resume home meds (5) Parkinsons disease: Code(s): G20 - Parkinson's disease Status: Acute Assessment and Plan: resume home emds Time Spent With Patient Time with patient: 25 - 35 minutes Subjective Date/time seen: 02/24/24 09:15 Interval history: Interval history: Patient is a 78-year-old gentleman with history of Parkinson disease, osteoart hritis, left hip replacement who presents emergency department with chief complaint of left hip dislocation. 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 The patient was sleeping tonight and felt pain in his left hip area and was unable to straighten his leg. - NOted that pt was in the hospital 01/09 for the same issues: he was walking with physical therapy is to catheter with walker, patient had a sudden onset left hip pain, and patient could not walk anymore because severe pain. Pt had OPEN REDUCTION LEFT SYLWIA on 01/07 IN ed on 02/18-Plain film x-ray showed a prosthesis dislocation- ER MD discussed the case with ortho and pt is admitted with ortho consult. 02/19- pt is seen and examined. He is in bed, calm and comfortable. Pain is well controlled. and daughter at the bedside. ortho consult is ordered. 02/[address] Delaney- special hardware would be ordered. Pt is alert, calm, oriented. Pain is well controlled. 02/21- Closed Reduction, Possible Open Reduction Left Hip with Dr Darrel Delaney today. Seen and examined today- back from the surgery- doing well- denies any n/v/d- pain is well controlled. Skin is warm to touch to BLE, pulses present. 02/22- closed reduction left hip 02/21. Patient awake
[2024-02-24 09:51] LABS: Hematocrit 46.2 % (42.0-52.0); Mean Corpuscular HGB Conc 32.5 g/dl (32-36); Mean Corpuscular Hemoglobin 31.1 pg (26-34); Mean Corpuscular Volume 95.9 fl (80-100); Mean Platelet Volume 9.1 fl (7.4-10.4); Platelet Count Result 205 k/mm3 (150-375); Red Blood Count 4.82 M/mm3 (4.6-6.20); Red Cell Distribution Width 13.9 % (11.5-14.5); White Blood Count 6.5 K/mm3 (4.5-10.0)
[2024-02-24 10:03] LABS: Anion Gap 5 mmol/L (4-12); Blood Urea Nitrogen 16 mg/dL (9-20); Calcium 8.7 mg/dL (8.4-10.2); Carbon Dioxide 36 mmol/L (22-30); Chloride 100 mmol/L (98-107); Estimated CRCL calculation 69 ml/min; Estimated Glomerular Filt Rate > 60; Glucose 78 mg/dL (65-110); Potassium 4.2 mmol/L (3.4-5.0); Sodium 141 mmol/L (137-145)
[2024-02-24] MEDS: DICLOFENAC SODIUM 1% 100 GM GEL (*BKC) 1 APPLIC TOPICAL ×3 (11:50→21:19)
[2024-02-24 14:00] VITALS: BP 115/60; PULSE 57; RESP 20; TEMP 37; O2SAT 97
[2024-02-24] MEDS: LATANOPROST 0.005% OP SOLN 2.5 ML BTL 1 DROP EACH EYE (17:10)
[2024-02-24] MEDS: HYDROcodone/acetaminophen (*CRX) 5-325 MG TABLET 1 TAB PO (21:18)
[2024-02-24] MEDS: hydrOXYzine HCL 25 MG TABLET 50 MG PO (21:19)
[2024-02-24] MEDS: MELATONIN 5 MG TABLET PO (21:19)
[2024-02-25] MEDS: CARBIDOPA/LEVODOPA 25/100 MG TABLET 3 TABLET PO ×2 (05:21→10:15)
--- NOTE | 2024-02-25 06:23 | PC.NURSE ---
Pt refused scheduled am pain medicine
[2024-02-25] MEDS: ENTACAPONE 200 MG TABLET PO ×2 (08:26→13:14)
[2024-02-25] MEDS: polyethylene glycoL 3350 17 GM POWD.PACK PO (08:26)
[2024-02-25] MEDS: TAMSULOSIN HCL 0.4 MG CAPSULE PO (08:26)
[2024-02-25] MEDS: MEMANTINE 10 MG TABLET PO (08:26)
[2024-02-25] MEDS: CELECOXIB 200 MG CAPSULE PO (08:26)
[2024-02-25] MEDS: MULTIVITAMINS /C LUTEIN (CENTRUM SILVER) TABLET *BKC 1 TAB PO (08:26)
[2024-02-25] MEDS: cycloSPORINE 0.4 ML OPHTH SOLUTION 1 DROP EACH EYE (08:26)
[2024-02-25] MEDS: SENNA/DOCUSATE SODIUM TABLET 2 TAB PO (08:26)
[2024-02-25] MEDS: DICLOFENAC SODIUM 1% 100 GM GEL (*BKC) 1 APPLIC TOPICAL (08:27)
[2024-02-25] MEDS: FONDAPARINUX SODIUM 2.5 MG/0.5 ML SYRINGE SUB-Q (08:27)
[2024-02-25] MEDS: FAMOTIDINE 20 MG TABLET PO (08:28)
--- NOTE | 2024-02-25 08:48 | PM.IMPN ---
Progress Note: A&P Assessment and Plan (1) Dislocation of hip prosthesis: Qualifiers: Encounter type: subsequent encounter Qualified Code(s): T84.029D - Dislocation of unspecified internal joint prosthesis, subsequent encounter; Z96.649 - Presence of unspecified artificial hip joint Code(s): T84.029A - Dislocation of unspecified internal joint prosthesis, initial encounter; Z96.649 - Presence of unspecified artificial hip joint Status: Acute Assessment and Plan: - recent hospitalizations and surgery for the same issue - ortho consult is in place - pain control, bed rest, vascular checks -02/21- Closed Reduction, Possible Open Reduction Left Hip with Dr Darrel Delaney - Hip abduction pillow PT/OT. Pain control. Placement when medically stable. -will order Arixtra 2.5 mg SQ daily for dvt prophylaxis- start date- 02/23 (10-14 days duration is recommended for pts undergoing hip/knee arthroplasty, in some case up to 35 days)- will follow ortho recommendations (2) Dementia: Qualifiers: Dementia behavioral or psychological symptom: with agitation Dementia severity: unspecified severity Dementia type: Parkinson's disease Qualified Code(s): G20.A1 - Parkinson's disease without dyskinesia, without mention of fluctuations; F02.811 - Dementia in other diseases classified elsewhere, unspecified severity, with agitation Code(s): F03.90 - Unspecified dementia, unspecified severity, without behavioral disturbance, psychotic disturbance, mood disturbance, and anxiety Status: Acute Assessment and Plan: will resume home meds (3) Hyperlipidemia LDL goal <100: Code(s): E78.5 - Hyperlipidemia, unspecified Status: Acute Assessment and Plan: resume home meds (4) Essential (primary) hypertension: Code(s): I10 - Essential (primary) hypertension Status: Acute Assessment and Plan: resume home meds (5) Parkinsons disease: Code(s): G20 - Parkinson's disease Status: Acute Assessment and Plan: resume home emds Subjective Date/time seen: 02/25/24 08:48 Interval history: Interval history: Patient is a 78-year-old gentleman with history of Parkinson disease, osteoarthritis, left hip replacement who presents emergency department with chief complaint of left hip dislocation. 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 The patient was sleeping tonight and felt pain in his left hip area and was unable to straighten his leg. - NOted that pt was in the hospital 01/09 for the same issues: he was walking with physical therapy is to catheter with walker, patient had a sudden onset left hip pain, and patient could not walk anymore because severe pain. Pt had OPEN REDUCTION LEFT SYLWIA on 01/07 IN ed on 02/18-Plain film x-ray showed a prosthesis dislocation- ER MD discussed the case with ortho and pt is admitted with ortho consult. 02/19- pt is seen and examined. He is in bed, calm and comfortable. Pain is well controlled. and daughter at the bedside. ortho consult is ordered. 02/[address] Delaney- special hardware would be ordered. Pt is alert, calm, oriented. Pain is well controlled. 02/21- Closed Reduction, Possible Open Reduction Left Hip with Dr Darrel Delaney today. Seen and examined today- back from the surgery- doing well- denies any n/v/d- pain is well controlled. Skin is warm to touch to BLE, pulses present. 02/22- closed reduction left hip 02/21. Patient awake and alert, up in the chair. Minimal pain left hip. no n/v/d. Stable overnight. 02/23- Postoperative day 2 closed reduction left hip. Patient comfortable. Hip abduction pillow in place. Continue to work with PT/OT. Pain is under control. Working with care coordination for placement. Doing well medically- anticipate discharge on Sunday if stable overnight and cleared with ortho. Started on ARIXT
[2024-02-25 10:45] LABS: Hematocrit 47.8 % (42.0-52.0); Hemoglobin 15.4 g/dL (14.0-18.0); Mean Corpuscular HGB Conc 32.2 g/dl (32-36); Mean Corpuscular Volume 96.4 fl (80-100); Mean Platelet Volume 9.1 fl (7.4-10.4); Platelet Count Result 218 k/mm3 (150-375); Red Blood Count 4.96 M/mm3 (4.6-6.20); Red Cell Distribution Width 13.7 % (11.5-14.5); White Blood Count 6.4 K/mm3 (4.5-10.0)
[2024-02-25 10:56] LABS: Anion Gap 6 mmol/L (4-12); Blood Urea Nitrogen 15 mg/dL (9-20); Calcium 8.7 mg/dL (8.4-10.2); Carbon Dioxide 33 mmol/L (22-30); Chloride 100 mmol/L (98-107); Estimated CRCL calculation 69 ml/min; Estimated Glomerular Filt Rate > 60; Glucose 92 mg/dL (65-110); Potassium 4.2 mmol/L (3.4-5.0); Sodium 139 mmol/L (137-145)
--- NOTE | 2024-02-25 11:48 | PCNFU ---
Nutrition Follow-Up Complete: Severe Protein Calorie Malnutrition related to inadequate protein intake with increased protein energy needs in setting of chronic disease as evidenced by minimal oral intake for > 1-2 months; significant weight loss of 32 ibs (16%) in 8 months and severe muscle wasting (temporalis, clavicle, shoulder). Meet estimated nutritional needs - Goal is being met. Continue with same goal Goal: Pt current nutrition is Regular diet, Ensure Compact BID for additional 220 kcal and 9 g protein each. Nutrition recommendation: No new nutrition recommendations. Continue current diet order and supplements. Last recorded weight is 74.1 kg. Bowel Motility: No BMs are charted. Bowel regimen in place Labs Reviewed: Pertinent labs are all WNL Meds Noted: Zofran,miralax, senna Skin:No pressure injuries Additional Notes: Diet is advanced and pt intakes are good. Agree with orders Will monitor weight, labs, skin, oral intake, meds every 5 days.
--- NOTE | 2024-02-25 12:11 | PM.PNORT ---
Progress Note: A&P Assessment and Plan (1) Dislocation of hip prosthesis: Qualifiers: Encounter type: subsequent encounter Qualified Code(s): T84.029D - Dislocation of unspecified internal joint prosthesis, subsequent encounter; Z96.649 - Presence of unspecified artificial hip joint Code(s): T84.029A - Dislocation of unspecified internal joint prosthesis, initial encounter; Z96.649 - Presence of unspecified artificial hip joint Status: Acute Assessment and Plan: POD #3: Closed Reduction Left Hip. Patient comfortable. Hip abduction brace in place. Reviewed skin protection precautions. PT/OT. HIGH FALL RISK. Pain control. Placement when medically stable. I have contacted Dr. Rees to move up his appt from August to May. Will also check with [facility] as well. Time Spent With Patient Time: Reviewed history, exam, radiographs and current labs with attending MD and covering surgeon, Dr. Delaney, who agrees with current plan as indicated above. No further recommendations from Dr. Delaney at this time. Subjective Subjective Date/Time Seen: 02/25/24 12:11 Post Op day: 3 Principal diagnosis: Left hip dislocation Interval history: No new complaints. No changes overnight. Review of Systems Review of Systems: All systems reviewed & are unremarkable except as noted in HPI and below Exam Const: General: comfortable; No acute distress Resp: Effort & Inspection: normal respiratory effort and no audible wheezes Extrem: Right lower extremity: lower leg ( Negative Homans sign), ankle Details: normal ROM ( dorsiflexion and plantar flexion intact) and foot Details: vascular exam Details: dorsalis pedis pulse present and normal capillary refill, tendon exam Details: active flexion normal and active extension normal and motor-sensory exam Details: light-touch normal Location: in all toes; no edema Left lower extremity: normal to inspection, ankle Details: normal ROM and foot Details: vascular exam Details: dorsalis pedis pulse present and normal capillary refill and motor-sensory exam light-touch normal in all toes; no edema Objective Data Vital Signs Vital Signs: Vital Signs - 24 hr 02/24/24 14:00 02/24/24 20:00 Temperature 37.0 C Pulse Rate 57 L Respiratory Rate 20 Blood Pressure 115/60 Pulse Oximetry 97 Oxygen Delivery Room Air Intake/Output Intake/Output: Intake & Output 07/19/24 02/23/24 02/24/24 02/25/24 23:59 23:59 23:59 23:59 Intake Total 1180 1200 1572 480 Output Total 3200 1350 1175 Balance -2019 -150 397 480 Meds/Results Medications: Active Medications Generic Name Dose Route Start Last Admin Trade Name Freq PRN Reason Stop Dose Admin Acetaminophen 500 mg 02/22/24 11:32 Acetaminophen 500 Mg Tablet PO Q6H PRN Pain Rated 1-3 Hydrocodone Bitart/Acetaminophen 1 tab 02/22/24 11:32 02/24/24 21:18 Hydrocodone/Acetaminophen (*Crx) 5-325 Mg Tablet PO 1 tab Q4H PRN Administration Pain Rated 4-6 Hydrocodone Bitart/Acetaminophen 1 tab 02/22/24 11:32 Hydrocodone/Acetaminophen (*Crx) 10-325 Mg Tablet PO Q4H PRN Pain Rated 7-10 Carbidopa/Levodopa 3 tablet 02/20/24 11:00 02/25/24 10:15 Carbidopa/Levodopa 25/100 Mg Tablet PO 3 tablet 0500,1100,1700,2300 JORDAN Administration Celecoxib 200 mg 02/23/24 09:00 02/25/24 08:26 Celecoxib 200 Mg Capsule PO 200 mg DAILY JORDAN Administration Cyclobenzaprine HCl 10 mg 02/22/24 11:32 Cyclobenzaprine Hcl 10 Mg Tablet PO BID PRN muscle spasm Cyclosporine 1 drop 02/20/24 11:00 02/25/24 08:26 Cyclosporine 0.4 Ml Ophth Solution EACH EYE 1 drop Q12HR JORDAN Administration Diazepam 5 mg 02/22/24 11:32 Diazepam (*Crx) 5 Mg Tablet PO Q6H PRN Anxiety/Muscle Spasm Diclofenac Sodium 1 applic 02/20/24 13:00 02/25/24 08:27 Diclofenac Sodium 1% 100 Gm Gel (*Bkc) TOPICAL 1 applic QID JORDAN Administration Entacapone 200 mg 0
--- NOTE | 2024-02-25 14:22 | PM.DS ---
DS: Admitting Diagnosis Discharge Date 02/24 Admitting Diagnosis fall, hip dislocation DS: Discharge Diagnosis Discharge Diagnosis (1) Dislocation of hip prosthesis: Qualifiers: Encounter type: subsequent encounter Qualified Code(s): T84.029D - Dislocation of unspecified internal joint prosthesis, subsequent encounter; Z96.649 - Presence of unspecified artificial hip joint Code(s): T84.029A - Dislocation of unspecified internal joint prosthesis, initial encounter; Z96.649 - Presence of unspecified artificial hip joint Status: Acute Assessment and Plan: - recent hospitalizations and surgery for the same issue - ortho consult is in place - pain control, bed rest, vascular checks -02/21- Closed Reduction, Possible Open Reduction Left Hip with Dr Darrel Delaney - Hip abduction pillow PT/OT. Pain control. Placement when medically stable. -will order Arixtra 2.5 mg SQ daily for dvt prophylaxis- start date- 02/23 (10-14 days duration is recommended for pts undergoing hip/knee arthroplasty, in some case up to 35 days)- will follow ortho recommendations (2) Dementia: Qualifiers: Dementia behavioral or psychological symptom: with agitation Dementia severity: unspecified severity Dementia type: Parkinson's disease Qualified Code(s): G20.A1 - Parkinson's disease without dyskinesia, without mention of fluctuations; F02.811 - Dementia in other diseases classified elsewhere, unspecified severity, with agitation Code(s): F03.90 - Unspecified dementia, unspecified severity, without behavioral disturbance, psychotic disturbance, mood disturbance, and anxiety Status: Acute Assessment and Plan: will resume home meds (3) Hyperlipidemia LDL goal <100: Code(s): E78.5 - Hyperlipidemia, unspecified Status: Acute Assessment and Plan: resume home meds (4) Essential (primary) hypertension: Code(s): I10 - Essential (primary) hypertension Status: Acute Assessment and Plan: resume home meds (5) Parkinsons disease: Code(s): G20 - Parkinson's disease Status: Acute Assessment and Plan: resume home emds Plan final dx: Dislocation of unspecified internal joint prosthesis, initial encounter; Z96.649 - Presence of unspecified artificial hip joint DS: Summary Hospital Course Hospital Course: Patient is a 78-year-old gentleman with history of Parkinson disease, osteoarthritis, left hip replacement who presents emergency department with chief complaint of left hip dislocation. 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 The patient was sleeping tonight and felt pain in his left hip area and was unable to straighten his leg. - NOted that pt was in the hospital 01/09 for the same issues: he was walking with physical therapy is to catheter with walker, patient had a sudden onset left hip pain, and patient could not walk anymore because severe pain. Pt had OPEN REDUCTION LEFT SYLWIA on 01/07 IN ed on 02/18-Plain film x-ray showed a prosthesis dislocation- ER MD discussed the case with ortho and pt is admitted with ortho consult. 02/19- pt is seen and examined. He is in bed, calm and comfortable. Pain is well controlled. and daughter at the bedside. ortho consult is ordered. 02/[address] Delaney- special hardware would be ordered. Pt is alert, calm, oriented. Pain is well controlled. 02/21- Closed Reduction, Possible Open Reduction Left Hip with Dr Darrel Delaney today. Seen and examined today- back from the surgery- doing well- denies any n/v/d- pain is well controlled. Skin is warm to touch to BLE, pulses present. 02/22- closed reduction left hip 02/21. Patient awake and alert, up in the chair. Minimal pain left hip. no n/v/d. Stable overnight. 02/23- Postoperative day 2 closed reduction left hip. Patient comfortable. Hip abduction pillow in place. Cont
[2024-02-25 16:16] LABS: SARS-CoV-2 RNA PCR Negative (Negative)
== END 2024-02-25 17:30 | DRG 561 ==
LOC: ANHED 02-20 01:45 → ANH3MED 02-20 02:18
PROVIDERS: Orthopaedic Surgery; Admitting Provider Internal Medicine; Emergency Provider Emergency Medicine; PCP Family Medicine; Visit Provider Nurse Practitioner
PROC: 0SWBXJZ Revision of Synthetic Substitute in Left Hip Joint, External Approach (ICD-10-PCS; CPT 27125; principal; 2024-02-22 09:00)
DX: T84.021A Dislocation of internal left hip prosthesis, initial encounter (principal); Z96.642 Presence of left artificial hip joint; E78.5 Hyperlipidemia, unspecified; F02.80 Dementia in other diseases classified elsewhere, unspecified severity, without behavioral disturbance, psychotic disturbance, mood disturbance, and anxiety; G20.A1 Parkinson's disease without dyskinesia, without mention of fluctuations; H40.9 Unspecified glaucoma; I12.9 Hypertensive chronic kidney disease with stage 1 through stage 4 chronic kidney disease, or unspecified chronic kidney disease; K21.9 Gastro-esophageal reflux disease without esophagitis; M19.90 Unspecified osteoarthritis, unspecified site; N18.30 Chronic kidney disease, stage 3 unspecified; R13.10 Dysphagia, unspecified; Z11.52 Encounter for screening for COVID-19; Z90.49 Acquired absence of other specified parts of digestive tract; Z90.89 Acquired absence of other organs
CPT/HCPCS: 27265; 36415; 71045; 73502; 80048; 80053; 81001; 85025; 85027; 87635; 96374; 96375; 97110; 97116; 97161; 97165; 97530; 97535; 99199; 99285; A9270; G0378; J0330; J0690; J1100; J1170; J1652; J2270; J2371; J2405; J2704; J3010; J7030; J7120

== ENCOUNTER 2024-11-01 05:09 | Emergency (ER) | payer MEDICARE, BC, SELFPAY ==
[2024-11-01] VITALS (9 sets, daily range): BP systolic 127–170; BP diastolic 52–79; PULSE 55–83; RESP 13–24; TEMP 36.9; O2SAT 94–99
--- NOTE | ~2024-11-01 | XR_ITS ---
EXAMINATION: XR chest 1V portable DATE: 11/01/2024 05:45 INDICATION: Congestion. Cough. TECHNIQUE: A single frontal view of the chest was obtained. COMPARISON: Chest single view 02/20/2024, chest CT 12/27/2022 FINDINGS: There is chronic elevation of left hemidiaphragm. No pneumonia, pleural effusion, or pneumo thorax. The heart size is normal. There are changes of posterior fusion procedure in thoracic spine. IMPRESSION: 1. Chronic elevation of left hemidiaphragm. Reviewed, dictated and finalized at location A.
--- NOTE | 2024-11-01 06:01 | ECG_ITS ---
Test Date: 2024-11-01 06:25:22 Measurements Intervals [place] Rate: 52 P: 23 SD: 176 QRS: 20 QRSD: 114 T: 140 QT: 438 QTc: 408 Interpretive Statements SINUS BRADYCARDIA LEFT VENTRICULAR HYPERTROPHY AND ST-T CHANGE [VOLTAGE CRITERIA PLUS ST/T ABNORMALITY] POSSIBLE INFERIOR MYOCARDIAL INFARCTION , PROBABLY OLD [40+ ms Q WAVE AND/OR ST/T ABNORMALITY IN II/aVF] ABNORMAL ECG Electronically Signed On 11-01-2024 10:05:23 CDT by Hitesh Saba M.D.
--- NOTE | 2024-11-01 06:01 | PC.NURSE ---
[facility] gave verbal orders for patient. Orders placed per [facility] request.
[2024-11-01 06:14] LABS: Basophils Percent Auto 0.3 % (0.2-1.2); Eosinophils Absolute Auto 0.4 K/mm3 (0-0.3); Eosinophils Percent Auto 5.5 % (0-4.4); Hematocrit 40.4 % (42.0-52.0); Hemoglobin 12.2 g/dL (14.0-18.0); Immature Granulocyte Absolute 0.08 K/mm3 (0.00-0.031); Immature Granulocyte Percent A 1.3 % (0-0.5); Lymphocytes Absolute Auto 0.83 K/mm3 (0.9-3.2); Lymphocytes Percent Auto 13.1 % (18.3-44.2); Mean Corpuscular HGB Conc 30.2 g/dl (32-36); Mean Corpuscular Hemoglobin 26.6 pg (26-34); Mean Platelet Volume 9.5 fl (7.4-10.4); Monocytes Absolute Auto 0.4 K/mm3 (0.1-0.6); Monocytes Percent Auto 5.8 % (2.6-8.5); Neutrophils Absolute Auto 4.7 K/mm3 (1.3-6.7); Platelet Count Result 202 k/mm3 (150-375); Red Blood Count 4.59 M/mm3 (4.6-6.20); Red Cell Distribution Width 22.1 % (11.5-14.5); White Blood Count 6.3 K/mm3 (4.5-10.0)
[2024-11-01 06:15] LABS: Influenza A QL RT-PCR Negative (Negative); Influenza B QL RT-PCR Negative (Negative); RSV RNA, RT-PCR Negative (Negative); SARS-CoV-2 RNA PCR Negative (Negative)
[2024-11-01 06:29] LABS: Albumin Level 3.7 g/dL (3.5-5.1); Alkaline Phosphatase 74 U/L (38-126); Anion Gap 5 mmol/L (4-12); Aspartate Amino Transferase 13 U/L (17-59); Bilirubin,Total 0.5 mg/dL (0.2-1.3); Blood Urea Nitrogen 20 mg/dL (9-20); Calcium 8.4 mg/dL (8.4-10.2); Carbon Dioxide 29 mmol/L (22-30); Chloride 105 mmol/L (98-107); Estimated CRCL calculation 72 ml/min; Estimated Glomerular Filt Rate > 60; Glucose 110 mg/dL (65-110); Potassium 3.9 mmol/L (3.4-5.0); Sodium 139 mmol/L (137-145)
[2024-11-01 06:37] LABS: Anisocytosis 2+; Ovalocytes 1+; Platelet Estimate Adequate (Adequate); Schistocytes None Seen
[2024-11-01 06:50] LABS: Alanine Aminotransferase < 6 U/L (6-50)
--- OUTSIDE RECORDS SUMMARY | 2024-11-01 07:28 | XMS_ITS | Referral Summary ---
Author Organization [facility] [address] [place] [id number] Care Team Providers Care Belt Back Operator Name Role Phone Tomy Cervantes MD Unavailable Darrel Delaney MD Unavailable [phone] Miscellaneous, Not In File Unavailable Unava Pako Oconnell MD Primary Care Provider [phone] Encounters Date Type Department Care Team Description 09/01/2024 10:30 AM INTERNATIONAL SALES MANAGER - 09/01/2024 11:59 PM INTERNATIONAL SALES MANAGER Hospital Encounter [facility] [address] [place] [address] [address] [place] [address] Left hip pain; Aftercare following left hip joint replacement surgery Discharge Disposition: Discharge to home or self care 09/01/2024 11:00 AM INTERNATIONAL SALES MANAGER Office Visit [facility] Orthopaedic Surgery [address] [place] [address] Medical Office Building [address] [place] [address] Loco Lancaster MD Left hip pain (Primary Dx); Aftercare following left hip joint replacement surgery from Last 3 Months Allergies Active Allergy Reactions Criticality Noted Date Comments Adhesive Tape-Silicones Rash Medium 02/11/2016 Gabapentin Hallucinations Medium 05/17/2016 Latex Rash Medium 07/10/2024 Shrimp Rash Medium 07/10/2024 Medications carbidopa-levodo pa (SINEMET) 25-100 mg per tabletIndication s:Parkinsonism Take 3 tablets by mouth 4 (four) times a day taken around 6tp-[id number]-11 pm 3 8 Active entacapone (COMTAN) 200 mg tabletIndication s:Idiopathic Parkinsonism Take 1 tablet (200 mg total) by mouth 4 (four) times a day 1 8 Active tamsulosin (FLOMAX) 0.4 mg extended release capsuleIndicatio ns:benign prostatic hyperplasia with lower urinary tract sx Take 1 capsule (0.4 mg total) by mouth nightly 11 8 Active polyethylene glycol (MIRALAX) 17 gram packetIndication s:constipation Take 1 packet (17 g total) by mouth every other day [address] (PROTONIX) 40 mg EC tabletIndication s:Treatment of Non-Bleeding Gastric Disorder Take 1 tablet (40 mg total) by mouth 2 (two) times a day 60 tablet 11 9 Active melatonin 5 mg capsule Take 5 mg by mouth nightly Active Restasis 0.05 % ophthalmic emulsion Administer 1 drop into both eyes every 12 (twelve) hours 4 Active latanoprost (XALATAN) 0.005 % ophthalmic solutionIndicati ons:open angle glaucoma Administer 1 drop into both eyes nightly 4 Active memantine (NAMENDA) 10 mg tabletIndication s:dementia Take 1 tablet (10 mg total) by mouth 2 (two) times a day 4 Active diazePAM (VALIUM) 2 mg tabletIndication s:anxiety Take 1 tablet (2 mg total) by mouth every 8 (eight) hours as needed for anxiety 4 Active trolamine salicylate 10 % creamIndications :pain Apply 1 Application topically as needed for muscle/joint pain Active diclofenac sodium (VOLTAREN) 1 % gel Apply 1 g topically as needed (chronic pain) DO NOT APPLY TO LEFT HIP SURGICAL INCISION. 4 Active ketoconazole (NIZORAL) 2 % cream Apply 1 Application topically as needed for irritation DO NOT APPLY TO LEFT HIP SURGICAL INCISION. 4 Active acetaminophen (TYLENOL) 500 mg tablet Take 2 tablets (1,000 mg total) by mouth every 8 (eight) hours 90 tablet 4 Active senna-docusate (PERICOLACE) 8.6-50 mg Take 2 tablets by mouth 2 (two) times a day May increase to 4 tablets twice daily if needed. HOLD medication for diarrhea. 80 tablet 1 4 Active meloxicam (MOBIC) 7.5 mg tablet Take 1 tablet (7.5 mg total) by mouth daily 30 tablet 4 Active aspirin 81 mg enteric coated tabletIndication s:prevention of thrombosis Take 1 tablet (81 mg total) by mouth 2 (two) times a day X 30 DAYS AFTER SURGERY. After complete, you can return to your prior dose of 325 mg daily 4 Active oxyCODONE (ROXICODONE) 5 mg immediate release tabletIndication s:Pain Take 1 tablet (5 mg total) by mouth every 4 (four) hours as needed for pain (Breakthrough Pain) 30 tablet 4 Active traMADoL (ULTRAM) 50 mg tablet Take 1 tablet (50 mg total) by mouth every 8 (eight) hours as needed for pain 42 tablet 4 Active Active Problems Problem Noted Date Diagnosed Date Dislocation of left hip, initial encounter 07/09 Osteoarthritis of left hip, unspecified osteoart hritis type 05/08/2024 History of UTI 05/07/2024 Failed total hip arthroplasty with dislocation, sequela 04/29/2024 Anxiety 04/14/2024 Gastroesophageal reflux disease 04/14/2024 Insomnia 04/14/2024 Lower urinary tract symptoms 04/14/2024 Visual hallucinations 04/14/2024 Wheezing 04/14/2024 AMS (altered mental status) 08/24/2019 Assessment & Plan (08/26/2019 2:15 PM INTERNATIONAL SALES MANAGER): - has had waxing/waning mental status preceeding his illness in 05/24 per attributed to his Parkinsons (periods of agitation, confusion, hallucinations), had uptitrated sinemet and started seroquel just recently with his primary neurologist - at recent b/l per d/w , cont seroquel, needs higher level of care than Assisted living for rehab and for safety > going to SNF, d/w'd that may need extermination supervisor SNF vs. 24 hr care elsewhere after rehab as cognitive issues from his Parkinsons may not get significantly better/may progress Assessment & Plan (08/25/2019 1:44 PM INTERNATIONAL SALES MANAGER): - Delirium 2/2 acute infection on Parkinson's disease. Now resolved with the treatment of UTI and reducing sedating meds: oxycodone, diazepam and moving seroquel to nightly. Now at baseline per family. Close monitoring. Assessment & Plan (08/24/2019 10:29 AM INTERNATIONAL SALES MANAGER): - Delirium 2/2 acute infection on Parkinson's disease. Now resolved with the above treatment and reducing sedating meds: oxycodone, diazepam and moving seroquel to nightly. Now at baseline per family. Close monitoring. Hypophosphatemia 08/24/2019 Assessment & Plan (08/25/2019 1:44 PM INTERNATIONAL SALES MANAGER): - Likely from recent poor PO. Continue to supplement today with neutraphos Follow-up examination, following other surgery 0 08/22/2019 Inguinal hernia 08/22/2019 Seroma complicating a procedure 08/22/2019 BPH (benign prostatic hyperplasia) 08/22/2019 Assessment & Plan (08/25/2019 1:45 PM INTERNATIONAL SALES MANAGER): - Continue home flomax. Assessment & Plan (08/24/2019 10:29 AM INTERNATIONAL SALES MANAGER): - Continue home flomax. Assessment & Plan (08/22/2019 9:57 PM INTERNATIONAL SALES MANAGER): - Continue home flomax Constipation 08/22/2019 Assessment & Plan (08/24/2019 10:29 AM INTERNATIONAL SALES MANAGER): - Continue home Miralax. Assessment & Plan (08/23/2019 4:58 PM INTERNATIONAL SALES MANAGER): - Continue home Miralax. Sepsis 08/22/2019 Assessment & Plan (08/26/2019 2:14 PM INTERNATIONAL SALES MANAGER): - likely 2/2 UTI - grew Proteus mirabilis from his urine per OSH lab (called them today) susceptible to all tested except nitrofurantoin - given lack of signs of back infection on exam/symptoms/acuity of worsening, negative blood cxs and stable imaging findings agree with NSGY assessment that other source more likely the etiology - on Cipro UTI and then resume his doxy for mcc MSSA prophylaxis as has prior infected hardware - plan d/c to SNF today Assessment & Plan (08/25/2019 1:44 PM INTERNATIONAL SALES MANAGER): - likely 2/2 UTI - grew Proteus mirabilis from his urine per OSH lab (called them today) susceptible to all tested except nitrofurantoin - given lack of signs of back infection on exam/symptoms/acuity of worsening, negative blood cxs and stable imaging findings agree with NSGY assessment that other source more likely the etiology - plan to deescalate to cipro today for UTI and then resume his doxy for extermination supervisor MSSA prophylaxis as has prior infected hardware - if stable likely d/c tomorrow to complete 10 day course of abx for UTI Assessment & Plan (08/24/2019 10:28 AM INTERNATIONAL SALES MANAGER): - Fever w/ Tmax 101.4, white count 23.4 on admission. Normal lactate, hemodynamically stable. He is much improved today and lo longer meets sepsis criteria. Fluids stopped this AM. - UA is positive with 20 WBCs, +LE, but the culture is negative. This culture was obtained after antibiotics were started. CXR is clear without dash consolidation, exam also clear. OSH CT reviewed by our radiologists and Neurosurgery and it does not appear to have acute infectious changes associated with the recent hardware (recent MSSA bacteremia after hardware placement s/p 6 weeks antibiotic therapy) or any pulmonary of abdominal process. CRP 80s, ESR WNL. Flu swab negative. - Continue IV meropenem and vancomycin empirically for ~48 hours. Need to follow up blood and urine cultures from [facility] Sunday and adjust antibiotics. If they are negative, would adjust antibiotic regimen to PO vs stop. Trend vanc troughs. - Source of possible infection most likely urine based on +UA and otherwise negative workup. Assessment & Plan (08/23/2019 5:01 PM INTERNATIONAL SALES MANAGER): - Fever w/ Tmax 101.4, white count 23.4 on admission. Normal lactate, hemodynamically stable, though HR was 90s this AM, improved with 1 L bolus. BP is low normal but stable. He no longer meets sepsis criteria. - UA is positive with 20 WBCs, +LE. CXR is clear without dash consolidation, but some streaks in bases which may be atelectasis. OSH CT reviewed by our radiologists and Neurosurgery and it does not appear to have acute infectious changes associated with the recent hardware (recent MSSA bacteremia after hardware placement s/p 6 weeks antibiotic therapy). CRP 80s, ESR WNL. Flu swab negative. - Continue IV meropenem and vancomycin empirically. Trend vanc troughs. - Source of possible infection most likely urine. - Await blood and urine cultures. Oxygen desaturation 06/01/2019 Assessment & Plan (06/01/2019 9:53 AM CDT): Patient with desaturations down to mid 80s in the setting of severe pain 2/2 to wound dehiscence, likely infection of wound with bacteremia, and panic attacks due to pain. Started on 6L O2 once arrived to [facility]. ABG on floor with 7.41/44/184. Etiology remains wide however due to patients lack of cooperation during exam and interview. Differential includes: uncontrolled pain, sepsis, vs less likely ACS, PE, other lung pathology. -was able to titrate down O2 to 1L, continue to wean to titrate to keep O2>92% -trop elevated to 0.11 > 0.12, recommend trend q6 until downtrending but likely elevated due to demand ischemia rather than ACS -EKG unchanged from prior and without concerning features of ACS -CXR obtained prior to evaluation is without infection/effusion, only significant for chronic L hemidiaphragm elevation -agree with CT PE to rule out acute pulmonary embolism > was negative overnight -agree with blood cultures and continued antibiotics > blood cultures with GP cocci from overnight bottle, would continue vancomycin for now Bacteremia due to Gram-positive bacteria 019 Assessment & Plan (06/01/2019 9:59 AM CDT): Overnight patient with 1/2 blood cultures positive for GP cocci in clusters. Likely bacteremic from dehisced wound. -agree with vancomycin 1250 q12, draw trough immediately prior to 4th dose (06/02 at 1230) -drawn blood cultures x 2 daily until 48 hours cleared -we will continue to follow, may need ID consult depending on speciation -agree with OR today for I&D Other secondary kyphosis, thoracic region 2018 Overview (04/09/2019): Added automatically from request for surgery [id number] Assessment & Plan (08/24/2019 10:30 AM INTERNATIONAL SALES MANAGER): - s/p Spinal fusion by Neurosurgery in 2019 with post operative MSSA bacteremia, treated and resolved. - No evidence of hardware infection source of sepsis, per Neurosurgery eval in the ER. Clinic follow up is appropriate. - PT/OT for possible SNF/Rehab. He is currently in assisted living and it has an attached acute rehab wing, per family. Assessment & Plan (08/23/2019 5:00 PM INTERNATIONAL SALES MANAGER): - s/p Spinal fusion by Neurosurgery in 2019 with post operative MSSA bacteremia, treated and resolved. - No evidence of hardware infection source of sepsis. - Appreciate Neurosurgery eval in the ER. Clinic follow up. - PT/OT. PD (Parkinson's disease) 12/31/2018 Assessment & Plan (08/26/2019 2:16 PM INTERNATIONAL SALES MANAGER): - Continue Entacapone, Sinemet and Ropinirole at home doses. - Family concerned that he cannot return directly to assisted living. His assited living facility has an attached rehab wing. SW consulted and PT/OT consulted as well. > going to SNF today - cont seroquel for hallucinations that seem to be PD related (chronic and occurred months prior to this infection) Assessment & Plan (08/25/2019 1:45 PM INTERNATIONAL SALES MANAGER): - Continue Entacapone, Sinemet and Ropinirole at home doses. - Improved mental status with the above treatment and reduction in oxycodone, diazepam and Seroquel moved to nightly. Now at baseline. Continue current regimen for now. OK to resume PRN ramelteon nightly. - Family concerned that he cannot return directly to assisted living. His asssited living facility has an attached rehab wing. SW consulted and PT/OT consulted as well. > anticipate will need short stay at SNF prior to d/c to assisted living level, pt and family agreeable Assessment & Plan (08/24/2019 10:32 AM INTERNATIONAL SALES MANAGER): - Continue Entacapone, Sinemet and Ropinirole at home doses. - Improved mental status with the above treatment and reduction in oxycodone, diazepam and Seroquel moved to nightly. Now at baseline. Continue current regimen for now. OK to resume PRN ramelteon nightly. - Family concerned that he cannot return directly to assisted living. His asssited living facility has an attached rehab wing. SW consulted and PT/OT consulted as well. Assessment & Plan (08/23/2019 5:01 PM INTERNATIONAL SALES MANAGER): - Continue Entacapone, Sinemet and Ropinirole at home doses. - he is sleepy now, but vitals are improved. Will monitor slowly, but recovery from his infection is likely to be delayed 2/2 Parkinson's. - Family concerned that he cannot return to assisted living and will need SNF or acute rehab. At this point I agree. SW consult and PT/OT consulted as well. Assessment & Plan (01/01/2019 9:53 AM CDT): - 73 y.o. man with parkinsonism responsive to levodopa for 8 years, which began as a change in gait when approaching a seat along with probable hypomimia, followed by rest tremor and progressive difficulty with gait. His symptoms reportedly responded to carbidopa/levodopa and have continued to respond to a regimen that now also includes entacapone and ropinirole. He has trouble with freezing of gait (reported that his right foot gets stuck) and with periods of bradykinesia and related difficulty moving throughout the day. There are also dyskinesias at variable times of the day but these do not seem bothersome. 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 - The examination revealed moderate generalized parkinsonism dominated by bradykinesia, hypokinesia, leaning to the left side, and slow gait with stooped posture and impaired postural responses. The motor UPDRS score was 37. - I reviewed outside records from Dr. Tomy Cervantes (40 pages) - I agree with the diagnosis of Parkinson's disease. His current regimen of PD meds is partially controlling many of his motor symptoms. It is possible that further adjustments of carbidopa/levodopa might further help his motor symptoms but first I would address other problems that may be indirectly amplifying his PD motor symptoms. - Constipation: this can increase PD symptoms by some amount (10-50% is my own estimate) for a given dose of PD meds. I discussed strategies to improve treatment of this beside his present regimen of Miralax and docusate daily. - Hallucinations: likely a side effect of ropinirole (levodopa too but ropinirole is what I would reduce first to address this problem). Given that he has prominent motor symptoms, before reducing ropinirole I would try adding quetiapine. 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 The quetiapine meant for hallucinations may also help this problem. If not, he could take his diazepam also at bedtime. - Motor symptoms of PD: I would like to see how much, if at all, these improve after any of the above 3 problems are addressed. Then I would consider gradualy further increases in carbidopa/levodopa. - Falls: the above changes may reduce the risk of falls by reducing parkinsonian symptoms. PLAN (phrased as addressed to the patient): - Constipation: try taking lactulose (prescribed) every other day. Continue Miralax powder daily and change docusate 100 mg to 3x/day. - Hallucinations: these are likely a side effect of ropinirole. Start quetiapine 25 mg at bedtime. Look out for excessive drowsiness the next morning. - RBD (REM behavior disorder; thrashing and screaming during sleep): may improve with bedtime quetiapine. If it does not, I will consider adding a dose of diazepam at bedtime. - Freezing of gait (foot getting stuck): may improve with these and other medication changes but sometimes does not respond to medications. - Call my office in 4 weeks to report on: hallucinations; screaming and thrashing at night (RBD); constipation. RESEARCH PARTICIPATION NOTES - Syndrome: parkinsonism - Body part affected at onset: BLE - Body part affected now: Gen - Etiology: Parkinson's disease - Confidence: definite - Age at onset: 65 - Familial: yes - Distance: [place] - Slow gait: yes - Pull test score: 2 - MARS Registry (Clinical Outcomes Study): yes: signed - Brain Donation Program: not asked - Genetics of PD: not asked - PIB/PAND: possible: to be reviewed - Depression in PD: no - Tic Study: no Spondylosis without myelopat hy or radiculopathy, lumbar region 08/17/2018 Spondylosis without myelopat hy or radiculopathy, sacral and sacrococcygeal region 08/17/2018 Primary osteoarthritis of both hips 05/30/2018 Sacroiliac joint pain 05/30/2018 Osteoarthritis of left knee 04/18/2016 Lumbar radiculopathy 02/11/2016 Postlaminectomy syndrome of lumbar region 2015 Chronic pain 02/11/2016 Hypertension 11/05/2014 Chronic low back pain 10/16/2014 Back pain 10/12/2014 Encounter for preventive health examination 09/07 Immunizations Immunization Administration Dates Next Due Influenza, Quadrivalent, Velma l Culture-based MDCK, Antibiotic Free, Intramuscular 05/06/2018 Influenza, Trivalent, High D ose, Split, Preservative Free, Intramuscular 05/24/2017 Influenza, Trivalent, Preser vative Free, Intramuscular 05/06/2016,04/06/2016,05/06/2014 Influenza, Unspecified 05/06/2019,04/23/2018 Pneumococcal Conjugate PCV 13 05/24/2017 TD Preservative Free 07/02/2007 Social History Tobacco Use Types Packs/Day Years Used Date Smoking Tobacco: Never Passive Smoke Exposure: Never Smokeless Tobacco: Never Tobacco Cessation:Counseling Given: Not Answered Alcohol Use Standard Drinks/Week Comments Never 0 (1 standard drink = 0.6 oz pur e alcohol) [facility] Utilities Answer Date Recorded In the past 12 months has surespot, gas, oil, or water [employer] threatened to shut off services in your home? No 07/11/2024 Social Connection and Isolat ion Panel [NHANES] Answer Date Recorded In a typical week, how many times do you talk on the phone with family, friends, or neighbors? More than three times a week 07/11/2024 How often do you get togethe r with friends or relatives? More than three times a week 07/11/2024 How often do you attend chur ch or cheondoism services? Never 07/11/2024 Do you belong to any clubs o r organizations such as jain groups, unions, fraternal or athletic groups, or school groups? No 07/11/2024 How often do you attend meet ings of the clubs or organizations you belong to? Never 07/11/2024 Are you , , di vorced, , never , or living with a partner? 07/11/2024 AUDIT-C Answer Date Recorded Q1: How often do you have a drink containing alcohol? Never 07/10/2024 Q2: How many drinks containi ng alcohol do you have on a typical day when you are drinking? Patient does not drink Q3: How often do you have si x or more drinks on one occasion? Never 07/10/2024 Overall Financial Resource Strain (CARDIA) Answe r Date Recorded How hard is it for you to pa y for the very basics like food, housing, medical care, and heating? Not very hard 07/11/2024 Hunger Vital Sign Answer Date Recorded Within the past 12 months, y ou worried that your food would run out before you got the money to buy more. Never true 07/11/20 24 Within the past 12 months, t he food you bought just didn't last and you didn't have money to get more. Never true 07/11/2024 PRAPARE - Transportation Answer Date Re corded In the past 12 months, has l ack of transportation kept you from medical appointments or from getting medications? No 01/2024 In the past 12 months, has l ack of transportation kept you from meetings, work, or from getting things needed for daily living? No 07/11/2024 Housing Stability Vital Sign Answer Ramu e Recorded In the last 12 months, was t here a time when you were not able to pay the mortgage or rent on time? No 07/11/2024 In the past 12 months, how m any times have you moved where you were living? 1 07/11/2024 At any time in the past 12 m [facility], were you homeless or living in a group home (including now)? No 07/11/2024 Personal Safety Answer Date Recorded Have you ever been in or are you currently in a harmful physical or emotional relationship or is someone making you feel afraid or unsafe? 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 Not on file Not on file Not o n file Last Filed Vital Signs Vital Sign Reading Time Taken Comments Blood Pressure 145/46 07/16/2024 1:30 PM INTERNATIONAL SALES MANAGER Pulse 74 07/16/2024 1:30 PM INTERNATIONAL SALES MANAGER Temperature 36.8 C (98.2 F) 07/16/2024 1:30 PM INTERNATIONAL SALES MANAGER Respiratory Rate 20 07/16/2024 1:30 PM INTERNATIONAL SALES MANAGER Oxygen Saturation 99% 07/16/2024 1:30 PM INTERNATIONAL SALES MANAGER Inhaled Oxygen Concentration - - Weight 81.6 kg (180 lb) 07/09/2024 11:31 PM INTERNATIONAL SALES MANAGER Height 182.9 cm (6' 0.01 ) 07/09/2024 11:[address] Body Mass Index 24.41 07/09/2024 11:31 PM INTERNATIONAL SALES MANAGER Plan of Treatment Not on file Medical Devices Implanted Type Area Caretaker Grounds Device Identifier Shelf Expiration Date Model / Serial / Lot Rods Bilateral: Back Depuy Spine [id number] Expedium 6mm 40mm 1 Innie Polyaxial Spine Screw Bone Titanium - [id number] Implanted:Qty: 3 on 04/28/2019 by Prateek Lemus MD at [facility] N/A: Spine Thoracic Depuy Spine [id number] / / Depuy Spine [id number] Expedium 6mm 35mm 1 Innie Polyaxial Spine Screw Bone Titanium - [id number] Implanted:Qty: 3 on 04/28/2019 by Prateek Lemus MD at [facility] N/A: Spine Thoracic Depuy Spine [id number] / / Depuy Spine [id number] Expedium 1 Inner Monoaxial Spine Screw Set Titanium - [id number] Implanted:Qty: 17 on 04/28/2019 by Prateek Lemus MD at [facility] N/A: Spine Thoracic Depuy Spine [id number] / / Depuy Spine [id number] Expedium Viper 2 5.5mm 480mm Straight Javier Spinal - [id number] Implanted:Qty: 2 on 04/28/2019 by Prateek Lemus MD at [facility] N/A: Spine Thoracic Depuy Spine [id number] / / Depuy Spine [id number] [place] 5.5mm 2 End To End Spine Connector Javier Nonsterile - [id number] Implanted:Qty: 2 on 04/28/2019 by Prateek Lemus MD at [facility] N/A: Spine Thoracic Depuy Spine [id number] / / Depuy Spine [id number] Expedium 5.5mm Pedicle Hook Spinal Titanium - [id number] Implanted:Qty: 1 on 04/28/2019 by Prateek Lemus MD at [facility] N/A: Spine Thoracic Depuy Spine [id number] / / [id number] Hemasorb Os-Spa Spatula Wax 2gm Bone Sterile - [id number] Implanted:Qty: 1 on 04/28/2019 by Prateek Lemus MD at [facility] N/A: Spine Lumbar Abyrx 01/03/2022 [id number] / / [id number] Medtronic Sofamor Danek [id number] Infuse 18mm 26mm Absorbable Sponge Sterile Water Syringe Needle - [id number] Implanted:Qty: 1 on 04/28/2019 by Prateek Lemus MD at [facility] N/A: Spine Lumbar Medtronic Inc 08/05/2020 [id number] / / [id number] Acuity Surgical Inc [id number] - [id number] - [id number] Implanted:Qty: 1 on 04/28/2019 by Prateek Lemus MD at [facility] N/A: Spine Lumbar Acuity Surgical Inc 03/05/2024 [id number] / [id number] / Spinal Graft Tech [id number] Magnifuse 10x2.5cm Posterolateral Graft Bone Demineralized Bone - [id number] - [id number] Implanted:Qty: 1 on 04/28/2019 by Prateek Lemus MD at [facility] N/A: Spine Lumbar Spinal Graft Tech 05/15/2020 [id number] / [id number] / Depuy Spine [id number] Expedium 7mm 40mm 1 Innie Polyaxial Spine Screw Bone Titanium - [id number] Implanted:Qty: 1 on 04/28/2019 by Prateek Lemus MD at [facility] N/A: Spine Thoracic Depuy Spine [id number] / / Depuy Spine [id number] Expedium 6.5mm 45mm Polyaxial Spine Screw Bone Titanium 5.5mm Javier - [id number] Implanted:Qty: 2 on 04/28/2019 by Prateek Lemus MD at [facility] N/A: Spine Thoracic Depuy Spine [id number] / / Depuy Spine [id number] Expedium 6.5mm 40mm Polyaxial Spine Screw Bone Titanium 5.5mm Javier - [id number] Implanted:Qty: 1 on 04/28/2019 by Prateek Lemus MD at [facility] N/A: Spine Thoracic Depuy Spine [id number] / / Depuy Spine [id number] Expedium 6mm 45mm 1 Innie Polyaxial Spine Screw Bone Titanium - [id number] Implanted:Qty: 4 on 04/28/2019 by Prateek Lemus MD at [facility] N/A: Spine Thoracic Depuy Spine [id number] / / SoFi Inc [id number] Osteoset Resorbable Bead Kit 25ml Bone Graft Calcium Sulfate - [id number] Implanted:Qty: 1 on 06/01/2019 by Magdy Apple MD at [facility] N/A: Back SoFi Inc 11/10/2026 [id number] / / [id number] Description:mixed with 1.2 g of Tobramycin SoFi Inc 5027-9177 Osteoset Resorbable Bead Kit 25ml Bone Graft Calcium Sulfate - [id number] Implanted:Qty: 1 on 06/01/2019 by Magdy Apple MD at [facility] N/A: Back Songza Medical Technology Inc 04/13/2025 [id number] / / [id number] Description:Mixed with 1.2 g of Tobramycin SoFi Inc 8089-1318 Osteoset 2 Mold Resorbable Bead Standard Curve Graft Synthetic - [id number] Implanted:Qty: 1 on 06/01/2019 by Magdy Apple MD at [facility] N/A: Back SoFi Inc 01/05/2027 8200-6430 / / [id number] Description:Mixed with 1 g o f vancomycin [employer] 3875-9275 Osteoset 2 Mold Resorbable Bead Standard Curve Graft Synthetic - [id number] Implanted:Qty: 1 on 06/01/2019 by Magdy Apple MD at [facility] N/A: Back [employer] 02/17/2026 3601-4113 / / [id number] Description:Mixed with 1 g o f vancomycin Grazyna Biomet Inc 66mm Primary Modular Multihole Hip Shell Acetabular Trabecular [id number] - [id number] Implanted:Qty: 1 on 07/10/2024 at [facility] Left: Hip Grazyna Biomet Inc 11/03/2024 [id number] / / [id number] Grazyna Biomet Inc Trilogy 6.5mm 40mm Self Tap Hip Acetabular Cortical Screw Bone [id number] - [id number] Implanted:Qty: 1 on 07/10/2024 at [facility] Left: Hip Grazyna Biomet Inc 02/28/2034 [id number] / / [id number] Grazyna Biomet Inc Trilogy 6.5mm 35mm Self Tap Screw Bone [id number] - [id number] Implanted:Qty: 1 on 07/10/2024 at [facility] Left: Hip Grazyna Biomet Inc 11/27/2033 [id number] / / [id number] Grazyna Biomet Inc Trilogy 6.5mm 40mm Self Tap Hip Acetabular Cortical Screw Bone [id number] - [id number] Implanted:Qty: 1 on 07/10/2024 at [facility] Left: Hip Grazyna Biomet Inc 09/28/2033 [id number] / / [id number] Grazyna Biomet Inc G7 Type 1 Hip +6mm Offset Taper Sleeve Centering Titanium Biolox 650-1068 - [id number] Implanted:Qty: 1 on 07/10/2024 at [facility] Left: Hip Grazyna Biomet Inc 11/06/2032 650-1068 / / [id number] Grazyna Biomet Inc Trilogy 6.5mm 20mm Self Tap Screw Bone [id number] - [id number] Implanted:Qty: 1 on 07/10/2024 at [facility] Left: Hip Grazyna Biomet Inc 02/20/2033 [id number] / / [id number] Grazyna Biomet Inc Trilogy 6.5mm 25mm Self Tap Screw Bone [id number] - [id number] Implanted:Qty: 1 on 07/10/2024 at [facility] Left: Hip Grazyna Biomet Inc 01/15/2033 [id number] / / [id number] Grazyna Biomet Inc Trilogy 6.5mm 15mm Self Tap Screw Bone [id number] - [id number] Implanted:Qty: 1 on 07/10/2024 at [facility] Left: Hip Grazyna Biomet Inc 10/16/2033 [id number] / / [id number] Grazyna Biomet Inc Trilogy 66mm 36mm 11.4mm Constrained Hip Liner Acetabular [id number] - [id number] Implanted:Qty: 1 on 07/10/2024 at [facility] Left: Hip Grazyna Biomet Inc 10/08/2027 [id number] / / [id number] Grazyna Biomet Inc G7 36mm Hip Head Femoral Biolox Delta Option 650-1057 - [id number] Implanted:Qty: 1 on 07/10/2024 at [facility] Left: Hip Grazyna Biomet Inc 09/02/2031 650-1057 / / [id number] Explanted Type Area Caretaker Grounds Device Identifier Shelf Expiration Date Model / Serial / Lot Grazyna Biomet Inc G7 Bessie 36mm Type 1 Modular Hip +9mm Offset Head Femoral Cocr [id number] - [id number] Implanted:Qty: 1 on 05/07/2024 at [facility] Explanted:Qty: 1 on 07/10/2024 by Loco Lancaster MD at [facility] Left: Hip Grazyna Biomet Inc 08/24/2032-754733 / / [id number] Grazyna Biomet Inc Liner Acetabular Hip Vitamin E G7 Bessie Vivacit E 36mm Polyethylene Size G [id number] - [id number] Implanted:Qty: 1 on 05/07/2024 at [facility] Explanted:Qty: 1 on 07/10/2024 by Loco Lancaster MD at [facility] Left: Hip Grazyna Biomet Inc 09/03/2028 [id number] / / [id number] Description:Discarded to was te Hip Shell Explanted:Qty: 1 on 07/10/2024 by Loco Lancaster MD at [facility] Left: Hip Other 0 / / Description:Discarded to was te. Had no distinguishing king Procedures Procedure Name Priority Date/Time Associated Diagnosis Comments XR HIP LEFT W PELVIS 2 OR 3 VIEWS Schedule Routine, Read Routine (OP Routine) 09/01/2024 11:28 AM INTERNATIONAL SALES MANAGER Left hip pain Aftercare following left hip joint replacement surgery from Last 3 Months Results * XR Hip Left 2 or 3 Views W Pelvis (09/01/2024 11:28 AM INTERNATIONAL SALES MANAGER) Anatomical Region Laterality Modality Lower Extremities, Hip, Pelvis Left C omputed Radiography 09/01/2024 12:0 0 PM INTERNATIONAL SALES MANAGER Impressions 09/01/2024 12:00 PM INTERNATIONAL SALES MANAGER 1. 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 Electronically signed by: Black Warner M.D. Narrative 09/01/2024 12:00 PM INTERNATIONAL SALES MANAGER EXAMINATION: XR HIP LEFT 2 OR 3 VIEWS W PELVIS HISTORY: Left hip arthroplasty follow-up FINDINGS: 2 view examination of the left hip is read with comparison to 07/10/2024. 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 No periprosthetic fracture, dislocation or component migration. Unchanged moderate hip osteoarthritis. Partially imaged lumbosacral spinal fusion instrumentation. Procedure Note Black Hicks MD - 09/01/2024 EXAMINATION: XR HIP LEFT 2 OR 3 VIEWS W PELVIS HISTORY: Left hip arthroplasty follow-up FINDINGS: 2 view examination of the left hip is read with comparison to 07/10/2024. 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 No periprosthetic fracture, dislocation or component migration. Unchanged moderate hip osteoarthritis. Partially imaged lumbosacral spinal fusion instrumentation. IMPRESSION: 1. 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 Electronically signed by: Black Warner M.D. Loco Lancaster MD IMG XR PROCEDURES Final Resul t from Last 3 Months Insurance [facility] MEDIC[facility] ACCESS MEDICARE [facility] MEDICARE [facility] FEDERAL Advance Directives For more information, please contact: [phone] Documents on File Type Date Recorded Patient Sheet Rock Sander Expl anation ADVANCE DIRECTIVE 05/15/2024 4:15 PM VALENCIA R OF EXECUTIVE OFFICER SPECIAL WARFARE TEAM-MEDICAL ADVANCE DIRECTIVE 06/14/2019 2:38 AM POWER OF EXECUTIVE OFFICER SPECIAL WARFARE TEAM-MEDICAL ADVANCE DIRECTIVE 06/04/2019 12:54 PM POW ER OF EXECUTIVE OFFICER SPECIAL WARFARE TEAM-MEDICAL * Full Code (Latest Code Status on File) Date Activated Date Inactivated Comments 07/09/2024 10:27 PM 07/16/2024 5:54 PM * Full Code Date Activated Date Inactivated Comments 05/07/2024 2:32 PM 05/14/2024 2:51 PM * LIMITED - No CPR Date Activated Date Inactivated Comments 08/22/2019 4:59 PM 08/26/2019 7:39 PM Question Answer Comments Discussed with the following attending physician : Mariano * Full Code Date Activated Date Inactivated Comments 06/01/2019 6:02 PM 06/18/2019 10:48 PM * Full Code Date Activated Date Inactivated Comments 04/28/2019 2:50 PM 05/04/2019 5:02 PM Care Teams Belt Back Operator Relationship Specialty Start Date End Date Pako Chua MD [address] [place] [address] PCP - General Family Medicine 09/01/24 Tomy Cervantes MD Neurologist Neurology 12/31/18 Darrel Delaney MD [address] [address] Referring Physician Orthopedic Surgery 12/31/18 Miscellaneous, Not In File 08/26/19
--- OUTSIDE RECORDS SUMMARY | 2024-11-01 07:28 | XMS_ITS | Continuity of Care Document ---
Author Organization [facility] Address [address] [place] [address] Phone Care Team Providers Care Clothing Worker Name Role Phone Javy Campbell Unavailable Unavailable Procedures Procedure Date Visual Field Examination(s) Office/outpatient Visit, Est Office/outpatient Visit, Est Corneal Pachymetry Fundus Photography W/ Report Visual Field Examination(s) Office/outpatient Visit, Est Eye Exam & Treatment Refraction Office/outpatient Visit, Est Frames Deluxe Progressive Lens, Plastic Tint Photochromatic, Plastic Tax - Medical Advance Directives Directive Yes / No Effective Date File Name No Information Encounters Encounter Description Practice Location Reason(s) For Visit Diagnoses Date Provider Providers Copied on Encounter [facility], [address] [place] [address] [address], [place], [place], [id number], [place] tel:[phone] [facility] [place] No Information 2-201 0 Adrian Palafox. [facility] [address], [place], [address], [place]. tel:[phone] Referring Provider: Brielle Lloyd [facility] [address], [place], [address]. tel:[phone] Office/outpat ient Visit, Est [facility], [address] [place] [address] [address], [place], [place], [id number], [place] tel:[phone] [facility] No Information May-2 6-201 0 Krishnasamy Francisco. [facility] [facility] [address] [place], [place], [facility], [place]. tel:[phone] Office/outpat ient Visit, [facility], [address], [place], [place], [address], [place] tel:[phone] [facility] No Information Nov-2 0-200 9 Krishnasamy Francisco. [address], [place], [facility], [place]. tel:[phone] Referring Provider: Francisco ingram, [facility] [address], [place], [place], [facility]. tel:[phone] [facility], [address] [place] [address] [address], [place], [place], [address], [place] tel:[phone] [facility] No Information Bacilio-0 6-200 9 Krishnasamy Francisco. [facility] [address] [facility] [address] [place], [place], [facility], [place]. tel:[phone] Referring Provider: Francisco ingram, [address] [place], [place] [address] [place] [address], [place], [place], [facility]. tel:[phone] Office/outpat ient Visit, [facility], [address], [place], [place], [address], [place] tel:[phone] [facility] No Information May-2 2-200 9 Krishnasamy Francisco. [facility] [address] [facility] [address], [place], [facility], [place]. tel:[phone] [facility], [address], [place], [place], [address], [place] tel:[phone] [facility] No Information May-0 5-200 8 Krishnasamy Francisco. [address], [place], [address], [place]. tel:[phone] Office/outpat ient Visit, [facility], [address], [place], [place], [address], [place] tel:[phone] [facility] No Information 7 Allison Panda. [address], [place], [place], [facility], [place]. tel:[phone] [facility], [address], [place], [place], [address], [place] tel:[phone] [facility] No Information 7 [facility] [address] [facility], [address], [place], [place], [address], [place]. tel:[phone] Referring Provider: Amarilys Ingram, [address], [place], [place], [facility]. tel:[phone] sulting Provider: Melody Lau, [address] [place] [address], [facility]. tel:[phone] Family History Family Member Type Diagnosis Age At Onset No Information Payers Payer name Insurance type Covered alliance party ID Authoriza tion(s) No Information Social History Type Description Quantity Date Captured Comments Sex Male Smoking Status No Information Chief Complaint And Reason For Visit No Information Reason For Referral Reason For Referral No Information History Of Present Illness Encounter Date Complaint History Of Prese nt Illness No Information Functional Status Date Functional Assessmen t No Information Instructions Date Instruction Additional Infor mation No Information Assessments Type Assessment Date No Information Patient Care Teams Name Effective Dates (start - stop) Status Members No Information
--- OUTSIDE RECORDS SUMMARY | 2024-11-01 07:28 | XMS_ITS | Clinical Summary ---
Author Organization [facility] Address [address] [place] [address] Phone Care Team Providers Care Director Executive Communications Name Role Phone Filippo Ponce MD Primary Care Provider [phone] Allergies No known active allergies Medications metoprolol tartrate (LOPRESSOR) 50 mg Oral tablet Take 50 mg by mouth daily architecture internship. Active indapamide (LOZOL) 2.5 mg Oral tablet Take 2.5 mg by mouth daily architecture internship. Active omeprazole (PRILOSEC) 20 mg Oral CpDR Take 20 mg by mouth daily. Active diclofenac sodium (VOLTAREN) 75 mg Oral TbEC Take 75 mg by mouth 2 times daily. Active carbidopa-levod opa (SINEMET) 25-100 mg Oral tablet Take 1.5 Tabs by mouth 3 times daily. Active omega-3 fatty acids-fish oil 300-1,000 mg Oral Cap Take by mouth daily. Active MULTIVITAMIN W-MINERALS/LUTE IN (CENTRUM SILVER ORAL) Take by mouth. Active vitamin B complex Oral TbSR Take 1 Tab by mouth daily. Active POTASSIUM (POTASSIMIN ORAL) Take by mouth. Active cyclobenzaprine (FLEXERIL) 10 mg Oral tablet Take 1 Tab by mouth 3 times daily as needed for Spasm. 60 Tab 0 01/18/2012 Active docusate sodium (COLACE) 100 mg Oral capsule Take 1 Cap by mouth 2 times daily. 60 Cap 0 01/18/2012 Active aspirin (MOISÉS) 325 mg Oral tabletIndicatio ns:06/14/2012 stopped Take 325 mg by mouth daily. Indications: 06/14/2012 stopped Active oxyCODONE-aceta minophen (PERCOCET) 5-325 mg Oral tablet Take 1-2 Tabs by mouth every 4 hours as needed for Pain. 90 Tab 0 06/23/2012 Active diazepam (VALIUM) 5 mg Oral tablet Take 1 Tab by mouth 3 times daily. 60 Tab 0 06/23/2012 Active bisacodyl delayed release (DULCOLAX) 5 mg Oral TbEC Take 2 Tabs by mouth 1 time daily as needed for Constipation. 120 Tab 0 06/23/2012 Active cyclobenzaprine (FLEXERIL) 10 mg Oral tablet Take 1 Tab by mouth every 8 hours as needed for Spasm. 90 Tab 2 06/23/2012 Active lidocaine (LIDODERM) 5 % Topical PtMd Apply 2 Patches to affected area daily. 30 Patch 2 06/23/2012 Active Family History Medical History Relation Name Comments Other Father Relation Name Status Comments Father Mother Social History Tobacco Use Types Packs/Day Years Used Date Smoking Tobacco: Never Alcohol Use Standard Drinks/Week Comments No 0 (1 standard drink = 0.6 oz pur e alcohol) Sex and Gender Information Value Date Recorded Sex Assigned at Not on file Legal Sex Male 6:07 AM DIRECTOR WEB Gender Identity Not on file Sexual Orientation Not on file Occupation Industry Job Start Date Job End Date Not on file Not on file Not on file Not on file Last Filed Vital Signs Vital Sign Reading Time Taken Comments Blood Pressure 137/67 06/23/2012 10:49 AM DIRECTOR WEB Pulse 74 06/23/2012 10:49 AM DIRECTOR WEB Temperature 36.7 C (98.1 F) 06/23/2012 10:49 AM DIRECTOR WEB Respiratory Rate 16 06/23/2012 10:49 AM DIRECTOR WEB Oxygen Saturation 98% 06/23/2012 10:49 AM DIRECTOR WEB Inhaled Oxygen Concentration - - Weight 92.1 kg (203 lb) 03/05/2013 11:41 AM CDT Height 182.9 cm (6') 06/18/2012 1:04 PM DIRECTOR WEB Body Mass Index 27.53 06/18/2012 1:04 PM DIRECTOR WEB Plan of Treatment Health Maintenance Due Date Last Done Comments DTAP/TDAP/TD VACCINES (1 - Tdap) 1964 PNEUMOCOCCAL VACCINE 50+ YEARS (1 of 1 - PCV) 07/29/19 95 ZOSTER VACCINE (1 of 2) 1995 RSV VACCINE (60+ or ) (1 - 1-dose 75+ series) 2020 INFLUENZA VACCINE (#1) 2024 Medical Devices Implanted Type Area Business Intelligence Consultant Device Identifier Shelf Expiration Date Model / Serial / Lot Sealant Floseal 10ml [id number] - [id number] Implanted:Qty: 1 on 01/18/2012 by Jasen Mccormick MD at [facility] Biological Left: Back 05/05/2013 [id number] / / [id number] Sealant Floseal 10ml [id number] - [id number] Implanted:Qty: 1 on 06/20/2012 by Jasen Mccormick MD at [facility] Biological N/A: Spine Lumbar HERRMANN- BIOSCIENCE 10/03/2013 [id number] / / [id number] Javier Solera Ccm Crv 4.52b85fm [id number] - [id number] Implanted:Qty: 1 on 06/20/2012 at [facility] Javier N/A: Spine Lumbar MEDTRONIC- SOFAMOR DANEK [id number] / / Description:LOAD 38, JUN 19, 2012 Javier Solera Ccm Crv [id number] - [id number] Implanted:Qty: 1 on 06/20/2012 at [facility] Javier N/A: Spine Lumbar MEDTRONIC- SOFAMOR DANEK [id number] / / Description:LOAD 38, JUN 19, 2012 Set Screw Solera Breakoff [id number] - [id number] Implanted:Qty: 6 on 06/20/2012 at [facility] Screw MEDTRONIC- SOFAMOR DANEK [id number] / / Description:LOAD 38, JUN 19, 2012 Screw Solera Ma 7.5x45mm [id number] - [id number] Implanted:Qty: 2 on 06/20/2012 at [facility] Screw N/A: Spine Lumbar MEDTRONIC- SOFAMOR DANEK [id number] / / Description:LOAD 38, JUN 19, 2012 Spacer Capstn Peek Vb [id number] - [id number] Implanted:Qty: 1 on 06/20/2012 at [facility] Spacer N/A: Spine Lumbar MEDTRONIC- SOFAMOR DANEK 02/21/2020 [id number] / / [id number] Explanted Type Area Business Intelligence Consultant Device Identifier Shelf Expiration Date Model / Serial / Lot Javier Explanted:Qty: 2 on 06/20/2012 by Jasen Mccormick MD at [facility] Javier N/A: Spine Lumbar Insurance MEDICARE [facility] AND B [facility] Advance Directives For more information, please contact: [phone] * Full Code (Latest Code Status on File) Date Activated Date Inactivated Comments 06/20/2012 8:19 PM 06/23/2012 4:23 PM * Full Code Date Activated Date Inactivated Comments 06/20/2012 2:45 PM 06/20/2012 8:19 PM * Full Code Date Activated Date Inactivated Comments 06/20/2012 1:09 PM 06/20/2012 2:45 PM * Full Code Date Activated Date Inactivated Comments 01/18/2012 6:51 PM 01/19/2012 2:15 PM * Full Code Date Activated Date Inactivated Comments 01/18/2012 7:31 AM 01/18/2012 6:51 PM Care Teams Director Executive Communications Relationship Specialty Start Date End Date Filippo Ponce MD [address] [place] [address] PCP - General Family Practice 10/04/11
--- OUTSIDE RECORDS SUMMARY | 2024-11-01 07:28 | XMS_ITS | Clinical Summary ---
Author Organization [facility] Address [address] [place] [id number] Care Team Providers Care Oil Rag Washer Name Role Phone Tomy Cervantes MD Unavailable Darrel Delaney MD Unavailable [phone] Miscellaneous, Not In File Unavailable Unava noreenable Pako Chua MD Primary Care Provider [phone] Allergies Active Allergy Reactions Criticality Noted Date Comments Adhesive Tape-Silicones Rash Medium 02/11/2016 Gabapentin Hallucinations Medium 05/17/2016 Latex Rash Medium 07/10/2024 Shrimp Rash Medium 07/10/2024 Medications carbidopa-levodo pa (SINEMET) 25-100 mg per tabletIndication s:Parkinsonism Take 3 tablets by mouth 4 (four) times a day taken around 1by-08ag-0qx-11 pm 3 8 Active entacapone (COMTAN) 200 [...] 08/24/2019 Assessment & Plan (08/26/2019 2:15 PM POND TENDER): - has had waxing/waning mental status preceeding his illness in 05/24 per attributed to his Parkinsons (periods of agitation, confusion, hallucinations), had uptitrated sinemet and started seroquel just recently with his primary neurologist - at recent b/l per d/w , cont seroquel, needs higher level of care than Assisted living for rehab and for safety > going to SNF, d/w'd that may need group home SNF vs. 24 hr care elsewhere after rehab as cognitive issues from his Parkinsons may not get significantly better/may progress Assessment & Plan (08/25/2019 1:44 PM POND TENDER): - Delirium 2/2 acute infection on Parkinson's disease. Now resolved with the treatment of UTI and reducing sedating meds: oxycodone, diazepam and moving seroquel to nightly. Now at baseline per family. Close monitoring. Assessment & Plan (08/24/2019 10:29 AM POND TENDER): - Delirium 2/2 acute infection on Parkinson's disease. Now resolved with the above treatment and reducing sedating meds: oxycodone, diazepam and moving seroquel to nightly. Now at baseline per family. Close monitoring. Hypophosphatemia 08/24/2019 Assessment & Plan (08/25/2019 1:44 PM POND TENDER): - Likely from recent poor PO. Continue to supplement today with neutraphos Follow-up examination, following other surgery 0 08/22/2019 Inguinal hernia 08/22/2019 Seroma complicating a procedure 08/22/2019 BPH (benign prostatic hyperplasia) 08/22/2019 Assessment & Plan (08/25/2019 1:45 PM POND TENDER): - Continue home flomax. Assessment & Plan (08/24/2019 10:29 AM POND TENDER): - Continue home flomax. Assessment & Plan (08/22/2019 9:57 PM POND TENDER): - Continue home flomax Constipation 08/22/2019 Assessment & Plan (08/24/2019 10:29 AM POND TENDER): - Continue home Miralax. Assessment & Plan (08/23/2019 4:58 PM POND TENDER): - Continue home Miralax. Sepsis 08/22/2019 Assessment & Plan (08/26/2019 2:14 PM POND TENDER): - likely 2/2 UTI - grew Proteus mirabilis from his urine per OSH lab (called them today) susceptible to all tested except nitrofurantoin - given lack of signs of back infection on exam/symptoms/acuity of worsening, negative blood cxs and stable imaging findings agree with NSGY assessment that other source more likely the etiology - on Cipro UTI and then resume his doxy for group home MSSA prophylaxis as has prior infected hardware - plan d/c to SNF today Assessment & Plan (08/25/2019 1:44 PM POND TENDER): - likely 2/2 UTI - grew Proteus [...] UTI and then resume his doxy for group home MSSA prophylaxis as has prior infected hardware - if stable likely d/c tomorrow to complete 10 day course of abx for UTI Assessment & Plan (08/24/2019 10:28 AM POND TENDER): - Fever w/ Tmax 101.4, white count [...] follow up blood and urine cultures from [facility] Sunday and adjust antibiotics. If they are negative, would adjust antibiotic regimen to PO vs stop. Trend vanc troughs. - Source of possible infection most likely urine based on +UA and otherwise negative workup. Assessment & Plan (08/23/2019 5:01 PM POND TENDER): - Fever w/ Tmax 101.4, white count [...] Started on 6L O2 once arrived to [facility]. ABG on floor with 7.41/44/184. Etiology remains [...] (04/09/2019): Added automatically from request for surgery [id number] Assessment & Plan (08/24/2019 10:30 AM POND TENDER): - s/p Spinal fusion by Neurosurgery in 2019 with post operative MSSA bacteremia, treated and resolved. - No evidence of hardware infection source of sepsis, per Neurosurgery eval in the ER. Clinic follow up is appropriate. - PT/OT for possible SNF/Rehab. He is currently in assisted living and it has an attached acute rehab wing, per family. Assessment & Plan (08/23/2019 5:00 PM POND TENDER): - s/p Spinal fusion by Neurosurgery in 2019 with post operative MSSA bacteremia, treated and resolved. - No evidence of hardware infection source of sepsis. - Appreciate Neurosurgery eval in the ER. Clinic follow up. - PT/OT. PD (Parkinson's disease) 12/31/2018 Assessment & Plan (08/26/2019 2:16 PM POND TENDER): - Continue Entacapone, Sinemet and Ropinirole at [...] infection) Assessment & Plan (08/25/2019 1:45 PM POND TENDER): - Continue Entacapone, Sinemet and Ropinirole at [...] agreeable Assessment & Plan (08/24/2019 10:32 AM POND TENDER): - Continue Entacapone, Sinemet and Ropinirole at [...] well. Assessment & Plan (08/23/2019 5:01 PM POND TENDER): - Continue Entacapone, Sinemet and Ropinirole at [...] onset: 65 - Familial: yes - Distance: Julian - Slow gait: yes - Pull test [...] 10/12/2014 Encounter for preventive health examination 09/07 Encounters Date Type Department Care Team Description 09/01/2024 11:00 AM POND TENDER Office Visit [facility] Orthopaedic Surgery [address] [facility] [address] [place] [id number] Loco Lancaster MD Left hip pain (Primary Dx); Aftercare following left hip joint replacement surgery 09/01/2024 10:30 AM POND TENDER - 09/01/2024 11:59 PM POND TENDER Hospital Encounter [id number] [address] [facility] [address] [place] [id number] Left hip pain; Aftercare following left hip joint replacement surgery Discharge Disposition: Discharge to home or self care from Last 3 Months Immunizations Immunization Administration Dates Next Due Influenza, Quadrivalent, Velma l Culture-based MDCK, Antibiotic Free, Intramuscular 05/06/2018 Influenza, Trivalent, High D ose, Split, Preservative Free, Intramuscular 05/24/2017 Influenza, Trivalent, Preser vative Free, Intramuscular 05/06/2016,04/06/2016,05/06/2014 Influenza, Unspecified 05/06/2019,04/23/2018 Pneumococcal Conjugate PCV 13 05/24/2017 TD Preservative Free 07/02/2007 Surgical History Surgery Date Site/Laterality Comments CENTRAL LINE PLACEMENT > 5 YEARS 11/09/2014 N/A CHOLECYSTECTOMY HERNIA REPAIR HEMORROIDECTOMY NECK SURGERY BACK SURGERY 08/06/2016 - 08/05/2017 Medical History Medical History Date Comments Chronic pain Lumbar radiculopathy Parkinson disease (HCC) Low back pain Hypertension Arthritis Vaso-vagal reaction 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, never admitted to ICU or reintubated Family History Medical History Relation Name Comments Heart disease Father Parkinsonism Father Anesthesia problems Neg Hx Relation Name Status Comments Father Social History Tobacco Use Types Packs/Day Years Used Date Smoking Tobacco: Never Passive Smoke Exposure: Never Smokeless Tobacco: Never Tobacco Cessation:Counseling Given: Not Answered Alcohol Use Standard Drinks/Week Comments Never 0 (1 standard drink = 0.6 oz pur e alcohol) [facility] Utilities Answer Date Recorded In the past 12 months has th e electric, gas, oil, or water company threatened to shut off services in your [...] often do you attend chur ch or anglican services? Never 07/11/2024 Do you belong to any clubs o r organizations such as tenriism groups, unions, fraternal or athletic groups, or [...] any time in the past 12 m [facility], were you homeless or living in a skilled nursing (including now)? No 07/11/2024 Personal Safety Answer Date Recorded Have you ever been in or are you currently in a harmful physical or emotional relationship or is someone making you feel afraid or unsafe? 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 Not on file Not on file Not o n file Obstetrics History Last Filed Vital Signs Vital Sign Reading Time Taken Comments Blood Pressure 145/46 07/16/2024 1:30 PM POND TENDER Pulse 74 07/16/2024 1:30 PM POND TENDER Temperature 36.8 C (98.2 F) 07/16/2024 1:30 PM POND TENDER Respiratory Rate 20 07/16/2024 1:30 PM POND TENDER Oxygen Saturation 99% 07/16/2024 1:30 PM POND TENDER Inhaled Oxygen Concentration - - Weight 81.6 kg (180 lb) 07/09/2024 11:31 PM POND TENDER Height 182.9 cm (6' 0.01 ) 07/09/2024 11:[address] Body Mass Index 24.41 07/09/2024 11:31 PM POND TENDER Plan of Treatment Health Maintenance Due Date Last Done Comments Depression Screening 1945 Hepatitis C Screening 1945 Hepatitis B Screening 1963 Zoster Vaccine (1 of 2) 1995 DTaP/Tdap/Td Vaccine (1 - Tdap) 07/03/2007 7 Well Visit 65+ 2010 Pneumococcal vaccine 65+ (2 of 2 - PPSV23) 05/24/2018 05/24/2017 Influenza Vaccine (#1) 2024 9, 05/06/2018, 04/23/2018, Additional history exists Fall Risk Assessment 07/16/2025 07/16/2024 Medical Devices Implanted Type Area Environmental Remediation Engineer Device Identifier Shelf Expiration Date Model / Serial / Lot Rods Bilateral: Back Depuy Spine [id number] Expedium 6mm 40mm 1 Innie Polyaxial Spine Screw Bone Titanium - [id number] Implanted:Qty: 3 on 04/28/2019 by Prateek Lemus MD at [facility] N/A: Spine Thoracic Depuy Spine [id number] / / Depuy Spine [id number] Expedium 6mm 35mm 1 Innie Polyaxial Spine Screw Bone Titanium - [id number] Implanted:Qty: 3 on 04/28/2019 by Prateek Lemus MD at [facility] N/A: Spine Thoracic Depuy Spine [id number] / / Depuy Spine [id number] Expedium 1 Inner Monoaxial Spine Screw Set Titanium - [id number] Implanted:Qty: 17 on 04/28/2019 by Prateek Lemus MD at [facility] N/A: Spine Thoracic Depuy Spine [id number] / / Depuy Spine [id number] Expedium Viper 2 5.5mm 480mm Straight Javier Spinal - [id number] Implanted:Qty: 2 on 04/28/2019 by Prateek Lemus MD at [facility] N/A: Spine Thoracic Depuy Spine [id number] / / Depuy Spine [id number] Fleming 5.5mm 2 End To End Spine Connector Javier Nonsterile - [id number] Implanted:Qty: 2 on 04/28/2019 by Prateek Lemus MD at [facility] N/A: Spine Thoracic Depuy Spine [id number] / / Depuy Spine [id number] Expedium 5.5mm Pedicle Hook Spinal Titanium - [id number] Implanted:Qty: 1 on 04/28/2019 by Prateek Lemus MD at [facility] N/A: Spine Thoracic Depuy Spine [id number] / / Abyrx Os-201 Hemasorb Os-Spa Spatula Wax 2gm Bone Sterile - [id number] Implanted:Qty: 1 on 04/28/2019 by Prateek Lemus MD at [facility] N/A: Spine Lumbar Abyrx 01/03/2022 OS-201 / / [id number] Medtronic Sofamor D[place]k [id number] Infuse 18mm 26mm Absorbable Sponge Sterile Water Syringe Needle - [id number] Implanted:Qty: 1 on 04/28/2019 by Prateek Lemus MD at [facility] N/A: Spine Lumbar Medtronic Inc 08/05/2020 [id number] / / [id number] Acuity [employer] Inc [id number] - [id number] - [id number] Implanted:Qty: 1 on 04/28/2019 by Prateek Lemus MD at [facility] N/A: Spine Lumbar [employer]uity [employer] Inc 03/05/2024 [id number] / [id number] / Spinal Graft Tech [id number] Magnifuse 10x2.5cm Posterolateral Graft Bone Demineralized Bone - [id number] - [id number] Implanted:Qty: 1 on 04/28/2019 by Prateek Lemus MD at [facility] N/A: Spine Lumbar Spinal Graft Tech 05/15/2020 [id number] / [id number] / Depuy Spine [id number] Expedium 7mm 40mm 1 Innie Polyaxial Spine Screw Bone Titanium - [id number] Implanted:Qty: 1 on 04/28/2019 by Prateek Lemus MD at [facility] N/A: Spine Thoracic Depuy Spine [id number] / / Depuy Spine [id number] Expedium 6.5mm 45mm Polyaxial Spine Screw Bone Titanium 5.5mm Javier - [id number] Implanted:Qty: 2 on 04/28/2019 by Prateek Lemus MD at [facility] N/A: Spine Thoracic Depuy Spine [id number] / / Depuy Spine [id number] Expedium 6.5mm 40mm Polyaxial Spine Screw Bone Titanium 5.5mm Javier - [id number] Implanted:Qty: 1 on 04/28/2019 by Prateek Lemus MD at [facility] N/A: Spine Thoracic Depuy Spine [id number] / / Depuy Spine [id number] Expedium 6mm 45mm 1 Innie Polyaxial Spine Screw Bone Titanium - [id number] Implanted:Qty: 4 on 04/28/2019 by Prateek Lemus MD at [facility] N/A: Spine Thoracic Depuy Spine [id number] / / Delivered Inc [id number] Osteoset Resorbable Bead Kit 25ml Bone Graft Calcium Sulfate - [id number] Implanted:Qty: 1 on 06/01/2019 by Magdy Apple MD at [facility] N/A: Back Delivered Inc 11/10/2026 [id number] / / [id number] Description:mixed with 1.2 g of Tobramycin Delivered Inc 8336-9555 Osteoset Resorbable Bead Kit 25ml Bone Graft Calcium Sulfate - [id number] Implanted:Qty: 1 on 06/01/2019 by Magdy Apple MD at [facility] N/A: Back Delivered Inc 04/13/2025 [id number] / / [id number] Description:Mixed with 1.2 g of Tobramycin Delivered Inc 3383-8077 Osteoset 2 Mold Resorbable Bead Standard Curve Graft Synthetic - [id number] Implanted:Qty: 1 on 06/01/2019 by Magdy Apple MD at [facility] N/A: Back Delivered Inc 01/05/2027 [id number] / / [id number] Description:Mixed with 1 g o f vancomycin Delivered Inc 0782-3802 Osteoset 2 Mold Resorbable Bead Standard Curve Graft Synthetic - [id number] Implanted:Qty: 1 on 06/01/2019 by Magdy Apple MD at [facility] N/A: Back Delivered Inc 02/17/2026 4375-1860 / / [id number] Description:Mixed with 1 g o f vancomycin [employer] Inc 66mm Primary Modular Multihole Hip Shell Acetabular Trabecular [id number] - [id number] Implanted:Qty: 1 on 07/10/2024 at [facility] Left: Hip [employer] 11/03/2024 [id number] / / [id number] [employer] Inc Trilogy 6.5mm 40mm Self Tap Hip Acetabular Cortical Screw Bone [id number] - [id number] Implanted:Qty: 1 on 07/10/2024 at [facility] Left: Hip [employer] 02/28/2034 [id number] / / [id number] [employer] Inc Trilogy 6.5mm 35mm Self Tap Screw Bone [id number] - [id number] Implanted:Qty: 1 on 07/10/2024 at [facility] Left: Hip [employer] 11/27/2033 [id number] / / [id number] G[employer] Inc Trilogy 6.5mm 40mm Self Tap Hip Acetabular Cortical Screw Bone [id number] - [id number] Implanted:Qty: 1 on 07/10/2024 at [facility] Left: Hip [employer] 09/28/2033 [id number] / / [id number] [employer] Inc G7 Type 1 Hip +6mm Offset Taper Sleeve Centering Titanium Biolox 650-1068 - [id number] Implanted:Qty: 1 on 07/10/2024 at [facility] Left: Hip [employer] 11/06/2032 650-1068 / / [id number] [employer] Inc Trilogy 6.5mm 20mm Self Tap Screw Bone [id number] - [id number] Implanted:Qty: 1 on 07/10/2024 at [facility] Left: Hip [employer] 02/20/2033 [id number] / / [id number] [employer] Inc Trilogy 6.5mm 25mm Self Tap Screw Bone [id number] - [id number] Implanted:Qty: 1 on 07/10/2024 at [facility] Left: Hip [employer] 01/15/2033 [id number] / / [id number] [employer] Inc Trilogy 6.5mm 15mm Self Tap Screw Bone [id number] - [id number] Implanted:Qty: 1 on 07/10/2024 at [facility] Left: Hip [employer] 10/16/2033 [id number] / / [id number] [employer] Trilogy 66mm 36mm 11.4mm Constrained Hip Liner Acetabular [id number] - [id number] Implanted:Qty: 1 on 07/10/2024 at [facility] Left: Hip [employer] 10/08/2027 [id number] / / [id number] [employer] Inc G7 36mm Hip Head Femoral Biolox Delta Option 650-1057 - [id number] Implanted:Qty: 1 on 07/10/2024 at [facility] Left: Hip [employer] Inc 09/02/2031 650-1057 / / [id number] Explanted Type Area Environmental Remediation Engineer Device Identifier Shelf Expiration Date Model / Serial / Lot [employer] Inc G7 [place] 36mm Type 1 Modular Hip +9mm Offset Head Femoral Cocr [id number] - [id number] Implanted:Qty: 1 on 05/07/2024 at [facility] Explanted:Qty: 1 on 07/10/2024 by Loco Lancaster MD at [facility] Left: Hip [employer] Inc 08/24/2032-517863 / / [id number] [employer] Inc Liner Acetabular Hip Vitamin E G7 [place] Vivacit E 36mm Polyethylene Size G [id number] - [id number] Implanted:Qty: 1 on 05/07/2024 at [facility] Explanted:Qty: 1 on 07/10/2024 by Loco Lancaster MD at [facility] Left: Hip [employer] Inc 09/03/2028 [id number] / / [id number] Description:Discarded to was te Hip Shell Explanted:Qty: 1 on 07/10/2024 by Loco Lancaster MD at [facility] Left: Hip Other 0 / / Description:Discarded to was te. Had no distinguishing king Procedures Procedure Name Priority Date/Time Associated Diagnosis Comments XR HIP LEFT W PELVIS 2 OR 3 VIEWS Schedule Routine, Read Routine (OP Routine) 09/01/2024 11:28 AM POND TENDER Left hip pain Aftercare following left hip joint replacement surgery from Last 3 Months Results * XR Hip Left 2 or 3 Views W Pelvis (09/01/2024 11:28 AM POND TENDER) Anatomical Region Laterality Modality Lower Extremities, Hip, Pelvis Left C omputed Radiography 09/01/2024 12:0 0 PM POND TENDER Impressions 09/01/2024 12:00 PM POND TENDER 1. 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 Electronically signed by: Black Warner M.D. Narrative 09/01/2024 12:00 PM POND TENDER EXAMINATION: XR HIP LEFT 2 OR 3 [...] t from Last 3 Months Insurance MEDICARE [facility] FEDERAL MEDICARE [facility] MEDICARE [facility] MEDICARE [facility] Advance Directives For more information, please contact: [phone] Documents on File Type Date Recorded Patient Office Equipment Technician Expl anation ADVANCE DIRECTIVE 05/15/2024 4:15 PM [facility] ADVANCE DIRECTIVE 06/14/2019 2:38 AM [facility] AD[facility]ANCE DIRECTIVE 06/04/2019 12:54 PM [facility] * Full Code (Latest Code Status on [...] 2:50 PM 05/04/2019 5:02 PM Care Teams Oil Rag Washer Relationship Specialty Start Date End Date Pako Chua MD [address] [place] [address] PCP - General Family Medicine 09/01/24 Tomy Cervantes MD Neurologist Neurology 12/31/18 Darrel Delaney MD [address] [address] Referring Physician Orthopedic Surgery 12/31/18 Miscellaneous, Not In File 08/26/19
[2024-11-01] MEDS: KETOROLAC 15 MG/ML VIAL (*BKC) IV PUSH (08:01)
[2024-11-01] MEDS: IPRATROPIUM BR 0.02% INH SOLN 0.5 MG/2.5 ML VIAL 1.5 MG INHALATION (08:05)
[2024-11-01] MEDS: ALBUTEROL SULFATE NEB 2.5 MG/3 ML INH 15 MG INHALATION (08:05)
--- NOTE | 2024-11-01 09:42 | ED_ITS ---
HPI - General Adult General Chief complaint: Upper Respiratory Infection Stated complaint: cough, sob Time Seen by Provider: 11/01/24 07:10 History of Present Illness HPI narrative: Patient is a 79-year-old male who presents ER with cough and shortness of breath from his intermediate. Has coarse cough with deep breath. Patient has some dementia and mumbles and moans. He likes to just say help but cannot state what he needs help with. No oxygen requirement. Related Data Home Medications ?Medication ?Instructions ?Recorded ?Confirmed ?Last Taken ?Type entacapone 200 mg tablet 200 mg PO QID 06/18/19 07/23/24 01/04/24 20:00 History acetaminophen 325 mg tablet 650 mg PO Q4H PRN Pain 06/27/21 07/23/24 01/04/24 20:00 History ketoconazole 2 % topical cream 1 applic topical Q12H PRN Dry Skin 06/27/21 07/23/24 12/02/22 12:25 History melatonin 5 mg capsule 5 mg PO QHS 06/27/21 07/23/24 01/04/24 20:00 History memantine 10 mg tablet 10 mg PO BID 06/27/21 07/23/24 01/04/24 17:00 History cyclosporine 0.05 % eye drops in a 1 drp EACH EYE Q12H 11/23/23 07/23/24 01/04/24 18:30 History dropperette (Restasis) diclofenac sodium 1 % topical gel 4 g topical QID 11/23/23 07/23/24 01/04/24 20:00 History latanoprost 0.005 % eye drops 1 drp EACH EYE QPM 11/23/23 07/23/24 01/04/24 20:00 History trolamine salicylate 10 % topical 1 applic topical TID PRN pain 11/23/23 07/23/24 Unknown History cream (Aspercreme) vit C-vit [id number] capsule 1 cap PO DAILY 11/23/23 07/23/24 01/04/24 09:00 History Allergies Allergy/AdvReac Type Severity Reaction Status Date / Time adhesive Allergy Unknown Unknown Verified 11/01/24 05:22 latex Allergy Unknown Unknown Verified 11/01/24 05:22 shrimp Allergy Unknown Verified 11/01/24 05:22 gabapentin AdvReac Unknown HALLUCINATI Verified 11/01/24 05:22 ONS Review of Systems 2 Review of Systems: ROS unobtainable: Yes unobtainable due to mental status PMFSH Past Medical History Medical History Anemia Anxiety Arthritis At high risk for falls after spinal surgery Chronic back pain CKD (chronic kidney disease) stage 3, GFR 30-59 ml/min Complication of surgical and medical care Dementia Essential (primary) hypertension GERD (gastroesophageal reflux disease) Glaucoma H/O: HTN (hypertension) History of inguinal hernia History of pneumonia Hx of hemorrhoids Hx of Parkinson's disease Hyperlipidemia LDL goal <100 Infection of spine Parkinsons disease Rupture of diaphragm Surgical History Surgical History History of cataract surgery History of cholecystectomy History of hemorrhoidectomy History of inguinal hernia repair History of left hip replacement History of spinal surgery x10. History of thyroidectomy Family History Family History Father Family history of Parkinson's disease Family history of colonic diverticulitis Hypertension Family history of cardiovascular disease Mother Family history of Alzheimer's disease Sibling Family history of malignant neoplasm of breast in first degree relative Diabetes mellitus Hypertension Other Family history of arthritis Family history of malignant neoplasm Social History Social History Smoking status: Never smoker Second hand tobacco smoke exposure: No Alcohol intake: unknown Substance use: unknown Substance use type: does not use Do You Feel Safe in your Home?: Yes Lack of Transportation: No Lack of Food: Never True Current Housing: I Have Housing Concerned About Future Housing: No Difficulty Paying Gas/Electric Bills: No Difficulty Paying for Meds: No Currently Unemployed: No Education: High School Diploma/GED Difficulty w/ Childcare or Family Care: No Gender identity (if verbalized by the patient): Male Spiritual care concerns: No Agree to blood products: Yes Exam 2 Narrative: GENERAL: Chronically ill-appearing, well-nourished, and in no acute distress. HEAD: Normocephalic, atraumatic. ENT: Mucous membranes moist. NECK: Supple. CHEST: Clear to auscultation. No respiratory distress. HEART: Regular rate and rhythm. Normal peripheral pulses. ABDOMEN: Soft, nontender, nondistended. EXTREMITIES: Normal range of motion. No edema. SKIN: Warm, dry, no rash. NEURO: No focal deficits. Alert and oriented x2. Course Course Emergency Course: Patient resting comfortably. Received hour long breathing treatment. Lungs clear. Will give some steroids for home as well as albuterol. Vital Signs Vital signs: Vital Signs Temperature 98.5 F 11/01/24 05:10 Pulse Rate 61 11/01/24 05:10 Respiratory Rate 14 11/01/24 05:10 Blood Pressure 135/76 11/01/24 05:10 Pulse Oximetry 96 11/01/24 05:10 Oxygen Delivery Room Air 11/01/24 05:10 Temperature 98.5 F 11/01/24 05:10 Pulse Rate 62 11/01/24 08:17 Respiratory Rate 13 11/01/24 08:17 Blood Pressure 170/69 H 11/01/24 08:17 Pulse Oximetry 97 11/01/24 08:06 Oxygen Delivery Room Air 11/01/24 08:06 Medical Decision Making Vital Signs Vital Signs: Vital Signs Temperature 98.5 F 11/01/24 05:10 Pulse Rate 61 11/01/24 05:10 Respiratory Rate 14 11/01/24 05:10 Blood Pressure 135/76 11/01/24 05:10 Pulse Oximetry 96 11/01/24 05:10 Oxygen Delivery Room Air 11/01/24 05:10 Temperature 98.5 F 11/01/24 05:10 Pulse Rate 62 11/01/24 08:17 Respiratory Rate 13 11/01/24 08:17 Blood Pressure 170/69 H 11/01/24 08:17 Pulse Oximetry 97 11/01/24 08:06 Oxygen Delivery Room Air 11/01/24 08:06 Lab Data 11/01/24 06:07 11/01/24 06:07 Labs: Lab Results 11/01/24 11/01/24 Range/Units 05:18 06:07 WBC 6.3 (4.5-10.0) K/mm3 RBC 4.59 L (4.6-6.20) M/mm3 Hgb 12.2 L D (14.0-18.0) g/dL Hct 40.4 L (42.0-52.0) % MCV 88.0 (80-100) fl MCH 26.6 (26-34) pg MCHC 30.2 L (32-36) g/dl RDW 22.1 H (11.5-14.5) % Plt Count 202 (150-375) k/mm3 MPV 9.5 (7.4-10.4) fl Immature Gran % (Auto) 1.3 H (0-0.5) % Neut % (Auto) 74.0 H (45.5-73.1) % Lymph % (Auto) 13.1 L (18.3-44.2) % [place] % (Auto) 5.8 (2.6-8.5) % Eos % (Auto) 5.5 H (0-4.4) % Baso % (Auto) 0.3 (0.2-1.2) % Lymph # (Auto) 0.83 L (0.9-3.2) K/mm3 [place] # (Auto) 0.4 (0.1-0.6) K/mm3 Eos # (Auto) 0.4 H (0-0.3) K/mm3 Baso # (Auto) 0.0 (0.0-0.1) K/mm3 Abs Immat Gran (auto) 0.08 H (0.00-0.031) K/mm3 Absolute Neuts (auto) 4.7 (1.3-6.7) K/mm3 Absolute Nucleated RBC 0.000 (0.0-0.012) K/mm3 Band Neutrophils % Not Reportable Nucleated RBC % 0.0 (0.0-0.2) % Platelet Estimate Adequate (Adequate) Anisocytosis 2+ Ovalocytes 1+ Schistocytes None seen Sodium 139 (137-145) mmol/L Potassium 3.9 (3.4-5.0) mmol/L Chloride 105 (98-107) mmol/L Carbon Dioxide 29 (22-30) mmol/L Anion Gap 5 (4-12) mmol/L BUN 20 (9-20) mg/dL Creatinine 0.80 (0.7-1.3) mg/dL Estim Creat Clear Calc 72 ml/min Estimated GFR > 60 (59 - ) Glucose 110 (65-110) mg/dL Calcium 8.4 (8.4-10.2) mg/dL Total Bilirubin 0.5 (0.2-1.3) mg/dL AST 13 L (17-59) U/L ALT < 6 L (6-50) U/L Alkaline Phosphatase 74 (38-126) U/L Total Protein 7.0 (6.3-8.2) g/dL Albumin 3.7 (3.5-5.1) g/dL Influenza A (RT-PCR) Negative (Negative) Influenza B (RT-PCR) Negative (Negative) RSV (RT-PCR) Negative (Negative) SARS-CoV-2 RNA (RT-PCR) Negative (Negative) Imaging Data Radiologist's impression: ITS Impressions Chest X-Ray 11/01/24 06:13 IMPRESSION: 1. Chronic elevation of left hemidiaphragm. ECG Data EKG #1: ECG completion date: 11/01/24 ECG completion time: : EKG Interpretation: bradycardia (52), sinus rhythm, no ectopy, normal QRS, normal QT and NL axis Discharge Plan Discharge Clinical Impression: Bronchitis Patient Disposition: Home, Self-Care Condition: Stable Instructions: Acute Bronchitis (ED) Additional Instructions: Please return to the emergency department if you develop severe and persistent chest pain, difficulty breathing, dizziness, leg swelling or if you are coughing up blood as these can be signs of a medical emergency. Please call your doctor for a follow up appointment to determine the need for further testing. Patient Language: Latvian Prescriptions: New prednisone 20 mg tablet 40 mg PO DAILY 7 Days Qty: 14 0RF albuterol sulfate 90 mcg/actuation HFA aerosol inhaler 4 puff inhalation QID PRN (Reason: shortness of breath or wheezing) Qty: 8.5 0RF No Action ketoconazole 2 % cream 1 applic topical Q12H PRN (Reason: Dry Skin) Rx Instructions: apply small amount to dryness on face and scalp q shift as needed melatonin 5 mg capsule 5 mg PO QHS memantine 10 mg tablet 10 mg PO BID entacapone 200 mg Tablet 200 mg PO QID carbidopa-levodopa [Sinemet] 25-100 mg Tablet 3 tablet PO 0500,1100,1700,2300 Qty: 100 0RF acetaminophen 325 mg tablet 650 mg PO Q4H PRN (Reason: Pain) sennosides-docusate sodium [Senokot-S] 8.6-50 mg Tablet 2 tab PO BID Qty: 60 0RF Eliquis 2.5 mg tablet 2.5 mg PO BID Qty: 60 0RF Rx Instructions: 30 days latanoprost 0.005 % Drops 1 drp EACH EYE QPM trolamine salicylate [Aspercreme] 10 % Cream 1 applic TOPICAL TID PRN (Reason: pain) Rx Instructions: apply to bilateral shoulders vit C-vit [id number] Capsule 1 cap PO DAILY cyclosporine [Restasis] 0.05 % Dropperette 1 drp EACH EYE Q12H diclofenac sodium 1 % Gel 4 g TOPICAL QID Rx Instructions: apply to R shoulder and R upper arm polyethylene glycol 3350 17 gram Powder In Packet 17 g PO DAILY PRN (Reason: Constipation) Qty: 10 0RF tamsulosin 0.4 mg capsule 0.4 mg PO DAILY Qty: 90 3RF tramadol 50 mg tablet 50 mg PO TID PRN (Reason: Pain, Moderate) Qty: 5 0RF Follow-up/Referrals: Pako Chua MD [Primary Care Provider] -
[2024-11-01] MEDS: ACETAMINOPHEN 325 MG TABLET 650 MG PO (09:49)
--- NOTE | 2024-11-01 09:52 | PC.NURSE ---
pt c/o pain to his butt saying its on fire . this RN checked pt bottom, redness was noted to the area but no wounds
--- NOTE | 2024-11-01 10:24 | PC.NURSE ---
pt placed in blue scrub pants and rotated off his bottom to take some pressure off
--- NOTE | 2024-11-01 10:26 | PC.NURSE ---
pt had 18g RAC IV placed by [employer] shift supervisor. this RN removed catheter. catheter removed intact
== END 2024-11-01 11:51 | disposition home or self-care (01) ==
PROVIDERS: Emergency Medicine; Emergency Provider Emergency Medicine; PCP Family Medicine
DX: J40 Bronchitis, not specified as acute or chronic (principal); I12.9 Hypertensive chronic kidney disease with stage 1 through stage 4 chronic kidney disease, or unspecified chronic kidney disease; N18.30 Chronic kidney disease, stage 3 unspecified; F03.90 Unspecified dementia, unspecified severity, without behavioral disturbance, psychotic disturbance, mood disturbance, and anxiety; G20.A1 Parkinson's disease without dyskinesia, without mention of fluctuations; E89.0 Postprocedural hypothyroidism; E78.5 Hyperlipidemia, unspecified; H40.9 Unspecified glaucoma; K21.9 Gastro-esophageal reflux disease without esophagitis; M19.90 Unspecified osteoarthritis, unspecified site; Z96.642 Presence of left artificial hip joint; Z87.01 Personal history of pneumonia (recurrent); Z86.2 Personal history of diseases of the blood and blood-forming organs and certain disorders involving the immune mechanism; Z90.49 Acquired absence of other specified parts of digestive tract; Z98.49 Cataract extraction status, unspecified eye; Z79.01 Long term (current) use of anticoagulants; Z79.899 Other long term (current) drug therapy
CPT/HCPCS: 36415; 71045; 80053; 85025; 87637; 93005; 94640; 96374; 99284; A9270; J1885